=== PATIENT | male | born 1955 | race Caucasian/White ===

== ENCOUNTER 2017-10-02 09:00 | Outpatient (RCR) | payer OTHER, SELFPAY ==
[2017-04-22 08:26] VITALS: BMI 35.9
== END 2017-10-14 23:59 ==
LOC: NS 09:00
PROVIDERS: Family Provider Family Medicine; PCP Family Medicine; Visit Provider Internal Medicine Cardiovascular Disease
DX: E11.9 Type 2 diabetes mellitus without complications (principal); I25.10 Atherosclerotic heart disease of native coronary artery without angina pectoris; E66.9 Obesity, unspecified; Z95.5 Presence of coronary angioplasty implant and graft; Z71.3 Dietary counseling and surveillance
CPT/HCPCS: 97803

== ENCOUNTER 2017-10-30 09:00 | Outpatient (RCR) | payer OTHER, SELFPAY ==
[2017-04-22 08:26] VITALS: BMI 35.9
[2017-10-07 11:56] VITALS: BP 120/74; BMI 33.8
== END 2017-11-11 23:59 ==
LOC: NS 09:00
PROVIDERS: Family Provider Family Medicine; PCP Family Medicine; Visit Provider Internal Medicine Cardiovascular Disease
DX: E11.9 Type 2 diabetes mellitus without complications (principal); I25.10 Atherosclerotic heart disease of native coronary artery without angina pectoris; Z95.5 Presence of coronary angioplasty implant and graft; E66.9 Obesity, unspecified; Z71.3 Dietary counseling and surveillance
CPT/HCPCS: 97803

== ENCOUNTER 2017-11-13 09:45 | Outpatient (RCR) | payer OTHER, SELFPAY ==
[2017-04-22 08:26] VITALS: BMI 35.9
== END 2017-11-13 09:46 ==
LOC: NS 09:45
PROVIDERS: Family Provider Family Medicine; PCP Family Medicine; Visit Provider Internal Medicine Cardiovascular Disease
DX: E11.9 Type 2 diabetes mellitus without complications (principal); I25.10 Atherosclerotic heart disease of native coronary artery without angina pectoris; E66.9 Obesity, unspecified; Z71.3 Dietary counseling and surveillance
CPT/HCPCS: 97803

== ENCOUNTER → 2018-03-25 12:32 | Outpatient (CLI) | payer OTHER, SELFPAY ==
[2017-04-22 08:26] VITALS: BMI 35.9
--- NOTE | 2018-03-25 12:41 | RAD_ITS ---
STUDY: X-RAY CHEST REASON FOR EXAM: Male, 62 years old. Worsening chest pain TECHNIQUE: PA and lateral views of the chest. COMPARISON: 04/10/2017 FINDINGS: The lungs are clear and expanded. There is no demonstrated pleural abnormality. Normal size heart. Normal mediastinum and jade. Normal visualized pulmonary arteries. Normal visualized aortic arch and descending thoracic aorta. Normal visualized thoracic spine. Normal visualized ribs, clavicles, and shoulders. There is no demonstrated abnormality of the visualized soft tissue structures of the upper abdomen. RAD/Chest PA and Lateral IMPRESSION: Normal x-ray examination of the chest. Electronically Signed: Isaiah Nam MD at 8:54 EDT , Service support ,
[2018-03-25 13:27] LABS: Absolute Neutrophil Count 4.1 X10^3/uL (2.0-7.7); Basophil# 0.02 X10^3/uL; Basophil% 0.3 % (0-1); Eosinophil# 0.09 X10^3/uL; Eosinophils% 1.3 % (0-5); Hematocrit 41.6 % (40-54); Hemoglobin 14.4 g/dl (13.0-16.5); Lymphocyte % 29.9 % (19-41); Mean Corp Hgb Conc 34.6 g/gl (32-36); Mean Corpuscular Hgb 32.3 pg (27.0-32.0); Mean Corpuscular Volume 93.3 fL (80-94); Mean Platelet Vol. 9.9 fl (6.2-12.0); Monocyte# 0.45 X10^3/uL; Monocyte% 6.7 % (0-10); Neutrophil # 4.11 X10^3/uL (2.7-7.7); Neutrophil % 61.7 % (47-70); Platelet Count 248 K/mm3 (150-450); RBC Distribution Width CV 12.7 % (11.6-14.6); RBC Distribution Width SD 42.5 fl (35.1-43.9); Red Blood Count 4.46 M/mm3 (4.6-6.2); White Blood Count 6.7 K/mm3 (4.4-11.0)
[2018-03-25 13:28] LABS: POSITIVE COUNT NO; POSITIVE DIFFERENTIAL NO; POSITIVE MORPHOLOGY NO
[2018-03-25 13:34] LABS: International Normalized Ratio 1.1; Partial Thromboplast Time 28.9 Seconds (24.1-36.2); Prothrombin Time (Protime)PT. 13.9 SECONDS (11.7-14.9)
[2018-03-25 13:46] LABS: Anion Gap 4 (5-15); BUN 12 mg/dL (7-18); BUN/Creat Ratio 12.7 RATIO (10-20); Chloride 107 mmol/L (98-107); Creatinine, Serum 0.94 mg/dL (0.70-1.30); EST Glomerular Filtration Rate 86 mL/min (>60); Est Glom Filt Rate - Afr Amer 105 mL/min (>60); Glucose 102 mg/dL (74-106); Sodium Level 144 mmol/L (136-145)
== END ==
PROVIDERS: Family Provider Family Medicine; PCP Family Medicine; Visit Provider Internal Medicine Cardiovascular Disease
DX: I20.9 Angina pectoris, unspecified (principal)
CPT/HCPCS: 36415; 71046; 80048; 85025; 85610; 85730

== ENCOUNTER 2018-04-07 07:30 | Day surgery (SDC) | payer OTHER, SELFPAY ==
[2017-04-22 08:26] VITALS: BMI 35.9
[2018-04-06 12:06] VITALS: BMI 34.4
--- NOTE | 2018-04-07 18:07 | CL.D_ITS ---
Patient Name: Carina GALAVIZ Study Date: 04/07/2018 Performing: Adrian Solis MD Ht: 69 inches 175 cm : 1955 Wt: 234 lbs 106 kg Age: 62 Gender: male BSA: 2.2 PROCEDURE(S) PERFORMED IK77-TVW/COR/LV CLINICAL PROFILE AND INDICATIONS Indications: Worsening Angina Heart Failure: None Stress/Imaging Stress/Image Study Performed: No Angina Classification Anginal Classification w/in 2 Weeks: CCS III CAD Presentations: Other: Chest Discomfort c/w Accelerating Angina Pectoris CONCLUSIONS Elevated Left Ventricular End Diastolic Pressure Normal LV size, wall motion,and systolic function LVEF: by LV gram 60 % Elem Multivessel CAD (RCA: previously placed mid and distal stents patent with minimal luminal irre gularities) RECOMMENDATIONS Risk factor modification Medical therapy DESCRIPTION OF PROCEDURE The patient arrived to the procedure lab. The risks and benefits of the procedure as well as a full d escription of our services here and current unavailability of surgical backup were fully explained to the patient and/or their significant other prior to the catheterization. The Timeout was completed, verifying the correct patient and procedure. The patient's procedural site was prepped and draped in the usual fashion. Local anesthetic was given subcutaneously to right groin region with Lidocaine 2%. Using a modified Seldinger technique, arterial access was obtained via the right femoral artery, a 4 Fr sheath was inserted Left Coronary Artery selective angiography was performed in multiple views us ing a 4 Fr. JL5 catheter. Right Coronary Artery selective angiography was then performed in multiple views using a 4 Fr. 3DRC catheter. Left Ventriculography was performed in EMERY projection using a 4 Fr . Pigtail catheter. LV to AO pullback pressures were then recorded.The arterial sheath was pulled and manual compression applied until hemostasis is achieved. CORONARY ANGIOGRAPHY DOMINANCE: Right Dominant LEFT HEART ASSESSMENT Left Ventricular Ejection Fraction: by LV Gram 60 % Normal LV wall motion Elevated Left Ventricular End Diastolic Pressure LVEDP: 15 mmHg LEFT MAIN: Mild luminal irregularities LEFT ANTERIOR DECENDING ARTERY: PROX LAD: Eccentric: 10-25 % Stenosis MID LAD: Eccentric: 10-25 % Stenosis CIRCUMFLEX ARTERY: Mild luminal irregularities RIGHT CORONARY ARTERY: MID RCA: Previously placed stent is patent with minimal luminal irregularities DISTAL RCA: Previously placed stent is patent with minimal luminal irregularities VALVE FINDINGS: Normal Aortic Valve function Normal Mitral Valve function AORTIC ROOT: Angiographically normal COMPLICATIONS No Complications PROCEDURE MEDICATIONS Versed 1 mg IV Versed 1 mg IV Baby Aspirin (81mg) 1 Tabs PO @ 04/07/2018 08:03:21 SUMMARY OF HEMODYNAMIC DATA Time AIR REST ECG 07:54:25 AO 108/81 (95) SA 09:43:20 LV 131/-5, 25 09:49:25 LV 128/-6, 15 09:49:32 LV 127/-2, 20 09:50:23 LVp 127/-2, 19 09:50:28 AOp 121/69 (92) 09:50:33 AO 130/72 (97) 09:50:48 Signed By Adrian Solis MD On 04/07/2018 18:06:36 Adrian Solis MD
== END 2018-04-07 14:40 ==
LOC: CLSP 07:31
PROVIDERS: Family Provider Family Medicine; PCP Family Medicine; Visit Provider Internal Medicine Cardiovascular Disease
DX: I25.119 Atherosclerotic heart disease of native coronary artery with unspecified angina pectoris (principal); I10 Essential (primary) hypertension; E78.5 Hyperlipidemia, unspecified; E11.9 Type 2 diabetes mellitus without complications; Z95.5 Presence of coronary angioplasty implant and graft; Z79.82 Long term (current) use of aspirin; Z79.01 Long term (current) use of anticoagulants; Z79.899 Other long term (current) drug therapy; Z87.891 Personal history of nicotine dependence
CPT/HCPCS: 93458; 99152; 99153; J7040; C1769; C1894; Q9967

== ENCOUNTER → 2018-04-20 06:33 | Outpatient (CLI) | payer OTHER, SELFPAY ==
[2017-04-22 08:26] VITALS: BMI 35.9
--- NOTE | 2018-04-20 13:52 | STRESSREP ---
Stress Test Report Date: 04/20/2018 Procedure: Exercise tolerance test/imaging study Indications: Chest pain; CAD; status post PCI Consent: Per the patient Procedure: The patient exercised on a Juancarlos protocol for 9 minutes completing Stage III achieving a peak heart rate of 139 bpm (86 % predicted maximal heart rate) with a peak blood pressure 182/78 mmHg and a peak MET capacity of 10 METs. The baseline ECG demonstrated normal sinus rhythm. The peak exercise ECG demonstrated no obvious ECG changes. It was an isolated PVC during exercise. The functional capacity was considered good. There was localized right-sided chest discomfort pretest, during exercise, and recovery. The examination was discontinued secondary to dyspnea. Impression: 1. Technically adequate (percent predicted maximal heart rate greater than 85%) exercise tolerance test 2. Peak exercise ECG with no obvious ECG changes 3. There was an isolated PVC during exercise. 4. Nuclear images pending Myocardial perfusion imaging study: Technique: The patient was injected with 11 mCi of technetium 99m Cardiolite and subsequently rest SPECT Cardiolite nuclear imaging was obtained in the horizontal long, vertical long, and short axis views. The patient exercised on a Juancarlos protocol for 9 minutes completing Stage III achieving a peak heart rate of 139 bpm (86 % predicted maximal heart rate) with a peak blood pressure 182/78 mmHg and a peak MET capacity of 10 METs. The patient was injected with 32.9 mCi of technetium 99m Cardiolite and subsequently stress SPECT Cardiolite nuclear imaging was obtained in the horizontal long, vertical long, and short axis views. A gated Cardiolite study at peak stress was obtained. Interpretation: Rest and stress SPECT Cardiolite nuclear imaging status post realignment, normalization, and attenuation correction, demonstrates the appearance of relative uniform tracer uptake and myocardial perfusion appearing within normal limits. There were no obvious myocardial perfusion changes noted on the resting or stress polar map images. There is end systolic thickening and brightening. The gated Cardiolite study demonstrates myocardial thickening and inward wall motion. The reported LVEF is 65 %. Impression: 1. Rest and stress SPECT Cardiolite nuclear imaging demonstrate relative uniform tracer uptake and myocardial perfusion appearing within normal limits. 2. The gated Cardiolite study reports an LVEF of 65 %. This note was generated with [email or web address] software. It may contain incorrect words, spelling, and punctuation that were not noted in checking the note before signing.
--- NOTE | 2018-04-20 13:56 | STRESSREP_ITS ---
Stress Test Report Date: 04/20/2018 Procedure: Exercise tolerance test/imaging study Indications: Chest pain; CAD; status post PCI Consent: Per the patient Procedure: The patient exercised on a Juancarlos protocol for 9 minutes completing Stage III achieving a peak heart rate of 139 bpm (86 % predicted maximal heart rate) with a peak blood pressure 182/78 mmHg and a peak MET capacity of 10 METs. The baseline ECG demonstrated normal sinus rhythm. The peak exercise ECG demonstrated no obvious ECG changes. It was an isolated PVC during exercise. The functional capacity was considered good. There was localized right-sided chest discomfort pretest, during exercise, and recovery. The examination was discontinued secondary to dyspnea. Impression: 1. Technically adequate (percent predicted maximal heart rate greater than 85% ) exercise tolerance test 2. Peak exercise ECG with no obvious ECG changes 3. There was an isolated PVC during exercise. 4. Nuclear images pending Myocardial perfusion imaging study: Technique: The patient was injected with 11 mCi of technetium 99m Cardiolite and subsequently rest SPECT Cardiolite nuclear imaging was obtained in the horizontal long, vertical long, and short axis views. The patient exercised on a Juancarlos protocol for 9 minutes completing Stage III achieving a peak heart rate of 139 bpm (86 % predicted maximal heart rate) with a peak blood pressure 182/ 78 mmHg and a peak MET capacity of 10 METs. The patient was injected with 32.9 mCi of technetium 99m Cardiolite and subsequently stress SPECT Cardiolite nuclear imaging was obtained in the horizontal long, vertical long, and short axis views. A gated Cardiolite study at peak stress was obtained. Interpretation: Rest and stress SPECT Cardiolite nuclear imaging status post realignment, normalization, and attenuation correction, demonstrates the appearance of relative uniform tracer uptake and myocardial perfusion appearing within normal limits. There were no obvious myocardial perfusion changes noted on the resting or stress polar map images. There is end systolic thickening and brightening. The gated Cardiolite study demonstrates myocardial thickening and inward wall motion. The reported LVEF is 65 %. Impression: 1. Rest and stress SPECT Cardiolite nuclear imaging demonstrate relative uniform tracer uptake and myocardial perfusion appearing within normal limits. 2. The gated Cardiolite study reports an LVEF of 65 %. This note was generated with [email or web address] software. It may contain incorrect words, spelling, and punctuation that were not noted in checking the note before signing.
--- NOTE | 2018-04-20 15:31 | PFTCOMP ---
COMPLETE PULMONARY FUNCTION TEST INTERPRETATION Brief HPI: Patient is a 62 year old male, currently under the care of Dr. Solis, who presents to [facility] for complete pulmonary function tests secondary to diagnosis of chest pain. Respiratory therapist reports good effort and reproducible results. Interpretation: Forced expiration spirometry shows no large airways obstructive ventilatory defect with an FEV1 of 87% predicted. There is no significant bronchodilator response by ATS criteria. Spirograms are of good quality and plateau normally. The respiratory flow volume loop shows a normal pattern. Lung volumes by body plethysmography show a normal total lung capacity at 7.05 L, 110% predicted. All other lung volumes are within normal limits. Diffusion capacity by carbon monoxide is normal at 89% predicted. The airway resistance is normal. No previous pulmonary function tests were available for review. Impression: These pulmonary function tests are within normal limits
== END ==
PROVIDERS: Family Provider Family Medicine; PCP Family Medicine; Visit Provider Internal Medicine Cardiovascular Disease
DX: I25.119 Atherosclerotic heart disease of native coronary artery with unspecified angina pectoris (principal); I10 Essential (primary) hypertension; R06.09 Other forms of dyspnea; R07.9 Chest pain, unspecified; Z95.5 Presence of coronary angioplasty implant and graft
CPT/HCPCS: 78452; 93017; 94060; 94726; 94729; A9500; A4216

== ENCOUNTER 2018-06-21 06:58 | Day surgery (SDC) | payer OTHER, SELFPAY ==
[2017-04-22 08:26] VITALS: BMI 35.9
[2018-06-21 07:25] VITALS: BP 136/80; PULSE 74; RESP 16; TEMP 36.5; O2SAT 100; BMI 35.9
[2018-06-21 08:00] LABS: Bedside Glucose 110 mg/dL (70-110)
--- NOTE | 2018-06-21 08:00 | EGD_PTH ---
PATIENT: REMEDIOS GALAVIZ LOC: EN U#:[id number] AGE/SX: 62/M ROOM: RE06/21/[address]: Dr. Colni Benavidez MD : 1955 BED: DIS: 06/21/2018 SPEC #: [id number] RECD: 06/21/18 10:26 STATUS: MOHINI NITIN #: [id number] BRENDON: 06/21/18 08:[address]: Colin Benavidez DEPT: SURGICAL PATHOLOGY RECD BY: Loida Sanchez ENTERED: 06/21/18 12:11 SP TYPE: EGD BIOPSY OT DR: Dr. Mendoza Gonzales, DO Tissues: A - Duodenum, NOS B - Gastric mucous membrane C - POLYP Procedures: Surgery Specimen Level IV HEADER OPERATION: E[place] ([facility] [place] PRE-OP DIAGNOSIS: Dysphagia, gastroesophageal reflux TISSUE SUBMITTED: A - Duodenal biopsy, B - Antrum biopsy for H. pylori and path, C - Gastric polyp biopsy MICROSCOPIC DIAGNOSIS A. Duodenum, biopsy: Consistent with mild Loretta's gland hyperplasia. B. Gastric antrum, biopsy: Mild chronic gastritis. C. Gastric polyp, biopsy: Fundic gland polyp. AM:maria eugenia 06/22/18 COMMENT B. The results of immunohistochemistry for Helicobacter pylori will be reported separately ([id number]). MICROSCOPIC DESCRIPTION Slides are reviewed. GROSS DESCRIPTION A - Received in fixative is one container labeled with the patient's name and designated duodenal biopsy. The specimen consists of multiple irregular fragments of light zhang soft tissue that in aggregate measure 0.5 x 0.2 x 0.1 cm. The specimen is totally submitted in one cassette. B - Received in fixative is one container labeled with the patient's name and designated antrum biopsy. The specimen consists of one irregular fragment of light zhang soft tissue that measures 0.3 x 0.2 x 0.1 cm. The specimen is totally submitted in one cassette. C - Received in fixative is one container labeled with the patient's name and designated gastric polyp biopsy. The specimen consists of one irregular fragment of light zhang soft tissue that measures 0.4 x 0.3 x 0.1 cm. The specimen is totally submitted in one cassette. / HASEEB:maira eugenia 06/21/18 TC:3 CPT: 54644 x3
--- NOTE | 2018-06-21 08:00 | IMM_PTH ---
PATIENT: REMEDIOS GALAVIZ LOC: EN U#:[id number] AGE/SX: 62/M ROOM: RE06/21/[address]: Dr. Colin Benavidez MD : 1955 BED: DIS: 06/21/2018 SPEC #: [id number] RECD: 06/21/18 15:26 STATUS: MOHINI REMitchell #: [id number] BRENDON: 06/21/18 08:[address]: Colin Benavidez DEPT: IMMUNOHISTOCHEMISTRY RECD BY: Kaela Mojica ENTERED: 06/21/18 15:27 SP TYPE: IMMUNO OTHR DR: Dr. Mendoza Gonzales DO Tissues: B - Stomach, NOS Procedures: H Pylori (initial) PHYSICIAN & INSTITUTION [place] [address] SPECIMEN INFORMATION: Tissue Source: B - Antrum biopsy Clinical Info: Dysphagia, GERD Specimen Number: [id number] CPT code: 69683 METHODOLOGY: Deparaffinized sections of prefer/formalin-fixed tissue or PAP/DQ stained slides are incubated with monoclonal/polyclonal antibodies/oligonucleotide probes. Localization is made via biotin free immunoperoxidase method. Appropriate controls are performed and reacted as expected. Results on target cell population are indicated in the following table: RESULTS: ANTIBODY / CLONE RESULT Block B H Pylori (polyclonal) negative These tests were developed and their performance characteristics determined by [facility]. They may not have been cleared or approved by the U.S. Food and Drug Administration. The FDA has determined that such clearance or approval is not necessary. INTERPRETATION: B. Antrum, biopsy: Negative for Helicobacter pylori organisms. AM:maria eugenia 06/22/18
[2018-06-21 08:18] VITALS: BP 114/65; BP 136/80; PULSE 67; RESP 14; TEMP 36.6; O2SAT 95
--- NOTE | 2018-06-21 08:21 | OP.ENDO_ITS ---
Patient Name: Carina Cervantes Procedure Date: 06/21/2018 7:59 AM Date of : 1955 Age: 62 Procedure: Upper GI endoscopy Indications: Dysphagia, Gastro-esophageal reflux disease Providers: Colin Benavidez MD Referring MD: Mendoza Gonzales DO; Adrian Solis MD Medicines: See the Anesthesia note for documentation of the administered medications Complications: No immediate complications. Procedure: Pre-Anesthesia Assessment: - Prior to the procedure, a History and Physical was performed, and patient medications and allergies were reviewed. The patient's tolerance of previous anesthesia was also reviewed. The risks and benefits of the procedure and the sedation options and risks were discussed with the patient. All questions were answered, and informed consent was obtained. Prior Anticoagulants: The patient has taken Plavix (clopidogrel), last dose was 7 days prior to procedure. ASA Grade Assessment: III - A patient with severe systemic disease. After reviewing the risks and benefits, the patient was deemed in satisfactory condition to undergo the procedure. After obtaining informed consent, the endoscope was passed under direct vision. Throughout the procedure, the patient's blood pressure, pulse, and oxygen saturations were monitored continuously. The gastroscope was introduced through the mouth, and advanced to the second part of duodenum. The upper GI endoscopy was accomplished without difficulty. The patient tolerated the procedure well. Moderate Sedation: Moderate (conscious) sedation was personally administered by an anesthesia professional. The following parameters were monitored: oxygen saturation, heart rate, blood pressure, and response to care. Scope In: 8:08:29 AM Scope Out: 8:13:10 AM Total Procedure Duration Time 0 hours 4 minutes 41 seconds Findings: The nasopharynx was normal. No biopsies or other specimens were collected for this exam. The Z-line was regular and was found 40 cm from the incisors. No biopsies or other specimens were collected for this exam. A few less than 5 mm sessile polyps with no bleeding and no stigmata of recent bleeding were found on the greater curvature of the stomach. The polyp was removed with a jumbo cold forceps. Resection and retrieval were complete. Biopsies were taken with a cold forceps for histology. Localized minimal inflammation characterized by erythema was found in the prepyloric region of the stomach. Biopsies were taken with a cold forceps for Helicobacter pylori testing. The examined duodenum was normal. Biopsies for histology were taken with a cold forceps for evaluation of celiac disease. Impression: - Normal nasopharynx. - Z-line regular, 40 cm from the incisors. No specimens collected. - A few gastric polyps. Resected and retrieved. Biopsied. - Gastritis. Biopsied. - Normal examined duodenum. Biopsied. Recommendation: - Await pathology results. - Repeat upper endoscopy in 3 years for surveillance. - Return to my office in 1 week. - Resume Plavix (clopidogrel) at prior dose tomorrow. Procedure Code(s): --- Professional --- 00012, Esophagogastroduodenoscopy, flexible, transoral; with biopsy, single or multiple Diagnosis Code(s): --- Professional --- K31.7, Polyp of stomach and duodenum K29.70, Gastritis, unspecified, without bleeding R13.10, Dysphagia, unspecified K21.9, Gastro-esophageal reflux disease without esophagitis CPT copyright 2017 [employer]. All rights reserved. The codes documented in this report are preliminary and upon silk soaker review may be revised to meet current compliance requirements. MD Colin Steve MD 06/21/2018 8:20:44 AM This report has been signed electronically. Number of Addenda: 0 Note Initiated On: 06/21/2018 7:59 AM
[2018-06-21 08:30] VITALS: BP 136/80; BP 95/51; PULSE 66; RESP 14; O2SAT 94
[2018-06-21 08:35] VITALS: BP 106/67; BP 136/80; PULSE 73; RESP 14; O2SAT 95
[2018-06-21 08:40] VITALS: BP 115/69; BP 136/80; PULSE 71; RESP 14; TEMP 37.1; O2SAT 95
[2018-06-21 09:00] VITALS: BP 136/80
== END 2018-06-21 09:30 | disposition home or self-care (01) ==
LOC: EN 06:59 → AC 07:01
PROVIDERS: Family Provider Family Medicine; PCP Family Medicine; Referring Provider Surgery; Visit Provider Surgery
PROC: 0DJ08ZZ Inspection of Upper Intestinal Tract, Via Natural or Artificial Opening Endoscopic (ICD-10-PCS; CPT 43235; principal; 2018-06-21 07:55)
DX: K31.7 Polyp of stomach and duodenum (principal); K29.50 Unspecified chronic gastritis without bleeding; K21.9 Gastro-esophageal reflux disease without esophagitis; R13.10 Dysphagia, unspecified; I25.10 Atherosclerotic heart disease of native coronary artery without angina pectoris; I10 Essential (primary) hypertension; E78.00 Pure hypercholesterolemia, unspecified; E11.9 Type 2 diabetes mellitus without complications; G43.909 Migraine, unspecified, not intractable, without status migrainosus; Z95.5 Presence of coronary angioplasty implant and graft; Z79.01 Long term (current) use of anticoagulants; Z79.82 Long term (current) use of aspirin; Z79.899 Other long term (current) drug therapy; Z87.891 Personal history of nicotine dependence
CPT/HCPCS: 43239; 82962; 88305; 88342; J7120

== ENCOUNTER → 2018-09-28 12:18 | Outpatient (CLI) | payer OTHER, SELFPAY ==
[2017-04-22 08:26] VITALS: BMI 35.9
--- NOTE | 2018-09-28 12:24 | MRI_ITS ---
STUDY: MRI RIGHT REARFOOT WITHOUT CONTRAST REASON FOR EXAM: Heel pain radiating to paul. TECHNIQUE: Standardized fat and water weighted pulse sequences were obtained in all 3 orthogonal planes. COMPARISON: None. FINDINGS: Normal subcutis adipose space. Normal posterior tibialis tendon. Normal flexor digitorum longus tendon. There is a small volume of fluid in the flexor hallucis longus tendon sheath distal to the sustentaculum yuan, likely from communication with the tibiotalar articulation. Normal peroneus longus and brevis tendons. Normal tibialis anterior tendon. Normal extensor hallucis longus tendon. Normal extensor digitorum longus tendons. Normal Achilles tendon and teno-osseous insertion. There is interstitial edema in the central cord of the plantar fascia at the calcaneal origin (inversion recovery sagittal images 9-11) consistent with plantar fasciitis. There is a plantar calcaneal enthesophyte (T1 sagittal images 11-13) and mild reactive bone edema in the posterior tuberosity of the calcaneus at the origin the plantar fascia (inversion recovery sagittal images 10-12). There is mild atrophy with mild partial fat replacement of the abductor digiti minimi muscle (T1 sagittal image 18). Normal distal tibiofibular syndesmotic ligamentous complex. Normal lateral ligamentous complex. Normal subtalar ligaments and sinus tarsi. Normal deltoid ligamentous complexes. Normal plantar calcaneonavicular (spring) ligament. Normal tibiotalar articulation. Normal talar dome. Normal subtalar articulations. Normal talonavicular articulation. Normal calcaneocuboid articulation. Normal navicular-cuneiform articulations. MRI/Lower Ext/No Jt/w/o IMPRESSION: Plantar fasciitis with mild reactive bone edema in the posterior tuberosity of the calcaneus and a plantar calcaneal enthesophyte. Mild atrophy of the abductor digiti minimi muscle. Electronically Signed: John Alejandre MD at 15:28 EST Tel , Service support ,
== END ==
PROVIDERS: Family Provider Family Medicine; PCP Family Medicine; Referring Provider Podiatrist; Visit Provider Podiatrist
DX: M72.2 Plantar fascial fibromatosis (principal); M77.31 Calcaneal spur, right foot
CPT/HCPCS: 73718

== ENCOUNTER → 2018-11-18 09:21 | Outpatient (CLI) | payer OTHER, SELFPAY ==
[2017-04-22 08:26] VITALS: BMI 35.9
[2018-07-09 10:36] VITALS: BMI 37.4
[2018-11-18 09:23] LABS: Bacteria 0 SEEN /hpf (None Seen); Squamous Epithelial Cells - UA 0 SEEN /hpf (0-5); White Blood Cells 0 SEEN /hpf (0-5)
[2018-11-18 12:24] LABS: Absolute Neutrophil Count 3.2 X10^3/uL (2.0-7.7); Basophil# 0.03 X10^3/uL; Basophil% 0.6 % (0-1); Eosinophil# 0.12 X10^3/uL; Eosinophils% 2.2 % (0-5); Hematocrit 40.9 % (40-54); Hemoglobin 13.6 g/dl (13.0-16.5); Lymphocyte % 31.4 % (19-41); Mean Corp Hgb Conc 33.3 g/gl (32-36); Mean Corpuscular Hgb 32.1 pg (27.0-32.0); Mean Corpuscular Volume 96.5 fL (80-94); Mean Platelet Vol. 10.3 fl (6.2-12.0); Monocyte# 0.33 X10^3/uL; Monocyte% 6.1 % (0-10); Neutrophil # 3.23 X10^3/uL (2.7-7.7); Neutrophil % 59.5 % (47-70); Platelet Count 246 K/mm3 (150-450); RBC Distribution Width CV 12.5 % (11.6-14.6); RBC Distribution Width SD 42.4 fl (35.1-43.9); Red Blood Count 4.24 M/mm3 (4.6-6.2); White Blood Count 5.4 K/mm3 (4.4-11.0)
[2018-11-18 12:32] LABS: POSITIVE COUNT NO; POSITIVE DIFFERENTIAL NO; POSITIVE MORPHOLOGY NO
[2018-11-18 12:42] LABS: ALB/GLOB Ratio 1.4 RATIO (0.9-2.4); AST(SGOT) 22 U/L (15-37); Alanine Aminotransfer ALT/SGPT 36 U/L (16-61); Albumin, Serum 3.8 g/dL (3.2-5.0); Alkaline Phosphatase 105 U/L (45-117); Anion Gap 9 (5-15); BUN 13 mg/dL (7-18); BUN/Creat Ratio 15.3 RATIO (10-20); Calcium,Total 8.4 mg/dL (8.5-10.1); Chloride 110 mmol/L (98-107); Creatinine, Serum 0.85 mg/dL (0.70-1.30); EST Glomerular Filtration Rate 98 mL/min (>60); Est Glom Filt Rate - Afr Amer 118 mL/min (>60); Globulin 2.7 g/dL (2.2-4.2); Glucose 100 mg/dL (74-106); Potassium 4.2 mmol/L (3.5-5.1); Protein, Total 6.5 g/dL (6.4-8.2); Sodium Level 142 mmol/L (136-145); Thyroid Stim Hormone (TSH) 1.25 uIU/mL (0.358-3.74)
[2018-11-18 14:21] LABS: Color, Urine Yellow (Yellow); Glucose, Dipstick Normal (Normal); Ketone-Dipstick Negative (Negative); Leukocyte Esterase-Dipstick Negative /ul (Negative); Nitrite-Dipstick Negative (Negative); Occult Blood-Urine Negative /ul (Negative); Protein-Dipstick Negative (Negative); Urine Bilirubin Dipstick Negative (Negative); Urine Clarity Clear (Clear); Urine Urobilinogen Normal (Normal)
[2018-11-18 14:44] LABS: Mucous, Urine RARE /hpf (<or=2+); Red Blood Cells-Urine 0-5 SEEN /hpf (0-5)
== END ==
PROVIDERS: Family Provider Family Medicine; PCP Family Medicine; Referring Provider Family Medicine; Visit Provider Family Medicine
DX: I10 Essential (primary) hypertension (principal)
CPT/HCPCS: 36415; 80053; 81001; 84443; 85025

== ENCOUNTER 2018-11-26 09:46 | Day surgery (SDC) | payer OTHER, SELFPAY ==
[2017-04-22 08:26] VITALS: BMI 35.9
[2018-07-09 10:36] VITALS: BMI 37.4
[2018-11-26] VITALS (8 sets, daily range): BP systolic 120–142; BP diastolic 80–94; PULSE 58–71; RESP 16–18; TEMP 36.3–36.9; O2SAT 94–97; BMI 37.8
[2018-11-26 10:36] LABS: Bedside Glucose 114 mg/dL (70-110)
[2018-11-26] MEDS: Cefazolin 2 GM in 0.9% Normal Saline 100 ML IV (10:53)
[2018-11-26] MEDS: Bupivacaine Mpf 0.5% 30 ML VIAL (10:59)
--- NOTE | 2018-11-26 11:30 | RAD_ITS ---
STUDY: X-RAY - RIGHT FOOT CLINICAL: Male, 62 years old. Heel pain TECHNIQUE: 2 intraoperative view(s) of the foot. COMPARISON: Previous MRI FINDINGS: Limited lateral intraoperative views were performed as the patient has undergone fasciotomy of the plantar calcaneal spur. No complications noted. RAD/Foot 2 Views IMPRESSION: Calcaneal spurs Electronically Signed: Isaiah Nam MD at 12:39 EDT , Service support ,
--- NOTE | 2018-11-26 11:37 | RAD_ITS ---
STUDY: X-RAY - RIGHT CALCANEUS REASON FOR EXAM: Male, 62 years old. Postop from fasciotomy TECHNIQUE: 2 view(s) of the calcaneus were obtained. COMPARISON: None. FINDINGS: No demonstrated calcaneal fracture. There is a spur at the insertion of Achilles tendon. There has been previous reduction in the size of a spur at the insertion of the plantar aponeurosis. There is postoperative soft tissue swelling and subcutaneous emphysema. RAD/Calcaneus min 2 Views IMPRESSION: Postoperative changes, no acute findings Electronically Signed: Isaiah Nam MD at 13:03 EDT , Service support ,
--- NOTE | 2018-11-26 11:42 | DCINST_ITS ---
Discharge Diet: Light diet - advance as tolerated Discharge Activity: May Not Drive, Use Walker Weight Bearing Status: No weight bearing - No weightbearing right foot Keep extremity elevated above heart level: Right Leg - Keep foot elevated using pillows for at least 50 minutes of every hour Call your doctor if your incision/area has: Continuous Slow Oozing, Foul Smelling Discharge Call your doctor if you observe: Fever of 101 or Higher, Shortness of breath, Chest pain, Calf discomfort, Uncontrolled pain Cleanse incision/area with: Do not get Incision Wet, Keep Dressing Clean & Dry Allergies/Adverse Reactions: Allergies aspirin Adverse Reaction (Verified 11/19/18 11:29) Nausea/Vom/Diarrhea fluoxetine Adverse Reaction (Verified 11/19/18 11:29) Unknown rofecoxib [From Vioxx] Adverse Reaction (Verified 11/19/18 11:29) Nausea Medications to take at Discharge Carvedilol [Coreg] 25 mg PO BID 04/20/17 Lisinopril [Zestril] 20 mg PO DAILY 04/20/17 Rizatriptan Benzoate [Maxalt] 10 mg PO .X1 PRN 04/20/17 Torsemide [Demadex] 10 mg PO DAILY 04/20/17 Valacyclovir HCl [Valtrex] 1,000 mg PO BID PRN 04/20/17 Atorvastatin Calcium [Lipitor] 80 mg PO QHS #30 tab 04/22/17 Nitroglycerin [Nitrostat] 0.4 mg SUBLINGUAL Q5M PRN #1 bottle 04/22/17 tramadol 50 mg tablet 50 mg PO Q6H PRN 03/25/18 clopidogrel 75 mg tablet 75 mg PO DAILY #90 tab 05/20/18 Cefadroxil [Duricef] 500 mg PO Q12H #10 cap 11/26/18 Hydrocodone/Acetaminophen [Vicodin 5-300 mg Tablet] 1 - 2 tab PO Q6H PRN PRN 4 Days #30 tab 11/26/18 The following prescriptions were given: Hydrocodone/Acetaminophen [Vicodin 5-300 mg Tablet] 1 - 2 tab PO Q6H PRN PRN 4 Days #30 tab PRN Reason: Pain Cefadroxil [Duricef] 500 mg PO Q12H #10 cap Primary Care Physician: Jeff Wills MD [Primary Care Provider] - Test Results: Test results from this visit will be discussed in further detail at your follow- up appointment, if applicable. Please Follow Up With: Chad Nash DPM When: within 1 week, sooner if needed
--- NOTE | 2018-11-26 11:45 | OP.PCM_ITS ---
Report of Operation Date of Procedure: 11/26/18 Pre-Operative Diagnosis: Plantar fasciitis with infracalcaneal right spur Post-Operative Diagnosis: Same Surgery/Procedure Performed:: Plantar Fasciotomy with resection of infracalcaneal spur, right morning caregiver: yes - Dr. 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 He has elected to undergo surgical intervention - plantar fasciotomy with resection of infracalcaneal heel spur. This was discussed with him in detail, reviewed the possible benefits vs risks, goals, expectations, alternative options, and typica l healing/post op recovery. The consent forms were reviewed with him, and he freely signed them. All of his questions were answered. No guarantees were given nor implied. Operative Procedure: The patient was brought back into the operating room and was placed on the operating room table in the supine position. Patient was carefully secured to the operating room table with a safety belt around the waist. A time out was performed and the patient was properly identified and the surgical plan was confirmed. The patient received 2g of IV Cefazolin for antibiotic prophylaxis. A well padded pneumatic tourniquet was applied around the patient's right ankle. The patient received anesthesia per the anesthesiologist, and a total of 10mL of 0.5% Bupivacaine plain was given as a regional nerve block around the heel surgical site. The right foot was scrubbed, prepped, draped in the usual aseptic fashion. The right foot was elevated for 3 minutes and the right ankle pneumatic tourniquet was inflated to 250mmHg. An additional 6mL of 0.5% Bupivacaine plain was given as a regional nerve block around the heel surgical site. The infracalcaneal spur was visualized on intra operative fluoroscopy, image was saved. A skin incision was made to the medial hindfoot at the level of the plantar fascia and infracalcaneal spur, careful dissection was completed down through the subcutaneous tissue layer. A plane was created superiorly and inferiorly around the plantar fascia and the medial 50% of the plantar fascia was released via a plantar fasciotomy. It was noted there was significant thickening of the plantar fascia with fibrosis at this level consistent with chronic plantar fasciitis. The infracalcaneal spur was felt, and was carefully resected using a powered rasp. Resection of the infracalcaneal spur was confirmed using intraoperative fluoroscopy. Images pre and post infracalcaneal spur resection were saved. The site was flushed out with copious amounts of normal saline solution. The skin was reapproximated using 3-0 Nylon. The pneumatic tourniquet was deflated (total tourniquet time was 21 minutes), and there was immediate return of warmth and perfusion to the foot and to all toes o n the foot with normal temperature gradient and CFT < 2 seconds to all toes. Hemostasis was achieved. A dressing was applied which consisted of Betadine soaked adaptic, 4x4 gauze, Kerlix and hari bandage, being sure to apply it not to tight. The patient tolerated the above operative procedure well at the anesthesia well with no complication. The patient was transported to the recovery room with vital signs stable and in good condition. Post operative orders were placed. Post operative instructions were reviewed and dispensed verbal and written. No weightbearing right foot, keep right foot elevated for at least 50 minutes of every hour, keep dressing clean, dry and intact. Prescription for Vicodin 1-2 tabs PO q 6 hours prn pain was prescribed, also Cefadroxil 500mg PO q 12 hours for 5 days to help prevent infection as patient is diabetic. He is to follow up with me within 1 week or sooner if needed. Also post op calcaneus xrays (right) were obtained and reviewed in the PACU, 2 views. Findings show resection of infracalcaneal spur, otherwise no other acute findings and no complications seen. Grafts/Implants Used: None - Complications None
[2018-11-26] MEDS: HYDROcodone Bitartrate/Apap 5/325 Tablet PO (12:47)
== END 2018-11-26 13:50 | disposition home or self-care (01) ==
LOC: SDC 09:50 → AC 09:51
PROVIDERS: Family Provider Family Medicine; PCP Family Medicine; Referring Provider Podiatrist; Visit Provider Podiatrist
PROC: (CPT 28119; principal; 2018-11-26 11:15)
DX: M72.2 Plantar fascial fibromatosis (principal); M77.31 Calcaneal spur, right foot; I25.10 Atherosclerotic heart disease of native coronary artery without angina pectoris; I10 Essential (primary) hypertension; E78.5 Hyperlipidemia, unspecified; G43.909 Migraine, unspecified, not intractable, without status migrainosus; R73.02 Impaired glucose tolerance (oral); Z95.5 Presence of coronary angioplasty implant and graft; Z79.01 Long term (current) use of anticoagulants; Z79.899 Other long term (current) drug therapy
CPT/HCPCS: 01480; 28119; 73620; 73650; 76000; 82962; J7120

== ENCOUNTER 2019-02-04 08:30 | Outpatient (RCR) | payer OTHER, SELFPAY ==
[2017-04-22 08:26] VITALS: BMI 35.9
[2018-11-26 10:20] VITALS: BMI 37.8
--- NOTE | 2019-01-04 13:54 | HP.PTEVAL ---
Patient's Visit Information REMEDIOS GALAVIZ is a 63 year old M referred to Physical Therapy by Chad Nash DPM with a diagnosis of Plantarfasciotomy and Spur Resection. Date of Evaluation: 01/04/19 Physical Therapist: Cheryl Acosta DPT - Visit Plan Frequency: 2x /Week Duration: 4 Weeks Plan: Goals: wean from crutches. Transition to shoe 01/14/19. LE ROM, strength, proprioception - Subjective Findings: 11/26/18 Plantar Fasciotomy and resection of calcaneal spur- by Dr. Nash. Jumped off a tailgate a year ago- had cortisone prior to surgery. Patient reports the bottom of the foot and around the heel are burning. Today is the first time he has had surgical site pain due to walking. Worst: 5/10 Agg: being up on it, standing on it. Eases: getting off of it. Best: 0/10 does have mild radiating to the knee 3/10 in that area. Does have discomfort when he gets up in the AM- sits on the edge of the bed and stretching it- takes the boot off at night. In the boot anytime he is up and moving. Sleep: not disturbed. Pain that he was having before is gone. Fully I prior to injury. Work: [employer]- up/down a lot during the day. 60% in the office and 40% in the community. Is not driving currently. Usually wears tactile boots. Is not currently doing exercises at this time. No N/T in the LE. PMHx: HTN, borderline Type 2, 2 heart Stents Apr 21, 2017 Dr. Solis. - Objective Posture: FH, RS, can correct but does not maintain. Gait: antalgic- CAM walker on the right LE- crutch on the right side- decreased stance on the right LE. SLS: WS but unable to SLS with the boot and reports discomfort in the ball of the heel. Seated HR/TR: able. ROM: DF: 5 degrees, PF: 60 degrees, Ever: 10 degrees Inv: 50 degrees. Strength: 4+/5 throughout ankle. Girth: Figure 4: 57 cm. Palpation: not tender to touch - Goals Goal 1:: Patient will be I with HEP and progression Goal Time Frame: 4-6 Weeks Goal 2:: Patient will SLS for 30 sec without LOB Goal Time Frame: 4-6 Weeks Goal 3:: Patient will ambulate >300 feet with a normalized gait pattern with no AD or boot as per MD recommendation Goal Time Frame: 4-6 Weeks - Rehabilitation Potential Physical Therapy Diagnosis: Patient presents with hypomobility- he has decreased ROM, strength and muscular endurnance leading to poor balance and abnormal gait pattern with decreased ability to perform ADL's. Rehabilitation Potential: Good - Anticipated Interventions Patient/Client Instruction: Educate patient on: Benefits of Fitness Program Therapeutic Exercise to Include: Strength training, Endurance training, Balance training, Agility training, Body mechanics, Postural training, Flexibilty training, Gait and locomotor training, Passive ROM, Active ROM, Dynamic Lumbar Stabilization For the Purpose of:: To improve muscle performance and motor function TENS: Yes Cryotherapy (ice pack, ice massage): Yes Thermo therapy (hot pack): Yes Ultrasound (thermal/non thermal): Yes Thank you for the opportunity to evaluate your patient. For Medicare and Medicare HMO plans, please review the plan of care and approve it. It will need to be FAXED BACK to us at [phone] for Medicare purposes. For Medicare only, by signing this I certify the plan of care. Please let me know if there are questions or concerns regarding this plan of care. Physician Signature: Date:
--- NOTE | 2019-02-04 09:01 | HP.PTDCSUM ---
HP - PT D/C Summary It has been my pleasure to treat REMEDIOS GALAVIZ under orders from Chad Nash DPM, for the diagnosis of Plantarfasciotomy and Spur Resection for a total of 9 visit(s). Discharge Date: Please see the following information for a summary of their discharge status. - Subjective Subjective: Patient reports that the pain is located along the lateral aspect of the ankle- comes and goes- has not worn the boot in about 3 days. - Overall Improvement % Improvement: 80 - Objective Objective/Function: Posture: FH, RS, can correct but does not maintain. Gait: slightly antalgic- no boot or AD- decreased stance on the right LE. SLS: 30 seconds without LOB Standing HR/TR: able. ROM: DF: 10 degrees, PF: 60 degrees, Ever: 10 degrees Inv: 50 degrees. Strength: 5/5 throughout ankle. Palpation: not tender to touch - Goals Goal 1:: Patient will be I with HEP and progression Goal Progress: Goal Met Goal 2:: Patient will SLS for 30 sec without LOB Goal Progress: Goal Met Goal 3:: Patient will ambulate >300 feet with a normalized gait pattern with no AD or boot as per MD recommendation Goal Progress: Progressing - Plan Plan: Discharge to I HEP - D/C Information If there are questions or concerns regarding this patient's physical therapy, please feel free to call me at [phone]. Thank you for the referral of this patient. Sincerely, MONAE LawsonT
== END 2019-02-04 19:00 | disposition home or self-care (01) ==
LOC: PT 08:30
PROVIDERS: Family Provider Family Medicine; PCP Family Medicine; Referring Provider Podiatrist; Visit Provider Podiatrist
DX: Z98.890 Other specified postprocedural states (principal)
CPT/HCPCS: 97035; 97110; 97161; 97164

== ENCOUNTER 2019-06-27 08:26 | Day surgery (SDC) | payer OTHER, SELFPAY ==
[2017-04-22 08:26] VITALS: BMI 35.9
--- NOTE | 2019-06-13 01:38 | HP_ITS ---
Intake Vital Signs 06/13/19 Body Mass Index (BMI) 38.0 06/13/19 Height 5 ft 8 in 06/13/19 Weight: 242 lb 6 oz 06/13/19 Body Mass Index (BMI) 36.8 06/13/19 Blood Pressure 138/88 H 06/13/19 Blood Pressure Location Rt brachial 06/13/19 Blood Pressure Position Sitting 06/13/19 Respiratory Rate 20 H 06/13/19 Pulse Rate 73 06/13/19 Pulse Ox 97 Intake Visit Reasons: C-Scope Consultation Chief Complaint: history of colon polyps Systems Manager Required: No Is patient in pain?: No Allergies aspirin Adverse Reaction (Verified 06/13/19 13:30) Nausea/Vom/Diarrhea fluoxetine Adverse Reaction (Verified 06/13/19 13:30) Unknown rofecoxib [From Vioxx] Adverse Reaction (Verified 06/13/19 13:30) Nausea Medications Carvedilol [Coreg] 25 mg PO BID 04/20/17 [History Confirmed 06/13/19] Lisinopril [Zestril] 20 mg PO DAILY 04/20/17 [History Confirmed 06/13/19] Rizatriptan Benzoate [Maxalt] 10 mg PO .X1 PRN 04/20/17 [History Confirmed 06/13/19] Torsemide [Demadex] 10 mg PO DAILY 04/20/17 [History Confirmed 06/13/19] Valacyclovir HCl [Valtrex] 1,000 mg PO BID PRN 04/20/17 [History Confirmed 06/13/19] Atorvastatin Calcium [Lipitor] 80 mg PO QHS #30 tab 04/22/17 [Rx Confirmed 06/13/19] Nitroglycerin (INPATIENT USE) [Nitrostat] 0.4 mg SUBLINGUAL Q5M PRN #1 bottle 04/22/17 [Rx Confirmed 06/13/19] tramadol 50 mg tablet 50 mg PO Q6H PRN 03/25/18 [History Confirmed 06/13/19] clopidogrel 75 mg tablet 75 mg PO DAILY #90 tab 05/20/18 [Rx Confirmed 06/13/19] PFSH Medical History Essential hypertension (Chronic) Atherosclerotic heart disease of [place] coronary artery without angina pectoris (Chronic) Chest pain (Acute) Dyspnea on exertion (Acute) Abnormal nuclear stress test (Acute) Angina pectoris (Acute) HLD (hyperlipidemia) (Chronic) GERD (gastroesophageal reflux disease) (Acute) Type 2 diabetes mellitus (Acute) CAD (coronary artery disease) (Inactive) HTN (hypertension) (Inactive) Surgical History Presence of stent in coronary artery (Chronic ~04/21/17) History of colonoscopy (Acute ~2017) History of esophagogastroduodenoscopy (EGD) (Acute ~2018) History of cholecystectomy (Resolved) History of elbow surgery (Resolved) History of hernia repair (Resolved) History of hydrocelectomy (Resolved) History of rotator cuff surgery (Resolved) History of vasectomy (Resolved) Family History Father CAD (coronary artery disease) Hypertension Sister CAD (coronary artery disease) Hypertension Brother CAD (coronary artery disease) Hypertension Social History (Updated 06/13/19 @ 13:42 by Colin Benavidez MD) Smoking Status: Never smoker alcohol intake: current details: occasional substance use type: does not use HPI HPI HPI: REMEDIOS GALAVIZ, is a 63 M who presents to the office today for HPI HPI Surgical H&P: Yes HPI: REMEDIOS GALAVIZ, is a 63 M who presents to the office today for Evaluation for colonoscopy. Patient had his colonoscopy done in 2016 he was noted to have a tubular adenoma removed from his sigmoid colon as well as a hyperplastic polyp. He has been moving his bowels normally there have been no problems with abdominal pain. I also discussed the fact that we did an upper endoscopy on him back in June 2018 and the biopsies showed some minimal chronic gastritisAnd was H. pylori negative. He states that his dysphasia-like symptoms are easily controlled with Pepcid AC. Exam Const General: no acute distress, well developed, well hydrated Orientation: oriented to person, oriented to place, oriented to time [facility] Head: normocephalic, atraumatic Ears: external ears normal Mouth: moist mucous membranes Eyes Sclera: sclerae normal Pupils: normal by confrontation Neck Neck: no lymphadenopathy noted Neck mass: No Thyroid: thyroid normal, symmetrical Chest Chest palpation & inspection: normal inspection of the chest Resp Effort & Inspection: normal respiratory effort Auscultation: clear to auscultation bilaterally Percussion: percussion normal Cardio Rate: regular rate Rhythm: regular rhythm GI Palpation: soft, no hepatosplenomegaly, no masses, nontender Rectal Exam: other Other: Rectal exam deferred. Extrem General: normal to inspection, no clubbing, cyanosis or edema Assessment & Plan Problems 1. Personal history of colonic polyps Z86.010 Plan I have discussed the above with the patient. I have offered the patient colonoscopy for evaluation. I have explained the risks/benefits of the procedure and described the procedure. I have discussed the risks with the patient, including but not limited to: infection, bleeding, perforation of the GI tract requiring emergency surgery, inability to complete the procedure, injury to any internal organs, complications of anesthesia, etc. - the patient understands and agrees to proceed. I have answered all the patient's questions to the patient's satisfaction and the patient has no further questions. The patient has been given instructions for the colon cleansing preparation. He will be off his Plavix between 5 and 7 days prior to the procedure. Coding Level of Care Code Off vis,est,level 3 Diagnoses Personal history of colonic polyps Z86.010 06/13/19 1342 <Electronically signed by Colin priest MD> Date _ Colin Benavidez MD I have re-examined the patient. There are no clinical changes since date of exam.
[2019-06-13 13:32] VITALS: BMI 38.0
[2019-06-27] VITALS (8 sets, daily range): BP systolic 88–124; BP diastolic 67–81; PULSE 62–77; RESP 16; TEMP 36.3–37.1; O2SAT 92–97; BMI 36.1
[2019-06-27] MEDS: Lactated Ringers 1,000 ML 100 ML IV (09:16)
--- NOTE | 2019-06-27 10:02 | OP.ENDO_ITS ---
06/27/2019 Jeff Wills [address] [place] [address] Re : Colonoscopy procedure for Sarwat Cervantes Dear Dr. Wills This procedure was performed on Thursday, June 27, 2019. My impressions and recommendations are as follows: Impressions : - The entire examined colon is normal on direct and retroflexion views. - No specimens collected. Recommendations : - Discharge patient to home. - Resume previous diet. - Continue present medications. - Repeat colonoscopy in 10 years for screening purposes. - Return to primary care physician (date not yet determined). My findings are described in the full procedure note, which is enclosed. If I can be of further assistance, please feel free to contact me at Doctor phone number(s): , Fax: [phone], Work: . Sincerely, MD Colin Steve MD 06/27/2019 10:01:46 AM This report has been signed electronically.
== END 2019-06-27 10:52 | disposition home or self-care (01) ==
LOC: EN 08:27 → AC 08:29
PROVIDERS: Family Provider Family Medicine; PCP Family Medicine; Referring Provider Family Medicine; Visit Provider Surgery
PROC: 0DJD8ZZ Inspection of Lower Intestinal Tract, Via Natural or Artificial Opening Endoscopic (ICD-10-PCS; CPT 45378; principal; 2019-06-27 09:25)
DX: Z86.010 Personal history of colon polyps (principal); K64.8 Other hemorrhoids; I25.119 Atherosclerotic heart disease of native coronary artery with unspecified angina pectoris; I10 Essential (primary) hypertension; E78.5 Hyperlipidemia, unspecified; K21.9 Gastro-esophageal reflux disease without esophagitis; E11.9 Type 2 diabetes mellitus without complications; Z79.02 Long term (current) use of antithrombotics/antiplatelets; Z79.899 Other long term (current) drug therapy; Z95.5 Presence of coronary angioplasty implant and graft; G43.909 Migraine, unspecified, not intractable, without status migrainosus
CPT/HCPCS: 45378; J7120

== ENCOUNTER → 2019-09-20 10:07 | Outpatient (CLI) | payer OTHER, SELFPAY ==
[2017-04-22 08:26] VITALS: BMI 35.9
[2019-07-18 14:30] VITALS: BMI 36.5
[2019-09-20 12:26] LABS: Absolute Lymphocyte Count 1.53 X10^3/uL (0.83-4.51); Basophil# 0.04 X10^3/uL; Basophil% 0.8 % (0-1); Eosinophil# 0.17 X10^3/uL; Eosinophils% 3.4 % (0-5); Hematocrit 41.8 % (40-54); Hemoglobin 13.9 g/dL (13.0-16.5); Lymphocyte # 1.53 X10^3/ul (4.0); Lymphocyte % 30.2 % (19-41); Mean Corp Hgb Conc 33.3 g/dL (32-36); Mean Corpuscular Hgb 31.4 pg (27.0-32.0); Mean Corpuscular Volume 94.6 fL (80-94); Mean Platelet Vol. 10.1 fl (6.2-12.0); Monocyte# 0.36 X10^3/uL; Monocyte% 7.1 % (0-10); NRBC Flagged by Analyzer 0 % (0-5); Neutrophil # 2.96 X10^3/uL (2.7-7.7); Neutrophil % 58.3 % (47-70); Platelet Count 233 K/mm3 (150-450); RBC Distribution Width SD 41.8 fl (35.1-43.9); Red Blood Count 4.42 M/mm3 (4.6-6.2); White Blood Count 5.1 K/mm3 (4.4-11.0)
[2019-09-20 12:51] LABS: Hemoglobin A1c 5.7 % (4.2-6.3)
[2019-09-20 13:04] LABS: ALB/GLOB Ratio 1.3 RATIO (0.9-2.4); AST(SGOT) 18 U/L (15-37); Alanine Aminotransfer ALT/SGPT 31 U/L (16-61); Albumin, Serum 3.8 g/dL (3.2-5.0); Alkaline Phosphatase 93 U/L (45-117); Anion Gap 4 (5-15); BUN 11 mg/dL (7-18); BUN/Creat Ratio 10.8 RATIO (10-20); Calcium,Total 8.8 mg/dL (8.5-10.1); Chloride 111 mmol/L (98-107); Cholesterol 248 mg/dL (200); Creatinine, Serum 1.02 mg/dL (0.70-1.30); EST Glomerular Filtration Rate 79 mL/min (>60); Est Glom Filt Rate - Afr Amer 95 mL/min (>60); Glucose 113 mg/dL (74-106); High Density Lipoprotein 49 mg/dL; Magnesium 2.3 mg/dL (1.6-2.6); Potassium 3.9 mmol/L (3.5-5.1); Protein, Total 6.8 g/dL (6.4-8.2); Sodium Level 141 mmol/L (136-145); Triglycerides 128 mg/dL; Very Low Density Lipoprotein 26 mg/dL (5-40)
== END ==
PROVIDERS: Family Provider Family Medicine; PCP Family Medicine; Referring Provider Family Medicine; Visit Provider Family Medicine
DX: I10 Essential (primary) hypertension (principal); E78.5 Hyperlipidemia, unspecified; R73.02 Impaired glucose tolerance (oral)
CPT/HCPCS: 36415; 80053; 80061; 83036; 83735; 85025

== ENCOUNTER → 2019-12-20 09:14 | Outpatient (CLI) | payer OTHER, SELFPAY ==
[2017-04-22 08:26] VITALS: BMI 35.9
[2019-07-18 14:30] VITALS: BMI 36.5
[2019-12-20 09:57] LABS: Absolute Lymphocyte Count 1.53 X10^3/uL (0.83-4.51); Absolute Neutrophil Count 2.6 X10^3/uL (2.0-7.7); Basophil# 0.03 X10^3/uL; Basophil% 0.6 % (0-1); Eosinophil# 0.14 X10^3/uL; Hematocrit 37.2 % (40-54); Hemoglobin 12.5 g/dL (13.0-16.5); Lymphocyte # 1.53 X10^3/ul (4.0); Mean Corp Hgb Conc 33.6 g/dL (32-36); Mean Corpuscular Hgb 31.6 pg (27.0-32.0); Mean Corpuscular Volume 93.9 fL (80-94); Mean Platelet Vol. 10.4 fl (6.2-12.0); Monocyte# 0.31 X10^3/uL; Monocyte% 6.7 % (0-10); NRBC Flagged by Analyzer 0 % (0-5); Neutrophil # 2.62 X10^3/uL (2.7-7.7); Neutrophil % 56.5 % (47-70); Platelet Count 234 K/mm3 (150-450); RBC Distribution Width CV 12.3 % (11.6-14.6); RBC Distribution Width SD 42.6 fl (35.1-43.9); Red Blood Count 3.96 M/mm3 (4.6-6.2); White Blood Count 4.6 K/mm3 (4.4-11.0)
[2019-12-20 10:22] LABS: ALB/GLOB Ratio 1.2 RATIO (0.9-2.4); AST(SGOT) 16 U/L (15-37); Alanine Aminotransfer ALT/SGPT 23 U/L (16-61); Albumin, Serum 3.6 g/dL (3.2-5.0); Alkaline Phosphatase 93 U/L (45-117); Anion Gap 1 (5-15); BUN 10 mg/dL (7-18); BUN/Creat Ratio 10.8 RATIO (10-20); Calcium,Total 8.8 mg/dL (8.5-10.1); Chloride 116 mmol/L (98-107); Cholesterol 116 mg/dL (200); Creatinine, Serum 0.93 mg/dL (0.70-1.30); EST Glomerular Filtration Rate 88 mL/min (>60); Est Glom Filt Rate - Afr Amer 106 mL/min (>60); Glucose 110 mg/dL (74-106); Hemoglobin A1c 5.9 % (4.2-6.3); High Density Lipoprotein 40 mg/dL; Potassium 4.2 mmol/L (3.5-5.1); Protein, Total 6.6 g/dL (6.4-8.2); Sodium Level 142 mmol/L (136-145); Triglycerides 118 mg/dL; Very Low Density Lipoprotein 24 mg/dL (5-40)
[2019-12-21 08:56] LABS: Ferritin 416 ng/mL (26-388); Iron 92 ug/dL (65-175); Iron Binding Capacity,Total 292 ug/dL (250-450); PERCENT IRON SATURATION 31.5 % (15.0-55.0)
== END ==
PROVIDERS: PCP Family Medicine; Referring Provider Family Medicine; Visit Provider Family Medicine
DX: I10 Essential (primary) hypertension (principal); E78.5 Hyperlipidemia, unspecified; R73.02 Impaired glucose tolerance (oral); D64.9 Anemia, unspecified
CPT/HCPCS: 36415; 80053; 80061; 82728; 83036; 83540; 83550; 85025

== ENCOUNTER → 2019-12-22 09:05 | Outpatient (CLI) | payer OTHER, SELFPAY ==
[2017-04-22 08:26] VITALS: BMI 35.9
[2019-07-18 14:30] VITALS: BMI 36.5
[2019-12-22 10:06] LABS: Vitamin B12 493 pg/mL (211-911)
== END ==
PROVIDERS: PCP Family Medicine; Referring Provider Family Medicine; Visit Provider Family Medicine
DX: D64.9 Anemia, unspecified (principal)
CPT/HCPCS: 36415; 82607; 82746

== ENCOUNTER → 2020-07-17 09:37 | Outpatient (CLI) | payer OTHER, SELFPAY ==
[2017-04-22 08:26] VITALS: BMI 35.9
[2020-01-02 09:47] VITALS: BMI 36.5
[2020-07-17 12:06] LABS: Absolute Lymphocyte Count 1.26 X10^3/uL (0.83-4.51); Absolute Neutrophil Count 2.3 X10^3/uL (2.0-7.7); Basophil# 0.01 X10^3/uL; Basophil% 0.3 % (0-1); Eosinophil# 0.01 X10^3/uL; Eosinophils% 0.3 % (0-5); Hematocrit 42.1 % (40-54); Hemoglobin 13.6 g/dL (13.0-16.5); Lymphocyte # 1.26 X10^3/ul (4.0); Lymphocyte % 32.4 % (19-41); Mean Corp Hgb Conc 32.3 g/dL (32-36); Mean Corpuscular Volume 95.9 fL (80-94); Mean Platelet Vol. 10.1 fl (6.2-12.0); Monocyte# 0.27 X10^3/uL; Monocyte% 6.9 % (0-10); NRBC Flagged by Analyzer 0 % (0-5); Neutrophil # 2.34 X10^3/uL (2.7-7.7); Neutrophil % 60.1 % (47-70); POSITIVE MORPHOLOGY YES; Platelet Count 177 K/mm3 (150-450); RBC Distribution Width CV 12.2 % (11.6-14.6); RBC Distribution Width SD 43.7 fl (35.1-43.9); Red Blood Count 4.39 M/mm3 (4.6-6.2); White Blood Count 3.9 K/mm3 (4.4-11.0)
[2020-07-17 12:10] LABS: Differential Indicated SCAN CRITERIA MET
[2020-07-17 12:23] LABS: ALB/GLOB Ratio 1.2 RATIO (0.9-2.4); AST(SGOT) 28 U/L (15-37); Alanine Aminotransfer ALT/SGPT 36 U/L (16-61); Albumin, Serum 3.8 g/dL (3.2-5.0); Alkaline Phosphatase 102 U/L (45-117); Anion Gap 7 (5-15); BUN 11 mg/dL (7-18); BUN/Creat Ratio 11.2 RATIO (10-20); Calcium,Total 8.4 mg/dL (8.5-10.1); Chloride 111 mmol/L (98-107); Cholesterol 114 mg/dL (200); Creatinine, Serum 0.98 mg/dL (0.70-1.30); EST Glomerular Filtration Rate 82 mL/min (>60); Est Glom Filt Rate - Afr Amer 99 mL/min (>60); Globulin 3.3 g/dL (2.2-4.2); Glucose 94 mg/dL (74-106); High Density Lipoprotein 44 mg/dL; Potassium 3.5 mmol/L (3.5-5.1); Protein, Total 7.1 g/dL (6.4-8.2); Sodium Level 142 mmol/L (136-145); Triglycerides 100 mg/dL; Very Low Density Lipoprotein 20 mg/dL (5-40)
[2020-07-17 13:03] LABS: Hemoglobin A1c 5.5 % (3.8-5.6)
== END ==
PROVIDERS: PCP Family Medicine; Referring Provider Family Medicine; Visit Provider Family Medicine
DX: E78.5 Hyperlipidemia, unspecified (principal); I10 Essential (primary) hypertension; R73.02 Impaired glucose tolerance (oral); Z12.5 Encounter for screening for malignant neoplasm of prostate
CPT/HCPCS: 36415; 80053; 80061; 83036; 84153; 85025; G0103

== ENCOUNTER → 2020-07-24 09:21 | Outpatient (CLI) | payer OTHER, SELFPAY ==
[2017-04-22 08:26] VITALS: BMI 35.9
[2020-01-02 09:47] VITALS: BMI 36.5
--- NOTE | 2020-07-24 09:23 | RAD_ITS ---
STUDY: X-RAY CHEST REASON FOR EXAM: Male, 64 years old. Acute bronchitis TECHNIQUE: PA and lateral views of the chest. COMPARISON: Comparison is made with prior study dated 03/25/2018. FINDINGS: The lungs are clear and expanded. There is no demonstrated pleural abnormality. Normal size heart. Normal mediastinum and jade. Normal visualized pulmonary arteries. There is atherosclerotic calcification of the aortic arch with tortuosity. There are diffuse degenerative changes of the visualized thoracic spine. Normal visualized ribs, clavicles, and shoulders. There is no demonstrated abnormality of the visualized soft tissue structures of the upper abdomen. RAD/Chest PA and Lateral IMPRESSION: Stable examination. No acute abnormality is seen. Electronically Signed: Trey Ramos, at 12:54 EST , Service support ,
== END ==
PROVIDERS: PCP Family Medicine; Referring Provider Family Medicine; Visit Provider Family Medicine
DX: J20.9 Acute bronchitis, unspecified (principal)
CPT/HCPCS: 71046

== ENCOUNTER → 2020-07-30 11:54 | Outpatient (CLI) | payer OTHER, SELFPAY ==
[2017-04-22 08:26] VITALS: BMI 35.9
[2020-01-02 09:47] VITALS: BMI 36.5
== END ==
PROVIDERS: PCP Family Medicine; Visit Provider Family Medicine
DX: Z20.828 Contact with and (suspected) exposure to other viral communicable diseases (principal)
CPT/HCPCS: 87635; U0003

== ENCOUNTER → 2020-11-08 07:03 | Outpatient (CLI) | payer OTHER, SELFPAY ==
[2017-04-22 08:26] VITALS: BMI 35.9
[2020-10-05 11:15] VITALS: BMI 30.6
--- NOTE | 2020-11-08 07:18 | MRI_ITS ---
STUDY: MRI LEFT SHOULDER REASON FOR EXAM: Left shoulder pain and limited range of motion for one year, increased after a fall 10/16/2020. TECHNIQUE: Standardized fat and water weighted pulse sequences were obtained in all 3 orthogonal planes. COMPARISON: None. FINDINGS: There is mild supraspinatus and infraspinatus tendinosis (T2 coronal images 7-12) without discrete tendon tear. There is mild subscapularis tendinosis (T2 axial image 13) without discrete tendon tear. Normal teres minor tendon. Normal supraspinatus muscle. Normal infraspinatus muscle. Normal subscapularis muscle. Normal teres minor muscle. There is a small glenohumeral joint effusion with fluid extending into the bicipital tendon sheath. There is mild cystic change of the posterior aspect of the greater tuberosity. There is a suspected SLAP lesion (T2 coronal images 11-13). There is mild tendinosis of the intracapsular long biceps tendon (T2 sagittal images 9-11). Normal capsulo- ligamentous complex. There is acromioclavicular arthrosis with hypertrophic changes effacing the subacromial fat (T2 sagittal images 8, 9). There is a Type I morphology (flat undersurface), with an anterior downsloping orientation. There is a small volume of subacromial-subdeltoid bursal fluid (T2 coronal images 13-16). Normal visualized coracohumeral and coracoacromial ligaments. Normal deltoid muscle. Normal trapezius muscle. MRI/Upper Ext Joint Only(Routine) IMPRESSION: Mild supraspinatus, infraspinatus and subscapularis tendinosis without demonstrated rotator cuff tear. Suspected SLAP lesion. Mild tendinosis of the long biceps tendon. Acromioclavicular arthrosis. Mild subacromial-subdeltoid bursitis. Small glenohumeral joint effusion. Electronically Signed: John Alejandre MD at 10:23 EST Tel , Service support ,
== END ==
PROVIDERS: PCP Family Medicine; Referring Provider Family Medicine; Visit Provider Family Medicine
DX: M75.102 Unspecified rotator cuff tear or rupture of left shoulder, not specified as traumatic (principal)
CPT/HCPCS: 73221

== ENCOUNTER → 2021-01-23 09:52 | Outpatient (CLI) | payer OTHER, SELFPAY ==
[2017-04-22 08:26] VITALS: BMI 35.9
[2020-10-05 11:15] VITALS: BMI 30.6
[2021-01-23 12:21] LABS: Absolute Lymphocyte Count 1.57 X10^3/uL (0.83-4.51); Absolute Neutrophil Count 4.2 X10^3/uL (2.0-7.7); Basophil# 0.04 X10^3/uL; Basophil% 0.6 % (0-1); Eosinophil# 0.04 X10^3/uL; Eosinophils% 0.6 % (0-5); Hematocrit 39.8 % (40-54); Lymphocyte # 1.57 X10^3/ul (0.83-4.51); Mean Corp Hgb Conc 32.7 g/dL (32-36); Mean Platelet Vol. 10.3 fl (6.2-12.0); Monocyte# 0.47 X10^3/uL; Monocyte% 7.5 % (0-10); NRBC Flagged by Analyzer 0 % (0-5); Neutrophil # 4.16 X10^3/uL (2.7-7.7); Neutrophil % 66.1 % (47-70); Platelet Count 209 K/mm3 (150-450); RBC Distribution Width CV 12.8 % (11.6-14.6); RBC Distribution Width SD 46.5 fl (35.1-43.9); Red Blood Count 4.06 M/mm3 (4.6-6.2); White Blood Count 6.3 K/mm3 (4.4-11.0)
[2021-01-23 12:37] LABS: ALB/GLOB Ratio 1.2 RATIO (0.9-2.4); AST(SGOT) 16 U/L (15-37); Alanine Aminotransfer ALT/SGPT 38 U/L (16-61); Albumin, Serum 3.7 g/dL (3.2-5.0); Alkaline Phosphatase 82 U/L (45-117); Anion Gap 5 (5-15); BUN 13 mg/dL (7-18); BUN/Creat Ratio 14.5 RATIO (10-20); Calcium,Total 8.7 mg/dL (8.5-10.1); Chloride 112 mmol/L (98-107); Cholesterol 140 mg/dL (200); EST Glomerular Filtration Rate 91 mL/min (>60); Est Glom Filt Rate - Afr Amer 110 mL/min (>60); Glucose 101 mg/dL (74-106); High Density Lipoprotein 75 mg/dL; Protein, Total 6.7 g/dL (6.4-8.2); Sodium Level 143 mmol/L (136-145); Triglycerides 49 mg/dL; Very Low Density Lipoprotein 10 mg/dL (5-40)
[2021-01-23 12:38] LABS: Hemoglobin A1c 5.5 % (3.8-5.6)
== END ==
PROVIDERS: PCP Family Medicine; Referring Provider Family Medicine; Visit Provider Family Medicine
DX: R73.02 Impaired glucose tolerance (oral) (principal); E78.5 Hyperlipidemia, unspecified; I10 Essential (primary) hypertension
CPT/HCPCS: 36415; 80053; 80061; 83036; 85025

== ENCOUNTER → 2021-09-10 10:05 | Outpatient (CLI) | payer OTHER, SELFPAY ==
[2017-04-22 08:26] VITALS: BMI 35.9
[2021-09-10 12:24] LABS: Absolute Lymphocyte Count 1.61 X10^3/uL (0.83-4.51); Absolute Neutrophil Count 2.8 X10^3/uL (2.0-7.7); Basophil# 0.03 X10^3/uL; Basophil% 0.6 % (0-1); Eosinophil# 0.07 X10^3/uL; Eosinophils% 1.4 % (0-5); Hematocrit 40.6 % (40-54); Hemoglobin 13.7 g/dL (13.0-16.5); Lymphocyte # 1.61 X10^3/ul (0.83-4.51); Lymphocyte % 32.8 % (19-41); Mean Corp Hgb Conc 33.7 g/dL (32-36); Mean Corpuscular Hgb 32.2 pg (27.0-32.0); Mean Corpuscular Volume 95.3 fL (80-94); Mean Platelet Vol. 10.5 fl (6.2-12.0); Monocyte# 0.36 X10^3/uL; Monocyte% 7.3 % (0-10); NRBC Flagged by Analyzer 0 % (0-5); Neutrophil # 2.84 X10^3/uL (2.7-7.7); Neutrophil % 57.9 % (47-70); Platelet Count 222 K/mm3 (150-450); RBC Distribution Width CV 12.5 % (11.6-14.6); RBC Distribution Width SD 43.3 fl (35.1-43.9); Red Blood Count 4.26 M/mm3 (4.6-6.2); White Blood Count 4.9 K/mm3 (4.4-11.0)
[2021-09-10 12:48] LABS: Hemoglobin A1c 5.3 % (3.8-5.6)
[2021-09-10 12:59] LABS: ALB/GLOB Ratio 1.3 RATIO (0.9-2.4); AST(SGOT) 16 U/L (15-37); Alanine Aminotransfer ALT/SGPT 25 U/L (16-61); Albumin, Serum 3.7 g/dL (3.2-5.0); Alkaline Phosphatase 78 U/L (45-117); Anion Gap 7 (5-15); BUN 13 mg/dL (7-18); BUN/Creat Ratio 14.8 RATIO (10-20); Calcium,Total 8.6 mg/dL (8.5-10.1); Chloride 111 mmol/L (98-107); Cholesterol 154 mg/dL (200); Creatinine, Serum 0.88 mg/dL (0.70-1.30); EST Glomerular Filtration Rate 93 mL/min (>60); Est Glom Filt Rate - Afr Amer 112 mL/min (>60); Globulin 2.9 g/dL (2.2-4.2); Glucose 108 mg/dL (74-106); High Density Lipoprotein 52 mg/dL; PSA,Total - Annual Screen 0.71 ng/mL (0.00-4.00); Potassium 3.5 mmol/L (3.5-5.1); Protein, Total 6.6 g/dL (6.4-8.2); Sodium Level 143 mmol/L (136-145); Triglycerides 130 mg/dL; Very Low Density Lipoprotein 26 mg/dL (5-40)
== END ==
PROVIDERS: PCP Family Medicine; Visit Provider Family Medicine
DX: I10 Essential (primary) hypertension (principal); R73.02 Impaired glucose tolerance (oral); E78.5 Hyperlipidemia, unspecified; Z12.5 Encounter for screening for malignant neoplasm of prostate
CPT/HCPCS: 36415; 80053; 80061; 83036; 84153; 85025; G0103

== ENCOUNTER → 2022-01-10 | Outpatient (CLI) | payer OTHER, SELFPAY ==
[2017-04-22 08:26] VITALS: BMI 35.9
[2022-01-10 15:02] LABS: Absolute Lymphocyte Count 1.89 X10^3/uL (0.83-4.51); Absolute Neutrophil Count 3.1 X10^3/uL (2.0-7.7); Basophil# 0.04 X10^3/uL; Basophil% 0.7 % (0-1); Eosinophil# 0.08 X10^3/uL; Eosinophils% 1.5 % (0-5); Hematocrit 40.7 % (40-54); Hemoglobin 13.8 g/dL (13.0-16.5); Lymphocyte # 1.89 X10^3/ul (0.83-4.51); Lymphocyte % 34.3 % (19-41); Mean Corp Hgb Conc 33.9 g/dL (32-36); Mean Corpuscular Hgb 32.2 pg (27.0-32.0); Mean Corpuscular Volume 95.1 fL (80-94); Mean Platelet Vol. 10.6 fl (6.2-12.0); Monocyte# 0.41 X10^3/uL; Monocyte% 7.4 % (0-10); NRBC Flagged by Analyzer 0 % (0-5); Neutrophil # 3.08 X10^3/uL (2.7-7.7); Neutrophil % 55.9 % (47-70); Platelet Count 227 K/mm3 (150-450); RBC Distribution Width CV 12.2 % (11.6-14.6); RBC Distribution Width SD 42.5 fl (35.1-43.9); Red Blood Count 4.28 M/mm3 (4.6-6.2); White Blood Count 5.5 K/mm3 (4.4-11.0)
[2022-01-10 15:19] LABS: Hemoglobin A1c 5.3 % (3.8-5.6)
[2022-01-10 15:24] LABS: ALB/GLOB Ratio 1.5 RATIO (0.9-2.4); AST(SGOT) 18 U/L (15-37); Alanine Aminotransfer ALT/SGPT 32 U/L (16-61); Albumin, Serum 4.1 g/dL (3.2-5.0); Alkaline Phosphatase 86 U/L (45-117); Anion Gap 4 (5-15); BUN 14 mg/dL (7-18); BUN/Creat Ratio 12.5 RATIO (10-20); Chloride 112 mmol/L (98-107); Cholesterol 140 mg/dL (200); Creatinine, Serum 1.12 mg/dL (0.70-1.30); EST Glomerular Filtration Rate 70 mL/min (>60); Est Glom Filt Rate - Afr Amer 85 mL/min (>60); Globulin 2.8 g/dL (2.2-4.2); Glucose 111 mg/dL (74-106); High Density Lipoprotein 57 mg/dL; Protein, Total 6.9 g/dL (6.4-8.2); Sodium Level 142 mmol/L (136-145); Triglycerides 128 mg/dL; Very Low Density Lipoprotein 26 mg/dL (5-40)
== END | disposition home or self-care (01) ==
LOC: MFPLAB 12:22
PROVIDERS: PCP Family Medicine; Referring Provider Family Medicine; Visit Provider Family Medicine
DX: E78.5 Hyperlipidemia, unspecified (principal); R73.02 Impaired glucose tolerance (oral)
CPT/HCPCS: 36415; 80053; 80061; 83036; 85025

== ENCOUNTER → 2022-04-08 | Outpatient (CLI) | payer OTHER, SELFPAY ==
[2017-04-22 08:26] VITALS: BMI 35.9
--- NOTE | 2022-04-08 12:30 | STRESSREP_ITS ---
Stress Test Report Date: 04-08-2022 Procedure: Exercise tolerance test Indications: Chest pain; CAD; PCI; HLD; HTN Consent: Per the patient Procedure: The patient exercised on a Juancarlos protocol for 6 minutes and 45 seconds minutes completing Stage II and 45 seconds of Stage III achieving a peak heart rate of 139 bpm (89% predicted maximal heart rate) with a peak blood pressure 188/80 mmHg and a peak MET capacity of approximately 9 MET's. The baseline ECG demonstrated sinus rhythm. The peak exercise ECG demonstrated somatic/motion artifact with no obvious ECG changes. There was a rare PVC/ventricular couplet during exercise and a rare PVC during recovery. The functional capacity was considered good. The patient had no complaint of chest discomfort during exercise or recovery. The examination was discontinued secondary to dyspnea and leg discomfort. Impression: 1. Technically adequate (percent predicted maximal heart rate greater than 85%) exercise tolerance test 2. Peak exercise ECG with somatic/motion artifact with no obvious ECG changes 3. There was a rare PVCs/ventricular couplet during exercise and a rare PVC during recovery 4. Nuclear images pending Myocardial perfusion imaging study: Technique: The patient was injected with 11.9 mCi of technetium 99m Cardiolite and subsequently rest SPECT Cardiolite nuclear imaging was obtained in the horizontal long, vertical long, and short axis views. The patient exercised on a Juancarlos protocol for 6 minutes and 45 seconds minutes completing Stage II and 45 seconds of Stage III achieving a peak heart rate of 139 bpm (89% predicted maximal heart rate) with a peak blood pressure 188/80 mmHg and a peak MET capacity of approximately 9 MET's. The patient was injected with 34.5 mCi of technetium 99m Cardiolite and subsequently stress SPECT Cardiolite nuclear imaging was obtained in the horizontal long, vertical long, and short axis views. A gated Cardiolite study at peak stress was obtained. Interpretation: Rest and stress SPECT Cardiolite nuclear imaging status post realignment, normalization, and attenuation correction, demonstrates the appearance of body motion during image acquisition and of an area of diminished myocardial perfusion/tracer uptake in portions of the mid inferior segments at rest which appears to improve and/or normalize following stress. There is end systolic thickening and brightening. The gated Cardiolite study demonstrates myocardial thickening and inward wall motion. The reported LVEF is 66%. Impression: 1. Rest and stress SPECT Cardiolite nuclear imaging demonstrate the appearance of body motion during image acquisition and of an area of diminished myocardial perfusion/tracer uptake in portions of the mid inferior segments at rest which appears to improve/normalize following stress appearing compatible with shifting soft tissue attenuation/artifact with no myocardial perfusion changes considered diagnostic for associated stress-induced myocardial ischemia. 2. The gated Cardiolite study reports an LVEF of 66%. This note was generated with [employer] software. It may contain incorrect words, spelling, and punctuation that were not noted in checking the note before signing. This note was generated with [employer] software. It may contain incorrect words, spelling, and punctuation that were not noted in checking the note before signing.
== END | disposition home or self-care (01) ==
LOC: CVS 06:09
PROVIDERS: PCP Family Medicine; Referring Provider Physician Assistant Medical; Visit Provider Physician Assistant Medical
DX: I25.10 Atherosclerotic heart disease of native coronary artery without angina pectoris (principal); I10 Essential (primary) hypertension
CPT/HCPCS: 78452; 93017; A9500; A4216

== ENCOUNTER → 2022-05-13 | Outpatient (CLI) | payer OTHER, SELFPAY ==
[2017-04-22 08:26] VITALS: BMI 35.9
[2022-05-13 13:39] LABS: Mucous, Urine 0 SEEN /hpf (<or=2+); Red Blood Cells-Urine 0 SEEN /hpf (0-5); Squamous Epithelial Cells - UA 0 SEEN /hpf (0-5); White Blood Cells 0 SEEN /hpf (0-5)
[2022-05-13 15:29] LABS: Color, Urine Straw (Yellow); Glucose, Dipstick Normal (Normal); Ketone-Dipstick Negative (Negative); Leukocyte Esterase-Dipstick Negative /ul (Negative); Nitrite-Dipstick Negative (Negative); Occult Blood-Urine Negative /ul (Negative); Protein-Dipstick Negative (Negative); Urine Bilirubin Dipstick Negative (Negative); Urine Clarity Clear (Clear); Urine Urobilinogen Normal (Normal)
[2022-05-13 15:32] LABS: Absolute Lymphocyte Count 1.82 X10^3/uL (0.83-4.51); Absolute Neutrophil Count 3.2 X10^3/uL (2.0-7.7); Basophil# 0.02 X10^3/uL; Basophil% 0.4 % (0-1); Eosinophil# 0.07 X10^3/uL; Eosinophils% 1.3 % (0-5); Hematocrit 40.7 % (40-54); Hemoglobin 14.2 g/dL (13.0-16.5); Lymphocyte # 1.82 X10^3/ul (0.83-4.51); Mean Corp Hgb Conc 34.9 g/dL (32-36); Mean Corpuscular Hgb 33.4 pg (27.0-32.0); Mean Corpuscular Volume 95.8 fL (80-94); Mean Platelet Vol. 10.5 fl (6.2-12.0); Monocyte# 0.43 X10^3/uL; Monocyte% 7.8 % (0-10); NRBC Flagged by Analyzer 0 % (0-5); Neutrophil # 3.16 X10^3/uL (2.7-7.7); Neutrophil % 57.3 % (47-70); Platelet Count 208 K/mm3 (150-450); RBC Distribution Width CV 12.5 % (11.6-14.6); RBC Distribution Width SD 43.8 fl (35.1-43.9); Red Blood Count 4.25 M/mm3 (4.6-6.2); White Blood Count 5.5 K/mm3 (4.4-11.0)
[2022-05-13 16:06] LABS: Hemoglobin A1c 5.4 % (3.8-5.6)
[2022-05-13 16:19] LABS: ALB/GLOB Ratio 1.3 RATIO (0.9-2.4); AST(SGOT) 18 U/L (15-37); Alanine Aminotransfer ALT/SGPT 29 U/L (16-61); Alkaline Phosphatase 83 U/L (45-117); Anion Gap 8 (5-15); BUN 17 mg/dL (7-18); BUN/Creat Ratio 16.2 RATIO (10-20); Calcium,Total 8.4 mg/dL (8.5-10.1); Chloride 110 mmol/L (98-107); Cholesterol 141 mg/dL (200); Creatinine, Serum 1.05 mg/dL (0.70-1.30); EST Glomerular Filtration Rate 76 mL/min (>60); Est Glom Filt Rate - Afr Amer 91 mL/min (>60); Glucose 97 mg/dL (74-106); High Density Lipoprotein 55 mg/dL; Potassium 3.7 mmol/L (3.5-5.1); Sodium Level 143 mmol/L (136-145); Thyroid Stim Hormone (TSH) 1.95 uIU/mL (0.358-3.74); Triglycerides 95 mg/dL; Very Low Density Lipoprotein 19 mg/dL (5-40)
[2022-05-13 16:29] LABS: Bacteria RARE /hpf (None Seen)
== END | disposition home or self-care (01) ==
LOC: MFPLAB 12:27
PROVIDERS: PCP Family Medicine; Visit Provider Family Medicine
DX: I10 Essential (primary) hypertension (principal); R73.02 Impaired glucose tolerance (oral)
CPT/HCPCS: 36415; 80053; 80061; 81001; 83036; 84443; 85025

== ENCOUNTER → 2022-10-09 | Outpatient (CLI) | payer OTHER, SELFPAY ==
[2017-04-22 08:26] VITALS: BMI 35.9
[2022-10-09 12:15] LABS: Absolute Lymphocyte Count 1.72 X10^3/uL (0.83-4.51); Absolute Neutrophil Count 3.6 X10^3/uL (2.0-7.7); Basophil# 0.03 X10^3/uL; Basophil% 0.5 % (0-1); Eosinophil# 0.08 X10^3/uL; Eosinophils% 1.4 % (0-5); Hematocrit 39.7 % (40-54); Hemoglobin 13.1 g/dL (13.0-16.5); Lymphocyte # 1.72 X10^3/ul (0.83-4.51); Lymphocyte % 29.1 % (19-41); Mean Corpuscular Volume 97.1 fL (80-94); Mean Platelet Vol. 10.5 fl (6.2-12.0); Monocyte# 0.43 X10^3/uL; Monocyte% 7.3 % (0-10); NRBC Flagged by Analyzer 0.5 % (0-5); Neutrophil # 3.64 X10^3/uL (2.7-7.7); Neutrophil % 61.5 % (47-70); Platelet Count 235 K/mm3 (150-450); RBC Distribution Width SD 43.1 fl (35.1-43.9); Red Blood Count 4.09 M/mm3 (4.6-6.2); White Blood Count 5.9 K/mm3 (4.4-11.0)
[2022-10-09 12:58] LABS: ALB/GLOB Ratio 1.2 RATIO (0.9-2.4); AST(SGOT) 18 U/L (15-37); Alanine Aminotransfer ALT/SGPT 28 U/L (16-61); Albumin, Serum 3.5 g/dL (3.2-5.0); Alkaline Phosphatase 79 U/L (45-117); Anion Gap 6 (5-15); BUN 9 mg/dL (7-18); Calcium,Total 8.4 mg/dL (8.5-10.1); Chloride 114 mmol/L (98-107); Cholesterol 122 mg/dL (200); EST Glomerular Filtration Rate 80 mL/min (>60); Est Glom Filt Rate - Afr Amer 97 mL/min (>60); Globulin 2.8 g/dL (2.2-4.2); Glucose 109 mg/dL (74-106); High Density Lipoprotein 46 mg/dL; Potassium 3.8 mmol/L (3.5-5.1); Protein, Total 6.3 g/dL (6.4-8.2); Sodium Level 144 mmol/L (136-145); Triglycerides 145 mg/dL; Very Low Density Lipoprotein 29 mg/dL (5-40)
[2022-10-09 14:04] LABS: Hemoglobin A1c 5.6 % (3.8-5.6)
== END | disposition home or self-care (01) ==
LOC: MFPLAB 11:05
PROVIDERS: PCP Family Medicine; Referring Provider Family Medicine; Visit Provider Family Medicine
DX: I10 Essential (primary) hypertension (principal); R73.02 Impaired glucose tolerance (oral)
CPT/HCPCS: 36415; 80053; 80061; 83036; 85025

== ENCOUNTER → 2023-02-06 | Outpatient (CLI) | payer OTHER, SELFPAY ==
[2017-04-22 08:26] VITALS: BMI 35.9
[2023-02-06 17:32] LABS: Absolute Lymphocyte Count 2.05 X10^3/uL (0.83-4.51); Absolute Neutrophil Count 2.6 X10^3/uL (2.0-7.7); Basophil# 0.03 X10^3/uL; Basophil% 0.6 % (0-1); Hematocrit 40.6 % (40-54); Hemoglobin 13.2 g/dL (13.0-16.5); Lymphocyte # 2.05 X10^3/ul (0.83-4.51); Mean Corp Hgb Conc 32.5 g/dL (32-36); Mean Corpuscular Hgb 31.4 pg (27.0-32.0); Mean Corpuscular Volume 96.4 fL (80-94); Mean Platelet Vol. 10.6 fl (6.2-12.0); Monocyte# 0.35 X10^3/uL; Monocyte% 6.8 % (0-10); NRBC Flagged by Analyzer 0 % (0-5); Neutrophil # 2.58 X10^3/uL (2.7-7.7); Neutrophil % 50.4 % (47-70); Platelet Count 208 K/mm3 (150-450); RBC Distribution Width CV 12.5 % (11.6-14.6); RBC Distribution Width SD 44.3 fl (35.1-43.9); Red Blood Count 4.21 M/mm3 (4.6-6.2); White Blood Count 5.1 K/mm3 (4.4-11.0)
[2023-02-06 18:02] LABS: Hemoglobin A1c 5.5 % (3.8-5.6)
[2023-02-06 18:06] LABS: ALB/GLOB Ratio 1.2 RATIO (0.9-2.4); AST(SGOT) 25 U/L (15-37); Alanine Aminotransfer ALT/SGPT 34 U/L (16-61); Albumin, Serum 3.7 g/dL (3.2-5.0); Alkaline Phosphatase 78 U/L (45-117); Anion Gap 8 (5-15); BUN 10 mg/dL (7-18); BUN/Creat Ratio 10.5 RATIO (10-20); Calcium,Total 8.7 mg/dL (8.5-10.1); Chloride 114 mmol/L (98-107); Cholesterol 138 mg/dL (200); Creatinine, Serum 0.95 mg/dL (0.70-1.30); EST Glomerular Filtration Rate 85 mL/min (>60); Est Glom Filt Rate - Afr Amer 102 mL/min (>60); Glucose 101 mg/dL (74-106); High Density Lipoprotein 54 mg/dL; Lipase 27 U/L (13-75); Magnesium 2.3 mg/dL (1.6-2.6); Potassium 4.4 mmol/L (3.5-5.1); Protein, Total 6.7 g/dL (6.4-8.2); Sodium Level 144 mmol/L (136-145); Thyroid Stim Hormone (TSH) 2.22 uIU/mL (0.358-3.74); Triglycerides 93 mg/dL; Very Low Density Lipoprotein 19 mg/dL (5-40)
== END | disposition home or self-care (01) ==
LOC: MFPLAB 12:28
PROVIDERS: PCP Family Medicine; Visit Provider Family Medicine
DX: I10 Essential (primary) hypertension (principal); R73.02 Impaired glucose tolerance (oral); R10.9 Unspecified abdominal pain; R19.7 Diarrhea, unspecified
CPT/HCPCS: 36415; 80053; 80061; 83036; 83690; 83735; 84443; 85025

== ENCOUNTER → 2023-02-12 | Outpatient (CLI) | payer OTHER, SELFPAY ==
[2017-04-22 08:26] VITALS: BMI 35.9
[2023-02-16 20:07] LABS: Pancreatic Elastase, Fecal 139 (>200)
== END | disposition home or self-care (01) ==
LOC: LABSPEC 14:18
PROVIDERS: PCP Family Medicine; Visit Provider Family Medicine
DX: R19.7 Diarrhea, unspecified (principal)
CPT/HCPCS: 82653; 87506

== ENCOUNTER → 2023-02-24 | Outpatient (CLI) | payer OTHER, SELFPAY ==
[2017-04-22 08:26] VITALS: BMI 35.9
--- NOTE | 2023-02-24 08:19 | US_ITS ---
EXAM: US ABDOMEN COMPLETE CLINICAL INDICATION: ABD PAIN TECHNIQUE: Real-time ultrasound of the abdomen with image documentation. COMPARISON: No relevant prior studies available. FINDINGS: LIVER: Fatty liver which is normal in size. No focal hepatic masses. No intrahepatic biliary ductal dilation. GALLBLADDER: Gallbladder is surgically absent. No gallbladder wall thickening is demonstrated. No pericholecystic fluid. Negative sonographic Cunningham''s sign. COMMON BILE DUCT: Common bile duct is normal. The proximal common bile duct is within normal limits for the patient''s age. PANCREAS: Pancreas is unremarkable as imaged. No pancreatic ductal dilatation. KIDNEYS: Right and the left kidneys are normal in appearance. There is no hydronephrosis. No shadowing calculus. No focal lesion or perinephric collection is demonstrated. SPLEEN: Spleen is unremarkable. AORTA: Aorta and IVC are unremarkable. INFERIOR VENA CAVA: See above. OTHER VASCULATURE: Main portal vein is patent with normal direction of blood flow. FREE FLUID: No ascites. OTHER FINDINGS: No other masses. US/Abdomen Complete IMPRESSION: 1. Surgically absent gallbladder. 2. Hepatic steatosis. 3. No other significant abnormalities. Electronically Signed: Addy Han MD at 4:55 EDT ,
== END | disposition home or self-care (01) ==
PROVIDERS: PCP Family Medicine; Referring Provider Family Medicine; Visit Provider Family Medicine
DX: R10.9 Unspecified abdominal pain (principal)
CPT/HCPCS: 76700

== ENCOUNTER → 2023-06-10 | Outpatient (CLI) | payer OTHER, SELFPAY ==
[2017-04-22 08:26] VITALS: BMI 35.9
[2023-06-10 12:18] LABS: Absolute Lymphocyte Count 1.61 X10^3/uL (0.83-4.51); Absolute Neutrophil Count 2.4 X10^3/uL (2.0-7.7); Basophil# 0.02 X10^3/uL; Basophil% 0.4 % (0-1); Eosinophil# 0.13 X10^3/uL; Eosinophils% 2.9 % (0-5); Hematocrit 41.1 % (40-54); Hemoglobin 13.8 g/dL (13.0-16.5); Lymphocyte # 1.61 X10^3/ul (0.83-4.51); Lymphocyte % 35.6 % (19-41); Mean Corp Hgb Conc 33.6 g/dL (32-36); Mean Corpuscular Hgb 33.3 pg (27.0-32.0); Mean Corpuscular Volume 99.3 fL (80-94); Mean Platelet Vol. 10.1 fl (6.2-12.0); Monocyte# 0.33 X10^3/uL; Monocyte% 7.3 % (0-10); NRBC Flagged by Analyzer 0 % (0-5); Neutrophil # 2.42 X10^3/uL (2.7-7.7); Neutrophil % 53.6 % (47-70); Platelet Count 204 K/mm3 (150-450); RBC Distribution Width CV 12.7 % (11.6-14.6); RBC Distribution Width SD 46.7 fl (35.1-43.9); Red Blood Count 4.14 M/mm3 (4.6-6.2); White Blood Count 4.5 K/mm3 (4.4-11.0)
[2023-06-10 13:03] LABS: Hemoglobin A1c 5.5 % (3.8-5.6)
[2023-06-10 13:07] LABS: ALB/GLOB Ratio 1.3 RATIO (0.9-2.4); AST(SGOT) 11 U/L (15-37); Alanine Aminotransfer ALT/SGPT 25 U/L (16-61); Albumin, Serum 3.7 g/dL (3.2-5.0); Alkaline Phosphatase 86 U/L (45-117); Anion Gap 3 (5-15); BUN 15 mg/dL (7-18); BUN/Creat Ratio 17.2 RATIO (10-20); Calcium,Total 8.6 mg/dL (8.5-10.1); Chloride 114 mmol/L (98-107); Cholesterol 224 mg/dL (200); Creatinine, Serum 0.87 mg/dL (0.70-1.30); EST Glomerular Filtration Rate 94 mL/min (>60); Est Glom Filt Rate - Afr Amer 113 mL/min (>60); Globulin 2.8 g/dL (2.2-4.2); Glucose 112 mg/dL (74-106); High Density Lipoprotein 50 mg/dL; Potassium 4.4 mmol/L (3.5-5.1); Protein, Total 6.5 g/dL (6.4-8.2); Sodium Level 142 mmol/L (136-145); Triglycerides 115 mg/dL; Very Low Density Lipoprotein 23 mg/dL (5-40)
== END | disposition home or self-care (01) ==
LOC: MFPLAB 10:30
PROVIDERS: PCP Family Medicine; Visit Provider Family Medicine
DX: E78.5 Hyperlipidemia, unspecified (principal); R73.02 Impaired glucose tolerance (oral); I25.10 Atherosclerotic heart disease of native coronary artery without angina pectoris
CPT/HCPCS: 36415; 80053; 80061; 83036; 85025

== ENCOUNTER → 2023-08-18 | Outpatient (CLI) | payer OTHER, SELFPAY ==
[2017-04-22 08:26] VITALS: BMI 35.9
[2023-08-18 15:26] LABS: Bacteria 0 SEEN /hpf (None Seen); Mucous, Urine 0 SEEN /hpf (<or=2+); Red Blood Cells-Urine 0 SEEN /hpf (0-5); Squamous Epithelial Cells - UA 0 SEEN /hpf (0-5); White Blood Cells 0 SEEN /hpf (0-5)
[2023-08-18 17:32] LABS: Absolute Lymphocyte Count 2.18 X10^3/uL (0.83-4.51); Absolute Neutrophil Count 3.6 X10^3/uL (2.0-7.7); Basophil# 0.05 X10^3/uL; Basophil% 0.8 % (0-1); Eosinophil# 0.06 X10^3/uL; Eosinophils% 0.9 % (0-5); Hematocrit 42.7 % (40-54); Hemoglobin 14.1 g/dL (13.0-16.5); Lymphocyte # 2.18 X10^3/ul (0.83-4.51); Lymphocyte % 34.5 % (19-41); Mean Corpuscular Hgb 31.7 pg (27.0-32.0); Mean Platelet Vol. 10.3 fl (6.2-12.0); Monocyte# 0.42 X10^3/uL; Monocyte% 6.6 % (0-10); NRBC Flagged by Analyzer 0 % (0-5); Platelet Count 235 K/mm3 (150-450); RBC Distribution Width CV 12.4 % (11.6-14.6); RBC Distribution Width SD 43.9 fl (35.1-43.9); Red Blood Count 4.45 M/mm3 (4.6-6.2); White Blood Count 6.3 K/mm3 (4.4-11.0)
[2023-08-18 17:38] LABS: Color, Urine Yellow (Yellow); Glucose, Dipstick Normal (Normal); Ketone-Dipstick 5 mg/dl (Negative); Leukocyte Esterase-Dipstick Negative /ul (Negative); Nitrite-Dipstick Negative (Negative); Occult Blood-Urine Negative /ul (Negative); Protein-Dipstick 15 mg/dl (Negative); Specific Gravity, Urine 1.025 (1.002-1.030); Urine Bilirubin Dipstick 1 mg/dL (Negative); Urine Clarity Clear (Clear); Urine Urobilinogen 1 mg/dl (Normal)
[2023-08-18 18:03] LABS: Hemoglobin A1c 5.5 % (3.8-5.6)
[2023-08-18 18:21] LABS: ALB/GLOB Ratio 1.4 RATIO (0.9-2.4); AST(SGOT) 27 U/L (15-37); Alanine Aminotransfer ALT/SGPT 29 U/L (16-61); Albumin, Serum 4.1 g/dL (3.2-5.0); Alkaline Phosphatase 81 U/L (45-117); Anion Gap 6 (5-15); BUN 13 mg/dL (7-18); BUN/Creat Ratio 12.6 RATIO (10-20); Calcium,Total 8.5 mg/dL (8.5-10.1); Chloride 111 mmol/L (98-107); Cholesterol 134 mg/dL (200); Creatinine, Serum 1.03 mg/dL (0.70-1.30); EST Glomerular Filtration Rate 77 mL/min (>60); Est Glom Filt Rate - Afr Amer 93 mL/min (>60); Glucose 95 mg/dL (74-106); High Density Lipoprotein 53 mg/dL; Potassium 3.7 mmol/L (3.5-5.1); Protein, Total 7.1 g/dL (6.4-8.2); Sodium Level 141 mmol/L (136-145); Triglycerides 95 mg/dL; Very Low Density Lipoprotein 19 mg/dL (5-40)
== END | disposition home or self-care (01) ==
PROVIDERS: PCP Family Medicine; Visit Provider Family Medicine
DX: R73.02 Impaired glucose tolerance (oral) (principal); I10 Essential (primary) hypertension
CPT/HCPCS: 36415; 80053; 80061; 81001; 83036; 85025

== ENCOUNTER → 2023-12-16 | Outpatient (CLI) | payer OTHER, SELFPAY ==
[2017-04-22 08:26] VITALS: BMI 35.9
[2023-12-16 13:51] LABS: Bacteria 0 SEEN /hpf (None Seen); Mucous, Urine 0 SEEN /hpf (<or=2+); Red Blood Cells-Urine 0 SEEN /hpf (0-5); Squamous Epithelial Cells - UA 0 SEEN /hpf (0-5); White Blood Cells 0 SEEN /hpf (0-5)
[2023-12-16 15:39] LABS: Absolute Lymphocyte Count 1.93 X10^3/uL (0.83-4.51); Absolute Neutrophil Count 2.5 X10^3/uL (2.0-7.7); Basophil# 0.04 X10^3/uL; Basophil% 0.8 % (0-1); Eosinophil# 0.22 X10^3/uL; Eosinophils% 4.3 % (0-5); Hemoglobin 12.7 g/dL (13.0-16.5); Lymphocyte # 1.93 X10^3/ul (0.83-4.51); Lymphocyte % 37.6 % (19-41); Mean Corp Hgb Conc 33.4 g/dL (32-36); Mean Corpuscular Hgb 31.8 pg (27.0-32.0); Mean Platelet Vol. 10.4 fl (6.2-12.0); Monocyte# 0.39 X10^3/uL; Monocyte% 7.6 % (0-10); NRBC Flagged by Analyzer 0 % (0-5); Neutrophil # 2.54 X10^3/uL (2.7-7.7); Neutrophil % 49.5 % (47-70); Platelet Count 201 K/mm3 (150-450); RBC Distribution Width CV 12.9 % (11.6-14.6); RBC Distribution Width SD 44.5 fl (35.1-43.9); White Blood Count 5.1 K/mm3 (4.4-11.0)
[2023-12-16 15:44] LABS: Color, Urine Yellow (Yellow); Glucose, Dipstick Normal (Normal); Ketone-Dipstick Negative (Negative); Leukocyte Esterase-Dipstick Negative /ul (Negative); Nitrite-Dipstick Negative (Negative); Occult Blood-Urine Negative /ul (Negative); Protein-Dipstick Negative (Negative); Urine Bilirubin Dipstick Negative (Negative); Urine Clarity Clear (Clear); Urine Urobilinogen Normal (Normal)
[2023-12-16 16:06] LABS: ALB/GLOB Ratio 1.3 RATIO (0.9-2.4); AST(SGOT) 22 U/L (15-37); Alanine Aminotransfer ALT/SGPT 31 U/L (16-61); Albumin, Serum 3.6 g/dL (3.2-5.0); Alkaline Phosphatase 73 U/L (45-117); Anion Gap 4 (5-15); BUN 12 mg/dL (7-18); BUN/Creat Ratio 13.4 RATIO (10-20); Calcium,Total 8.5 mg/dL (8.5-10.1); Chloride 114 mmol/L (98-107); Cholesterol 124 mg/dL (200); Creatinine, Serum 0.89 mg/dL (0.70-1.30); EST Glomerular Filtration Rate 91 mL/min (>60); Est Glom Filt Rate - Afr Amer 110 mL/min (>60); Globulin 2.7 g/dL (2.2-4.2); Glucose 97 mg/dL (74-106); High Density Lipoprotein 49 mg/dL; Lipase 29 U/L (13-75); Potassium 3.7 mmol/L (3.5-5.1); Protein, Total 6.3 g/dL (6.4-8.2); Sodium Level 143 mmol/L (136-145); Triglycerides 96 mg/dL; Very Low Density Lipoprotein 19 mg/dL (5-40)
[2023-12-21 17:21] LABS: Hemoglobin A1c 5.4 % (3.8-5.6)
[2023-12-21 19:29] LABS: Ferritin 224 ng/mL (26-388); Iron 92 ug/dL (65-175); Iron Binding Capacity,Total 257 ug/dL (250-450); PERCENT IRON SATURATION 35.8 % (15.0-55.0)
== END | disposition home or self-care (01) ==
LOC: MFPLAB 13:48
PROVIDERS: PCP Family Medicine; Visit Provider Family Medicine
DX: D64.9 Anemia, unspecified (principal); R73.02 Impaired glucose tolerance (oral); E78.5 Hyperlipidemia, unspecified
CPT/HCPCS: 36415; 80053; 80061; 81001; 82728; 83036; 83540; 83550; 83690; 85025

== ENCOUNTER → 2023-12-24 | Outpatient (CLI) | payer OTHER, SELFPAY ==
[2017-04-22 08:26] VITALS: BMI 35.9
[2023-12-24 10:56] LABS: Vitamin B12 342 pg/mL (211-911)
== END | disposition home or self-care (01) ==
LOC: MFPLAB 08:05
PROVIDERS: PCP Family Medicine; Visit Provider Family Medicine
DX: D64.9 Anemia, unspecified (principal)
CPT/HCPCS: 36415; 82607

== ENCOUNTER → 2024-01-06 | Outpatient (CLI) | payer OTHER, SELFPAY ==
[2017-04-22 08:26] VITALS: BMI 35.9
--- NOTE | 2024-01-06 15:43 | CT_ITS ---
STUDY: CT ABDOMEN AND PELVIS WITH CONTRAST REASON FOR EXAM: Male, 68 years old. Abdominal pain, history of EPI (symptoms) not relieved with Creon. Right lower quadrant pain. RADIATION DOSAGE (If Supplied By Facility): CTDIvol = ( 15.8 ) mGy, DLP = ( 1202.08 ) mGycm TECHNIQUE: Transaxial images were obtained from the dome of the diaphragm to the symphysis pubis without oral contrast. IV 100mL Isovue-300 was administered. Sagittal and coronal images were reconstructed. Individualized dose optimization techniques were used for this CT. COMPARISON: None. FINDINGS: The visualized lung bases are unremarkable. Coronary artery calcification. Normal liver. The patient is status post cholecystectomy. Normal spleen. Normal pancreas. Normal bilateral adrenal glands. There is evidence of a cortical scar along the inferior aspect of the right kidney. There is evidence of a 2.5 cm x 1.9 cm septated cyst in the right kidney. Normal left kidney. The stomach is distended due to residual food particles. Normal small intestine. There are scattered colonic diverticula consistent with diverticulosis. The appendix is visualized and appears normal. There is scattered atherosclerotic calcification of the abdominal aorta, without a demonstrated aneurysm. Normal inferior vena cava. Normal retroperitoneum. Mild degree of bladder wall thickening although the bladder is not completely distended. There is prominence of the right seminal vesicle. There is a small umbilical hernia containing fat. There are degenerative changes of the visualized lumbar spine. CT/Abdomen/Pelvis W IV Cont ONLY IMPRESSION: Status post cholecystectomy. Focal scarring along the inferior aspect of the right kidney with a septated cyst. Scattered sigmoid diverticula. Electronically Signed: Trey Ramos MD at 13:42 EDT ,
== END | disposition home or self-care (01) ==
LOC: CT 15:38
PROVIDERS: PCP Family Medicine; Referring Provider Family Medicine; Visit Provider Family Medicine
DX: R10.9 Unspecified abdominal pain (principal)
CPT/HCPCS: 74177; Q9967

== ENCOUNTER → 2024-01-15 | Outpatient (CLI) | payer OTHER, SELFPAY ==
[2017-04-22 08:26] VITALS: BMI 35.9
--- NOTE | 2024-01-15 15:46 | US_ITS ---
HISTORY: kidney cyst on CT. TECHNIQUE: Raya scale and color doppler images were obtained of the kidneys. 78 images. COMPARISON: CT 01/06/2024. FINDINGS: RIGHT KIDNEY: 10.4 cm in length with a cortical thickness of 1.2 cm. Echogenicity unremarkable. No hydronephrosis. 8 x 9 x 11 mm simple cyst. 1.7 x 1.9 x 2.1 cm cyst with very thin septation. LEFT KIDNEY: 10.8 cm in length with a cortical thickness of 1.5 cm. Echogenicity unremarkable. No hydronephrosis. No gross renal mass demonstrated. URINARY BLADDER: Unremarkable at 299 cc with a wall thickness of 2 mm. Bilateral ureteral jets visualized. US/Kidney and Bladder IMPRESSION: Small Bosniak I and II right renal cysts which require no follow-up. Electronically Signed: Estefany Wilkerson MD at 15:15 EDT ,
== END | disposition home or self-care (01) ==
LOC: US 15:39
PROVIDERS: PCP Family Medicine; Referring Provider Family Medicine; Visit Provider Family Medicine
DX: N28.89 Other specified disorders of kidney and ureter (principal)
CPT/HCPCS: 76770

== ENCOUNTER → 2024-05-13 | Outpatient (CLI) | payer OTHER, SELFPAY ==
[2017-04-22 08:26] VITALS: BMI 35.9
[2024-05-13 08:49] LABS: Bacteria 0 SEEN /hpf (None Seen); Mucous, Urine 0 SEEN /hpf (<or=2+); Red Blood Cells-Urine 0 SEEN /hpf (0-5); Squamous Epithelial Cells - UA 0 SEEN /hpf (0-5); White Blood Cells 0 SEEN /hpf (0-5)
[2024-05-13 10:23] LABS: Absolute Lymphocyte Count 1.51 X10^3/uL (0.83-4.51); Absolute Neutrophil Count 2.7 X10^3/uL (2.0-7.7); Basophil# 0.03 X10^3/uL; Basophil% 0.6 % (0-1); Eosinophil# 0.21 X10^3/uL; Eosinophils% 4.4 % (0-5); Hematocrit 39.5 % (40-54); Hemoglobin 13.2 g/dL (13.0-16.5); Lymphocyte # 1.51 X10^3/ul (0.83-4.51); Lymphocyte % 31.8 % (19-41); Mean Corp Hgb Conc 33.4 g/dL (32-36); Mean Corpuscular Volume 95.9 fL (80-94); Mean Platelet Vol. 10.3 fl (6.2-12.0); Monocyte# 0.29 X10^3/uL; Monocyte% 6.1 % (0-10); NRBC Flagged by Analyzer 0 % (0-5); Neutrophil % 56.9 % (47-70); Platelet Count 202 K/mm3 (150-450); RBC Distribution Width CV 12.6 % (11.6-14.6); RBC Distribution Width SD 44.3 fl (35.1-43.9); Red Blood Count 4.12 M/mm3 (4.6-6.2); White Blood Count 4.8 K/mm3 (4.4-11.0)
[2024-05-13 10:40] LABS: Color, Urine Yellow (Yellow); Glucose, Dipstick Normal (Normal); Ketone-Dipstick Negative (Negative); Leukocyte Esterase-Dipstick Negative /ul (Negative); Nitrite-Dipstick Negative (Negative); Occult Blood-Urine Negative /ul (Negative); Protein-Dipstick Negative (Negative); Urine Bilirubin Dipstick Negative (Negative); Urine Clarity Clear (Clear); Urine Urobilinogen Normal (Normal); Urine pH 6.5 (5.0 - 8.0)
[2024-05-13 10:59] LABS: ALB/GLOB Ratio 1.2 RATIO (0.9-2.4); AST(SGOT) 20 U/L (15-37); Alanine Aminotransfer ALT/SGPT 26 U/L (16-61); Albumin, Serum 3.6 g/dL (3.2-5.0); Alkaline Phosphatase 83 U/L (45-117); Anion Gap 6 (5-15); BUN 11 mg/dL (7-18); BUN/Creat Ratio 10.9 RATIO (10-20); Calcium,Total 8.6 mg/dL (8.5-10.1); Chloride 114 mmol/L (98-107); Cholesterol 132 mg/dL (200); Creatinine, Serum 1.01 mg/dL (0.70-1.30); EST Glomerular Filtration Rate 78 mL/min (>60); Est Glom Filt Rate - Afr Amer 95 mL/min (>60); Glucose 114 mg/dL (74-106); High Density Lipoprotein 46 mg/dL; Magnesium 2.8 mg/dL (1.6-2.6); Potassium 3.9 mmol/L (3.5-5.1); Protein, Total 6.6 g/dL (6.4-8.2); Sodium Level 143 mmol/L (136-145); Triglycerides 106 mg/dL; Very Low Density Lipoprotein 21 mg/dL (5-40)
[2024-05-13 11:35] LABS: Hemoglobin A1c 5.6 % (3.8-5.6)
== END | disposition home or self-care (01) ==
LOC: MFPLAB 08:48
PROVIDERS: PCP Family Medicine; Visit Provider Family Medicine
DX: I10 Essential (primary) hypertension (principal); R73.02 Impaired glucose tolerance (oral); Z12.5 Encounter for screening for malignant neoplasm of prostate
CPT/HCPCS: 36415; 80053; 80061; 81001; 83036; 83735; 84153; 84443; 85025; G0103

== ENCOUNTER → 2024-09-21 | Outpatient (CLI) | payer OTHER, SELFPAY ==
[2017-04-22 08:26] VITALS: BMI 35.9
[2024-09-21 12:50] LABS: ALB/GLOB Ratio 1.4 RATIO (0.9-2.4); AST(SGOT) 15 U/L (15-37); Alanine Aminotransfer ALT/SGPT 22 U/L (16-61); Albumin, Serum 3.7 g/dL (3.2-5.0); Alkaline Phosphatase 96 U/L (45-117); Anion Gap 4 (5-15); BUN 13 mg/dL (7-18); BUN/Creat Ratio 13.1 RATIO (10-20); Calcium,Total 8.4 mg/dL (8.5-10.1); Chloride 114 mmol/L (98-107); Cholesterol 156 mg/dL (200); EST Glomerular Filtration Rate 80 mL/min (>60); Est Glom Filt Rate - Afr Amer 97 mL/min (>60); Globulin 2.7 g/dL (2.2-4.2); Glucose 110 mg/dL (74-106); High Density Lipoprotein 56 mg/dL; Protein, Total 6.4 g/dL (6.4-8.2); Sodium Level 140 mmol/L (136-145); Triglycerides 106 mg/dL; Very Low Density Lipoprotein 21 mg/dL (5-40)
[2024-09-21 12:56] LABS: Absolute Neutrophil Count 3.1 X10^3/uL (2.0-7.7); Basophil# 0.04 X10^3/uL; Basophil% 0.7 % (0-1); Eosinophil# 0.11 X10^3/uL; Hemoglobin 13.2 g/dL (13.0-16.5); Lymphocyte % 33.4 % (19-41); Mean Corpuscular Hgb 31.5 pg (27.0-32.0); Mean Corpuscular Volume 95.5 fL (80-94); Mean Platelet Vol. 10.1 fl (6.2-12.0); Monocyte# 0.32 X10^3/uL; Monocyte% 5.9 % (0-10); NRBC Flagged by Analyzer 0 % (0-5); Neutrophil % 57.6 % (47-70); Platelet Count 228 K/mm3 (150-450); RBC Distribution Width CV 12.4 % (11.6-14.6); RBC Distribution Width SD 43.3 fl (35.1-43.9); Red Blood Count 4.19 M/mm3 (4.6-6.2); White Blood Count 5.4 K/mm3 (4.4-11.0)
[2024-09-21 13:46] LABS: Microalbumin,Random Urine 9.8 mg/L (NO RANGE EST.)
[2024-09-21 13:54] LABS: Hemoglobin A1c 5.6 % (3.8-5.6)
== END | disposition home or self-care (01) ==
LOC: MFPLAB 10:32
PROVIDERS: PCP Family Medicine; Referring Provider Family Medicine; Visit Provider Family Medicine
DX: I10 Essential (primary) hypertension (principal); R73.02 Impaired glucose tolerance (oral)
CPT/HCPCS: 36415; 80053; 80061; 82043; 83036; 85025

== ENCOUNTER → 2024-09-26 | Outpatient (CLI) | payer OTHER, SELFPAY ==
[2017-04-22 08:26] VITALS: BMI 35.9
--- NOTE | 2024-09-26 13:44 | US_ITS ---
STUDY: RENAL ULTRASOUND - COMPLETE REASON FOR EXAM: Male, 68 years old. Cyst right kidney TECHNIQUE: Ultrasound evaluation of the kidneys was performed with real-time and static andrews-scale imaging. COMPARISON: Comparison is made with prior study of January 15, 2024. FINDINGS: RIGHT KIDNEY: Normal location of the right kidney, which is normal in size. The right kidney measures 11 cm x 5.2 cm x 5.5 cm. There is a normal cortex of the right kidney. The renal cortex measures 1.3 cm. 3 cysts are seen in the right ovary. The largest is in the lateral inferior pole and measures 3.3 cm x 3.2 cm x 2 cm. There are no right renal calculi. There is no right hydronephrosis. DISTAL RIGHT URETER: There is non-visualization of the distal right ureter. There is no demonstrated right ureterovesical junction calculus. There is a visualized right ureteral jet. LEFT KIDNEY: Normal location of the left kidney, which is normal in size. The left kidney measures 11.4 cm x 5.6 cm x 5.8 cm. There is a normal cortex of the left kidney. The renal cortex measures 1.2 cm. There is no left renal mass or cyst. There are no left renal calculi. There is no left hydronephrosis. DISTAL LEFT URETER: There is non-visualization of the distal left ureter. There is no demonstrated left ureterovesical junction calculus. There is a visualized left ureteral jet. BLADDER: The distended urinary bladder has a volume of 145 ml. There is a normal wall thickness of the distended urinary bladder. There is no demonstrated mass within the urinary bladder. There are no demonstrated bladder calculi. US/Kidney and Bladder IMPRESSION: Right renal cysts. Largest cyst is in the lower lateral aspect of the right kidney measuring 3.3 cm x 3.2 cm x 2 cm. Electronically Signed: Trey Ramos MD at 13:13 EST ,
== END | disposition home or self-care (01) ==
LOC: US 13:41
PROVIDERS: PCP Family Medicine; Referring Provider Family Medicine; Visit Provider Family Medicine
DX: N28.1 Cyst of kidney, acquired (principal)
CPT/HCPCS: 76770

== ENCOUNTER → 2025-01-17 | Outpatient (CLI) | payer MEDICARE, SELFPAY ==
[2017-04-22 08:26] VITALS: BMI 35.9
[2025-01-17 12:50] LABS: Absolute Lymphocyte Count 1.76 X10^3/uL (0.83-4.51); Absolute Neutrophil Count 2.9 X10^3/uL (2.0-7.7); Basophil# 0.05 X10^3/uL; Eosinophil# 0.08 X10^3/uL; Eosinophils% 1.6 % (0-5); Hematocrit 40.2 % (40-54); Hemoglobin 13.7 g/dL (13.0-16.5); Lymphocyte # 1.76 X10^3/ul (0.83-4.51); Lymphocyte % 34.2 % (19-41); Mean Corp Hgb Conc 34.1 g/dL (32-36); Mean Corpuscular Hgb 32.4 pg (27.0-32.0); Monocyte# 0.34 X10^3/uL; Monocyte% 6.6 % (0-10); NRBC Flagged by Analyzer 0 % (0-5); Neutrophil # 2.89 X10^3/uL (2.7-7.7); Neutrophil % 56.2 % (47-70); Platelet Count 218 K/mm3 (150-450); RBC Distribution Width CV 12.7 % (11.6-14.6); RBC Distribution Width SD 43.9 fl (35.1-43.9); Red Blood Count 4.23 M/mm3 (4.6-6.2); White Blood Count 5.1 K/mm3 (4.4-11.0)
[2025-01-17 13:09] LABS: Hemoglobin A1c 5.6 % (<=5.6)
[2025-01-17 15:55] LABS: ALB/GLOB Ratio 2.1 RATIO (0.9-2.4); AST(SGOT) 21 U/L (<=37); Alanine Aminotransfer ALT/SGPT 16 U/L (<=46); Albumin, Serum 4.4 g/dL (3.4-4.8); Alkaline Phosphatase 75 U/L (40-129); Anion Gap 8 (5-15); BUN 12 mg/dL (4-19); BUN/Creat Ratio 12.8 RATIO (10-20); Calcium,Total 9.1 mg/dL (7.6-11.0); Carbon Dioxide 22.7 mmol/L (21.0-32.0); Chloride 109 mmol/L (98-108); Cholesterol 149 mg/dL (<=200); Creatinine, Serum 0.93 mg/dL (0.70-1.20); EST Glomerular Filtration Rate 90 (>60); Globulin 2.1 g/dL (2.2-4.2); Glucose 104 mg/dL (70-99); High Density Lipoprotein 48 mg/dL; Low Density Lipoprotein Calc. 81 mg/dL; Protein, Total 6.5 g/dL (5.9-8.4); Sodium Level 140 mmol/L (133-145); Total Bilirubin 0.42 mg/dL (0.00-1.30); Triglycerides 99 mg/dL; Very Low Density Lipoprotein 20 mg/dL (5-40); cholesterol:hdl ratio screen 3.08
== END | disposition home or self-care (01) ==
LOC: MFPLAB 11:25
PROVIDERS: PCP Family Medicine; Referring Provider Family Medicine; Visit Provider Family Medicine
DX: I25.10 Atherosclerotic heart disease of native coronary artery without angina pectoris (principal); R73.02 Impaired glucose tolerance (oral)
CPT/HCPCS: 36415; 80053; 80061; 83036; 85025

== ENCOUNTER 2025-03-07 11:00 | Outpatient (RCR) | payer MEDICARE, SELFPAY ==
[2017-04-22 08:26] VITALS: BMI 35.9
--- NOTE | 2025-02-16 09:14 | HP.PTEVAL ---
Patient's Visit Information Visit Information Visit Information: REMEDIOS GALAVIZ is a 69 year old M referred to Physical Therapy by Dr. Chad Nash DPM with a diagnosis of R plantar fasciitis. Date of Evaluation: 02/15/25 Physical Therapist: Artem Beaulieu DPT Visit Plan Frequency: 2x /Week Duration: 6 Weeks Plan: 1) IASTIM/DN to post tib, longitudinal arch and plantar fascia 2) G/S stretch both manually and self 3) foot instrinsic strengthening, post tib strengthening HEP at IE: towel calf stretch in AM prior to getting out of bed, standing gastroc stretch throughout the day. Subjective Subjective: Pt. is here today for his initial evaluation with diagnosis of L plantar fasciitis. Pt. reports morning are very painful. Pt. reports haivng something similar in his other foot in ' ultimately having surgery. Mornings are much worse, loosens up, but by the end of the day he is having increased pain as well. Walking is painful always, sitting not much pain. No N/T noted. Pt. has not tried exercises yet. Pt. repots being hesitant to try anything due to fear of making it worse. Pt. is hopeful to reduce symptoms in order to get back to walking and household work without limitations. Pain R plantar fascia: Pain Intensity (Out of 10): 5 Pain Intensity Range: 3 and 8 Objective Objective: POSTURE: Pt. has fairly normal posture in stance. Pt. has slight increase in pes planus during SLS on R side. PALPATION: Pt. has marked tenderness along longitudinal arch and worst at medial plantar fascia origin. NEURO: normal throughout. ROM: R ankle: DF 6deg, PF 32deg, EVR 16deg, INV 12deg. Normal knee ROM noted. Tightness in G/S complex. MMT: ankle: DF 5-/5, PF 5/5. INV 5-/5, EVR 5-/5. GAIT: Pt. has slight toeing out on the R side, decreased forefoot rocker moments as well. Increase in symptoms with gait. STAIRS: no issues with ascending, early heel off with descending. + windlass test Balance/Special Test Scores Lower Extremity Functional Score: 40 Goals Goal 1:: LTG: pt. to be I with HEP. Goal Time Frame: 4-6 Weeks Goal 2:: STG: Pt. to have increased R ankle DF to 15deg. Goal Time Frame: 2-4 Weeks Goal 3:: LTG: pt. to have symmetrical strength between B feet and ankles. Goal Time Frame: 4-6 Weeks Goal 4:: LTG: pt. to ambulate without increase in R foot pain. Goal Time Frame: 4-6 Weeks Rehabilitation Potential Physical Therapy Diagnosis: Pt. has signs and symptoms consistent with R plantar fasciitis. Pt. marked pain at plantar fascia, tight G/S complex. He would benefit from PT to address the above limitations progressing back to all activities without issues. Rehabilitation Potential: Excellent Anticipated Interventions Patient/Client Instruction: Educate patient on: Condition, Plan of Care, Risk Factors and Benefits of Fitness Program For the Purpose of:: To foster healthy habits, To improve decision making, To facilitate caregiver knowledge, To improve self management, To prevent re-injury and To improve ability to perform tasks related to life management Therapeutic Exercise to Include: Strength training, Power training, Body mechanics, Postural training, Flexibilty training, Passive ROM and Active ROM For the Purpose of:: To decrease swelling/inflammation, To increase ROM, To improve nutrient delivery to tissue, To increase oxygenation perfusion, To improve muscle performance and motor function, To improve ability of physical actions for home/community/work/leisure, To improve gait and locomotor functions, To improve health of tissue and To decrease soft tissue restriction Manual Therapy Techniques to Include: Mobilization, Functional dry needling and Soft tissue mobilization Comment: IASTIM For the Purpose of:: To decrease pain, To increase ROM, To improve nutrient delivery to tissue, To increase oxygenation perfusion and To improve muscle performance and motor function Text: Thank you for the opportunity to evaluate your patient. For Medicare and Medicare HMO plans, please review the plan of care and approve it. It will need to be FAXED BACK to us at [phone] for Medicare purposes. For Medicare only, by signing this I certify the plan of care. Please let me know if there are questions or concerns regarding this plan of care. Physician Signature: Date:
--- NOTE | 2025-03-07 11:22 | HP.PTREVAL ---
Re-Evaluation Intro: Dr. Chad Nash, DPM, It has been my pleasure to treat REMEDIOS GALAVIZ over the last 7 visits for LEFT plantar fasciitis. Please see the progress note below for an update on the physical therapy plan of care! Subjective Subjective: Pt. reports feeling like his injection is wearing off. Pt. reports increased aching. Pt. reports being 30% better overall. He reports having some relief initially, but PT seems to be less effective more recently. Objective Objective/Function: MMT: L ankle: PF 40.5#, DF 36.2#, INV 17.5#, EVR 31.9# R ankle: PF 60.3#, DF 60.8#, INV 28.2#, EVR 37.7# ROM: R ankle DF 16deg L ankle 11deg GAIT: Slight antalgic pattern. No AD PT. is going back to physician to have another injection in a few weeks. He is overall doing well I did add post tib and foot intrinsic strengthening to his HEP. He is to continue iwth calf stretching as well. He is still having some pain and maybe an injection might get him through that. Plan Plan Plan: I will keep his case open, but on hold until following up with physician. If he wants him to come back we can schedule more. If he wants him to continue with his HEP I will DC case at that time. Balance/Gait/Functional tests Balance/Special Test Scores Lower Extremity Functional Score: 48 Goals Goals Goal 1:: LTG: pt. to be I with HEP. Goal Time Frame: 4-6 Weeks Goal Progress: Goal Met Goal 2:: STG: Pt. to have increased R ankle DF to 15deg. Goal Time Frame: 2-4 Weeks Goal Progress: Progressing Goal 3:: LTG: pt. to have symmetrical strength between B feet and ankles. Goal Time Frame: 4-6 Weeks Goal Progress: Progressing Goal 4:: LTG: pt. to ambulate without increase in R foot pain. Goal Time Frame: 4-6 Weeks Goal Progress: Progressing Anticipated Interventions Anticipated Interventions Patient/Client Instruction: Educate patient on: Condition, Plan of Care, Risk Factors and Benefits of Fitness Program For the Purpose of:: To foster healthy habits, To improve decision making, To facilitate caregiver knowledge, To improve self management, To prevent re-injury and To improve ability to perform tasks related to life management Therapeutic Exercise to Include: Strength training, Power training, Body mechanics, Postural training, Flexibilty training, Passive ROM and Active ROM For the Purpose of:: To decrease swelling/inflammation, To increase ROM, To improve nutrient delivery to tissue, To increase oxygenation perfusion, To improve muscle performance and motor function, To improve ability of physical actions for home/community/work/leisure, To improve gait and locomotor functions, To improve health of tissue and To decrease soft tissue restriction Manual Therapy Techniques to Include: Mobilization, Functional dry needling and Soft tissue mobilization Comment: IASTIM For the Purpose of:: To decrease pain, To increase ROM, To improve nutrient delivery to tissue, To increase oxygenation perfusion and To improve muscle performance and motor function Re-Evaluation Ending Re-evaluation ending: Please do not hesitate to contact me at [phone] by phone or if you have questions or concerns regarding this new plan of care! Sincerely, Artem Beaulieu DPT
== END 2025-03-07 19:00 | disposition home or self-care (01) ==
LOC: PT 11:00
PROVIDERS: PCP Family Medicine; Referring Provider Podiatrist; Visit Provider Podiatrist
DX: M72.2 Plantar fascial fibromatosis (principal)
CPT/HCPCS: 97110; 97140; 97161; 97530

== ENCOUNTER → 2025-05-18 | Outpatient (CLI) | payer MEDICARE, SELFPAY ==
[2017-04-22 08:26] VITALS: BMI 35.9
[2025-05-18 12:35] LABS: Hematocrit 36.7 % (40-54); Hemoglobin 13.0 g/dL (13.0-16.5); Immature Granulocytes Count 0.000 X10^3/uL (0.0-0.0); Mean Corp Hgb Conc 35.4 g/dL (32-36); Mean Corpuscular Volume 94.1 fL (80-94); Mean Platelet Vol. 10.1 fl (6.2-12.0); NRBC Flagged by Analyzer 0 % (0-5); Platelet Count 190 K/mm3 (150-450); RBC Distribution Width CV 12.7 % (11.6-14.6); RBC Distribution Width SD 44.0 fl (35.1-43.9); Red Blood Count 3.90 M/mm3 (4.6-6.2); White Blood Count 4.5 K/mm3 (4.4-11.0)
[2025-05-18 13:15] LABS: AST(SGOT) 22 U/L (<=37); Alanine Aminotransfer ALT/SGPT 18 U/L (<=46); Albumin, Serum 4.2 g/dL (3.4-4.8); Alkaline Phosphatase 74 U/L (40-129); Anion Gap 11 (5-15); BUN 15 mg/dL (4-19); BUN/Creat Ratio 16.1 RATIO (10-20); Calcium,Total 8.9 mg/dL (7.6-11.0); Carbon Dioxide 18.4 mmol/L (21.0-32.0); Chloride 113 mmol/L (98-108); Cholesterol 143 mg/dL (<=200); Globulin 2.0 g/dL (2.2-4.2); Glucose 113 mg/dL (70-99); Low Density Lipoprotein Calc. 68 mg/dL; Potassium 3.8 mmol/L (3.3-5.1); Triglycerides 99 mg/dL; Very Low Density Lipoprotein 20 mg/dL (5-40); cholesterol:hdl ratio screen 2.59
== END | disposition home or self-care (01) ==
LOC: MFPLAB 10:24
PROVIDERS: PCP Family Medicine; Visit Provider Family Medicine
DX: E78.5 Hyperlipidemia, unspecified (principal); R73.02 Impaired glucose tolerance (oral)
CPT/HCPCS: 36415; 80053; 80061; 83036; 85025

== ENCOUNTER → 2025-08-17 | Outpatient (CLI) | payer MEDICARE, SELFPAY ==
[2017-04-22 08:26] VITALS: BMI 35.9
[2025-08-17 17:38] LABS: Hematocrit 38.8 % (40-54); Hemoglobin 13.1 g/dL (13.0-16.5); Immature Granulocytes Count 0.010 X10^3/uL (0.0-0.0); Mean Corp Hgb Conc 33.8 g/dL (32-36); Mean Corpuscular Volume 96.8 fL (80-94); Mean Platelet Vol. 10.3 fl (6.2-12.0); NRBC Flagged by Analyzer 0 % (0-5); Platelet Count 225 K/mm3 (150-450); RBC Distribution Width CV 12.4 % (11.6-14.6); RBC Distribution Width SD 43.9 fl (35.1-43.9); Red Blood Count 4.01 M/mm3 (4.6-6.2); White Blood Count 6.2 K/mm3 (4.4-11.0)
[2025-08-17 17:56] LABS: AST(SGOT) 23 U/L (<=37); Alanine Aminotransfer ALT/SGPT 21 U/L (<=46); Albumin, Serum 4.3 g/dL (3.4-4.8); Alkaline Phosphatase 90 U/L (40-129); Anion Gap 12 (5-15); BUN 8 mg/dL (4-19); BUN/Creat Ratio 9.0 RATIO (10-20); Calcium,Total 9.3 mg/dL (7.6-11.0); Carbon Dioxide 20.9 mmol/L (21.0-32.0); Chloride 109 mmol/L (98-108); Globulin 2.0 g/dL (2.2-4.2); Glucose 94 mg/dL (70-99); Lipase 23 U/L (13-75); Potassium 3.9 mmol/L (3.3-5.1)
--- OUTSIDE RECORDS SUMMARY | 2025-08-17 18:31 | XMS RPT_ITS | CCD ---
Author Organization [facility] Care Team Providers Care Shirt Maker Name Role Phone Saman RN, Elma Marie Unavailable [phone] [facility] Nurse Unavailable Unavailable Shashank, RN, Tianna Yun Unavailable Unavailcharlene Encarnacion, RN, Tianna uYn Unavailable Unavailcharlene Hernandez RN, Tanya A Unavailable Unavailable Saman RN, Elma Marie Unavailable [phone] Mary RN, Tanya Kumar Unavailable Unavailable Mary RN, Tanya A Unavailable Unavailable DeFinis, Harumi Y Unavailable Unavailable Mary RN, Tanya A Unavailable Unavailable Mary RN, Tanya A Unavailable Unavailable Sumeet Samayoa Unavailable Unavailable Mary RN, Tanya A Unavailable Unavailable Saman RN, Elma Marie Unavailable [phone] Saman RN, Elma Marie Unavailable [phone] Saman HERNÁNDEZ, Elma Marie Unavailable [phone] Dr. Maribel Reynoso Primary Care Provider Dr. Maribel Reynoso Referring Provider LUIS ALBERTO Shah Attending Provider LUIS ALBERTO Shah Referring Provider LUIS ALBERTO Shah Other Provider [phone] Dr. Adrian Robles Attending Provider LUIS ALBERTO Garrido Attending Provider Dr. Maribel Reynoso Primary Care Provider Elma Davison Attending Provider Unavailable Dr. Maribel Reynoso Referring Provider Dr. Adrian Robles Attending Provider [phone] Maribel Reynoso Primary Care Provider [phone] Dr. Maribel Reynoso Referring Provider Kuldeep RIG SITE ENGINEER, RIG SITE ENGINEER-C Rosina Attending Provider Dr. Maribel Reynoso Primary Care Provider [phone] Dr. Maribel Reynoso Referring Provider Kuldeep RIG SITE ENGINEER, RIG SITE ENGINEER-C Rosina Attending Provider Elma MOLINA, Maribel Primary Care Provider Dr. Maribel Reynoso MD Primary Care Provider [phone] Dr. Maribel Reynoso MD Attending Provider [phone] Dr. Maribel Reynoso MD Referring Provider [phone] Elma MOLINA, Maribel Primary Care Provider ADRIAN ROBLES Attending Unavailable MARIBEL REYNOSO Referring Unavailable MARIBEL REYNOSO Primary Care Unavailable MARIBEL REYNOSO Referring Unavailable MARIBEL REYNOSO Primary Care Unavailable ADRIAN ROBLES Attending Unavailable Dr. Maribel Reynoso MD Primary Care Physician Dr. Chad Nash DPM Attending Physician [phone] Dr. Chad Nash DPM Referring Provider [phone] Dr. Maribel Reynoso MD Attending Physician [phone] Maribel Reynoso Primary Care Unavailable Maribel Reynoso Attending Unavailable Maribel Reynoso Referring Unavailable Maribel Reynoso Primary Care Unavailable Maribel Kearns NP Attending Unavailable Maribel Reynoso Referring Unavailable Maribel Reynoso Primary Care Unavailable Chad Nash Attending Unavailable Chad Nash Referring Unavailable Maribel Reynoso Referring Unavailable Maribel Reynoso Primary Care Unavailable Maribel Reynoso Attending Unavailable Maribel Reynoso Primary Care Unavailable Maribel Reynoso Attending Unavailable Maribel Reynoso Referring Unavailable Maribel Reynoso Primary Care Unavailable Maribel Reynoso Attending Unavailable Allergies Allergy Classification Reported Allergen(s) Allergy Type Date of Onset Reaction(s) Facility (20 sources) aspirin; Translations: [aspirin] drug allergy 7 GI upset/stomach burning, Nausea/Vom/Diar kyler/Upste stomach [facility] Work Phone: (20 sources) FLUoxetine; Translations: [fluoxetine] drug allergy 7 unknown [facility] Work Phone: (16 sources) rofecoxib drug allergy 7 unknown [facility] Work Phone: (14 sources) rofecoxib Drug Allergy 2 Nausea [facility] (1 source) rofecoxib Drug Allergy 5 [facility] Repository Medications Current Medications Medication Drug Class(es) Dates Sig (Normalized) Sig (Original) sugar-free cholestyramine resin 4000 mg powder for oral suspension (20 sources) Bile Acid Sequestrant Start: 08-15-2024 take 1 dose by mouth once daily Cholestyramine light 4 g Pack packet Take 1 packet by mouth daily. 08/15/2024 Active Start: 04-20-2017 End: 04-22-2017 take 4 g by mouth once daily as needed Cholestyramine-Aspartame (Cholestyramine Light Packet) 4 GM Powd.Pack Discontinued 4 g PO DAILY NEEDED as needed for Gi Cramping April 20, 2017 12:00am April 22, 2017 9:27am Start: 04-08-2017 End: 05-07-2017 PREVALITE 4 GM PACK 4 grams mixed and taken orally twice daily CHOLESTYRAMINE LIGHT [id number] Tanya Hernandez RN Start: 04-08-2017 End: 05-07-2017 PREVALITE 4 GM PACK 4 grams mixed and taken orally twice daily (post cholecystectomy for diarrhea) CHOLESTYRAMINE LIGHT [id number] Adrian Robles MD Start: 04-08-2017 PREVALITE 4 GM PACK 4 grams mixed and taken orally twice daily (post cholecystectomy for diarrhea) CHOLESTYRAMINE LIGHT [id number] Adrian Robles MD Start: 04-08-2017 PREVALITE 4 GM PACK 4 grams mixed and taken orally twice daily CHOLESTYRAMINE LIGHT [id number] Tanya Hernandez RN nitroglycerin 0.4 mg sublingual tablet (20 sources) Nitrate Vasodilator Start: 04-22-2017 End: 09-29-2024 pantoprazole 40 mg delayed release oral tablet (1 source) Proton Pump Inhibitor take 1 tablet by mouth once daily Pantoprazole [address] tablet DR Take 1 tablet by mouth daily. Active rizatriptan 10 mg oral tablet (20 sources) Serotonin-1b and Serotonin-1d Receptor Agonist Start: 04-08-2017 rosuvastatin calcium 40 mg oral tablet (17 sources) HMG-CoA Reductase Inhibitor Start: 07-18-2019 take 1 tablet by mouth once daily take 1 tablet by mouth once luther y Rosuvastatin 20 MG tablet Take 1 tablet by mouth daily. Active take 0.5 tablet by mouth once da isabel Rosuvastatin 20 MG tablet Take 0.5 tablets by mouth daily. Active take 2 tablets by mouth once jazmine ly Rosuvastatin 20 MG tablet Take 2 tablets by mouth daily. Active topiramate 50 mg oral tablet (17 sources) Start: 07-18-2019 take 1 tablet by mouth twice d aily take 2 tablets by mouth twice da isabel Topiramate 25 MG tablet Take 2 tablets by mouth 2 times daily. Active torsemide 10 mg oral tablet (20 sources) Loop Diuretic Start: 04-08-2017 take 1 tablet by mouth once daily valACYclovir 1000 mg oral tablet (20 sources) Herpesvirus Nucleoside Analog DNA Polymerase Inhibitor, Herpes Simplex Virus Nucleoside Analog DNA Polymerase Inhibitor, Herpes Zoster Virus Nucleoside Analog DNA Polymerase Inhibitor Start: 04-20-2017 take 1 tablet by mouth twice daily as needed Start: 04-08-2017 take 1 tablet by drea th twice daily as needed VALTREX 1 GM TABS One tablet by mouth twice daily as needed VALACYCLOVIR HCL [id number] Tanya Hernandez RN Start: 04-08-2017 take 1 tablet by drea th twice daily as needed VALTREX 1 GM TABS One tablet by mouth twice daily as needed VALACYCLOVIR HCL [id number] Tanya Hernandez RN valACYclovir 500 MG tablet Take 2 tablets by mouth as needed for Other (cold sores). Active valsartan 80 mg oral tablet (20 sources) Angiotensin 2 Receptor Varun Start: 01-02-2020 End: 09-29-2024 take 1 tablet by mouth once daily Valsartan 80 MG tablet Indications: Coronary artery disease involving absentee-shawnee coronary 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 , Hx of percutaneous transluminal coronary angioplasty , Hyperlipidemia, unspecified hyperlipidemia type , Essential hypertension Take 1 tablet by mouth daily. 04/04/2025 Active Completed/Discontinued Medications Medication Drug Class(es) Dates Sig (Normalized) Sig (Original) acetaminophen 300 mg / HYDROcodone bitartrate 5 mg oral tablet (20 sources) Opioid Agonist Start: 11-26-2018 End: 11-30-2018 Hydrocodone-Acetami nophen 1 EACH tablet Discontinued 1 - 2 {tbl} PO EVERY 6 HOURS NEEDED as needed for Pain 11 01November 26, 2018 12:00am November 29, 2018 12:00am November 30, 2018 12:08am Plantar fascial fibromatosis Start: 11-26-2018 End: 11-30-2018 take 1 tablet by mouth every six hours as needed Hydrocodone-Acetaminophen Discontinued 1 - 2 TABLET PO EVERY 6 HOURS NEEDED 30 November 26, 2018 12:00am November 30, 2018 12:08am Start: 04-22-2017 End: 10-01-2017 Hydrocodone-Acetaminophen 1 EACH tablet Discontinued 1 NMA PO April 22, 2017 12:00am October 01, 2017 9:14am Start: 04-22-2017 End: 10-01-2017 Hydrocodone-Acetaminophen Di scontinued 1 EACH PO April 22, 2017 12:00am October 01, 2017 9:14am aspirin 81 mg delayed release oral tablet (20 sources) Platelet Aggregation Inhibitor, Nonsteroidal Anti-inflammatory Drug Start: 07-18-2019 End: 10-05-2020 take 1 tablet by mouth once daily Aspirin 81 mg tablet,delayed release (DR/EC) Discontinued 81 mg PO DAILY 09 14July 18, 2019 1:00am October 05, 2020 12:16pm Start: 04-09-2017 End: 10-01-2017 take 1 tablet by mouth at bedtime Aspirin 81 MG tablet Discontinued 81 mg PO AT BEDTIME April 20, 2017 12:00am October 01, 2017 9:13am Start: 04-09-2017 take 1 tablet by drea th once daily ASPIR-LOW 81 MG TBEC One tablet by mouth daily ASPIRIN [id number] Adrian Robles MD atorvastatin 80 mg oral tablet (19 sources) HMG-CoA Reductase Inhibitor Start: 04-22-2017 End: 07-18-2019 take 1 tablet by mouth at bedtime Atorvastatin 80 MG tablet Discontinued 80 mg PO AT BEDTIME 30 April 22, 2017 12:00am July 18, 2019 3:33pm calcium carbonate 800 mg / famotidine 10 mg / magnesium hydroxide 165 mg chewable tablet (14 sources) Histamine-2 Receptor Antagonist Start: 06-23-2019 End: 07-18-2019 Famotidine-Ca Carb-Mag Hydrox 1 EACH tablet,chewable Discontinued 1 NMA PO NEEDED as needed for GERD June 23, 2019 12:00am July 18, 2019 3:33pm Start: 06-23-2019 End: 07-18-2019 Famotidine-Ca Carb-Mag [place] x Discontinued 1 EACH PO NEEDED June 23, 2019 12:00am July 18, 2019 3:33pm carvedilol 25 mg oral tablet (20 sources) alpha-Adrenergic Varun, beta-Adrenergic Varun Start: 04-08-2017 End: 10-01-2017 take 1 tablet by mouth twice daily Carvedilol 25 MG tablet Discontinued 25 mg PO TWICE A DAY April 22, 2017 12:00am October 01, 2017 9:13am cefadroxil 500 mg oral capsule (14 sources) Cephalosporin Antibacterial Start: 11-26-2018 End: 01-07-2019 take 1 capsule by mouth every twelve hours Cefadroxil 500 MG capsule Discontinued 500 mg PO Q12H 10 November 26, 2018 12:00am January 07, 2019 8:56am help prevent infection clopidogrel 75 mg oral tablet (20 sources) P2Y12 Platelet Inhibitor Start: 04-09-2017 End: 05-20-2018 take 1 tablet by mouth once daily Clopidogrel 75 MG tablet Discontinued 75 mg PO DAILY 12 09April 22, 2017 12:00am October 01, 2017 9:13am cyclobenzaprine hydrochloride 5 mg oral tablet (20 sources) Muscle Relaxant Start: 04-08-2017 End: 04-09-2017 take 1 tablet by mouth at bedtime as needed for muscle spasms CYCLOBENZAPRINE HCL 5 MG TABS One tablet by mouth at bedtime prn muscle spasm: do not take with Ultram CYCLOBENZAPRINE HCL [id number] Tanya Hernandez RN esomeprazole 20 mg delayed release oral capsule (11 sources) Proton Pump Inhibitor Start: 11-17-2022 End: 05-21-2023 take 1 capsule by mouth once daily Esomeprazole Magnesium (Nexium) 20 mg capsule,delayed release(DR/EC) Discontinued 20 mg PO DAILY November 17, 2022 1:00am May 21, 2023 11:01am gabapentin 300 mg oral capsule (20 sources) Anti-epileptic Agent Start: 04-08-2017 End: 03-25-2018 take 1 capsule by mouth three times daily at mealtime Gabapentin 300 MG capsule Discontinued 300 mg PO 3 TIMES DAILY WITH MEALS 0 April 22, 2017 12:00am October 01, 2017 9:14am Start: 04-08-2017 End: 04-09-2017 take 1 tablet by mouth once daily GRALISE 300 MG TABS (Extended release form of Gabapentin for bedtime)One tablet by mouth daily GABAPENTIN (ONCE-DAILY) [id number] Adrian Robles MD Start: 04-08-2017 End: 04-09-2017 take 1 tablet by mouth once daily GRALISE 300 MG TABS (Extended release form of Gabapentin for bedtime)One tablet by mouth daily GABAPENTIN (ONCE-DAILY) [id number] Adrian Robles MD lisinopril 20 mg oral tablet (20 sources) Angiotensin Converting Enzyme Inhibitor Start: 04-08-2017 End: 07-18-2019 take 1 tablet by mouth once daily Lisinopril 20 MG tablet Discontinued 20 mg PO DAILY 0 April 22, 2017 12:00am October 01, 2017 9:14am methylPREDNISolone 4 mg oral tablet (14 sources) Corticosteroid Start: 04-22-2017 End: 10-01-2017 Methylprednisolone 4 MG tablet Discontinued April 22, 2017 12:00am October 01, 2017 9:14am Start: 04-22-2017 End: 10-01-2017 Methylprednisolone Discontin ued April 22, 2017 12:00am October 01, 2017 9:14am Problems Active Problems Problem Classification Problem Date Documented Da te Episodic/Chronic Coronary atherosclerosis and other heart disease (20 sources) Angina pectoris; Translations: [Coronary arteriosclerosis] Onset: 04-09-2017 04-09-2017 Chronic Comment on above: PTCA/RYLIE to RCA 04/30 Diabetes mellitus without complication (16 sources) Type 2 diabetes mellitus without complications; Translations: [Type 2 diabetes mellitus without complications] 04-08-2017 Chronic Disorders of lipid metabolism (20 sources) Hyperlipidemia; Translations: [Hyperlipidemia, unspecified] Onset: 01-05-2024 04-08-2017 Chronic Essential hypertension (20 sources) Hypertensive disorder; Translations: [Essential hypertension] Onset: 01-05-2024 04-08-2017 Chronic Nonspecific chest pain (20 sources) Chest pain; Translations: [Chest pain, unspecified] Onset: 04-08-2017 04-08-2017 Episodic Other lower respiratory disease (20 sources) Dyspnea on exertion; Translations: [Other forms of dyspnea] Onset: 04-08-2017 04-08-2017 Episodic Other nutritional; endocrine; and metabolic disorders (4 sources) Obese class I; Translations: [Obesity, unspecified] Onset: 01-05-2024 01-05-2024 Chronic Other screening for suspected conditions (not mental disorders or infectious disease) (14 sources) Thallium stress test abnormal; Translations: [Abnormal result of other cardiovascular function study] 03-26-2022 Episodic Unclassified (2 sources) Percutaneous transluminal coronary angioplasty ; Translations: [Presence of coronary angioplasty implant and graft] Onset: 04-27-2017 04-27-2017 Past or Other Problems Problem Classification Problem Date Documented Da te Episodic/Chronic Coronary atherosclerosis and other heart disease (19 sources) Stented coronary artery; Translations: [Presence of coronary angioplasty implant and graft] Onset: 04-14-2017 11-26-2018 Episodic Comment on above: PTCA/RYLIE to RCA 04/30 Other diseases of kidney and ureters (1 source) Cyst of kidney, acquired; Translations: [Cyst of kidney, acquired] Onset: 10-18-2024 Episodic Other screening for suspected conditions (not mental disorders or infectious disease) (16 sources) Cardiovascular stress test abnormal; Translations: [Abnormal result of other cardiovascular function study] Onset: 04-08-2017 04-08-2017 Episodic Results Test Name Value Interpretation Reference Range Facility Urgent Care Visit Reporton 1 Urgent Care Visit Report [facility] [address], [address] [place] [address] OFFICE VISIT Date of Service: 07/09/25 MR#: [id number] Acct: [id number] Name: REMEDIOS GALAVIZ Rep #: [id number] : 1955 Provider: KARLA welch Age/Sex: 69/M Location: [facility] [place] [facility] Status: Signed Intake Vital Signs 05/21/23 10:58 07/09/25 13:22 Height 5 ft 8 in 5 ft 9 in Weight: 236 lb BMI 34.8 BP 158/92 H Blood Pressure Location Lt brachial Position Sitting Pulse 76 Pulse Source Monitor Temp 97.7 F L Temp Source Oral Pulse Oximetry (%) 98 Oxygen Delivery Method room air Intake Visit Reasons: TICK BITE Chief Complaint: tick Bite Accompanied by: Self Allergies aspirin Adverse Reaction (Verified 07/09/25 13:14) Nausea/Vom/Diarrhea/Upste stomach fluoxetine Adverse Reaction (Verified 07/09/25 13:14) Unknown rofecoxib (From Vioxx) Adverse Reaction (Verified 07/09/25 13:14) Nausea Medications ???Medication ???Instructions ???Recorded ???Confirmed ???Type carvedilol 25 mg tablet 25 mg PO BID 04/20/17 07/09/25 His tory rizatriptan 10 mg tablet 10 mg PO .X1 PRN MIGRAINES 7 07/09/25 History torsemide 10 mg tablet 10 mg PO DAILY 04/20/17 07/09/25 H istory valacyclovir 1 gram tablet 1,000 mg PO BID PRN cold sores 03/3007/09/25 History nitroglycerin 0.4 mg sublingual 0.4 mg sublingual Q5M PRN 04/22/17 07/09/25 Rx tablet Cardiac/Chest Pain #1 BOTTLE clopidogrel 75 mg tablet 75 mg PO DAILY #90 tabs 05/20/18 1 Rx rosuvastatin 40 mg tablet 40 mg PO DAILY 07/18/19 07/09/25 H istory topiramate 50 mg tablet 50 mg PO BID 07/18/19 07/09/25 His tory valsartan 80 mg tablet 80 mg PO DAILY 11/17/22 07/09/25 H istory doxycycline hyclate 100 mg capsule 200 mg (2 x 100 mg) PO ONCE #2 c aps 07/09/25 07/09/25 Rx Have you fallen in the past year?: No Nurse's Note: Tick bite on right side of neck. 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 CAD (coronary artery disease) Chest pain Dyspnea on exertion Essential hypertension GERD (gastroesophageal reflux disease) HLD (hyperlipidemia) HTN (hypertension) Type 2 diabetes mellitus Surgical History History of cholecystectomy History of colonoscopy ( 2017) History of elbow surgery History of esophagogastroduodenoscopy (EGD) ( 2018) History of foot surgery History of hernia repair History of hydrocelectomy History of rotator cuff surgery History of vasectomy Presence of stent in coronary artery ( 04/21/17) Family History Father CAD (coronary artery disease) Hypertension Sister CAD (coronary artery disease) Hypertension Brother CAD (coronary artery disease) Hypertension Social History Smoking Status: Never smoker alcohol intake: current details: occasional substance use type: does not use HPI HPI Chief Complaint: tick Bite Details: REMEDIOS GALAVIZ, is a 69 M who presents to the office today for concerns regarding a tick bite. He states on his left neck he noted a tick. He does not feel that he remove the complete tick. He denies systemic symptoms. He denies any erythema migrans type rash. ROS Const Constitutional: No body ache, chills, fatigue, fever(s), headache(s), snoring, weakness or sleep problems Eyes Eyes: No blurry vision, change in vision, double vision, irritation, discharge, vision loss, dry eyes, bulging eyes, floaters, visual disturbances, eye pain, Light sensitivity, spots in vision or tunnel vision ENT ENT: No abnormal hearing, ear or mastoid pain, ear discharge, ear pressure, hearing loss, tinnitus, dizziness/vertigo, balance problems, nosebleed/epistaxis, nasal congestion, nasal obstruction, nose pain, sinus pressure, sinus pain, nasal discharge, post nasal drip, headache(s), facial pain, dental pain, dry mouth, difficulty swallowing, bad breath, hoarseness, lip swelling, mouth lesions, mouth pain, neck pain, sore throat, tongue swelling or throat swelling Resp Respiratory: No cough, change in phlegm color, chest congestion, excessive phlegm production, hemoptysis, shortness of breath, snoring, stridor or wheezing Cardio Cardiology: No chest pain at rest, chest pain with exertion, shortness of breath, dyspnea on exertion, generalized swelling, irregular heart rhythm, lightheadedness, orthopnea, radiating jaw, neck or arm pain, fast heart rate, slow heart rate, palpitations or difficulty breathing Gastro GI: No abdominal pain, diarrhea, difficulty swallowing, nausea/dyspepsia or vomiting Musc Musculosk (more content not included)... Normal [facility] Absolute lymphocyte countOrd ered By: Maribel Reynoso on 05-18-2025 Lymphocytes Auto (Unsp spec) [#/Vol] 1.52 10*3/uL 0.83-4.51 [facility] Absolute neutrophil countOrd ered By: Maribel Reynoso on 05-18-2025 Neutrophils (Bld) [#/Vol] 2.5 10*3/uL 2.0-7.7 [facility] Anion gap in Serum or Plasma Ordered By: Maribel Reynoso on 05-18-2025 Anion gap [Moles/Vol] 11 mmol/L 5-15 [facility] Automated lymphocyte count a s percentage of total leukocytesOrdered By: Maribel Reynoso on 05-18-2025 Lymphocytes/100 WBC Auto (Unsp spec) 34.2 % 19-41 [facility] BUN/creatinine ratioOrdered By: Maribel Reynoso on 05-18-2025 Urea nitrogen/Creatinine [Mass ratio] 16.1 mg/mg 10-20 [facility] Basophil percentageOrdered B y: Maribel Reynoso on 05-18-2025 Basophils/100 WBC (Bld) 1.1 % High 0-1 [facility] Bilirubin, totalOrdered By: Maribel Reynoso on 05-18-2025 Bilirubin [Mass/Vol] 0.50 mg/dL 0.00-1.30 [facility] CBC W/Diff, Automatedon 5 Absolute Lymph 1.52 X10 3/uL Normal 0.83-4.51 [facility] Comment on above: Order Comment: Order Date: 05/18/25 Order Info: 0184-1 - CBCD Performed By: #### L 500.4100, L500.4050, L100.0100, L501.9985 #### [facility] [address] [place], [address] Absolute Neut 2.5 X10 3/uL Normal 2.0-7.7 [facility] Comment on above: Order Comment: Order Date: 05/18/25 Order Info: 0184-1 - CBCD Performed By: #### L 500.4100, L500.4050, L100.0100, L501.9985 #### [facility] [address] [place], [address] Basophils/100 WBC (Bld) 1.1 % High 0-1 [facility] Comment on above: Order Comment: Order Date: 05/18/25 Order Info: 0184-1 - CBCD Performed By: #### L 500.4100, L500.4050, L100.0100, L501.9985 #### [facility] [address] [place], [address] Eosinophils/100 WBC (Bld) 1.6 % Normal 0-5 [facility] Comment on above: Order Comment: Order Date: 05/18/25 Order Info: 0184-1 - CBCD Performed By: #### L 500.4100, L500.4050, L100.0100, [id number] #### [facility] [address] [place], [address] Erythrocyte distribution width (RBC) [Ratio] 12.7 % Normal 11.6-14.6 [facility] Comment on above: Order Comment: Order Date: 05/18/25 Order Info: 0184-1 - CBCD Performed By: #### L 500.4100, L500.4050, L100.0100, [id number] #### [facility] [address] [place], [address] Hematocrit (Bld) [Volume fraction] 36.7 % Low 40-54 [facility] Comment on above: Order Comment: Order Date: 05/18/25 Order Info: 0184-1 - CBCD Performed By: #### L 500.4100, L500.4050, L100.0100, [id number] #### [facility] [address] [place], [address] Hemoglobin (Bld) [Mass/Vol] 13.0 g/dL Normal 13.0-16.5 [facility] Comment on above: Order Comment: Order Date: 05/18/25 Order Info: 0184-1 - CBCD Performed By: #### L 500.4100, L500.4050, L100.0100, L501.9985 #### [facility] [address] [place], [address] IG% 0.000 Normal 0.0-0.9 [facility] Comment on above: Order Comment: Order Date: 05/18/25 Order Info: 0184-1 - CBCD Result Comment: IG% - Immature Granulocytes (promyelocytes, myelocytes and metamyelocytes) > 1% indicates that a LEFT SHIFT is Present. Performed By: #### L 500.4100, L500.4050, L100.0100, L501.9985 #### [facility] [address] [place], [address] Lymphocytes/100 WBC (Bld) 34.2 % Normal 19-41 [facility] Comment on above: Order Comment: Order Date: 05/18/25 Order Info: 0184-1 - CBCD Performed By: #### L 500.4100, L500.4050, L100.0100, [id number] #### [facility] [address] [place], [address] MCH (RBC) [Entitic mass] 33.3 pg High 27.0-32.0 [facility] Comment on above: Order Comment: Order Date: 05/18/25 Order Info: 0184-1 - CBCD Performed By: #### L 500.4100, L500.4050, L100.0100, [id number] #### [facility] [address] [place], [address] MCHC (RBC) [Mass/Vol] 35.4 g/dL Normal 32-36 [facility] Comment on above: Order Comment: Order Date: 05/18/25 Order Info: 0184-1 - CBCD Performed By: #### L 500.4100, L500.4050, L100.0100, [id number] #### [facility] [address] [place], [address] MCV (RBC) [Entitic vol] 94.1 fL High 80-94 [facility] Comment on above: Order Comment: Order Date: 05/18/25 Order Info: 0184-1 - CBCD Performed By: #### L 500.4100, L500.4050, L100.0100, L501.9985 #### [facility] [address] [place], [address] Monocytes/100 WBC (Bld) 7.2 % Normal 0-10 [facility] Comment on above: Order Comment: Order Date: 05/18/25 Order Info: 0184-1 - CBCD Performed By: #### L 500.4100, L500.4050, L100.0100, L501.9985 #### [facility] [address] [place], [address] Neutrophils/100 WBC (Bld) 55.9 % Normal 47-70 [facility] Comment on above: Order Comment: Order Date: 05/18/25 Order Info: [id number] - CBCD Performed By: #### L 500.4100, L500.4050, L100.0100, L501.9985 #### [facility] [address] [place], [address] Nucleated RBC (Bld) [#/Vol] 0 10*3/uL Normal 0-5 [facility] Comment on above: Order Comment: Order Date: 05/18/25 Order Info: [id number] - CBCD Performed By: #### L 500.4100, L500.4050, L100.0100, L501.9985 #### [facility] [address] [place], [address] Platelet mean volume (Bld) [Entitic vol] 10.1 fL Normal 6.2-12.0 [facility] Comment on above: Order Comment: Order Date: 05/18/25 Order Info: [id number]- - CBCD Performed By: #### L 500.4100, L500.4050, L100.0100, L501.9985 #### [facility] [address] [place], [address] Platelets (Bld) [#/Vol] 190 10*3/uL Normal 150-450 [facility] Comment on above: Order Comment: Order Date: 05/18/25 Order Info: [id number]- - CBCD Performed By: #### L 500.4100, L500.4050, L100.0100, L501.9985 #### [facility] [address] [place], [address] RBC (Bld) [#/Vol] 3.90 10*6/uL Low 4.6-6.2 [facility] Comment on above: Order Comment: Order Date: 05/18/25 Order Info: [id number] - CBCD Performed By: #### L 500.4100, L500.4050, L100.0100, L501.9985 #### [facility] [address] [place], [address] RDW SD 44.0 fl High 35.1-43.9 [facility] Comment on above: Order Comment: Order Date: 05/18/25 Order Info: [id number] - CBCD Performed By: #### L 500.4100, L500.4050, L100.0100, L501.9985 #### [facility] [address] [place], [address] WBC (Bld) [#/Vol] 4.5 10*3/uL Normal 4.4-11.0 [facility] Comment on above: Order Comment: Order Date: 05/18/25 Order Info: [id number] - CBCD Performed By: #### L 500.4100, L500.4050, L100.0100, L501.9985 #### [facility] [address] [place], [place], [id number] Calculated very low density lipoprotein (VLDL) cholesterol measurementOrdered By: Maribel Reynoso on 05-18-2025 Calculated very low density lipoprotein (VLDL) cholesterol measurement 20 mg/dL 5-40 [facility] Carbon dioxide, total [Moles /volume] in Central venous bloodOrdered By: Maribel Reynoso on 05-18-2025 CO2 [Moles/Vol] 18.4 mmol/L Low 21.0-32.0 [facility] Chloride assayOrdered By: Lana Reynoso on 05-18-2025 Chloride [Moles/Vol] 113 mmol/L High 98-108 [facility] Comprehensive Metabolic Prof ilon 05-18-2025 Albumin [Mass/Vol] 4.2 g/dL Normal 3.4-4.8 [facility] Comment on above: Order Comment: Order Date: 05/18/25Order Info: [id number] - CMPOrder Info: [id number] - LIPID Performed By: #### L 500.4100, L500.4050, L100.0100, L501.9985 ####[facility] [address] [place], [place], [id number] Albumin/Globulin [Mass ratio] 2.1 {ratio} Normal 0.9-2.4 [facility] Comment on above: Order Comment: Order Date: 05/18/25Order Info: [id number] - CMPOrder Info: [id number] - LIPID Performed By: #### L 500.4100, L500.4050, L100.0100, L501.9985 ####[facility] [address] [place], [address] ALK PHOS 74 U/L Normal 40-129 [facility] Comment on above: Order Comment: Order Date: 05/18/25Order Info: [id number] - CMPOrder Info: [id number] - LIPID Performed By: #### L 500.4100, L500.4050, L100.0100, L501.9985 ####[facility] [address] [place], [address] ALT [Catalytic activity/Vol] 18 U/L Normal <=46 [facility] Comment on above: Order Comment: Order Date: 05/18/25Order Info: [id number] - CMPOrder Info: [id number] - LIPID Performed By: #### L 500.4100, L500.4050, L100.0100, L501.9985 ####[facility] [address] [place], [address] AST [Catalytic activity/Vol] 22 U/L Normal <=37 [facility] Comment on above: Order Comment: Order Date: 05/18/25Order Info: [id number] - CMPOrder Info: [id number] - LIPID Performed By: #### L 500.4100, L500.4050, L100.0100, L501.9985 ####[facility] [address] [place], [address] Bilirubin [Mass/Vol] 0.50 mg/dL Normal 0.00-1.30 [facility] Comment on above: Order Comment: Order Date: 05/18/25Order Info: [id number] - CMPOrder Info: [id number] - LIPID Performed By: #### L 500.4100, L500.4050, L100.0100, L501.9985 ####[facility] [address] [place], [address] BUN/CRE 16.1 RATIO Normal 10-20 [facility] Comment on above: Order Comment: Order Date: 05/18/25Order Info: [id number] - CMPOrder Info: [id number] - LIPID Performed By: #### L 500.4100, L500.4050, L100.0100, L501.9985 ####[facility] [address] [place], [address] Calcium [Mass/Vol] 8.9 mg/dL Normal 7.6-11.0 [facility] Comment on above: Order Comment: Order Date: 05/18/25Order Info: [id number] - CMPOrder Info: [id number] - LIPID Performed By: #### L 500.4100, L500.4050, L100.0100, L501.9985 ####[facility] [address] [place], [address] Chloride [Moles/Vol] 113 mmol/L High 98-108 [facility] Comment on above: Order Comment: Order Date: 05/18/25Order Info: [id number] - CMPOrder Info: [id number] - LIPID Performed By: #### L 500.4100, L500.4050, L100.0100, L501.9985 ####[facility] [address] [place], [address] CO2 [Moles/Vol] 18.4 mmol/L Low 21.0-32.0 [facility] Comment on above: Order Comment: Order Date: 05/18/25Order Info: [id number] - CMPOrder Info: [id number] - LIPID Performed By: #### L 500.4100, L500.4050, L100.0100, L501.9985 ####[facility] [address] [place], [address] Creatinine [Mass/Vol] 0.91 mg/dL Normal 0.70-1.20 [facility] Comment on above: Order Comment: Order Date: 05/18/25Order Info: [id number] - CMPOrder Info: [id number] - LIPID Performed By: #### L 500.4100, L500.4050, L100.0100, L501.9985 ####[facility] [address] [place], [address] GAP 11 Normal 5-15 [facility] Comment on above: Order Comment: Order Date: 05/18/25Order Info: [id number]- - CMPOrder Info: [id number] - LIPID Performed By: #### L 500.4100, L500.4050, L100.0100, L501.9985 ####[facility] [address] [place], [address] GFR/1.73 sq M.predicted among non-blacks MDRD (S/P/Bld) [Vol rate/Area] 93 mL/min/{1.73_m2} Normal >60 [facility] Comment on above: Order Comment: Order Date: 05/18/25Order Info: [id number] - CMPOrder Info: [id number] - LIPID Result Comment: mL/m in/1.73m2 CKD-EPI Creatinine Equation (2020) Performed By: #### L 500.4100, L500.4050, L100.0100, L501.9985 ####[facility] [address] [place], [address] Globulin (S) [Mass/Vol] 2.0 g/dL Low 2.2-4.2 [facility] Comment on above: Order Comment: Order Date: 05/18/25Order Info: [id number] - CMPOrder Info: [id number] - LIPID Performed By: #### L 500.4100, L500.4050, L100.0100, L501.9985 ####[facility] [address] [place], [address] Glucose [Mass/Vol] 113 mg/dL High 70-99 [facility] Comment on above: Order Comment: Order Date: 05/18/25Order Info: [id number] - CMPOrder Info: [id number] - LIPID Performed By: #### L 500.4100, L500.4050, L100.0100, L501.9985 ####[facility] [address] [place], [address] Potassium [Moles/Vol] 3.8 mmol/L Normal 3.3-5.1 [facility] Comment on above: Order Comment: Order Date: 05/18/25Order Info: [id number]- - CMPOrder Info: [id number] - LIPID Performed By: #### L 500.4100, L500.4050, L100.0100, L501.9985 ####[facility] [address] [place], [address] Sodium [Moles/Vol] 142 mmol/L Normal 133-145 [facility] Comment on above: Order Comment: Order Date: 05/18/25Order Info: [id number]- - CMPOrder Info: [id number] - LIPID Performed By: #### L 500.4100, L500.4050, L100.0100, L501.9985 ####[facility] [address] [place], [address] T PROT 6.2 g/dL Normal 5.9-8.4 [facility] Comment on above: Order Comment: Order Date: 05/18/25Order Info: [id number] - CMPOrder Info: [id number] - LIPID Performed By: #### L 500.4100, L500.4050, L100.0100, L501.9985 ####[facility] [address] [place], [address] Urea nitrogen [Mass/Vol] 15 mg/dL Normal 4-19 [facility] Comment on above: Order Comment: Order Date: 05/18/25Order Info: [id number] - CMPOrder Info: [id number] - LIPID Performed By: #### L 500.4100, L500.4050, L100.0100, L501.9985 ####[facility] [address] [place], [address] Eosinophil percentageOrdered By: Maribel Reynoso on 05-18-2025 Eosinophils/100 WBC (Bld) 1.6 % 0-5 [facility] Erythrocyte distribution wid th ratioOrdered By: Maribel Reynoso on 05-18-2025 Erythrocyte distribution width (RBC) [Ratio] 12.7 % 11.6-14.6 [facility] Erythrocyte distribution wid th standard deviationOrdered By: Maribel Reynoso on 05-18-2025 Erythrocyte distribution width (RBC) [Ratio] 44.0 fl High 35.1-43.9 [facility] Glomerular filtration rate ( GFR) estimation/1.73 sq m using serum, plasma, or whole bOrdered By: Maribel Reynoso on 05-18-2025 GFR/1.73 sq M.predicted among non-blacks MDRD (S/P/Bld) [Vol rate/Area] 93 mL/min/{1.73_m2} >60 [facility] Comment on above: mL/min/1.73m2 CKD-EP I Creatinine Equation (2020) Hematocrit Auto (Bld) [Volum e fraction]Ordered By: Maribel Reynoso on 05-18-2025 Hematocrit (Bld) [Volume fraction] 36.7 % Low 40-54 [facility] Hemoglobin A1con 05-18-2025 HbA1c (Bld) [Mass fraction] 5.6 % Normal <=5.6 [facility] Comment on above: Order Comment: Order Date: 05/18/25Order Info: [id number] - A1C Result Comment: Norm al < 5.7 % Prediabetic 5.7 - 6.4 % Diabetic >or= 6.5 % Please note range changes. Performed By: #### L 500.4100, L500.4050, L100.0100, L501.9985 ####[facility] [address] [place], [address] Hemoglobin A1c percentageOrd ered By: Maribel Reynoso on 05-18-2025 HbA1c (Bld) [Mass fraction] 5.6 % <5.7 [facility] Comment on above: Normal < 5.7 % Predi abetic 5.7 - 6.4 % Diabetic >or= 6.5 % Please note range changes. Hemoglobin measurementOrdere d By: Maribel Reynoso on 05-18-2025 Hemoglobin (Bld) [Mass/Vol] 13.0 g/dL 13.0-16.5 [facility] Immature granulocytes/100 WB C Auto (Bld)Ordered By: Maribel Reynoso on 05-18-2025 Immature granulocytes/100 WBC (Bld) 0.000 % 0.0-0.9 [facility] Comment on above: IG% - Immature Granu locytes (promyelocytes, myelocytes and metamyelocytes) > 1% indicates that a LEFT SHIFT is Present. LDL calc ser/plasOrdered By: Maribel Reynoso on 05-18-2025 Cholesterol in LDL [Mass/Vol] 68 mg/dL [facility] Comment on above: Gvlvpbojws=968-711 m g/dL & Higher Cncl=120 mg/dL or greaterFriedwald Equation for LDL-C Laboratory - Chemistry and C hemistry - challengeOrdered By: Maribel Reynoso on 05-18-2025 AST [Catalytic activity/Vol] 22 U/L <38 [facility] Lipid Profileon 05-18-2025 CHOL:HDL 2.59 Normal [facility] Comment on above: Order Comment: Order Date: 05/18/25Order Info: [id number] - CMPOrder Info: [id number] - LIPID Performed By: #### L 500.4100, L500.4050, L100.0100, L501.9985 ####[facility] [address] [place], [place], [address] Cholesterol [Mass/Vol] 143 mg/dL Normal <=200 [facility] Comment on above: Order Comment: Order Date: 05/18/25Order Info: [id number] - CMPOrder Info: [id number] - LIPID Result Comment: Chol esterol level, Desirable <200 mg/dL Borderline high cholesterol 200-239 mg/dL High cholesterol >=240 mg/dL Recommendations of the NCEP Adult Treatment Panel for the following risk-cutoff thresholds for the [place] population. Performed By: #### L 500.4100, L500.4050, L100.0100, L501.9985 ####[facility] [address] [place], [address] Cholesterol in HDL [Mass/Vol] 55 mg/dL Normal [facility] Comment on above: Order Comment: Order Date: 05/18/25Order Info: [id number] - CMPOrder Info: [id number] - LIPID Result Comment: [place] onal Cholesterol Education Program (NCEP) guidelines: <40 mg/dL: Low HDL-cholesterol (major risk factor for CHD) >= 60 mg/dL: High HDL-cholesterol (negative risk factor for CHD) HDL-cholesterol is affected by a number of factors, e.g. smoking, exercise, hormones, sex and age. Performed By: #### L 500.4100, L500.4050, L100.0100, L501.9985 ####[facility] [address] [place], [address] Cholesterol in LDL [Mass/Vol] 68 mg/dL Normal [facility] Comment on above: Order Comment: Order Date: 05/18/25Order Info: [id number] - CMPOrder Info: [id number] - LIPID Result Comment: Bord kgnzuo=205-067 mg/dL Higher Noik=029 mg/dL or greater Friedwald Equation for LDL-C Performed By: #### L 500.4100, L500.4050, L100.0100, L501.9985 ####[facility] [address] [place], [address] Cholesterol in VLDL [Mass/Vol] 20 mg/dL Normal 5-40 [facility] Comment on above: Order Comment: Order Date: 05/18/25Order Info: [id number] - CMPOrder Info: [id number] - LIPID Performed By: #### L 500.4100, L500.4050, L100.0100, L501.9985 ####[facility] [address] [place], [address] Triglyceride [Mass/Vol] 99 mg/dL Normal [facility] Comment on above: Order Comment: Order Date: 05/18/25Order Info: [id number] - CMPOrder Info: [id number] - LIPID Result Comment: The drugs N-Acetylcysteine and Metamizole may falsely depress this assay. Normal range: <150 mg/dL Borderline High: 150-199 mg/dL High: 200-499 mg/dL Very High: >500 mg/dL Performed By: #### L 500.4100, L500.4050, L100.0100, L501.9985 ####[facility] [address] [place], [place], [address] MCV (mean corpuscular volume ) determinationOrdered By: Maribel Reynoso on 05-18-2025 MCV (RBC) [Entitic vol] 94.1 fL High 80-94 [facility] Mean corpuscular hemoglobin (MCH) determinationOrdered By: Maribel Reynoso on 05-18-2025 MCH (RBC) [Entitic mass] 33.3 pg High 27.0-32.0 [facility] Mean corpuscular hemoglobin concentration (MCHC) determinationOrdered By: Maribel Reynoso on 05-18-2025 MCHC (RBC) [Mass/Vol] 35.4 g/dL 32-36 [facility] Mean platelet volume determi nationOrdered By: Maribel Reynoso on 05-18-2025 Platelet mean volume (Bld) [Entitic vol] 10.1 fL 6.2-12.0 [facility] Monocyte percentageOrdered B y: Maribel Reynoso on 05-18-2025 Monocytes/100 WBC (Bld) 7.2 % 0-10 [facility] Neutrophil percentageOrdered By: Marible Reynoso on 05-18-2025 Neutrophils/100 WBC (Bld) 55.9 % 47-70 [facility] Nucleated red blood cell per centageOrdered By: Maribel Reynoso on 05-18-2025 Nucleated RBC/100 WBC (Bld) [Ratio] 0 % 0-5 [facility] Platelet countOrdered By: Lana Reynoso on 05-18-2025 Platelets (Bld) [#/Vol] 190 10*3/uL 150-450 [facility] Potassium measurement (mass/ volume)Ordered By: Maribel Reynoso on 05-18-2025 Potassium (Unsp spec) [Mass/Vol] 3.8 mmol/L 3.3-5.1 [facility] RBC Auto (Bld) [#/Vol]Ordere d By: Maribel Reynoso on 05-18-2025 RBC (Bld) [#/Vol] 3.90 10*6/uL Low 4.6-6.2 [facility] Screening total cholesterol/ high density lipoprotein (HDL) cholesterol ratioOrdered By: Maribel Reynoso on 05-18-2025 Cholesterol.total/Chol esterol in HDL [Mass ratio] 2.59 {ratio} [facility] Serum creatinine measurement (mass/volume)Ordered By: Maribel Reynoso on 05-18-2025 Creatinine [Mass/Vol] 0.91 mg/dL 0.70-1.20 [facility] Serum globulin measurementOr dered By: Maribel Reynoso on 05-18-2025 Globulin (S) [Mass/Vol] 2.0 g/dL Low 2.2-4.2 [facility] Serum glucose measurement (m ass/volume)Ordered By: Maribel Reynoso on 05-18-2025 Glucose [Mass/Vol] 113 mg/dL High 70-99 [facility] Serum or plasma alanine veras otransferase (ALT) measurementOrdered By: Maribel Reynoso on 05-18-2025 ALT [Catalytic activity/Vol] 18 U/L <47 [facility] Serum or plasma albumin brock urement (mass/volume)Ordered By: Maribel Reynoso on 05-18-2025 Albumin [Mass/Vol] 4.2 g/dL 3.4-4.8 [facility] Serum or plasma albumin/glob ulin mass ratioOrdered By: Maribel Reynoso on 05-18-2025 Albumin/Globulin [Mass ratio] 2.1 {ratio} 0.9-2.4 [facility] Serum or plasma alkaline allen sphatase measurementOrdered By: Maribel Reynoso on 05-18-2025 ALP [Catalytic activity/Vol] 74 U/L 40-129 [facility] Serum or plasma calcium brock urement (mass/volume)Ordered By: Maribel Reynoso on 05-18-2025 Calcium [Mass/Vol] 8.9 mg/dL 7.6-11.0 [facility] Serum or plasma cholesterol in HDL measurement (mass/volume)Ordered By: Maribel Reynoso on 05-18-2025 Cholesterol in HDL [Mass/Vol] 55 mg/dL >40 [facility] Comment on above: National Cholesterol Education Program (NCEP) guidelines:<40 mg/dL: Low HDL-cholesterol (major risk factor for CHD)>= 60 mg/dL: High HDL-cholesterol (negative risk factor for CHD)HDL-cholesterol is affected by a number of factors, e.g. smoking, exercise, hormones, sex and age. Serum or plasma cholesterol measurement (mass/volume)Ordered By: Maribel Reynoso on 05-18-2025 Cholesterol [Mass/Vol] 143 mg/dL <201 [facility] Comment on above: Cholesterol level, D esirable <200 mg/dLBorderline high cholesterol 200-239 mg/dLHigh cholesterol >=240 mg/dLRecommendations of the NCEP Adult Treatment Panel for the following risk-cutoff thresholds for the [place] population. Serum or plasma urea nitroge n measurement (mass/volume)Ordered By: Maribel Reynoso on 05-18-2025 Urea nitrogen [Mass/Vol] 15 mg/dL 4-19 [facility] Sodium levelOrdered By: Maribel Reynoso on 05-18-2025 Sodium [Moles/Vol] 142 mmol/L 133-145 [facility] Total proteinOrdered By: Selwyn Reynoso on 05-18-2025 Protein [Mass/Vol] 6.2 g/dL 5.9-8.4 [facility] Triglycerides measurementOrd ered By: Maribel Reynoso on 05-18-2025 Triglyceride [Mass/Vol] 99 mg/dL <199 [facility] Comment on above: The drugs N-Acetylcy steine and Metamizole may falsely depress this assay. Normal range: <150 mg/dLBorderline High: 150-199 mg/dLHigh: 200-499 mg/dLVery High: >500 mg/dL White blood cell (WBC) count Ordered By: Maribel Reynoso on 05-18-2025 WBC (Bld) [#/Vol] 4.5 10*3/uL 4.4-11.0 [facility] Re-Evaluation - PT (1)on Re-Evaluation - PT (1) [facility] [address] [place] [address] / REEVALUATION / MEDICARE RECERTIFICATION PHYSICAL THERAPY MR#: [id number] Acct: [id number] Name: REMEDIOS GALAVIZ Rep #: [id number] : 1955 69 From: Artem LICONAT Referring Dr.: KONSTANTIN Nash Status:REG RC R Insurance: [facility] SELF PAY INSURANCE Re-Evaluation Intro: Dr. Chad Nash, DPM, It has been my pleasure to treat REMEDIOS GALAVIZ over the last 7 visits for LEFT plantar fasciitis. Please see the progress note below for an update on the physical therapy plan of care! Subjective Subjective: Pt. reports feeling like his injection is wearing off. Pt. reports increased aching. Pt. reports being 30% better overall. He reports having some relief initially, but PT seems to be less effective more recently. Objective Objective/Function: MMT: L ankle: PF 40.5#, DF 36.2#, INV 17.5#, EVR 31.9# R ankle: PF 60.3#, DF 60.8#, INV 28.2#, EVR 37.7# ROM: R ankle DF 16deg L ankle 11deg GAIT: Slight antalgic pattern. No AD PT. is going back to physician to have another injection in a few weeks. He is overall doing well I did add post tib and foot intrinsic strengthening to his HEP. He is to continue [facility] calf stretching as well. He is still having some pain and maybe an injection might get him through that. Plan Plan Plan: I will keep his case open, but on hold until following up with physician. If he wants him to come back we can schedule more. If he wants him to continue with his HEP I will DC case at that time. Balance/Gait/Functional tests Balance/Special Test Scores Lower Extremity Functional Score: 48 Goals Goals Goal 1:: LTG: pt. to be I with HEP. Goal Time Frame: 4-6 Weeks Goal Progress: Goal Met Goal 2:: STG: Pt. to have increased R ankle DF to 15deg. Goal Time Frame: 2-4 Weeks Goal Progress: Progressing Goal 3:: LTG: pt. to have symmetrical strength between B feet and ankles. Goal Time Frame: 4-6 Weeks Goal Progress: Progressing Goal 4:: LTG: pt. to ambulate without increase in R foot pain. Goal Time Frame: 4-6 Weeks Goal Progress: Progressing Anticipated Interventions Anticipated Interventions Patient/Client Instruction: Educate patient on: Condition, Plan of Care, Risk Factors and Benefits of Fitness Program For the Purpose of:: To foster healthy habits, To improve decision making, To facilitate caregiver knowledge, To improve self management, To prevent re-injury and To improve ability to perform tasks related to life management Therapeutic Exercise to Include: Strength training, Power training, Body mechanics, Postural training, Flexibilty training, Passive ROM and Active ROM For the Purpose of:: To decrease swelling/inflammation, To increase ROM, To improve nutrient delivery to tissue, To increase oxygenation perfusion, To improve muscle performance and motor func tion, To improve ability of physical actions for home/community/work/leisure, To improve gait and locomotor functions, To improve health of tissue and To decrease soft tissue restriction Manual Therapy Techniques to Include: Mobilization, Functional dry needling and Soft tissue mobilization Comment: IASTIM For the Purpose of:: To decrease pain, To increase ROM, To improve nutrient delivery to tissue, To increase oxygenation perfusion and To improve muscle performance and motor function Re-Evaluation Ending Re-evaluation ending: Please do not hesitate to contact me at [phone] by phone or if you have questions or concerns regarding this new plan of care! Sincerely, Artem Beaulieu DPT 03/07/25 1122 CC: KONSTANTIN Nash; Dr. Maribel Reynoso MD CLS Signed For Medicare only, by signing this I certify the plan of care. Physicians Signature Date Normal [facility] Inital Evaluation (1) - PTon 02-16-2025 Inital Evaluation (1) - PT [facility] [address] [place] [address] / REHABILITATION SERVICES INITIAL EVALUATION MR#: [id number] Acct: [id number] Name: REMEDIOS GALAVIZ Rep #: [id number] : 1955 69 From: Artem Beaulieu DPT Referring Dr.: Dr. Chad Nash DPM Status: REG RCR Insurance: [facility] SELF PAY INSURANCE Patient's Visit Information Visit Information Visit Information: REMEDIOS GALAVIZ is a 69 year old M referred to Physical Therapy by Dr. Chad Nash DPM with a diagnosis of R plantar fasciitis. Date of Evaluation: 02/15/25 Physical Therapist: Artem Beaulieu DPT Visit Plan Frequency: 2x /Week Duration: 6 Weeks Plan: 1) IASTIM/DN to post tib, longitudinal arch and plantar fascia 2) G/S stretch both manually and self 3) foot instrinsic strengthening, post tib strengthening HEP at IE: towel calf stretch in AM prior to getting out of bed, standing gastroc stretch throughout the day. Subjective Subjective: Pt. is here today for his initial evaluation with diagnosis of L plantar fasciitis. Pt. reports morning are very painful. Pt. reports haivng something similar in his other foot in 19' ultimately having surgery. Mornings are much worse, loosens up, but by the end of the day he is having increased pain as well. Walking is painful always, sitting not much pain. No N/T noted. Pt. has not tried exercises yet. Pt. repots being hesitant to try anything due to fear of making it worse. Pt. is hopeful to reduce symptoms in order to get back to walking and household work without limitations. Pain R plantar fascia: Pain Intensity (Out of 10): 5 Pain Intensity Range: 3 and 8 Objective Objective: POSTURE: Pt. has fairly normal posture in stance. Pt. has slight increase in pes planus during SLS on R side. PALPATION: Pt. has marked tenderness along longitudinal arch and worst at medial plantar fascia origin. NEURO: normal throughout. ROM: R ankle: DF 6deg, PF 32deg, EVR 16deg, INV 12deg. Normal knee ROM noted. Tightness in G/S complex. MMT: ankle: DF 5-/5, PF 5/5. INV 5-/5, EVR 5-/5. GAIT: Pt. has slight toeing out on the R side, decreased forefoot rocker moments as well. Increase in symptoms with gait. STAIRS: no issues with ascending, early heel off with descending. + windlass test Balance/Special Test Scores Lower Extremity Functional Score: 40 Goals Goal 1:: LTG: pt. to be I with HEP. Goal Time Frame: 4-6 Weeks Goal 2:: STG: Pt. to have increased R ankle DF to 15deg. Goal Time Frame: 2-4 Weeks Goal 3:: LTG: pt. to have symmetrical strength between B feet and ankles. Goal Time Frame: 4-6 Weeks Goal 4:: LTG: pt. to ambulate without increase in R foot pain. Goal Time Frame: 4-6 Weeks Rehabilitation Potential Physical Therapy Diagnosis: Pt. has signs and symptoms consistent with R plantar fasciitis. Pt. marked pain at plantar fascia, tight G/S complex. He would benefit from PT to address the above limitations progressing back to all activities without issues. Rehabilitation Potential: Excellent Anticipated Interventions Patient/Client Instruction: Educate patient on: Condition, Plan of Care, Risk Factors and Benefits of Fitness Program For the Purpose of:: To foster healthy habits, To improve decision making, To facilitate caregiver knowledge, To improve self management, To prevent re-injury and To improve ability to perform tasks related to life management Therapeutic Exercise to Include: Strength training, Power training, Body mechanics, Postural training, Flexibilty training, Passive ROM and Active ROM For the Purpose of:: To decrease swelling/inflammation, To increase ROM, To improve nutrient delivery to tissue, To increase oxygenation perfusion, To improve muscle performance and motor function, To improve ability of physical actions for home/community/work/leisure, To improve gait and locomotor functions, To improve health of tissue and To decrease soft tissue restriction Manual Therapy Techniques to Include: Mobilization, Functional dry needling and Soft tissue mobilization Comment: IASTIM For the Purpose of:: To decrease pain, To increase ROM, To improve nutrient delivery to tissue, To increase oxygenation perfusion and To improve muscle performance and motor function Text: Thank you for the opportunity to evaluate your patient. For Medicare and Medicare HMO plans, please review the plan of care and approve it. It will need to be FAXED BACK to us at [phone] for Medicare purposes. For Medicare only, by signing this I certify the plan of care. Please let me know if there are questions or concerns regarding this plan of care. Physician Signature: ___Date: 02/16/25913 CC: KONSTANTIN Nash; Jama Tanner (more content not included)... Normal [facility] Absolute lymphocyte countOrd ered By: Maribel Reynoso on 01-17-2025 Lymphocytes Auto (Unsp spec) [#/Vol] 1.76 10*3/uL 0.83-4.51 [facility] Absolute neutrophil countOrd ered By: Maribel Reynoso on 01-17-2025 Neutrophils (Bld) [#/Vol] 2.9 10*3/uL 2.0-7.7 [facility] Anion gap in Serum or Plasma Ordered By: Maribel Reynoso on 01-17-2025 Anion gap [Moles/Vol] 8 mmol/L 5-15 [facility] Automated lymphocyte count a s percentage of total leukocytesOrdered By: Maribel Reynoso on 01-17-2025 Lymphocytes/100 WBC Auto (Unsp spec) 34.2 % 19-41 [facility] BUN/creatinine ratioOrdered By: Maribel Reynoso on 01-17-2025 Urea nitrogen/Creatinine [Mass ratio] 12.8 mg/mg 10-20 [facility] Basophil percentageOrdered B y: Maribel Reynoso on 01-17-2025 Basophils/100 WBC (Bld) 1.0 % 0-1 [facility] Bilirubin, totalOrdered By: Maribel Elma on 01-17-2025 Bilirubin [Mass/Vol] 0.42 mg/dL 0.00-1.30 [facility] CBC W/Diff, Automatedon 05 Absolute Lymph 1.76 X10 3/uL Normal 0.83-4.51 [facility] Comment on above: Order Comment: Order Date: 01/17/25 Order Info: 0184-1 - CBCD Performed By: #### L 100.0100, L500.4050, L501.9985, L500.4100 #### [facility] [address] [place], [address] Absolute Neut 2.9 X10 3/uL Normal 2.0-7.7 [facility] Comment on above: Order Comment: Order Date: 01/17/25 Order Info: 0184-1 - CBCD Performed By: #### L 100.0100, L500.4050, L501.9985, L500.4100 #### [facility] [address] [place], [address] Basophils/100 WBC (Bld) 1.0 % Normal 0-1 [facility] Comment on above: Order Comment: Order Date: 01/17/25 Order Info: 0184-1 - CBCD Performed By: #### L 100.0100, L500.4050, L501.9985, L500.4100 #### [facility] [address] [place], [address] Eosinophils/100 WBC (Bld) 1.6 % Normal 0-5 [facility] Comment on above: Order Comment: Order Date: 01/17/25 Order Info: 0184-1 - CBCD Performed By: #### L 100.0100, L500.4050, L501.9985, L500.4100 #### [facility] [address] [place], [address] Erythrocyte distribution width (RBC) [Ratio] 12.7 % Normal 11.6-14.6 [facility] Comment on above: Order Comment: Order Date: 01/17/25 Order Info: 0184-1 - CBCD Performed By: #### L 100.0100, L500.4050, L501.9985, L500.4100 #### [facility] [address] [place], [address] Hematocrit (Bld) [Volume fraction] 40.2 % Normal 40-54 [facility] Comment on above: Order Comment: Order Date: 01/17/25 Order Info: 0184-1 - CBCD Performed By: #### L 100.0100, L500.4050, L501.9985, L500.4100 #### [facility] [address] [place], [address] Hemoglobin (Bld) [Mass/Vol] 13.7 g/dL Normal 13.0-16.5 [facility] Comment on above: Order Comment: Order Date: 01/17/25 Order Info: 0184-1 - CBCD Performed By: #### L 100.0100, L500.4050, L501.9985, L500.4100 #### [facility] [address] [place], [address] IG% 0.400 Normal 0.0-0.9 [facility] Comment on above: Order Comment: Order Date: 01/17/25 Order Info: 0184-1 - CBCD Result Comment: IG% - Immature Granulocytes (promyelocytes, myelocytes and metamyelocytes) > 1% indicates that a LEFT SHIFT is Present. Performed By: #### L 100.0100, L500.4050, L501.9985, L500.4100 #### [facility] [address] [place], [address] Lymphocytes/100 WBC (Bld) 34.2 % Normal 19-41 [facility] Comment on above: Order Comment: Order Date: 01/17/25 Order Info: 0184-1 - CBCD Performed By: #### L 100.0100, L500.4050, L501.9985, L500.4100 #### [facility] [address] [place], [address] MCH (RBC) [Entitic mass] 32.4 pg High 27.0-32.0 [facility] Comment on above: Order Comment: Order Date: 01/17/25 Order Info: 0184-1 - CBCD Performed By: #### L 100.0100, L500.4050, L501.9985, L500.4100 #### [facility] [address] [place], [address] MCHC (RBC) [Mass/Vol] 34.1 g/dL Normal 32-36 [facility] Comment on above: Order Comment: Order Date: 01/17/25 Order Info: 0184-1 - CBCD Performed By: #### L 100.0100, L500.4050, L501.9985, L500.4100 #### [facility] [address] [place], [address] MCV (RBC) [Entitic vol] 95.0 fL High 80-94 [facility] Comment on above: Order Comment: Order Date: 01/17/25 Order Info: 0184-1 - CBCD Performed By: #### L 100.0100, L500.4050, L501.9985, L500.4100 #### [facility] [address] [place], [address] Monocytes/100 WBC (Bld) 6.6 % Normal 0-10 [facility] Comment on above: Order Comment: Order Date: 01/17/25 Order Info: 0184-1 - CBCD Performed By: #### L 100.0100, L500.4050, L501.9985, L500.4100 #### [facility] [address] [place], [address] Neutrophils/100 WBC (Bld) 56.2 % Normal 47-70 [facility] Comment on above: Order Comment: Order Date: 01/17/25 Order Info: 0184-1 - CBCD Performed By: #### L 100.0100, L500.4050, L501.9985, L500.4100 #### [facility] [address] [place], [address] Nucleated RBC (Bld) [#/Vol] 0 10*3/uL Normal 0-5 [facility] Comment on above: Order Comment: Order Date: 01/17/25 Order Info: 0184-1 - CBCD Performed By: #### L 100.0100, L500.4050, L501.9985, L500.4100 #### [facility] [address] [place], [address] Platelet mean volume (Bld) [Entitic vol] 10.0 fL Normal 6.2-12.0 [facility] Comment on above: Order Comment: Order Date: 01/17/25 Order Info: 0184-1 - CBCD Performed By: #### L 100.0100, L500.4050, L501.9985, L500.4100 #### [facility] [address] [place], [address] Platelets (Bld) [#/Vol] 218 10*3/uL Normal 150-450 [facility] Comment on above: Order Comment: Order Date: 01/17/25 Order Info: 0184-1 - CBCD Performed By: #### L 100.0100, L500.4050, L501.9985, L500.4100 #### [facility] [address] [place], [address] RBC (Bld) [#/Vol] 4.23 10*6/uL Low 4.6-6.2 [facility] Comment on above: Order Comment: Order Date: 01/17/25 Order Info: 0184-1 - CBCD Performed By: #### L 100.0100, L500.4050, L501.9985, L500.4100 #### [facility] [address] [place], [address] RDW SD 43.9 fl Normal 35.1-43.9 [facility] Comment on above: Order Comment: Order Date: 01/17/25 Order Info: 0184-1 - CBCD Performed By: #### L 100.0100, L500.4050, L501.9985, L500.4100 #### [facility] [address] [place], [address] WBC (Bld) [#/Vol] 5.1 10*3/uL Normal 4.4-11.0 [facility] Comment on above: Order Comment: Order Date: 01/17/25 Order Info: 0184-1 - CBCD Performed By: #### L 100.0100, L500.4050, L501.9985, L500.4100 #### [facility] [address] [place], [address] Calculated very low density lipoprotein (VLDL) cholesterol measurementOrdered By: Maribel Reynoso on 01-17-2025 Calculated very low density lipoprotein (VLDL) cholesterol measurement 20 mg/dL 5-40 [facility] Carbon dioxide, total [Moles /volume] in Central venous bloodOrdered By: Maribel Reynoso on 01-17-2025 CO2 [Moles/Vol] 22.7 mmol/L 21.0-32.0 [facility] Chloride assayOrdered By: Lana Reynoso on 01-17-2025 Chloride [Moles/Vol] 109 mmol/L High 98-108 [facility] Comprehensive Metabolic Prof ilon 01-17-2025 Albumin [Mass/Vol] 4.4 g/dL Normal 3.4-4.8 [facility] Comment on above: Order Comment: Order Date: 01/17/25 Order Info: [id number] - CMP Order Info: [id number] - LIPID Performed By: #### L 100.0100, L500.4050, L501.9985, L500.4100 #### [facility] [address] [place], [address] Albumin/Globulin [Mass ratio] 2.1 {ratio} Normal 0.9-2.4 [facility] Comment on above: Order Comment: Order Date: 01/17/25 Order Info: 0786-1 - CMP Order Info: [id number] - LIPID Performed By: #### L 100.0100, L500.4050, L501.9985, L500.4100 #### [facility] [address] [place], [address] ALK PHOS 75 U/L Normal 40-129 [facility] Comment on above: Order Comment: Order Date: 01/17/25 Order Info: 0786-1 - CMP Order Info: [id number] - LIPID Performed By: #### L 100.0100, L500.4050, L501.9985, L500.4100 #### [facility] [address] [place], [address] ALT [Catalytic activity/Vol] 16 U/L Normal <=46 [facility] Comment on above: Order Comment: Order Date: 01/17/25 Order Info: 0786-1 - CMP Order Info: [id number] - LIPID Performed By: #### L 100.0100, L500.4050, L501.9985, L500.4100 #### [facility] [address] [place], [address] AST [Catalytic activity/Vol] 21 U/L Normal <=37 [facility] Comment on above: Order Comment: Order Date: 01/17/25 Order Info: [id number] - CMP Order Info: [id number] - LIPID Performed By: #### L 100.0100, L500.4050, L501.9985, L500.4100 #### [facility] [address] [place], [address] Bilirubin [Mass/Vol] 0.42 mg/dL Normal 0.00-1.30 [facility] Comment on above: Order Comment: Order Date: 01/17/25 Order Info: 0786-1 - CMP Order Info: [id number] - LIPID Performed By: #### L 100.0100, L500.4050, L501.9985, L500.4100 #### [facility] [address] [place], [address] BUN/CRE 12.8 RATIO Normal 10-20 [facility] Comment on above: Order Comment: Order Date: 01/17/25 Order Info: [id number]- - CMP Order Info: [id number] - LIPID Performed By: #### L 100.0100, L500.4050, L501.9985, L500.4100 #### [facility] [address] [place], [address] Calcium [Mass/Vol] 9.1 mg/dL Normal 7.6-11.0 [facility] Comment on above: Order Comment: Order Date: 01/17/25 Order Info: 0786- - CMP Order Info: [id number] - LIPID Performed By: #### L 100.0100, L500.4050, L501.9985, L500.4100 #### [facility] [address] [place], [address] Chloride [Moles/Vol] 109 mmol/L High 98-108 [facility] Comment on above: Order Comment: Order Date: 01/17/25 Order Info: [id number] - CMP Order Info: [id number] - LIPID Performed By: #### L 100.0100, L500.4050, L501.9985, L500.4100 #### [facility] [address] [place], [address] CO2 [Moles/Vol] 22.7 mmol/L Normal 21.0-32.0 [facility] Comment on above: Order Comment: Order Date: 01/17/25 Order Info: [id number] - CMP Order Info: [id number] - LIPID Performed By: #### L 100.0100, L500.4050, L501.9985, L500.4100 #### [facility] [address] [place], [address] Creatinine [Mass/Vol] 0.93 mg/dL Normal 0.70-1.20 [facility] Comment on above: Order Comment: Order Date: 01/17/25 Order Info: [id number] - CMP Order Info: [id number] - LIPID Performed By: #### L 100.0100, L500.4050, L501.9985, L500.4100 #### [facility] [address] [place], [address] GAP 8 Normal 5-15 [facility] Comment on above: Order Comment: Order Date: 01/17/25 Order Info: 0786-1 - CMP Order Info: [id number] - LIPID Performed By: #### L 100.0100, L500.4050, L501.9985, L500.4100 #### [facility] [address] [place], [address] GFR/1.73 sq M.predicted among non-blacks MDRD (S/P/Bld) [Vol rate/Area] 90 mL/min/{1.73_m2} Normal >60 [facility] Comment on above: Order Comment: Order Date: 01/17/25 Order Info: 0786-1 - CMP Order Info: [id number] - LIPID Result Comment: mL/m in/1.73m2 CKD-EPI Creatinine Equation (2020) Performed By: #### L 100.0100, L500.4050, L501.9985, L500.4100 #### [facility] [address] [place], [address] Globulin (S) [Mass/Vol] 2.1 g/dL Low 2.2-4.2 [facility] Comment on above: Order Comment: Order Date: 01/17/25 Order Info: [id number] - CMP Order Info: [id number] - LIPID Performed By: #### L 100.0100, L500.4050, L501.9985, L500.4100 #### [facility] [address] [place], [address] Glucose [Mass/Vol] 104 mg/dL High 70-99 [facility] Comment on above: Order Comment: Order Date: 01/17/25 Order Info: 0786- - CMP Order Info: [id number] - LIPID Performed By: #### L 100.0100, L500.4050, L501.9985, L500.4100 #### [facility] [address] [place], [address] Potassium [Moles/Vol] 4.0 mmol/L Normal 3.3-5.1 [facility] Comment on above: Order Comment: Order Date: 01/17/25 Order Info: [id number] - CMP Order Info: [id number] - LIPID Performed By: #### L 100.0100, L500.4050, L501.9985, L500.4100 #### [facility] [address] [place], [address] Sodium [Moles/Vol] 140 mmol/L Normal 133-145 [facility] Comment on above: Order Comment: Order Date: 01/17/25 Order Info: [id number] - CMP Order Info: [id number] - LIPID Performed By: #### L 100.0100, L500.4050, L501.9985, L500.4100 #### [facility] [address] [place], [address] T PROT 6.5 g/dL Normal 5.9-8.4 [facility] Comment on above: Order Comment: Order Date: 01/17/25 Order Info: [id number] - CMP Order Info: [id number] - LIPID Performed By: #### L 100.0100, L500.4050, L501.9985, L500.4100 #### [facility] [address] [place], [place], [id number] Urea nitrogen [Mass/Vol] 12 mg/dL Normal 4-19 [facility] Comment on above: Order Comment: Order Date: 01/17/25 Order Info: [id number] - CMP Order Info: [id number] - LIPID Performed By: #### L 100.0100, L500.4050, L501.9985, L500.4100 #### [facility] [address] [place], [place], [address] Eosinophil percentageOrdered By: Maribel Reynoso on 01-17-2025 Eosinophils/100 WBC (Bld) 1.6 % 0-5 [facility] Erythrocyte distribution wid th ratioOrdered By: Maribel Reynoso on 01-17-2025 Erythrocyte distribution width (RBC) [Ratio] 12.7 % 11.6-14.6 [facility] Erythrocyte distribution wid th standard deviationOrdered By: Maribel Reynoso on 01-17-2025 Erythrocyte distribution width (RBC) [Ratio] 43.9 fl 35.1-43.9 [facility] Glomerular filtration rate ( GFR) estimation/1.73 sq m using serum, plasma, or whole bOrdered By: Maribel Reynoso on 01-17-2025 GFR/1.73 sq M.predicted among non-blacks MDRD (S/P/Bld) [Vol rate/Area] 90 mL/min/{1.73_m2} >60 [facility] Comment on above: mL/min/1.73m2 CKD-EP I Creatinine Equation (2020) Hematocrit Auto (Bld) [Volum e fraction]Ordered By: Maribel Reynoso on 01-17-2025 Hematocrit (Bld) [Volume fraction] 40.2 % 40-54 [facility] Hemoglobin A1con 01-17-2025 HbA1c (Bld) [Mass fraction] 5.6 % Normal <=5.6 [facility] Comment on above: Order Comment: Order Date: 01/17/25 Order Info: [id number] - A1C Result Comment: Norm al < 5.7 % Prediabetic 5.7 - 6.4 % Diabetic >or= 6.5 % Please note range changes. Performed By: #### L 100.0100, L500.4050, L501.9985, L500.4100 #### [facility] [address] [place], [place], [id number] Hemoglobin A1c percentageOrd ered By: Maribel Reynoso on 01-17-2025 HbA1c (Bld) [Mass fraction] 5.6 % <5.7 [facility] Comment on above: Normal < 5.7 % Predi abetic 5.7 - 6.4 % Diabetic >or= 6.5 % Please note range changes. Hemoglobin measurementOrdere d By: Maribel Reynoso on 01-17-2025 Hemoglobin (Bld) [Mass/Vol] 13.7 g/dL 13.0-16.5 [facility] Immature granulocytes/100 WB C Auto (Bld)Ordered By: Maribel Reynoso on 01-17-2025 Immature granulocytes/100 WBC (Bld) 0.400 % 0.0-0.9 [facility] Comment on above: IG% - Immature Granu locytes (promyelocytes, myelocytes and metamyelocytes) > 1% indicates that a LEFT SHIFT is Present. LDL calc ser/plasOrdered By: Maribel Reynoso on 01-17-2025 Cholesterol in LDL [Mass/Vol] 81 mg/dL [facility] Comment on above: Fhtytqtjos=085-192 m g/dL & Higher Glea=771 mg/dL or greater Laboratory - Chemistry and C hemistry - challengeOrdered By: Maribel Reynoso on 01-17-2025 AST [Catalytic activity/Vol] 21 U/L <38 [facility] Lipid Profileon 01-17-2025 CHOL:HDL 3.08 Normal [facility] Comment on above: Order Comment: Order Date: 01/17/25 Order Info: [id number] - CMP Order Info: [id number] - LIPID Performed By: #### L 100.0100, L500.4050, L501.9985, L500.4100 #### [facility] [address] [place], [address] Cholesterol [Mass/Vol] 149 mg/dL Normal <=200 [facility] Comment on above: Order Comment: Order Date: 01/17/25 Order Info: [id number] - CMP Order Info: [id number] - LIPID Result Comment: Chol esterol level, Desirable <200 mg/dL Borderline high cholesterol 200-239 mg/dL High cholesterol >=240 mg/dL Recommendations of the NCEP Adult Treatment Panel for the following risk-cutoff thresholds for the [place] population. Performed By: #### L 100.0100, L500.4050, L501.9985, L500.4100 #### [facility] [address] [place], [address] Cholesterol in HDL [Mass/Vol] 48 mg/dL Normal [facility] Comment on above: Order Comment: Order Date: 01/17/25 Order Info: [id number] - CMP Order Info: [id number] - LIPID Result Comment: [place] onal Cholesterol Education Program (NCEP) guidelines: <40 mg/dL: Low HDL-cholesterol (major risk factor for CHD) >= 60 mg/dL: High HDL-cholesterol (negative risk factor for CHD) HDL-cholesterol is affected by a number of factors, e.g. smoking, exercise, hormones, sex and age. Performed By: #### L 100.0100, L500.4050, L501.9985, L500.4100 #### [facility] [address] [place], [address] Cholesterol in LDL [Mass/Vol] 81 mg/dL Normal [facility] Comment on above: Order Comment: Order Date: 01/17/25 Order Info: [id number] - CMP Order Info: [id number] - LIPID Result Comment: Bord rrjoxp=557-280 mg/dL Higher Szlc=641 mg/dL or greater Performed By: #### L 100.0100, L500.4050, L501.9985, L500.4100 #### [facility] [address] [place], [address] Cholesterol in VLDL [Mass/Vol] 20 mg/dL Normal 5-40 [facility] Comment on above: Order Comment: Order Date: 01/17/25 Order Info: [id number] - CMP Order Info: [id number] - LIPID Performed By: #### L 100.0100, L500.4050, L501.9985, L500.4100 #### [facility] [address] [place], [address] Triglyceride [Mass/Vol] 99 mg/dL Normal [facility] Comment on above: Order Comment: Order Date: 01/17/25 Order Info: [id number] - CMP Order Info: [id number] - LIPID Result Comment: The drugs N-Acetylcysteine and Metamizole may falsely depress this assay. Normal range: <150 mg/dL Borderline High: 150-199 mg/dL High: 200-499 mg/dL Very High: >500 mg/dL Performed By: #### L 100.0100, L500.4050, L501.9985, L500.4100 #### [facility] [address] [place], [address] MCV (mean corpuscular volume ) determinationOrdered By: Maribel Reynoso on 01-17-2025 MCV (RBC) [Entitic vol] 95.0 fL High 80-94 [facility] Mean corpuscular hemoglobin (MCH) determinationOrdered By: Maribel Reynoso on 01-17-2025 MCH (RBC) [Entitic mass] 32.4 pg High 27.0-32.0 [facility] Mean corpuscular hemoglobin concentration (MCHC) determinationOrdered By: Maribel Reynoso on 01-17-2025 MCHC (RBC) [Mass/Vol] 34.1 g/dL 32-36 [facility] Mean platelet volume determi nationOrdered By: Maribel Reynoso on 01-17-2025 Platelet mean volume (Bld) [Entitic vol] 10.0 fL 6.2-12.0 [facility] Monocyte percentageOrdered B y: Maribel Reynoso on 01-17-2025 Monocytes/100 WBC (Bld) 6.6 % 0-10 [facility] Neutrophil percentageOrdered By: Maribel Reynoso on 01-17-2025 Neutrophils/100 WBC (Bld) 56.2 % 47-70 [facility] Nucleated red blood cell per centageOrdered By: Maribel Reynoso on 01-17-2025 Nucleated RBC/100 WBC (Bld) [Ratio] 0 % 0-5 [facility] Platelet countOrdered By: Lana Reynoso on 01-17-2025 Platelets (Bld) [#/Vol] 218 10*3/uL 150-450 [facility] Potassium measurement (mass/ volume)Ordered By: Maribel Reynoso on 01-17-2025 Potassium (Unsp spec) [Mass/Vol] 4.0 mmol/L 3.3-5.1 [facility] RBC Auto (Bld) [#/Vol]Ordere d By: Maribel Reynoso on 01-17-2025 RBC (Bld) [#/Vol] 4.23 10*6/uL Low 4.6-6.2 [facility] Screening total cholesterol/ high density lipoprotein (HDL) cholesterol ratioOrdered By: Maribel Reynoso on 01-17-2025 Cholesterol.total/Chol esterol in HDL [Mass ratio] 3.08 {ratio} [facility] Serum creatinine measurement (mass/volume)Ordered By: Maribel Reynoso on 01-17-2025 Creatinine [Mass/Vol] 0.93 mg/dL 0.70-1.20 [facility] Serum globulin measurementOr dered By: Maribel Reynoso on 01-17-2025 Globulin (S) [Mass/Vol] 2.1 g/dL Low 2.2-4.2 [facility] Serum glucose measurement (m ass/volume)Ordered By: Maribel Reynoso on 01-17-2025 Glucose [Mass/Vol] 104 mg/dL High 70-99 [facility] Serum or plasma alanine veras otransferase (ALT) measurementOrdered By: Maribel Reynoso on 01-17-2025 ALT [Catalytic activity/Vol] 16 U/L <47 [facility] Serum or plasma albumin brock urement (mass/volume)Ordered By: Maribel Reynoso on 01-17-2025 Albumin [Mass/Vol] 4.4 g/dL 3.4-4.8 [facility] Serum or plasma albumin/glob ulin mass ratioOrdered By: Maribel Reynoso on 01-17-2025 Albumin/Globulin [Mass ratio] 2.1 {ratio} 0.9-2.4 [facility] Serum or plasma alkaline allen sphatase measurementOrdered By: Maribel Reynoso on 01-17-2025 ALP [Catalytic activity/Vol] 75 U/L 40-129 [facility] Serum or plasma calcium brock urement (mass/volume)Ordered By: Maribel Reynoso on 01-17-2025 Calcium [Mass/Vol] 9.1 mg/dL 7.6-11.0 [facility] Serum or plasma cholesterol in HDL measurement (mass/volume)Ordered By: Maribel Reynoso on 01-17-2025 Cholesterol in HDL [Mass/Vol] 48 mg/dL >40 [facility] Comment on above: National Cholesterol Education Program (NCEP) guidelines:<40 mg/dL: Low HDL-cholesterol (major risk factor for CHD)>= 60 mg/dL: High HDL-cholesterol (negative risk factor for CHD)HDL-cholesterol is affected by a number of factors, e.g. smoking, exercise, hormones, sex and age. Serum or plasma cholesterol measurement (mass/volume)Ordered By: Maribel Reynoso on 01-17-2025 Cholesterol [Mass/Vol] 149 mg/dL <201 [facility] Comment on above: Cholesterol level, D esirable <200 mg/dLBorderline high cholesterol 200-239 mg/dLHigh cholesterol >=240 mg/dLRecommendations of the NCEP Adult Treatment Panel for the following risk-cutoff thresholds for the [place] population. Serum or plasma urea nitroge n measurement (mass/volume)Ordered By: Maribel Reynoso on 01-17-2025 Urea nitrogen [Mass/Vol] 12 mg/dL 4-19 [facility] Sodium levelOrdered By: Maribel Reynoso on 01-17-2025 Sodium [Moles/Vol] 140 mmol/L 133-145 [facility] Total proteinOrdered By: Selwyn Reynoso on 01-17-2025 Protein [Mass/Vol] 6.5 g/dL 5.9-8.4 [facility] Triglycerides measurementOrd ered By: Maribel Reynoso on 01-17-2025 Triglyceride [Mass/Vol] 99 mg/dL <199 [facility] Comment on above: The drugs N-Acetylcy steine and Metamizole may falsely depress this assay. Normal range: <150 mg/dLBorderline High: 150-199 mg/dLHigh: 200-499 mg/dLVery High: >500 mg/dL White blood cell (WBC) count Ordered By: Maribel Reynoso on 01-17-2025 WBC (Bld) [#/Vol] 5.1 10*3/uL 4.4-11.0 [facility] Kidney [facility] Bladderon 025 Kidney and Bladder [facility] [address] [place], [place] [address] Kidney and Bladder MR#: [id number] Acct: [id number] Name: REMEDIOS GALAVIZ Rep #: [id number] : 1955 68 From: Trey yarbrough MD PCP: Dr. Maribel Reynoso MD Status: [facility] Study: Kidney and Bladder Date of Exam: 09/26/24 Exam# [id number] Ordering Dr: Maribel Reynoso MD :[id number] STUDY: RENAL ULTRASOUND - COMPLETE REASON FOR EXAM: Male, 68 years old. Cyst right kidney TECHNIQUE: Ultrasound evaluation of the kidneys was performed with real-time and static andrews-scale imaging. COMPARISON: Comparison is made with prior study of January 15, 2024. FINDINGS: RIGHT KIDNEY: Normal location of the right kidney, which is normal in size. The right kidney measures 11 cm x 5.2 cm x 5.5 cm. There is a normal cortex of the right kidney. The renal cortex measures 1.3 cm. 3 cysts are seen in the right ovary. The largest is in the lateral inferior pole and measures 3.3 cm x 3.2 cm x 2 cm. There are no right renal calculi. There is no right hydronephrosis. DISTAL RIGHT URETER: There is non-visualization of the distal right ureter. There is no demonstrated right ureterovesical junction calculus. There is a visualized right ureteral jet. LEFT KIDNEY: Normal location of the left kidney, which is normal in size. The left kidney measures 11.4 cm x 5.6 cm x 5.8 cm. There is a normal cortex of the left kidney. The renal cortex measures 1.2 cm. There is no left renal mass or cyst. There are no left renal calculi. There is no left hydronephrosis. DISTAL LEFT URETER: There is non-visualization of the distal left ureter. There is no demonstrated left ureterovesical junction calculus. There is a visualized left ureteral jet. BLADDER: The distended urinary bladder has a volume of 145 ml. There is a normal wall thickness of the distended urinary bladder. There is no demonstrated mass within the urinary bladder. There are no demonstrated bladder calculi. US/Kidney and Bladder IMPRESSION: Right renal cysts. Largest cyst is in the lower lateral aspect of the right kidney measuring 3.3 cm x 3.2 cm x 2 cm. Electronically Signed: Trey Ramos MD at 13:13 EST Reading Location ID and State: [address] [place] [address] , Service support , CC: Dr. Maribel Reynoso MD Compounding Pharmacy Technician: Signed Normal [facility] CBC W/Diff, Automatedon Absolute Lymph 1.80 X10 3/uL Normal 0.83-4.51 [facility] Comment on above: Order Comment: Order Date: 09/21/24Order Info: [id number] - CBCD Performed By: #### L 100.0100, L501.9903, L500.4100, L500.4050 ####[facility] [address] [place], [place], [address] Absolute Neut 3.1 X10 3/uL Normal 2.0-7.7 [facility] Comment on above: Order Comment: Order Date: 09/21/24Order Info: [id number] - CBCD Performed By: #### L 100.0100, L501.9985, L500.4100, L500.4050 ####[facility] [address] [place], [address] Basophils/100 WBC (Bld) 0.7 % Normal 0-1 [facility] Comment on above: Order Comment: Order Date: 09/21/24Order Info: [id number] - CBCD Performed By: #### L 100.0100, L501.9985, L500.4100, L500.4050 ####[facility] [address] [place], [address] Eosinophils/100 WBC (Bld) 2.0 % Normal 0-5 [facility] Comment on above: Order Comment: Order Date: 09/21/24Order Info: [id number] - CBCD Performed By: #### L 100.0100, L501.9985, L500.4100, L500.4050 ####[facility] [address] [place], [address] Erythrocyte distribution width (RBC) [Ratio] 12.4 % Normal 11.6-14.6 [facility] Comment on above: Order Comment: Order Date: 09/21/24Order Info: [id number] - CBCD Performed By: #### L 100.0100, L501.9985, L500.4100, L500.4050 ####[facility] [address] [place], [address] Hematocrit (Bld) [Volume fraction] 40.0 % Normal 40-54 [facility] Comment on above: Order Comment: Order Date: 09/21/24Order Info: [id number] - CBCD Performed By: #### L 100.0100, L501.9985, L500.4100, L500.4050 ####[facility] [address] [place], [address] Hemoglobin (Bld) [Mass/Vol] 13.2 g/dL Normal 13.0-16.5 [facility] Comment on above: Order Comment: Order Date: 09/21/24Order Info: [id number] - CBCD Performed By: #### L 100.0100, L501.9985, L500.4100, L500.4050 ####[facility] [address] [place], [address] IG% 0.400 Normal 0.0-0.9 [facility] Comment on above: Order Comment: Order Date: 09/21/24Order Info: [id number] - CBCD Result Comment: IG% - Immature Granulocytes (promyelocytes, myelocytes and metamyelocytes) > 1% indicates that a LEFT SHIFT is Present. Performed By: #### L 100.0100, L501.9985, L500.4100, L500.4050 ####[facility] [address] [place], [address] Lymphocytes/100 WBC (Bld) 33.4 % Normal 19-41 [facility] Comment on above: Order Comment: Order Date: 09/21/24Order Info: [id number] - CBCD Performed By: #### L 100.0100, L501.9985, L500.4100, L500.4050 ####[facility] [address] [place], [address] MCH (RBC) [Entitic mass] 31.5 pg Normal 27.0-32.0 [facility] Comment on above: Order Comment: Order Date: 09/21/24Order Info: [id number] - CBCD Performed By: #### L 100.0100, L501.9985, L500.4100, L500.4050 ####[facility] [address] [place], [address] MCHC (RBC) [Mass/Vol] 33.0 g/dL Normal 32-36 [facility] Comment on above: Order Comment: Order Date: 09/21/24Order Info: [id number] - CBCD Performed By: #### L 100.0100, L501.9985, L500.4100, L500.4050 ####[facility] [address] [place], [address] MCV (RBC) [Entitic vol] 95.5 fL High 80-94 [facility] Comment on above: Order Comment: Order Date: 09/21/24Order Info: [id number] - CBCD Performed By: #### L 100.0100, L501.9985, L500.4100, L500.4050 ####[facility] [address] [place], [address] Monocytes/100 WBC (Bld) 5.9 % Normal 0-10 [facility] Comment on above: Order Comment: Order Date: 09/21/24Order Info: [id number] - CBCD Performed By: #### L 100.0100, L501.9985, L500.4100, L500.4050 ####[facility] [address] [place], [address] Neutrophils/100 WBC (Bld) 57.6 % Normal 47-70 [facility] Comment on above: Order Comment: Order Date: 09/21/24Order Info: [id number] - CBCD Performed By: #### L 100.0100, L501.9985, L500.4100, L500.4050 ####[facility] [address] [place], [address] Nucleated RBC (Bld) [#/Vol] 0 10*3/uL Normal 0-5 [facility] Comment on above: Order Comment: Order Date: 09/21/24Order Info: [id number] - CBCD Performed By: #### L 100.0100, L501.9985, L500.4100, L500.4050 ####[facility] [address] [place], [address] Platelet mean volume (Bld) [Entitic vol] 10.1 fL Normal 6.2-12.0 [facility] Comment on above: Order Comment: Order Date: 09/21/24Order Info: [id number] - CBCD Performed By: #### L 100.0100, L501.9985, L500.4100, L500.4050 ####[facility] [address] [place], [address] Platelets (Bld) [#/Vol] 228 10*3/uL Normal 150-450 [facility] Comment on above: Order Comment: Order Date: 09/21/24Order Info: [id number] - CBCD Performed By: #### L 100.0100, L501.9985, L500.4100, L500.4050 ####[facility] [address] [place], [address] RBC (Bld) [#/Vol] 4.19 10*6/uL Low 4.6-6.2 [facility] Comment on above: Order Comment: Order Date: 09/21/24Order Info: [id number] - CBCD Performed By: #### L 100.0100, L501.9985, L500.4100, L500.4050 ####[facility] [address] [place], [address] RDW SD 43.3 fl Normal 35.1-43.9 [facility] Comment on above: Order Comment: Order Date: 09/21/24Order Info: [id number] - CBCD Performed By: #### L 100.0100, L501.9985, L500.4100, L500.4050 ####[facility] [address] [place], [address] WBC (Bld) [#/Vol] 5.4 10*3/uL Normal 4.4-11.0 [facility] Comment on above: Order Comment: Order Date: 09/21/24Order Info: [id number] - CBCD Performed By: #### L 100.0100, L501.9985, L500.4100, L500.4050 ####[facility] [address] [place], [address] Comprehensive Metabolic Prof ilon 09-21-2024 Albumin [Mass/Vol] 3.7 g/dL Normal 3.2-5.0 [facility] Comment on above: Order Comment: Order Date: 09/21/24Order Info: [id number] - CMPOrder Info: [id number] - LIPID Performed By: #### L 100.0100, L501.9985, L500.4100, L500.4050 ####[facility] [address] [place], [address] Albumin/Globulin [Mass ratio] 1.4 {ratio} Normal 0.9-2.4 [facility] Comment on above: Order Comment: Order Date: 09/21/24Order Info: [id number] - CMPOrder Info: [id number] - LIPID Performed By: #### L 100.0100, L501.9985, L500.4100, L500.4050 ####[facility] [address] [place], [address] ALK P 96 U/L Normal 45-117 [facility] Comment on above: Order Comment: Order Date: 09/21/24Order Info: [id number] - CMPOrder Info: [id number] - LIPID Performed By: #### L 100.0100, L501.9985, L500.4100, L500.4050 ####[facility] [address] [place], [address] ALT [Catalytic activity/Vol] 22 U/L Normal 16-61 [facility] Comment on above: Order Comment: Order Date: 09/21/24Order Info: [id number] - CMPOrder Info: [id number] - LIPID Performed By: #### L 100.0100, L501.9985, L500.4100, L500.4050 ####[facility] [address] [place], [address] AST [Catalytic activity/Vol] 15 U/L Normal 15-37 [facility] Comment on above: Order Comment: Order Date: 09/21/24Order Info: [id number] - CMPOrder Info: [id number] - LIPID Performed By: #### L 100.0100, L501.9985, L500.4100, L500.4050 ####[facility] [address] [place], [address] Bilirubin [Mass/Vol] 0.50 mg/dL Normal 0.20-1.00 [facility] Comment on above: Order Comment: Order Date: 09/21/24Order Info: [id number] - CMPOrder Info: [id number] - LIPID Result Comment: For patients on eltrombopag therapy, use of [facility] TBIL is not recommended. Performed By: #### L 100.0100, L501.9985, L500.4100, L500.4050 ####[facility] [address] [place], [address] BUN/CRE 13.1 RATIO Normal 10-20 [facility] Comment on above: Order Comment: Order Date: 09/21/24Order Info: [id number] - CMPOrder Info: [id number] - LIPID Performed By: #### L 100.0100, L501.9985, L500.4100, L500.4050 ####[facility] [address] [place], [address] CA,Total 8.4 mg/dL Low 8.5-10.1 [facility] Comment on above: Order Comment: Order Date: 09/21/24Order Info: [id number] - CMPOrder Info: [id number] - LIPID Performed By: #### L 100.0100, L501.9985, L500.4100, L500.4050 ####[facility] [address] [place], [address] Chloride [Moles/Vol] 114 mmol/L High 98-107 [facility] Comment on above: Order Comment: Order Date: 09/21/24Order Info: [id number] - CMPOrder Info: [id number] - LIPID Performed By: #### L 100.0100, L501.9985, L500.4100, L500.4050 ####[facility] [address] [place], [address] CO2 [Moles/Vol] 22.0 mmol/L Normal 21.0-32.0 [facility] Comment on above: Order Comment: Order Date: 09/21/24Order Info: [id number] - CMPOrder Info: [id number] - LIPID Performed By: #### L 100.0100, L501.9985, L500.4100, L500.4050 ####[facility] [address] [place], [address] Creatinine [Mass/Vol] 1.00 mg/dL Normal 0.70-1.30 [facility] Comment on above: Order Comment: Order Date: 09/21/24Order Info: [id number] - CMPOrder Info: [id number] - LIPID Result Comment: The validity of the calculated GFR GFRAA in patients over 70 years has not been determined. Clinical correlation is essential. Performed By: #### L 100.0100, L501.9985, L500.4100, L500.4050 ####[facility] [address] [place], [address] EST GFR - AA 97 mL/min Normal >60 [facility] Comment on above: Order Comment: Order Date: 09/21/24Order Info: [id number] - CMPOrder Info: [id number] - LIPID Result Comment: Afri can Israeli GFR Calc Performed By: #### L 100.0100, L501.9985, L500.4100, L500.4050 ####[facility] [address] [place], [address] GAP 4 Low 5-15 [facility] Comment on above: Order Comment: Order Date: 09/21/24Order Info: [id number] - CMPOrder Info: [id number] - LIPID Performed By: #### L 100.0100, L501.9985, L500.4100, L500.4050 ####[facility] [address] [place], [address] GFR/1.73 sq M.predicted among non-blacks MDRD (S/P/Bld) [Vol rate/Area] 80 mL/min/{1.73_m2} Normal >60 [facility] Comment on above: Order Comment: Order Date: 09/21/24Order Info: [id number] - CMPOrder Info: [id number] - LIPID Result Comment: Non- GFR Calc Performed By: #### L 100.0100, L501.9985, L500.4100, L500.4050 ####[facility] [address] [place], [address] Globulin (S) [Mass/Vol] 2.7 g/dL Normal 2.2-4.2 [facility] Comment on above: Order Comment: Order Date: 09/21/24Order Info: [id number] - CMPOrder Info: [id number] - LIPID Performed By: #### L 100.0100, L501.9985, L500.4100, L500.4050 ####[facility] [address] [place], [address] Glucose [Mass/Vol] 110 mg/dL High 74-106 [facility] Comment on above: Order Comment: Order Date: 09/21/24Order Info: [id number] - CMPOrder Info: [id number] - LIPID Result Comment: Fast ing Glucose result from 100 to 125 mg/dL suggests IMPAIRED HOMEOSTASIS per A.D.A. criteria. Performed By: #### L 100.0100, L501.9985, L500.4100, L500.4050 ####[facility] [address] [place], [address] Potassium [Moles/Vol] 4.0 mmol/L Normal 3.5-5.1 [facility] Comment on above: Order Comment: Order Date: 09/21/24Order Info: [id number] - CMPOrder Info: [id number] - LIPID Performed By: #### L 100.0100, L501.9985, L500.4100, L500.4050 ####[facility] [address] [place], [address] Sodium [Moles/Vol] 140 mmol/L Normal 136-145 [facility] Comment on above: Order Comment: Order Date: 09/21/24Order Info: [id number]- - CMPOrder Info: [id number] - LIPID Performed By: #### L 100.0100, L501.9985, L500.4100, L500.4050 ####[facility] [address] [place], [address] T PROT 6.4 g/dL Normal 6.4-8.2 [facility] Comment on above: Order Comment: Order Date: 09/21/24Order Info: [id number]- - CMPOrder Info: [id number] - LIPID Performed By: #### L 100.0100, L501.9985, L500.4100, L500.4050 ####[facility] [address] [place], [address] Urea nitrogen [Mass/Vol] 13 mg/dL Normal 7-18 [facility] Comment on above: Order Comment: Order Date: 09/21/24Order Info: [id number] - CMPOrder Info: [id number] - LIPID Performed By: #### L 100.0100, L501.9985, L500.4100, L500.4050 ####[facility] [address] [place], [address] Hemoglobin A1con 09-21-2024 HbA1c (Bld) [Mass fraction] 5.6 % Normal 3.8-5.6 [facility] Comment on above: Order Comment: Order Date: 09/21/24Order Info: [id number] - A1C Result Comment: Norm al < 5.7 % Prediabetic 5.7 - 6.4 % Diabetic >or= 6.5 % Please note range changes. Performed By: #### L 100.0100, L501.9985, L500.4100, L500.4050 ####[facility] [address] [place], [address] Lipid Profileon 09-21-2024 Cholesterol [Mass/Vol] 156 mg/dL Normal 200 [facility] Comment on above: Order Comment: Order Date: 09/21/24Order Info: [id number] - CMPOrder Info: [id number] - LIPID Result Comment: <200 mg/dL Desirable 200-240 mg/dL Borderline >240 mg/dL High Risk Performed By: #### L 100.0100, L501.9985, L500.4100, L500.4050 ####[facility] [address] [place], [address] Cholesterol in HDL [Mass/Vol] 56 mg/dL Normal [facility] Comment on above: Order Comment: Order Date: 09/21/24Order Info: [id number] - CMPOrder Info: [id number] - LIPID Result Comment: The drugs N-Acetylcysteine and Metamizole may falsely depress this assay. Reference Range HDL <40 mg/dL Low HDL Cholesterol HDL >or= 60 mg/dL High HDL Cholesterol Performed By: #### L 100.0100, L501.9985, L500.4100, L500.4050 ####[facility] [address] [place], [address] Cholesterol in LDL [Mass/Vol] 79 mg/dL Normal 0-130 [facility] Comment on above: Order Comment: Order Date: 09/21/24Order Info: [id number] - CMPOrder Info: [id number] - LIPID Performed By: #### L 100.0100, L501.9985, L500.4100, L500.4050 ####[facility] [address] [place], [address] Cholesterol in VLDL [Mass/Vol] 21 mg/dL Normal 5-40 [facility] Comment on above: Order Comment: Order Date: 09/21/24Order Info: [id number] - CMPOrder Info: [id number] - LIPID Performed By: #### L 100.0100, L501.9985, L500.4100, L500.4050 ####[facility] [address] [place], [address] Triglyceride [Mass/Vol] 106 mg/dL Normal [facility] Comment on above: Order Comment: Order Date: 09/21/24Order Info: [id number] - CMPOrder Info: [id number] - LIPID Result Comment: The drugs N-Acetylcysteine and Metamizole may falsely depress this assay. Serum Triglycerides Reference Interval Normal <150 mg/dL Borderline high 150 - 199 mg/dL High 200 - 499 mg/dL Very High > or = 500 mg/dL Performed By: #### L 100.0100, L501.9985, L500.4100, L500.4050 ####[facility] [address] [place], [address] Microalbumin,Random Urineon 09-21-2024 MICROALBUMIN,UR 9.8 mg/L Normal NO RANGE EST. [facility] Comment on above: Performed By: #### L 502.0500 #### [facility] [address] [place], [address] Laboratory - Chemistry and C hemistry - challengeOrdered By: Maribel Reynoso on 12-24-2023 Cobalamin (Vitamin B12) [Mass/Vol] 342 pg/mL 211-911 [facility] Iron measurement (mass/mass) Ordered By: Maribel Reynoso on 12-21-2023 Iron (Unsp spec) [Mass/Mass] 92 ug/dL 65-175 [facility] Laboratory - Chemistry and C hemistry - challengeOrdered By: Maribel Reynoso on 12-21-2023 Ferritin [Mass/Vol] 224 ng/mL 26-388 [facility] No Panel InformationOrdered By: Maribel Reynoso on 12-21-2023 Total Iron Binding Capacity 257 ug/dL 250-450 [facility] Serum or plasma iron saturat ion measurement (mass fraction)Ordered By: Maribel Reynoso on 12-21-2023 Iron saturation [Mass fraction] 35.8 % 15.0-55.0 [facility] Whole blood hemoglobin A1c/t otal hemoglobin ratio (mass fraction)Ordered By: Maribel Reynoso on 12-21-2023 HbA1c (Bld) [Mass fraction] 5.4 % 3.8-5.6 [facility] Comment on above: Normal < 5.7 % Predi abetic 5.7 - 6.4 % Diabetic >or= 6.5 % Please note range changes. Absolute lymphocyte countOrd ered By: Maribel Reynoso on 12-16-2023 Lymphocytes Auto (Unsp spec) [#/Vol] 1.93 10*3/uL 0.83-4.51 [facility] Automated lymphocyte count a s percentage of total leukocytesOrdered By: Maribel Reynoso on 12-16-2023 Lymphocytes/100 WBC Auto (Unsp spec) 37.6 % 19-41 [facility] Basophil percentageOrdered B y: Maribel Reynoso on 12-16-2023 Basophil percentage 0 SEEN /hpf 0-5 [facility] Basophils/100 WBC (Bld) 0.8 % 0-1 [facility] Bilirubin [Mass/Vol] 0.50 mg/dL 0.20-1.00 [facility] Comment on above: For patients on eltr ombopag therapy, use of [facility] [place] [facility] TBIL is not recommended. Chloride [Moles/Vol] 114 mmol/L 98-107 [facility] Cholesterol [Mass/Vol] 124 mg/dL <200 [facility] Comment on above: <200 mg/dL Desirable 200-240 mg/dL Borderline >240 mg/dL High Risk Eosinophils/100 WBC (Bld) 4.3 % 0-5 [facility] Glucose [Mass/Vol] 97 mg/dL 74-106 [facility] Hemoglobin (Bld) [Mass/Vol] 12.7 g/dL 13.0-16.5 [facility] Monocytes/100 WBC (Bld) 7.6 % 0-10 [facility] Neutrophils (Bld) [#/Vol] 2.5 10*3/uL 2.0-7.7 [facility] Neutrophils/100 WBC (Bld) 49.5 % 47-70 [facility] Potassium [Moles/Vol] 3.7 mmol/L 3.5-5.1 [facility] Protein [Mass/Vol] 6.3 g/dL 6.4-8.2 [facility] Sodium [Moles/Vol] 143 mmol/L 136-145 [facility] Triglyceride [Mass/Vol] 96 mg/dL <199 [facility] Comment on above: The drugs N-Acetylcy steine and Metamizole may falsely depress this assay.Serum Triglycerides Reference Interval Normal <150 mg/dL Borderline high 150 - 199 mg/dL High 200 - 499 mg/dL Very High > or = 500 mg/dL WBC (Bld) [#/Vol] 5.1 10*3/uL 4.4-11.0 [facility] Bilirubin Test strip Ql (U)O rdered By: Maribel Reynoso on 12-16-2023 Bilirubin Ql (U) Negative Negative [facility] Determination of erythrocyte mean corpuscular volume (MCV)Ordered By: Maribel Reynoso on 12-16-2023 MCV (RBC) [Entitic vol] 95.0 fL 80-94 [facility] Erythrocyte distribution wid th ratioOrdered By: Maribel Reynoso on 12-16-2023 Erythrocyte distribution width (RBC) [Ratio] 12.9 % 11.6-14.6 [facility] Erythrocyte distribution wid th standard deviationOrdered By: Maribel Reynoso on 12-16-2023 Erythrocyte distribution width (RBC) [Entitic vol] 44.5 fL 35.1-43.9 [facility] Hematocrit Auto (Bld) [Volum e fraction]Ordered By: Maribel Reynoso on 12-16-2023 Hematocrit (Bld) [Volume fraction] 38.0 % 40-54 [facility] Immature granulocytes/100 WB C Auto (Bld)Ordered By: Maribel Reynoso on 12-16-2023 Immature granulocytes/100 WBC (Bld) 0.200 % 0.0-0.9 [facility] Comment on above: IG% - Immature Granu locytes (promyelocytes, myelocytes and metamyelocytes) > 1% indicates that a LEFT SHIFT is Present. Ketones Test strip Ql (U)Ord ered By: Maribel Reynoso on 12-16-2023 Ketones Ql (U) Negative Negative [facility] Laboratory - Chemistry and C hemistry - challengeOrdered By: Maribel Reynoso on 12-16-2023 Albumin/Globulin [Mass ratio] 1.3 {ratio} 0.9-2.4 [facility] ALP [Catalytic activity/Vol] 73 U/L 45-117 [facility] ALT [Catalytic activity/Vol] 31 U/L 16-61 [facility] Cholesterol in HDL [Mass/Vol] 49 mg/dL >40 [facility] Comment on above: The drugs N-Acetylcy steine and Metamizole may falsely depress this assay. Reference Range HDL <40 mg/dL Low HDL Cholesterol HDL >or= 60 mg/dL High HDL Cholesterol Cholesterol in LDL [Mass/Vol] 56 mg/dL 0-130 [facility] CO2 [Moles/Vol] 25.0 mmol/L 21.0-32.0 [facility] Globulin (S) [Mass/Vol] 2.7 g/dL 2.2-4.2 [facility] Lipase [Catalytic activity/Vol] 29 U/L 13-75 [facility] Comment on above: Please note:LIPASE r evised reference range effective 22. New Lipase methodology. Expected to produce lower values than the previous assay method. NEW Reference Range: 13 - 75 U/L Urea nitrogen/Creatinine [Mass ratio] 13.4 mg/mg 10-20 [facility] Laboratory - Hematology and Cell countsOrdered By: Maribel Reynoso on 12-16-2023 MCH (RBC) [Entitic mass] 31.8 pg 27.0-32.0 [facility] MCHC (RBC) [Mass/Vol] 33.4 g/dL 32-36 [facility] Nucleated RBC/100 WBC (Bld) [Ratio] 0 % 0-5 [facility] Platelet mean volume (Bld) [Entitic vol] 10.4 fL 6.2-12.0 [facility] Platelets (Bld) [#/Vol] 201 10*3/uL 150-450 [facility] Mucus LM Ql (Urine sed)Order ed By: Maribel Reynoso on 12-16-2023 Mucus Ql (Urine sed) 0 SEEN /hpf [facility] Nitrite Test strip Ql (U)Ord ered By: Maribel Reynoso on 12-16-2023 Nitrite Ql (U) Negative Negative [facility] No Panel InformationOrdered By: Maribel Reynoso on 12-16-2023 Urine RBC 0 SEEN /hpf 0-5 [facility] Estimated GFR (MDRD) Amer 110 mL/min >60 [facility] Comment on above: GFR Calc Estimated GFR (MDRD) Non-Af Amer 91 mL/min >60 [facility] Comment on above: Non- GFR Calc VLDL Cholesterol 19 mg/dL 5-40 [facility] Protein Test strip Ql (U)Ord ered By: Maribel Reynoso on 12-16-2023 Protein Ql (U) Negative Negative [facility] RBC Auto (Bld) [#/Vol]Ordere d By: Maribel Reynoso on 12-16-2023 RBC (Bld) [#/Vol] 4.00 10*6/uL 4.6-6.2 [facility] Serum or plasma calcium brock urement (mass/volume)Ordered By: Maribel Reynoso on 12-16-2023 Calcium [Mass/Vol] 8.5 mg/dL 8.5-10.1 [facility] Serum or plasma creatinine m easurement (mass/volume)Ordered By: Maribel Reynoso on 12-16-2023 Creatinine [Mass/Vol] 0.89 mg/dL 0.70-1.30 [facility] Comment on above: The validity of the calculated GFR & GFRAA in patients over 70 years has not been determined. Clinical correlation is essential. Serum or plasma urea nitroge n measurement (mass/volume)Ordered By: Maribel Reynoso on 12-16-2023 Urea nitrogen [Mass/Vol] 12 mg/dL 7-18 [facility] Squamous epithelial cells de tection in urine sediment by light microscopyOrdered By: Maribel Reynoso on 12-16-2023 Epithelial cells.squamous LM Ql (Urine sed) 0 SEEN /hpf 0-5 [facility] Thin prep Papanicolaou smear with manual screeningOrdered By: Maribel Reynoso on 12-16-2023 Thin prep Papanicolaou smear with manual screening 3.6 g/dL 3.2-5.0 [facility] Thin prep Papanicolaou smear with manual screening 22 U/L 15-37 [facility] Thin prep Papanicolaou smear with manual screening 4 5-15 [facility] Urine blood detectionOrdered By: Maribel Reynoso on 12-16-2023 RBC Ql (U) Negative Negative [facility] Urine clarityOrdered By: Selwyn Reynoso on 12-16-2023 Clarity (U) Clear Clear [facility] Urine color determinationOrd ered By: Maribel Reynoso on 12-16-2023 Color (U) Yellow Yellow [facility] Urine glucose detectionOrder ed By: Maribel Reynoso on 12-16-2023 Glucose Ql (U) Normal mg/dl Normal [facility] Urine leukocyte esterase det ection by dipstickOrdered By: Maribel Reynoso on 12-16-2023 Leukocyte esterase Test strip Ql (U) Negative Negative [facility] Urine pHOrdered By: Maribel chavez on 12-16-2023 pH (U) 6.0 [pH] 5.0 - 8.0 [facility] Urine sediment bacteria coun t by microscopy (number/high power field)Ordered By: Maribel Reynoso on 12-16-2023 Bacteria LM.HPF (Urine sed) [#/Area] 0 /[HPF] None Seen [facility] Urine specific gravity measu rementOrdered By: Maribel Reynoso on 12-16-2023 Specific gravity (U) [Rel density] 1.020 1.002-1.03 0 [facility] Urine urobilinogen measureme ntOrdered By: Maribel Reynoso on 12-16-2023 Urobilinogen Ql (U) Normal mg/dl Normal [facility] Absolute lymphocyte countOrd ered By: Maribel Reynoso on 08-18-2023 Lymphocytes Auto (Unsp spec) [#/Vol] 2.18 10*3/uL 0.83-4.51 [facility] Basophil percentageOrdered B y: Maribel Reynoso on 08-18-2023 Basophil percentage 0 SEEN /hpf 0-5 [facility] Basophils/100 WBC (Bld) 0.8 % 0-1 [facility] Bilirubin [Mass/Vol] 0.90 mg/dL 0.20-1.00 [facility] Comment on above: For patients on eltr ombopag therapy, use of [facility] [place] TBIL is not recommended. Chloride [Moles/Vol] 111 mmol/L 98-107 [facility] Cholesterol [Mass/Vol] 134 mg/dL <200 [facility] Comment on above: <200 mg/dL Desirable 200-240 mg/dL Borderline >240 mg/dL High Risk Eosinophils/100 WBC (Bld) 0.9 % 0-5 [facility] Glucose [Mass/Vol] 95 mg/dL 74-106 [facility] Neutrophils (Bld) [#/Vol] 3.6 10*3/uL 2.0-7.7 [facility] Neutrophils/100 WBC (Bld) 57.0 % 47-70 [facility] Potassium [Moles/Vol] 3.7 mmol/L 3.5-5.1 [facility] Protein [Mass/Vol] 7.1 g/dL 6.4-8.2 [facility] Sodium [Moles/Vol] 141 mmol/L 136-145 [facility] Triglyceride [Mass/Vol] 95 mg/dL <199 [facility] Comment on above: The drugs N-Acetylcy steine and Metamizole may falsely depress this assay.Serum Triglycerides Reference Interval Normal <150 mg/dL Borderline high 150 - 199 mg/dL High 200 - 499 mg/dL Very High > or = 500 mg/dL WBC (Bld) [#/Vol] 6.3 10*3/uL 4.4-11.0 [facility] Bilirubin Test strip Ql (U)O rdered By: Maribel Reynoso on 08-18-2023 Bilirubin Ql (U) 1 mg/dL Negative [facility] Comment on above: COLOR OF URINE MAY A FFECT DIPSTICK RESULTS. Blood erythrocytes count (nu mber/volume)Ordered By: Maribel Reynoso on 08-18-2023 RBC (Bld) [#/Vol] 4.45 10*6/uL 4.6-6.2 [facility] Blood hemoglobin measurement (mass/volume)Ordered By: Maribel Reynoso on 08-18-2023 Hemoglobin (Bld) [Mass/Vol] 14.1 g/dL 13.0-16.5 [facility] Blood lymphocytes/100 leukoc ytesOrdered By: Maribel Reynoso on 08-18-2023 Lymphocytes/100 WBC (Bld) 34.5 % 19-41 [facility] Blood monocytes/100 leukocyt esOrdered By: Maribel Reynoso on 08-18-2023 Monocytes/100 WBC (Bld) 6.6 % 0-10 [facility] Blood platelet mean volumeOr dered By: Maribel Reynoso on 08-18-2023 Platelet mean volume (Bld) [Entitic vol] 10.3 fL 6.2-12.0 [facility] Determination of erythrocyte mean corpuscular volume (MCV)Ordered By: Maribel Reynoso on 08-18-2023 MCV (RBC) [Entitic vol] 96.0 fL 80-94 [facility] Hematocrit Auto (Bld) [Volum e fraction]Ordered By: Maribel Reynoso on 08-18-2023 Hematocrit (Bld) [Volume fraction] 42.7 % 40-54 [facility] Ketones Test strip Ql (U)Ord ered By: Maribel Reynoso on 08-18-2023 Ketones Ql (U) 5 mg/dl Negative [facility] Laboratory - Chemistry and C hemistry - challengeOrdered By: Maribel Reynoso on 08-18-2023 ALP [Catalytic activity/Vol] 81 U/L 45-117 [facility] ALT [Catalytic activity/Vol] 29 U/L 16-61 [facility] CO2 [Moles/Vol] 24.0 mmol/L 21.0-32.0 [facility] Globulin (S) [Mass/Vol] 3.0 g/dL 2.2-4.2 [facility] Urea nitrogen/Creatinine [Mass ratio] 12.6 mg/mg 10-20 [facility] Laboratory - Hematology and Cell countsOrdered By: Maribel Reynoso on 08-18-2023 Erythrocyte distribution width (RBC) [Entitic vol] 43.9 fL 35.1-43.9 [facility] Erythrocyte distribution width (RBC) [Ratio] 12.4 % 11.6-14.6 [facility] Immature granulocytes/100 WBC (Bld) 0.200 % 0.0-0.9 [facility] Comment on above: IG% - Immature Granu locytes (promyelocytes, myelocytes and metamyelocytes) > 1% indicates that a LEFT SHIFT is Present. MCH (RBC) [Entitic mass] 31.7 pg 27.0-32.0 [facility] Nucleated RBC/100 WBC (Bld) [Ratio] 0 % 0-5 [facility] MCHC Auto (RBC) [Mass/Vol]Or dered By: Maribel Reynoso on 08-18-2023 MCHC (RBC) [Mass/Vol] 33.0 g/dL 32-36 [facility] Mucus LM Ql (Urine sed)Order ed By: Maribel Reynoso on 08-18-2023 Mucus Ql (Urine sed) 0 SEEN /hpf [facility] Nitrite Test strip Ql (U)Ord ered By: Maribel Reynoso on 08-18-2023 Nitrite Ql (U) Negative Negative [facility] No Panel InformationOrdered By: Maribel Reynoso on 08-18-2023 Estimated GFR (MDRD) Amer 93 mL/min >60 [facility] Comment on above: GFR Calc Estimated GFR (MDRD) Non-Af Amer 77 mL/min >60 [facility] Comment on above: Non- GFR Calc Platelets bldOrdered By: Selwyn Reynoso on 08-18-2023 Platelets (Bld) [#/Vol] 235 10*3/uL 150-450 [facility] Protein Test strip Ql (U)Ord ered By: Maribel Reynoso on 08-18-2023 Protein Ql (U) 15 mg/dl Negative [facility] Serum or plasma albumin brock urement (mass/volume)Ordered By: Maribel Reynoso on 08-18-2023 Albumin [Mass/Vol] 4.1 g/dL 3.2-5.0 [facility] Serum or plasma albumin/glob ulin mass ratioOrdered By: Maribel Reynoso on 08-18-2023 Albumin/Globulin [Mass ratio] 1.4 {ratio} 0.9-2.4 [facility] Serum or plasma calcium brock urement (mass/volume)Ordered By: Maribel Reynoso on 08-18-2023 Calcium [Mass/Vol] 8.5 mg/dL 8.5-10.1 [facility] Serum or plasma cholesterol in HDL measurement (mass/volume)Ordered By: Maribel Reynoso on 08-18-2023 Cholesterol in HDL [Mass/Vol] 53 mg/dL >40 [facility] Comment on above: The drugs N-Acetylcy steine and Metamizole may falsely depress this assay. Reference Range HDL <40 mg/dL Low HDL Cholesterol HDL >or= 60 mg/dL High HDL Cholesterol Serum or plasma cholesterol in VLDL measurement (mass/volume)Ordered By: Maribel Reynoso on 08-18-2023 Cholesterol in VLDL [Mass/Vol] 19 mg/dL 5-40 [facility] Serum or plasma creatinine m easurement (mass/volume)Ordered By: Maribel Reynoso on 08-18-2023 Creatinine [Mass/Vol] 1.03 mg/dL 0.70-1.30 [facility] Comment on above: The validity of the calculated GFR & GFRAA in patients over 70 years has not been determined. Clinical correlation is essential. Serum or plasma low density lipoprotein (LDL) cholesterol measurement (mass/volume)Ordered By: Maribel Reynoso on 08-18-2023 Cholesterol in LDL [Mass/Vol] 62 mg/dL 0-130 [facility] Serum or plasma urea nitroge n measurement (mass/volume)Ordered By: Maribel Reynoso on 08-18-2023 Urea nitrogen [Mass/Vol] 13 mg/dL 7-18 [facility] Squamous epithelial cells de tection in urine sediment by light microscopyOrdered By: Maribel Reynoso on 08-18-2023 Epithelial cells.squamous LM Ql (Urine sed) 0 SEEN /hpf 0-5 [facility] Thin prep Papanicolaou smear with manual screeningOrdered By: Maribel Reynoso on 08-18-2023 Thin prep Papanicolaou smear with manual screening 27 U/L 15-37 [facility] Thin prep Papanicolaou smear with manual screening 6 5-15 [facility] Urine blood detectionOrdered By: Maribel Reynoso on 08-18-2023 RBC Ql (U) Negative Negative [facility] RBC Ql (U) 0 SEEN /hpf 0-5 [facility] Urine clarityOrdered By: Selwyn Reynoso on 08-18-2023 Clarity (U) Clear Clear [facility] Urine color determinationOrd ered By: Maribel Reynoso on 08-18-2023 Color (U) Yellow Yellow [facility] Urine glucose detectionOrder ed By: Maribel Reynoso on 08-18-2023 Glucose Ql (U) Normal mg/dl Normal [facility] Urine leukocyte esterase det ection by dipstickOrdered By: Maribel Reynoso on 08-18-2023 Leukocyte esterase Test strip Ql (U) Negative Negative [facility] Urine pHOrdered By: Maribel chavez on 08-18-2023 pH (U) 6.0 [pH] 5.0 - 8.0 [facility] Urine sediment bacteria coun t by microscopy (number/high power field)Ordered By: Maribel Reynoso on 08-18-2023 Bacteria LM.HPF (Urine sed) [#/Area] 0 /[HPF] None Seen [facility] Urine specific gravity measu rementOrdered By: Maribel Reynoso on 08-18-2023 Specific gravity (U) [Rel density] 1.025 1.002-1.03 0 [facility] Urobilinogen Auto test strip Ql (U)Ordered By: Maribel Reynoso on 08-18-2023 Urobilinogen Ql (U) 1 mg/dl Normal [facility] Whole blood hemoglobin A1c/t otal hemoglobin ratio (mass fraction)Ordered By: Maribel Reynoso on 08-18-2023 HbA1c (Bld) [Mass fraction] 5.5 % 3.8-5.6 [facility] Comment on above: Normal < 5.7 % Predi abetic 5.7 - 6.4 % Diabetic >or= 6.5 % Please note range changes. Absolute lymphocyte countOrd ered By: Maribel Reynoso on 06-10-2023 Lymphocytes Auto (Unsp spec) [#/Vol] 1.61 10*3/uL 0.83-4.51 [facility] Basophil percentageOrdered B y: Maribel Reynoso on 06-10-2023 Basophils/100 WBC (Bld) 0.4 % 0-1 [facility] Bilirubin [Mass/Vol] 0.40 mg/dL 0.20-1.00 [facility] Comment on above: For patients on eltr ombopag therapy, use of [facility] [place] TBIL is not recommended. Chloride [Moles/Vol] 114 mmol/L 98-107 [facility] Cholesterol [Mass/Vol] 224 mg/dL <200 [facility] Comment on above: <200 mg/dL Desirable 200-240 mg/dL Borderline >240 mg/dL High Risk Eosinophils/100 WBC (Bld) 2.9 % 0-5 [facility] Glucose [Mass/Vol] 112 mg/dL 74-106 [facility] Comment on above: Fasting Glucose resu lt from 100 to 125 mg/dL suggests IMPAIRED HOMEOSTASIS per A.D.A. criteria. Neutrophils (Bld) [#/Vol] 2.4 10*3/uL 2.0-7.7 [facility] Neutrophils/100 WBC (Bld) 53.6 % 47-70 [facility] Potassium [Moles/Vol] 4.4 mmol/L 3.5-5.1 [facility] Protein [Mass/Vol] 6.5 g/dL 6.4-8.2 [facility] Sodium [Moles/Vol] 142 mmol/L 136-145 [facility] Triglyceride [Mass/Vol] 115 mg/dL <199 [facility] Comment on above: The drugs N-Acetylcy steine and Metamizole may falsely depress this assay.Serum Triglycerides Reference Interval Normal <150 mg/dL Borderline high 150 - 199 mg/dL High 200 - 499 mg/dL Very High > or = 500 mg/dL WBC (Bld) [#/Vol] 4.5 10*3/uL 4.4-11.0 [facility] Blood erythrocytes count (nu mber/volume)Ordered By: Maribel Reynoso on 06-10-2023 RBC (Bld) [#/Vol] 4.14 10*6/uL 4.6-6.2 [facility] Blood hemoglobin measurement (mass/volume)Ordered By: Maribel Reynoso on 06-10-2023 Hemoglobin (Bld) [Mass/Vol] 13.8 g/dL 13.0-16.5 [facility] Blood lymphocytes/100 leukoc ytesOrdered By: Maribel Reynoso on 06-10-2023 Lymphocytes/100 WBC (Bld) 35.6 % 19-41 [facility] Blood monocytes/100 leukocyt esOrdered By: Maribel Reynoso on 06-10-2023 Monocytes/100 WBC (Bld) 7.3 % 0-10 [facility] Blood platelet mean volumeOr dered By: Maribel Reynoso on 06-10-2023 Platelet mean volume (Bld) [Entitic vol] 10.1 fL 6.2-12.0 [facility] Determination of erythrocyte mean corpuscular volume (MCV)Ordered By: Maribel Reynoso on 06-10-2023 MCV (RBC) [Entitic vol] 99.3 fL 80-94 [facility] Hematocrit Auto (Bld) [Volum e fraction]Ordered By: Maribel Reynoso on 06-10-2023 Hematocrit (Bld) [Volume fraction] 41.1 % 40-54 [facility] Laboratory - Chemistry and C hemistry - challengeOrdered By: Maribel Reynoso on 06-10-2023 ALP [Catalytic activity/Vol] 86 U/L 45-117 [facility] ALT [Catalytic activity/Vol] 25 U/L 16-61 [facility] CO2 [Moles/Vol] 25.0 mmol/L 21.0-32.0 [facility] Globulin (S) [Mass/Vol] 2.8 g/dL 2.2-4.2 [facility] Urea nitrogen/Creatinine [Mass ratio] 17.2 mg/mg 10-20 [facility] Laboratory - Hematology and Cell countsOrdered By: Maribel Reynoso on 06-10-2023 Erythrocyte distribution width (RBC) [Entitic vol] 46.7 fL 35.1-43.9 [facility] Erythrocyte distribution width (RBC) [Ratio] 12.7 % 11.6-14.6 [facility] Immature granulocytes/100 WBC (Bld) 0.200 % 0.0-0.9 [facility] Comment on above: IG% - Immature Granu locytes (promyelocytes, myelocytes and metamyelocytes) > 1% indicates that a LEFT SHIFT is Present. MCH (RBC) [Entitic mass] 33.3 pg 27.0-32.0 [facility] Nucleated RBC/100 WBC (Bld) [Ratio] 0 % 0-5 [facility] MCHC Auto (RBC) [Mass/Vol]Or dered By: Maribel Reynoso on 06-10-2023 MCHC (RBC) [Mass/Vol] 33.6 g/dL 32-36 [facility] No Panel InformationOrdered By: Maribel Reynoso on 06-10-2023 Estimated GFR (MDRD) Amer 113 mL/min >60 [facility] Comment on above: GFR Calc Estimated GFR (MDRD) Non-Af Amer 94 mL/min >60 [facility] Comment on above: Non- GFR Calc Platelets bldOrdered By: Selwyn Reynoso on 06-10-2023 Platelets (Bld) [#/Vol] 204 10*3/uL 150-450 [facility] Serum or plasma albumin brock urement (mass/volume)Ordered By: Maribel Reynoso on 06-10-2023 Albumin [Mass/Vol] 3.7 g/dL 3.2-5.0 [facility] Serum or plasma albumin/glob ulin mass ratioOrdered By: Maribel Reynoso on 06-10-2023 Albumin/Globulin [Mass ratio] 1.3 {ratio} 0.9-2.4 [facility] Serum or plasma calcium brock urement (mass/volume)Ordered By: Maribel Reynoso on 06-10-2023 Calcium [Mass/Vol] 8.6 mg/dL 8.5-10.1 [facility] Serum or plasma cholesterol in HDL measurement (mass/volume)Ordered By: Maribel Reynoso on 06-10-2023 Cholesterol in HDL [Mass/Vol] 50 mg/dL >40 [facility] Comment on above: The drugs N-Acetylcy steine and Metamizole may falsely depress this assay. Reference Range HDL <40 mg/dL Low HDL Cholesterol HDL >or= 60 mg/dL High HDL Cholesterol Serum or plasma cholesterol in VLDL measurement (mass/volume)Ordered By: Maribel Reynoso on 06-10-2023 Cholesterol in VLDL [Mass/Vol] 23 mg/dL 5-40 [facility] Serum or plasma creatinine m easurement (mass/volume)Ordered By: Maribel Reynoso on 06-10-2023 Creatinine [Mass/Vol] 0.87 mg/dL 0.70-1.30 [facility] Comment on above: The validity of the calculated GFR & GFRAA in patients over 70 years has not been determined. Clinical correlation is essential. Serum or plasma low density lipoprotein (LDL) cholesterol measurement (mass/volume)Ordered By: Maribel Reynoso on 06-10-2023 Cholesterol in LDL [Mass/Vol] 151 mg/dL 0-130 [facility] Serum or plasma urea nitroge n measurement (mass/volume)Ordered By: Maribel Reynoso on 06-10-2023 Urea nitrogen [Mass/Vol] 15 mg/dL 7-18 [facility] Thin prep Papanicolaou smear with manual screeningOrdered By: Maribel Reynoso on 06-10-2023 Thin prep Papanicolaou smear with manual screening 11 U/L 15-37 [facility] Thin prep Papanicolaou smear with manual screening 3 5-15 [facility] Whole blood hemoglobin A1c/t otal hemoglobin ratio (mass fraction)Ordered By: Maribel Reynoso on 06-10-2023 HbA1c (Bld) [Mass fraction] 5.5 % 3.8-5.6 [facility] Comment on above: Normal < 5.7 % Predi abetic 5.7 - 6.4 % Diabetic >or= 6.5 % Please note range changes. Stool enteric pathogen panel by probe and target amplification methodOrdered By: Dr. Reynoso on 02-13-2023 Gastrointestinal pathogens panel MANDY+probe (Stl) [facility] No Panel InformationOrdered By: Dr. Reynoso on 02-12-2023 Stool Pancreatic Elastase 139 >200 [facility] Comment on above: Result Units: ug Maura st./g Severe Pancreatic Insufficiency: <100 Moderate Pancreatic Insufficiency: 100 - 200 Normal: >200Performed at: - [facility] [address] [id number] Director: Kristie Youssef MD, Phone: [phone] Absolute lymphocyte countOrd ered By: Dr. Reynoso on 02-06-2023 Lymphocytes Auto (Unsp spec) [#/Vol] 2.05 10*3/uL 0.83-4.51 [facility] Basophil percentageOrdered B y: Dr. Reynoso on 02-06-2023 Basophils/100 WBC (Bld) 0.6 % 0-1 [facility] Bilirubin [Mass/Vol] 0.50 mg/dL 0.20-1.00 [facility] Comment on above: For patients on eltr ombopag therapy, use of [facility] [place] TBIL is not recommended. Chloride [Moles/Vol] 114 mmol/L 98-107 [facility] Cholesterol [Mass/Vol] 138 mg/dL <200 [facility] Comment on above: <200 mg/dL Desirable 200-240 mg/dL Borderline >240 mg/dL High Risk Eosinophils/100 WBC (Bld) 2.0 % 0-5 [facility] Glucose [Mass/Vol] 101 mg/dL 74-106 [facility] Comment on above: Fasting Glucose resu lt from 100 to 125 mg/dL suggests IMPAIRED HOMEOSTASIS per A.D.A. criteria. Neutrophils (Bld) [#/Vol] 2.6 10*3/uL 2.0-7.7 [facility] Neutrophils/100 WBC (Bld) 50.4 % 47-70 [facility] Potassium [Moles/Vol] 4.4 mmol/L 3.5-5.1 [facility] Protein [Mass/Vol] 6.7 g/dL 6.4-8.2 [facility] Sodium [Moles/Vol] 144 mmol/L 136-145 [facility] Triglyceride [Mass/Vol] 93 mg/dL <199 [facility] Comment on above: The drugs N-Acetylcy steine and Metamizole may falsely depress this assay.Serum Triglycerides Reference Interval Normal <150 mg/dL Borderline high 150 - 199 mg/dL High 200 - 499 mg/dL Very High > or = 500 mg/dL WBC (Bld) [#/Vol] 5.1 10*3/uL 4.4-11.0 [facility] Blood erythrocytes count (nu mber/volume)Ordered By: Dr. Reynoso on 02-06-2023 RBC (Bld) [#/Vol] 4.21 10*6/uL 4.6-6.2 [facility] Blood hemoglobin measurement (mass/volume)Ordered By: Dr. Reynoso on 02-06-2023 Hemoglobin (Bld) [Mass/Vol] 13.2 g/dL 13.0-16.5 [facility] Blood lymphocytes/100 leukoc ytesOrdered By: Dr. Reynoso on 02-06-2023 Lymphocytes/100 WBC (Bld) 40.0 % 19-41 [facility] Blood monocytes/100 leukocyt esOrdered By: Dr. Reynoso on 02-06-2023 Monocytes/100 WBC (Bld) 6.8 % 0-10 [facility] Blood platelet mean volumeOr dered By: Dr. Reynoso on 02-06-2023 Platelet mean volume (Bld) [Entitic vol] 10.6 fL 6.2-12.0 [facility] Determination of erythrocyte mean corpuscular volume (MCV)Ordered By: Dr. Reynoso on 02-06-2023 MCV (RBC) [Entitic vol] 96.4 fL 80-94 [facility] Hematocrit Auto (Bld) [Volum e fraction]Ordered By: Dr. Reynoso on 02-06-2023 Hematocrit (Bld) [Volume fraction] 40.6 % 40-54 [facility] Laboratory - Chemistry and C hemistry - challengeOrdered By: Dr. Reynoso on 02-06-2023 ALP [Catalytic activity/Vol] 78 U/L 45-117 [facility] ALT [Catalytic activity/Vol] 34 U/L 16-61 [facility] CO2 [Moles/Vol] 22.0 mmol/L 21.0-32.0 [facility] Globulin (S) [Mass/Vol] 3.0 g/dL 2.2-4.2 [facility] Lipase [Catalytic activity/Vol] 27 U/L 13-75 [facility] Comment on above: Please note:LIPASE r evised reference range effective 22. New Lipase methodology. Expected to produce lower values than the previous assay method. NEW Reference Range: 13 - 75 U/L Magnesium [Mass/Vol] 2.3 mg/dL 1.6-2.6 [facility] Urea nitrogen/Creatinine [Mass ratio] 10.5 mg/mg 10-20 [facility] Laboratory - Hematology and Cell countsOrdered By: Dr. Reynoso on 02-06-2023 Erythrocyte distribution width (RBC) [Entitic vol] 44.3 fL 35.1-43.9 [facility] Erythrocyte distribution width (RBC) [Ratio] 12.5 % 11.6-14.6 [facility] Immature granulocytes/100 WBC (Bld) 0.200 % 0.0-0.9 [facility] Comment on above: IG% - Immature Granu locytes (promyelocytes, myelocytes and metamyelocytes) > 1% indicates that a LEFT SHIFT is Present. MCH (RBC) [Entitic mass] 31.4 pg 27.0-32.0 [facility] Nucleated RBC/100 WBC (Bld) [Ratio] 0 % 0-5 [facility] MCHC Auto (RBC) [Mass/Vol]Or dered By: Dr. Reynoso on 02-06-2023 MCHC (RBC) [Mass/Vol] 32.5 g/dL 32-36 [facility] No Panel InformationOrdered By: Dr. Reynoso on 02-06-2023 Estimated GFR (MDRD) Amer 102 mL/min >60 [facility] Comment on above: GFR Calc Estimated GFR (MDRD) Non-Af Amer 85 mL/min >60 [facility] Comment on above: Non- GFR Calc Thyroid Stimulating Hormone (TSH) 2.22 uIU/mL 0.358-3.74 [facility] Platelets bldOrdered By: Dr. Reynoso on 02-06-2023 Platelets (Bld) [#/Vol] 208 10*3/uL 150-450 [facility] Serum or plasma albumin brock urement (mass/volume)Ordered By: Dr. Reynoso on 02-06-2023 Albumin [Mass/Vol] 3.7 g/dL 3.2-5.0 [facility] Serum or plasma albumin/glob ulin mass ratioOrdered By: Dr. Reynoso on 02-06-2023 Albumin/Globulin [Mass ratio] 1.2 {ratio} 0.9-2.4 [facility] Serum or plasma calcium brock urement (mass/volume)Ordered By: Dr. Reynoso on 02-06-2023 Calcium [Mass/Vol] 8.7 mg/dL 8.5-10.1 [facility] Serum or plasma cholesterol in HDL measurement (mass/volume)Ordered By: Dr. Reynoso on 02-06-2023 Cholesterol in HDL [Mass/Vol] 54 mg/dL >40 [facility] Comment on above: The drugs N-Acetylcy steine and Metamizole may falsely depress this assay. Reference Range HDL <40 mg/dL Low HDL Cholesterol HDL >or= 60 mg/dL High HDL Cholesterol Serum or plasma cholesterol in VLDL measurement (mass/volume)Ordered By: Dr. Reynoso on 02-06-2023 Cholesterol in VLDL [Mass/Vol] 19 mg/dL 5-40 [facility] Serum or plasma creatinine m easurement (mass/volume)Ordered By: Dr. Reynoso on 02-06-2023 Creatinine [Mass/Vol] 0.95 mg/dL 0.70-1.30 [facility] Comment on above: The validity of the calculated GFR & GFRAA in patients over 70 years has not been determined. Clinical correlation is essential. Serum or plasma low density lipoprotein (LDL) cholesterol measurement (mass/volume)Ordered By: Dr. Reynoso on 02-06-2023 Cholesterol in LDL [Mass/Vol] 65 mg/dL 0-130 [facility] Serum or plasma urea nitroge n measurement (mass/volume)Ordered By: Dr. Reynoso on 02-06-2023 Urea nitrogen [Mass/Vol] 10 mg/dL 7-18 [facility] Thin prep Papanicolaou smear with manual screeningOrdered By: Dr. Reynoso on 02-06-2023 Thin prep Papanicolaou smear with manual screening 25 U/L 15-37 [facility] Thin prep Papanicolaou smear with manual screening 8 5-15 [facility] Whole blood hemoglobin A1c/t otal hemoglobin ratio (mass fraction)Ordered By: Dr. Reynoso on 02-06-2023 HbA1c (Bld) [Mass fraction] 5.5 % 3.8-5.6 [facility] Comment on above: Normal < 5.7 % Predi abetic 5.7 - 6.4 % Diabetic >or= 6.5 % Please note range changes. Absolute lymphocyte countOrd ered By: Dr. Reynoso on 10-09-2022 Lymphocytes Auto (Unsp spec) [#/Vol] 1.72 10*3/uL 0.83-4.51 [facility] Basophil percentageOrdered B y: Dr. Reynoso on 10-09-2022 Basophils/100 WBC (Bld) 0.5 % 0-1 [facility] Bilirubin [Mass/Vol] 0.50 mg/dL 0.20-1.00 [facility] Comment on above: For patients on eltr ombopag therapy, use of [facility] [place] [facility] TBIL is not recommended. Chloride [Moles/Vol] 114 mmol/L 98-107 [facility] Cholesterol [Mass/Vol] 122 mg/dL <200 [facility] Comment on above: <200 mg/dL Desirable 200-240 mg/dL Borderline >240 mg/dL High Risk Eosinophils/100 WBC (Bld) 1.4 % 0-5 [facility] Glucose [Mass/Vol] 109 mg/dL 74-106 [facility] Comment on above: Fasting Glucose resu lt from 100 to 125 mg/dL suggests IMPAIRED HOMEOSTASIS per A.D.A. criteria. Neutrophils (Bld) [#/Vol] 3.6 10*3/uL 2.0-7.7 [facility] Neutrophils/100 WBC (Bld) 61.5 % 47-70 [facility] Potassium [Moles/Vol] 3.8 mmol/L 3.5-5.1 [facility] Protein [Mass/Vol] 6.3 g/dL 6.4-8.2 [facility] Sodium [Moles/Vol] 144 mmol/L 136-145 [facility] Triglyceride [Mass/Vol] 145 mg/dL <199 [facility] Comment on above: The drugs N-Acetylcy steine and Metamizole may falsely depress this assay.Serum Triglycerides Reference Interval Normal <150 mg/dL Borderline high 150 - 199 mg/dL High 200 - 499 mg/dL Very High > or = 500 mg/dL WBC (Bld) [#/Vol] 5.9 10*3/uL 4.4-11.0 [facility] Blood erythrocytes count (nu mber/volume)Ordered By: Dr. Reynoso on 10-09-2022 RBC (Bld) [#/Vol] 4.09 10*6/uL 4.6-6.2 [facility] Blood hemoglobin measurement (mass/volume)Ordered By: Dr. Reynoso on 10-09-2022 Hemoglobin (Bld) [Mass/Vol] 13.1 g/dL 13.0-16.5 [facility] Blood lymphocytes/100 leukoc ytesOrdered By: Dr. Reynoso on 10-09-2022 Lymphocytes/100 WBC (Bld) 29.1 % 19-41 [facility] Blood monocytes/100 leukocyt esOrdered By: Dr. Reynoso on 10-09-2022 Monocytes/100 WBC (Bld) 7.3 % 0-10 [facility] Blood platelet mean volumeOr dered By: Dr. Reynoso on 10-09-2022 Platelet mean volume (Bld) [Entitic vol] 10.5 fL 6.2-12.0 [facility] Determination of erythrocyte mean corpuscular volume (MCV)Ordered By: Dr. Reynoso on 10-09-2022 MCV (RBC) [Entitic vol] 97.1 fL 80-94 [facility] Hematocrit Auto (Bld) [Volum e fraction]Ordered By: Dr. Reynoso on 10-09-2022 Hematocrit (Bld) [Volume fraction] 39.7 % 40-54 [facility] Laboratory - Chemistry and C hemistry - challengeOrdered By: Dr. Reynoso on 10-09-2022 ALP [Catalytic activity/Vol] 79 U/L 45-117 [facility] ALT [Catalytic activity/Vol] 28 U/L 16-61 [facility] CO2 [Moles/Vol] 24.0 mmol/L 21.0-32.0 [facility] Globulin (S) [Mass/Vol] 2.8 g/dL 2.2-4.2 [facility] Urea nitrogen/Creatinine [Mass ratio] 9.0 mg/mg 10-20 [facility] Laboratory - Hematology and Cell countsOrdered By: Dr. Reynoso on 10-09-2022 Erythrocyte distribution width (RBC) [Entitic vol] 43.1 fL 35.1-43.9 [facility] Erythrocyte distribution width (RBC) [Ratio] 12.0 % 11.6-14.6 [facility] Immature granulocytes/100 WBC (Bld) 0.200 % 0.0-0.9 [facility] Comment on above: IG% - Immature Granu locytes (promyelocytes, myelocytes and metamyelocytes) > 1% indicates that a LEFT SHIFT is Present. MCH (RBC) [Entitic mass] 32.0 pg 27.0-32.0 [facility] Nucleated RBC/100 WBC (Bld) [Ratio] 0.5 % 0-5 [facility] MCHC Auto (RBC) [Mass/Vol]Or dered By: Dr. Reynoso on 10-09-2022 MCHC (RBC) [Mass/Vol] 33.0 g/dL 32-36 [facility] No Panel InformationOrdered By: Dr. Reynoso on 10-09-2022 Estimated GFR (MDRD) Amer 97 mL/min >60 [facility] Comment on above: GFR Calc Estimated GFR (MDRD) Non-Af Amer 80 mL/min >60 [facility] Comment on above: Non- GFR Calc Platelets bldOrdered By: Dr. Reynoso on 10-09-2022 Platelets (Bld) [#/Vol] 235 10*3/uL 150-450 [facility] Serum or plasma albumin brock urement (mass/volume)Ordered By: Dr. Reynoso on 10-09-2022 Albumin [Mass/Vol] 3.5 g/dL 3.2-5.0 [facility] Serum or plasma albumin/glob ulin mass ratioOrdered By: Dr. Reynoso on 10-09-2022 Albumin/Globulin [Mass ratio] 1.2 {ratio} 0.9-2.4 [facility] Serum or plasma calcium brock urement (mass/volume)Ordered By: Dr. Reynoso on 10-09-2022 Calcium [Mass/Vol] 8.4 mg/dL 8.5-10.1 [facility] Serum or plasma cholesterol in HDL measurement (mass/volume)Ordered By: Dr. Reynoso on 10-09-2022 Cholesterol in HDL [Mass/Vol] 46 mg/dL >40 [facility] Comment on above: The drugs N-Acetylcy steine and Metamizole may falsely depress this assay. Reference Range HDL <40 mg/dL Low HDL Cholesterol HDL >or= 60 mg/dL High HDL Cholesterol Serum or plasma cholesterol in VLDL measurement (mass/volume)Ordered By: Dr. Reynoso on 10-09-2022 Cholesterol in VLDL [Mass/Vol] 29 mg/dL 5-40 [facility] Serum or plasma creatinine m easurement (mass/volume)Ordered By: Dr. eRynoso on 10-09-2022 Creatinine [Mass/Vol] 1.00 mg/dL 0.70-1.30 [facility] Comment on above: The validity of the calculated GFR & GFRAA in patients over 70 years has not been determined. Clinical correlation is essential. Serum or plasma low density lipoprotein (LDL) cholesterol measurement (mass/volume)Ordered By: Dr. Reynoso on 10-09-2022 Cholesterol in LDL [Mass/Vol] 47 mg/dL 0-130 [facility] Serum or plasma urea nitroge n measurement (mass/volume)Ordered By: Dr. Reynoso on 10-09-2022 Urea nitrogen [Mass/Vol] 9 mg/dL 7-18 [facility] Thin prep Papanicolaou smear with manual screeningOrdered By: Dr. Reynoso on 10-09-2022 Thin prep Papanicolaou smear with manual screening 18 U/L 15-37 [facility] Thin prep Papanicolaou smear with manual screening 6 5-15 [facility] Whole blood hemoglobin A1c/t otal hemoglobin ratio (mass fraction)Ordered By: Dr. Reynoso on 10-09-2022 HbA1c (Bld) [Mass fraction] 5.6 % 3.8-5.6 [facility] Comment on above: Normal < 5.7 % Predi abetic 5.7 - 6.4 % Diabetic >or= 6.5 % Please note range changes. Absolute lymphocyte counton 05-13-2022 Lymphocytes Auto (Unsp spec) [#/Vol] 1.82 10*3/uL 0.83-4.51 [facility] Work Phone: Basophil percentageon 2021 Basophil percentage 0 SEEN /hpf 0-5 [facility] Work Phone: Basophils/100 WBC (Bld) 0.4 % 0-1 [facility] Work Phone: Bilirubin [Mass/Vol] 0.60 mg/dL 0.20-1.00 [facility] Work Phone: Comment on above: For patients on eltr ombopag therapy, use of [facility] [place] TBIL is not recommended. Chloride [Moles/Vol] 110 mmol/L 98-107 [facility] Work Phone: Cholesterol [Mass/Vol] 141 mg/dL <200 [facility] Work Phone: Comment on above: <200 mg/dL Desirable 200-240 mg/dL Borderline >240 mg/dL High Risk Eosinophils/100 WBC (Bld) 1.3 % 0-5 [facility] Work Phone: Glucose [Mass/Vol] 97 mg/dL 74-106 [facility] Work Phone: Neutrophils (Bld) [#/Vol] 3.2 10*3/uL 2.0-7.7 [facility] Work Phone: Neutrophils/100 WBC (Bld) 57.3 % 47-70 [facility] Work Phone: Potassium [Moles/Vol] 3.7 mmol/L 3.5-5.1 [facility] Work Phone: Protein [Mass/Vol] 7.0 g/dL 6.4-8.2 [facility] Work Phone: Sodium [Moles/Vol] 143 mmol/L 136-145 [facility] Work Phone: Triglyceride [Mass/Vol] 95 mg/dL <199 [facility] Work Phone: [phone] Comment on above: The drugs N-Acetylcy steine and Metamizole may falsely depress this assay.Serum Triglycerides Reference Interval Normal <150 mg/dL Borderline high 150 - 199 mg/dL High 200 - 499 mg/dL Very High > or = 500 mg/dL WBC (Bld) [#/Vol] 5.5 10*3/uL 4.4-11.0 [facility] Work Phone: [phone] Bilirubin Test strip Ql (U)o n 05-13-2022 Bilirubin Ql (U) Negative Negative [facility] Work Phone: [phone] Blood erythrocytes count (nu mber/volume)on 05-13-2022 RBC (Bld) [#/Vol] 4.25 10*6/uL 4.6-6.2 [facility] Work Phone: [phone] Blood hemoglobin measurement (mass/volume)on 05-13-2022 Hemoglobin (Bld) [Mass/Vol] 14.2 g/dL 13.0-16.5 [facility] Work Phone: Blood lymphocytes/100 leukoc yteson 05-13-2022 Lymphocytes/100 WBC (Bld) 33.0 % 19-41 [facility] Work Phone: Blood monocytes/100 leukocyt eson 05-13-2022 Monocytes/100 WBC (Bld) 7.8 % 0-10 [facility] Work Phone: Blood platelet mean volumeon 05-13-2022 Platelet mean volume (Bld) [Entitic vol] 10.5 fL 6.2-12.0 [facility] Work Phone: [phone] Determination of erythrocyte mean corpuscular volume (MCV)on 05-13-2022 MCV (RBC) [Entitic vol] 95.8 fL 80-94 [facility] Work Phone: Hematocrit Auto (Bld) [Volum e fraction]on 05-13-2022 Hematocrit (Bld) [Volume fraction] 40.7 % 40-54 [facility] Work Phone: [phone] Ketones Test strip Ql (U)on 05-13-2022 Ketones Ql (U) Negative Negative [facility] Work Phone: [phone] Laboratory - Chemistry and C hemistry - challengeon 05-13-2022 ALP [Catalytic activity/Vol] 83 U/L 45-117 [facility] Work Phone: ALT [Catalytic activity/Vol] 29 U/L 16-61 [facility] Work Phone: CO2 [Moles/Vol] 25.0 mmol/L 21.0-32.0 [facility] Work Phone: [phone] Globulin (S) [Mass/Vol] 3.0 g/dL 2.2-4.2 [facility] Work Phone: Urea nitrogen/Creatinine [Mass ratio] 16.2 mg/mg 10-20 [facility] Work Phone: [phone] Laboratory - Hematology and Cell countson 05-13-2022 Erythrocyte distribution width (RBC) [Entitic vol] 43.8 fL 35.1-43.9 [facility] Work Phone: [phone] Erythrocyte distribution width (RBC) [Ratio] 12.5 % 11.6-14.6 [facility] Work Phone: Immature granulocytes/100 WBC (Bld) 0.200 % 0.0-0.9 [facility] Work Phone: Comment on above: IG% - Immature Granu locytes (promyelocytes, myelocytes and metamyelocytes) > 1% indicates that a LEFT SHIFT is Present. MCH (RBC) [Entitic mass] 33.4 pg 27.0-32.0 [facility] Work Phone: Nucleated RBC/100 WBC (Bld) [Ratio] 0 % 0-5 [facility] Work Phone: MCHC Auto (RBC) [Mass/Vol]on 05-13-2022 MCHC (RBC) [Mass/Vol] 34.9 g/dL 32-36 [facility] Work Phone: [phone] Mucus LM Ql (Urine sed)on Mucus Ql (Urine sed) 0 SEEN /hpf [facility] Work Phone: Nitrite Test strip Ql (U)on 05-13-2022 Nitrite Ql (U) Negative Negative [facility] Work Phone: No Panel Informationon 05-13 Estimated GFR (MDRD) Amer 91 mL/min >60 [facility] Work Phone: Comment on above: GFR Calc Estimated GFR (MDRD) Non-Af Amer 76 mL/min >60 [facility] Work Phone: Comment on above: Non- GFR Calc Thyroid Stimulating Hormone (TSH) 1.95 uIU/mL 0.358-3.74 [facility] Work Phone: Platelets bldon 05-13-2022 Platelets (Bld) [#/Vol] 208 10*3/uL 150-450 [facility] Work Phone: Protein Test strip Ql (U)on 05-13-2022 Protein Ql (U) Negative Negative [facility] Work Phone: Serum or plasma albumin brock urement (mass/volume)on 05-13-2022 Albumin [Mass/Vol] 4.0 g/dL 3.2-5.0 [facility] Work Phone: Serum or plasma albumin/glob ulin mass ratioon 05-13-2022 Albumin/Globulin [Mass ratio] 1.3 {ratio} 0.9-2.4 [facility] Work Phone: Serum or plasma calcium brock urement (mass/volume)on 05-13-2022 Calcium [Mass/Vol] 8.4 mg/dL 8.5-10.1 [facility] Work Phone: Serum or plasma cholesterol in HDL measurement (mass/volume)on 05-13-2022 Cholesterol in HDL [Mass/Vol] 55 mg/dL >40 [facility] Work Phone: Comment on above: The drugs N-Acetylcy steine and Metamizole may falsely depress this assay. Reference Range HDL <40 mg/dL Low HDL Cholesterol HDL >or= 60 mg/dL High HDL Cholesterol Serum or plasma cholesterol in VLDL measurement (mass/volume)on 05-13-2022 Cholesterol in VLDL [Mass/Vol] 19 mg/dL 5-40 [facility] Work Phone: Serum or plasma creatinine m easurement (mass/volume)on 05-13-2022 Creatinine [Mass/Vol] 1.05 mg/dL 0.70-1.30 [facility] Work Phone: Comment on above: The validity of the calculated GFR & GFRAA in patients over 70 years has not been determined. Clinical correlation is essential. Serum or plasma low density lipoprotein (LDL) cholesterol measurement (mass/volume)on 05-13-2022 Cholesterol in LDL [Mass/Vol] 67 mg/dL 0-130 [facility] Work Phone: Serum or plasma urea nitroge n measurement (mass/volume)on 05-13-2022 Urea nitrogen [Mass/Vol] 17 mg/dL 7-18 [facility] Work Phone: Squamous epithelial cells de tection in urine sediment by light microscopyon 05-13-2022 Epithelial cells.squamous LM Ql (Urine sed) 0 SEEN /hpf 0-5 [facility] Work Phone: Thin prep Papanicolaou smear with manual screeningon 05-13-2022 Thin prep Papanicolaou smear with manual screening 18 U/L 15-37 [facility] Work Phone: Thin prep Papanicolaou smear with manual screening 8 5-15 [facility] Work Phone: Urine blood detectionon 04-16 RBC Ql (U) Negative Negative [facility] Work Phone: RBC Ql (U) 0 SEEN /hpf 0-5 [facility] Work Phone: Urine clarityon 05-13-2022 Clarity (U) Clear Clear [facility] Work Phone: Urine color determinationon 05-13-2022 Color (U) Straw Yellow [facility] Work Phone: Urine glucose detectionon Glucose Ql (U) Normal mg/dl Normal [facility] Work Phone: Urine leukocyte esterase det ection by dipstickon 05-13-2022 Leukocyte esterase Test strip Ql (U) Negative Negative [facility] Work Phone: Urine pHon 05-13-2022 pH (U) 5.0 [pH] 5.0 - 8.0 [facility] Work Phone: Urine sediment bacteria coun t by microscopy (number/high power field)on 05-13-2022 Bacteria LM.HPF (Urine sed) [#/Area] RARE /hpf None Seen [facility] Work Phone: Urine specific gravity measu rementon 05-13-2022 Specific gravity (U) [Rel density] 1.010 1.002-1.03 0 [facility] Work Phone: Urobilinogen Auto test strip Ql (U)on 05-13-2022 Urobilinogen Ql (U) Normal mg/dl Normal [facility] Work Phone: Whole blood hemoglobin A1c/t otal hemoglobin ratio (mass fraction)on 05-13-2022 HbA1c (Bld) [Mass fraction] 5.4 % 3.8-5.6 [facility] Work Phone: Comment on above: Normal < 5.7 % Predi abetic 5.7 - 6.4 % Diabetic >or= 6.5 % Please note range changes. Absolute lymphocyte counton 01-10-2022 Lymphocytes Auto (Unsp spec) [#/Vol] 1.89 10*3/uL 0.83-4.51 [facility] Work Phone: Basophil percentageon 2021 Basophils/100 WBC (Bld) 0.7 % 0-1 [facility] Work Phone: Bilirubin [Mass/Vol] 0.50 mg/dL 0.20-1.00 [facility] Work Phone: Comment on above: For patients on eltr ombopag therapy, use of [facility] [place] TBIL is not recommended. Chloride [Moles/Vol] 112 mmol/L 98-107 [facility] Work Phone: Cholesterol [Mass/Vol] 140 mg/dL <200 [facility] Work Phone: Comment on above: <200 mg/dL Desirable 200-240 mg/dL Borderline >240 mg/dL High Risk Eosinophils/100 WBC (Bld) 1.5 % 0-5 [facility] Work Phone: [phone] Glucose [Mass/Vol] 111 mg/dL 74-106 [facility] Work Phone: Comment on above: Fasting Glucose resu lt from 100 to 125 mg/dL suggests IMPAIRED HOMEOSTASIS per A.D.A. criteria. Neutrophils (Bld) [#/Vol] 3.1 10*3/uL 2.0-7.7 [facility] Work Phone: [phone] Neutrophils/100 WBC (Bld) 55.9 % 47-70 [facility] Work Phone: [phone] Potassium [Moles/Vol] 4.0 mmol/L 3.5-5.1 [facility] Work Phone: [phone] Protein [Mass/Vol] 6.9 g/dL 6.4-8.2 [facility] Work Phone: [phone] Sodium [Moles/Vol] 142 mmol/L 136-145 [facility] Work Phone: Triglyceride [Mass/Vol] 128 mg/dL <199 [facility] Work Phone: Comment on above: The drugs N-Acetylcy steine and Metamizole may falsely depress this assay.Serum Triglycerides Reference Interval Normal <150 mg/dL Borderline high 150 - 199 mg/dL High 200 - 499 mg/dL Very High > or = 500 mg/dL WBC (Bld) [#/Vol] 5.5 10*3/uL 4.4-11.0 [facility] Work Phone: Blood erythrocytes count (nu mber/volume)on 01-10-2022 RBC (Bld) [#/Vol] 4.28 10*6/uL 4.6-6.2 [facility] Work Phone: Blood hemoglobin measurement (mass/volume)on 01-10-2022 Hemoglobin (Bld) [Mass/Vol] 13.8 g/dL 13.0-16.5 [facility] Work Phone: Blood lymphocytes/100 leukoc yteson 01-10-2022 Lymphocytes/100 WBC (Bld) 34.3 % 19-41 [facility] Work Phone: Blood monocytes/100 leukocyt eson 01-10-2022 Monocytes/100 WBC (Bld) 7.4 % 0-10 [facility] Work Phone: Blood platelet mean volumeon 01-10-2022 Platelet mean volume (Bld) [Entitic vol] 10.6 fL 6.2-12.0 [facility] Work Phone: Determination of erythrocyte mean corpuscular volume (MCV)on 01-10-2022 MCV (RBC) [Entitic vol] 95.1 fL 80-94 [facility] Work Phone: Hematocrit Auto (Bld) [Volum e fraction]on 01-10-2022 Hematocrit (Bld) [Volume fraction] 40.7 % 40-54 [facility] Work Phone: [phone] Laboratory - Chemistry and C hemistry - challengeon 01-10-2022 ALP [Catalytic activity/Vol] 86 U/L 45-117 [facility] [facility] Work Phone: ALT [Catalytic activity/Vol] 32 U/L 16-61 [facility] Work Phone: CO2 [Moles/Vol] 26.0 mmol/L 21.0-32.0 [facility] Work Phone: [phone] Globulin (S) [Mass/Vol] 2.8 g/dL 2.2-4.2 [facility] Work Phone: Urea nitrogen/Creatinine [Mass ratio] 12.5 mg/mg 10-20 [facility] Work Phone: [phone] Laboratory - Hematology and Cell countson 01-10-2022 Erythrocyte distribution width (RBC) [Entitic vol] 42.5 fL 35.1-43.9 [facility] Work Phone: [phone] Erythrocyte distribution width (RBC) [Ratio] 12.2 % 11.6-14.6 [facility] Work Phone: Immature granulocytes/100 WBC (Bld) 0.200 % 0.0-0.9 [facility] Work Phone: Comment on above: IG% - Immature Granu locytes (promyelocytes, myelocytes and metamyelocytes) > 1% indicates that a LEFT SHIFT is Present. MCH (RBC) [Entitic mass] 32.2 pg 27.0-32.0 [facility] Work Phone: Nucleated RBC/100 WBC (Bld) [Ratio] 0 % 0-5 [facility] Work Phone: MCHC Auto (RBC) [Mass/Vol]on 01-10-2022 MCHC (RBC) [Mass/Vol] 33.9 g/dL 32-36 [facility] Work Phone: No Panel Informationon 01-10 Estimated GFR (MDRD) Amer 85 mL/min >60 [facility] Work Phone: Comment on above: GFR Calc Estimated GFR (MDRD) Non-Af Amer 70 mL/min >60 [facility] Work Phone: Comment on above: Non- GFR Calc Platelets bldon 01-10-2022 Platelets (Bld) [#/Vol] 227 10*3/uL 150-450 [facility] Work Phone: Serum or plasma albumin brock urement (mass/volume)on 01-10-2022 Albumin [Mass/Vol] 4.1 g/dL 3.2-5.0 [facility] Work Phone: Serum or plasma albumin/glob ulin mass ratioon 01-10-2022 Albumin/Globulin [Mass ratio] 1.5 {ratio} 0.9-2.4 [facility] Work Phone: Serum or plasma calcium brock urement (mass/volume)on 01-10-2022 Calcium [Mass/Vol] 9.0 mg/dL 8.5-10.1 [facility] Work Phone: Serum or plasma cholesterol in HDL measurement (mass/volume)on 01-10-2022 Cholesterol in HDL [Mass/Vol] 57 mg/dL >40 [facility] Work Phone: Comment on above: The drugs N-Acetylcy steine and Metamizole may falsely depress this assay. Reference Range HDL <40 mg/dL Low HDL Cholesterol HDL >or= 60 mg/dL High HDL Cholesterol Serum or plasma cholesterol in VLDL measurement (mass/volume)on 01-10-2022 Cholesterol in VLDL [Mass/Vol] 26 mg/dL 5-40 [facility] Work Phone: Serum or plasma creatinine m easurement (mass/volume)on 01-10-2022 Creatinine [Mass/Vol] 1.12 mg/dL 0.70-1.30 [facility] Work Phone: Comment on above: The validity of the calculated GFR & GFRAA in patients over 70 years has not been determined. Clinical correlation is essential. Serum or plasma low density lipoprotein (LDL) cholesterol measurement (mass/volume)on 01-10-2022 Cholesterol in LDL [Mass/Vol] 57 mg/dL 0-130 [facility] Work Phone: Serum or plasma urea nitroge n measurement (mass/volume)on 01-10-2022 Urea nitrogen [Mass/Vol] 14 mg/dL 7-18 [facility] Work Phone: Thin prep Papanicolaou smear with manual screeningon 01-10-2022 Thin prep Papanicolaou smear with manual screening 18 U/L 15-37 [facility] Work Phone: Thin prep Papanicolaou smear with manual screening 4 5-15 [facility] Work Phone: Whole blood hemoglobin A1c/t otal hemoglobin ratio (mass fraction)on 01-10-2022 HbA1c (Bld) [Mass fraction] 5.3 % 3.8-5.6 [facility] Work Phone: Comment on above: Normal < 5.7 % Predi abetic 5.7 - 6.4 % Diabetic >or= 6.5 % Please note range changes. CNOVon 01-09-2021 CNOV Office Visit (ORMDNA ) REMEDIOS GALAVIZ ([id number]) 1955 M Date Time Provider Department 01/09/21 2:20 PM MALATHI ROSADO During your visit today, we recorded the following information about you: Malathi Rosado DO 01/09/2021 2:46 PM Signed [facility] Office Visit Documentation Note Sports Medicine and Interventional Orthopaedics REASON FOR VISIT / CHIEF COMPLAINT Remedios Galaviz is here today at request of Dr. Zack Anderson specifically for consultation of my opinion in regards to the chief complaint listed below. Correspondence will be shared today via the [employer] electronic health record or through regular mail, where applicable. CHIEF COMPLAINT: Remedios Galaviz is a 65 year old male who presents today for a new evaluation of following complaint: Patient presents with: Left Shoulder - New, Pain HISTORY OF PRESENT ILLNESS (HPI) PAIN EVALUATION 01/09/2021 1408 Pain Level: 6 Pain Location: Shoulder-Left Description: Aching Duration Amount of Time: 2 Duration Units: Months Frequency: Intermittent Intervention: Medication Fell on ice and has pain ever since. MRI - tendinosis, SLAP tear and should joint effusion Brief overview: Left shoulder pain for 2 months. From a fall Location of pain: Back of the shoulder and front of the shoulder Does anything make it worse?: Yes, using it Does anything make it better?: No Any numbness or tingling? No Any popping, locking, or clicking? No PREVIOUS TREATMENTS: Ice: No Heat: No Brace: No NSAIDs: Yes, Tylenol Injections: Yes, steroid- 2 months ago- helped 4 hours Surgeries: No Physical Therapy: Yes REVIEW OF SYMPTOMS: Constitutional: Any recent fevers? No Gastrointestinal: Any abdominal discomfort? No Integumentary: Any recent skin changes or rashes? No Endocrine: Any diagnosis of diabetes? No Current Outpatient Medications on File Prior to Visit Medication Sig - valsartan (DIOVAN) 80 mg tablet Take 80 mg by mouth once daily. - rosuvastatin (CRESTOR) 40 mg tablet Take 40 mg by mouth once daily. - topiramate (TOPAMAX) 50 mg tablet Take 50 mg by mouth twice daily. - benzonatate (TESSALON PERLE) 100 mg capsule Take 2 capsules by mouth three times daily as needed. - albuterol HFA (PROAIR HFA) 90 mcg/actuation inhaler Inhale 2 Puffs as instructed every 4 hours as needed. - lisinopril (ZESTRIL, PRINIVIL) 20 mg tablet Take 20 mg by mouth once daily. - clopidogrel (PLAVIX) 75 mg tablet Take 75 mg by mouth once daily. - atorvastatin (LIPITOR) 80 mg tablet Take 80 mg by mouth once daily. - aspirin, enteric coated (ASPIRIN, ENTERIC COATED) 81 mg EC tablet Take 81 mg by mouth once daily. - traMADol (ULTRAM) 50 mg tablet Take 50 mg by mouth every 6 hours as needed. - gabapentin (NEURONTIN) 300 mg capsule Take 2 capsules by mouth three times daily. (Patient not taking: Reported on 11/22/2019) - gabapentin (GRALISE) 300 mg Tb24 Take 1 tablet by mouth once daily. (Patient not taking: Reported on 11/22/2019) - valACYclovir (VALTREX) 1 gram tab Take by mouth as needed. - losartan (COZAAR) 100 mg tablet Take 100 mg by mouth once daily. - CARVEDILOL 25 mg tablet Take 25 mg by mouth twice daily with meals. - rizatriptan (MAXALT) 10 mg ORAL tablet Take 1 tablet by mouth as needed. May repeat in 2 hours if needed - Cholestyramine-Aspartame (PREVALITE) 4 gram ORAL powder Take by mouth three times daily with meals. - DEMADEX 10 MG TAB Take one(1) tablet daily in the morning. No current facility-administered medications on file prior to visit. ALLERGIES Allergen Reactions - Aspirin GI Upset severe heartburn/acid reflux - Diop-2 Inhibitor GI Upset vioxx - caused GI bleed. PHYSICAL EXAMINATION Vitals: There were no vitals taken for this visit. Ortho Exam He does have limitation in motion - but he reports that this is imporving. He localizes pain anterior ,but deep. Direct palpation over the LHBT does not cause pain, but Obriens causes significant pain deep to the shoulder. IMAGING Final results and radiologist's interpretation, available in the [facility] health record. Images were reviewed in the office today. Interpretation of the performed imaging is SLAP tear and tendinosis ASSESSMENT / PLAN DIAGNOSIS: (S47.653G) Superior glenoid labrum lesion of left shoulder, initial encounter (primary encounter diagnosis) Today, in detail, through a thorough evaluation, we discussed possible etiologies of pain and our plans for further diagnostic and therapeutic interventions. We discussed strategies for decreasing pain and improving strength, stability and motion. Patient's questions were answered in detailed. Patient verbalizes understanding and agrees with the treatment plan as discussed. 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 No TTP of the LHBT today. We discuss continuation of PT with an (more content not included)... Normal [facility] CNTHERAPYon 01-03-2021 CNTHERAPY OT/PT/Speech Visit ( PTWS) REMEDIOS GALAVIZ ([id number]) 1955 M Date Time Provider Department 01/03/21 10:30 AM ARTEM BARRY PTWS Date Time Provider Department Center 01/03/2021 10:30 AM [id number], COREY PTWS Omi Amin Reason for Visit: PT Progress Note [3456] PT Discharge [752] Primary Visit Diagnosis:Adhesive capsulitis of left shoulder [M75.02] Other Visit Diagnosis:Biceps tendinitis of left upper extremity [M75.22] Allergies As of Date: 01/03/2021 Noted Allergy Reaction ASPIRIN 08/03/2002 8 - GI Upset Comments: severe heartburn/acid reflux DIOP-2 INHIBITOR 08/03/2002 8 - GI Upset Comments: vioxx - caused GI bleed. Date Reviewed: 12/04/2020 Reviewed by: Lexis Patton RN - Fully Assessed Prescriptions as of 11/25/2021 - valsartan (DIOVAN) 80 mg tablet Take 80 mg by mouth once daily. - rosuvastatin (CRESTOR) 40 mg tablet Take 40 mg by mouth once daily. - topiramate (TOPAMAX) 50 mg tablet Take 50 mg by mouth twice daily. - benzonatate (TESSALON PERLE) 100 mg capsule Take 2 capsules by mouth three times daily as needed. - albuterol HFA (PROAIR HFA) 90 mcg/actuation inhaler Inhale 2 Puffs as instructed every 4 hours as needed. - lisinopril (ZESTRIL, PRINIVIL) 20 mg tablet Take 20 mg by mouth once daily. - clopidogrel (PLAVIX) 75 mg tablet Take 75 mg by mouth once daily. - atorvastatin (LIPITOR) 80 mg tablet Take 80 mg by mouth once daily. - aspirin, enteric coated (ASPIRIN, ENTERIC COATED) 81 mg EC tablet Take 81 mg by mouth once daily. - traMADol (ULTRAM) 50 mg tablet Take 50 mg by mouth every 6 hours as needed. - gabapentin (NEURONTIN) 300 mg capsule Take 2 capsules by mouth three times daily. - gabapentin (GRALISE) 300 mg Tb24 Take 1 tablet by mouth once daily. - valACYclovir (VALTREX) 1 gram tab Take by mouth as needed. - losartan (COZAAR) 100 mg tablet Take 100 mg by mouth once daily. - CARVEDILOL 25 mg tablet Take 25 mg by mouth twice daily with meals. - rizatriptan (MAXALT) 10 mg ORAL tablet Take 1 tablet by mouth as needed. May repeat in 2 hours if needed - Cholestyramine-Aspartame (PREVALITE) 4 gram ORAL powder Take by mouth three times daily with meals. - DEMADEX 10 MG TAB Take one(1) tablet daily in the morning. Normal [facility] Renetta 01-02-2021 INGRIDN Telephone (TXCTMN) REMEDIOS GALAVIZ ([id number]) 1955 M Date Time Provider Department 01/02/21 ANTON DOBSON) TXCTMN During your visit today, we recorded the following information about you: Anton Dobson PA-C 01/02/2021 8:56 AM Signed Called patient to inform them that they are overdue for a colonoscopy based on [facility]. Spoke to patient he had colonoscopy in [address] Benavidez per patient. Anton Dobson PA-C Allergies As of Date: 01/02/2021 Noted Allergy Reaction ASPIRIN 08/03/2002 8 - GI Upset Comments: severe heartburn/acid reflux DIOP-2 INHIBITOR 08/03/2002 8 - GI Upset Comments: vioxx - caused GI bleed. Date Reviewed: 12/04/2020 Reviewed by: Lexis Patton RN - Fully Assessed Reason for Visit: recall colonoscopy [Other] Prescriptions as of 01/02/2021 Sig: VALSARTAN 80 MG TABLET Take 80 mg by mouth once luther* ROSUVASTATIN 40 MG TABLET Take 40 mg by mouth once luther* TOPIRAMATE 50 MG TABLET Take 50 mg by mouth twice jazmine* BENZONATATE 100 MG CAPSULE Take 2 capsules by mouth thre* ALBUTEROL SULFATE HFA 90 MCG/* Inhale 2 Puffs as instructed * LISINOPRIL 20 MG TABLET Take 20 mg by mouth once luther* CLOPIDOGREL 75 MG TABLET Take 75 mg by mouth once luther* ATORVASTATIN 80 MG TABLET Take 80 mg by mouth once luther* ASPIRIN 81 MG TABLET,DELAYED * Take 81 mg by mouth once luther* TRAMADOL 50 MG TABLET Take 50 mg by mouth every 6 h* GABAPENTIN 300 MG CAPSULE Take 2 capsules by mouth thre* Patient not taking: Reported on 11/22/2019 GABAPENTIN ER 300 MG TABLET,E* Take 1 tablet by mouth once d* Patient not taking: Reported on 11/22/2019 VALACYCLOVIR 1 GRAM TABLET Take by mouth as needed. LOSARTAN 100 MG TABLET Take 100 mg by mouth once jazmine* CARVEDILOL 25 MG TABLET Take 25 mg by mouth twice jazmine* * RIZATRIPTAN 10 MG TABLET Take 1 tablet by mouth as nee* * CHOLESTYRAMINE-ASPARTAME 4 GR* Take by mouth three times da* * DEMADEX 10 MG TABLET Take one(1) tablet daily in t* Problem List As Of Date 01/02/2021 Noted Resolved HYDROCELE NEC [N43.2] 08/03/2002 BENIGN HYP HRT DIS W/O HRT FAIL [I11.9] Carpal tunnel syndrome [G56.00] 11/25/2005 09/20/2015 ULNAR NERVE LESION [G56.20] 11/25/2005 09/20/2015 Other Affections of Shoulder Region, not Elsewh*08/27/2009 12/18/2009 Other affections of shoulder region, not elsewh*12/19/2009 09/20/2015 Chronic daily headache [R51.9] 05/21/2012 Chronic migraine [G43.709] 05/21/2012 Medication overuse headache [G44.40] 05/21/2012 Lateral epicondylitis of elbow [M77.10] 09/15/2013 09/20/2015 Medial epicondylitis [M77.00] 09/15/2013 01/16/2014 Medial epicondylitis of elbow [M77.00] 09/19/2013 09/20/2015 Stiffness in joint [M25.60] 01/31/2014 09/20/2015 Trigger thumb of right hand [M65.311] 09/20/2015 Right wrist tendonitis [M77.8] 09/20/2015 Numbness of right hand [R20.0] 09/20/2015 BMI 32.0-32.9,adult [Z68.32] 09/20/2015 Biceps tendinitis of left upper extremity [M75.*12/04/2020 Adhesive capsulitis of left shoulder [M75.02] 12/04/2020 Encounter Status:Closed by ANTON DOBSON PA-C on 01/02/21 [facility] CNTHERAPYon 12-31-2020 CNTHERAPY OT/PT/Speech Visit ( PTWS) GUILLAUMEREMEDIOS Grove ([id number]) 1955 M Date Time Provider Department 12/31/20 9:15 AM JENNA BANERJEE ([facility]) PTWS Date Time Provider Department Center 12/31/2020 9:15 AM [id number], NANCY ([facility]) [facility]WS [facility] Reason for Visit: Physical Therapy [503] Primary Visit Diagnosis:Adhesive capsulitis of left shoulder [M75.02] Other Visit Diagnosis:Biceps tendinitis of left upper extremity [M75.22] Allergies As of Date: 12/31/2020 Noted Allergy Reaction ASPIRIN 08/03/2002 8 - GI Upset Comments: severe heartburn/acid reflux DIOP-2 INHIBITOR 08/03/2002 8 - GI Upset Comments: vioxx - caused GI bleed. Date Reviewed: 12/04/2020 Reviewed by: Lexis Patton RN - Fully Assessed Prescriptions as of 12/31/2020 Sig: VALSARTAN 80 MG TABLET Take 80 mg by mouth once luther* ROSUVASTATIN 40 MG TABLET Take 40 mg by mouth once luther* TOPIRAMATE 50 MG TABLET Take 50 mg by mouth twice jazmine* BENZONATATE 100 MG CAPSULE Take 2 capsules by mouth thre* ALBUTEROL SULFATE HFA 90 MCG/* Inhale 2 Puffs as instructed * LISINOPRIL 20 MG TABLET Take 20 mg by mouth once luther* CLOPIDOGREL 75 MG TABLET Take 75 mg by mouth once luther* ATORVASTATIN 80 MG TABLET Take 80 mg by mouth once luther* ASPIRIN 81 MG TABLET,DELAYED * Take 81 mg by mouth once luther* TRAMADOL 50 MG TABLET Take 50 mg by mouth every 6 h* GABAPENTIN 300 MG CAPSULE Take 2 capsules by mouth thre* Patient not taking: Reported on 11/22/2019 GABAPENTIN ER 300 MG TABLET,E* Take 1 tablet by mouth once d* Patient not taking: Reported on 11/22/2019 VALACYCLOVIR 1 GRAM TABLET Take by mouth as needed. LOSARTAN 100 MG TABLET Take 100 mg by mouth once jazmine* CARVEDILOL 25 MG TABLET Take 25 mg by mouth twice jazmine* * RIZATRIPTAN 10 MG TABLET Take 1 tablet by mouth as nee* * CHOLESTYRAMINE-ASPARTAME 4 GR* Take by mouth three times da* * DEMADEX 10 MG TABLET Take one(1) tablet daily in t* Progress Notes: Artem Barry, PT 12/31/2020 4:45 PM Signed Episode Visit Count: 8 Therapist That Will Oversee The Plan Of Care: Artem Barry Start of Care Date: 12/06/20 Onset Date: 12/07/19 Plan of Care Certification Date: 12/06/20 Next Certification Due Date: 01/10/21 Patient Identified by Name and Date of : Yes REHABILITATION AND SPORTS THERAPY PHYSICAL THERAPY TREATMENT NOTE ASSESSMENT: Remedios Galaviz demonstrated difficulty with left bicep and forearm pain following biceps curls from last visit. Still with pain in left shoulder depending on movements.Slight reduction in shoulder pain at end of therapy today. The patient will continue to benefit from ongoing skilled physical therapy for progression of ROM and strength of left shoulder. PLAN FOR NEXT VISIT: Progress ROM and manual PRN. SUBJECTIVE: Patient Reason for Visit: Patient reports left biceps and forearm have been more sore after biceps curl last visit. He reports the shoulder is feeling about the same and is not taking Tylenol currently. Pain: Pain Pain Level: 5 Pain Location: Shoulder - Left (anterior shoulder) Description: Stabbing (stinging) Frequency: Continuous Post Treatment Pain Post Treatment Pain Level: 3 Post Treatment Pain Location: Shoulder - Left Post Treatment Pain Description: Burning OBJECTIVE MEASURES WITH LEVEL OF FUNCTION: UE AROM L Shoulder Flex: 151 Degrees L Shoulder ABduction: 134 Degrees TREATMENT: Therapeutic Exercise: 1: Seated shoulder laura AAROM flexion, abduction and IR 3x10 each 3: Reaching #1-5 3x30 seconds 4: Standing shoulder ER stretch against corner of wall (by turning body out) x10 reps x10 sec holds 5: Single arm row on machine 2 plates 2x10 reps 6: Standing 8# DB curls x20 reps Skilled Intervention: Patient was educated in proper exercise technique and purpose for exercises. Skilled judgment was provided in selection of appropriate interventions. Correct performance of therapeutic exercises was facilitated with verbal and visual cuing. Manual Therapy: 1: PROM shoulder flexion/ER/IR 2x10 reps holding 3 sec each 2: Posterior capsule stretch x30 seconds Skilled Intervention: Manual skills to improve joint mobility, ROM, and decrease pain. Utilized anatomy knowledge of the therapist, and assessment of patient's response to intervention. Billing: [facility]: Therapeutic Exercise ([id number]): 1:1 time: 31 minutes (2 units: 23-37 mins) Manual Therapy ([id number]): 1:1 time: 12 minutes (1 unit: 8-22 mins) Total time / Length of visit: 43 minutes Jenna Banerjee PT-José Barry PT Normal [facility] CNTHERAPYon 12-28-2020 CNTHERAPY OT/PT/Speech Visit ( PTWS) REMEDIOS GALAVIZ ([id number]) 1955 M Date Time Provider Department 12/28/20 2:15 PM ARTEM BARRY (PT) PTWS Date Time Provider Department Center 12/28/2020 2:15 PM [id number], COREY (PT)[facility]WS [facility] Reason for Visit: Physical Therapy [503] Primary Visit Diagnosis:Adhesive capsulitis of left shoulder [M75.02] Other Visit Diagnosis:Biceps tendinitis of left upper extremity [M75.22] Allergies As of Date: 12/28/2020 Noted Allergy Reaction ASPIRIN 08/03/2002 8 - GI Upset Comments: severe heartburn/acid reflux DIOP-2 INHIBITOR 08/03/2002 8 - GI Upset Comments: vioxx - caused GI bleed. Date Reviewed: 12/04/2020 Reviewed by: Lexis Patton RN - Fully Assessed Prescriptions as of 12/28/2020 Sig: VALSARTAN 80 MG TABLET Take 80 mg by mouth once luther* ROSUVASTATIN 40 MG TABLET Take 40 mg by mouth once luther* TOPIRAMATE 50 MG TABLET Take 50 mg by mouth twice jazmine* BENZONATATE 100 MG CAPSULE Take 2 capsules by mouth thre* ALBUTEROL SULFATE HFA 90 MCG/* Inhale 2 Puffs as instructed * LISINOPRIL 20 MG TABLET Take 20 mg by mouth once luther* CLOPIDOGREL 75 MG TABLET Take 75 mg by mouth once luther* ATORVASTATIN 80 MG TABLET Take 80 mg by mouth once luther* ASPIRIN 81 MG TABLET,DELAYED * Take 81 mg by mouth once luther* TRAMADOL 50 MG TABLET Take 50 mg by mouth every 6 h* GABAPENTIN 300 MG CAPSULE Take 2 capsules by mouth thre* Patient not taking: Reported on 11/22/2019 GABAPENTIN ER 300 MG TABLET,E* Take 1 tablet by mouth once d* Patient not taking: Reported on 11/22/2019 VALACYCLOVIR 1 GRAM TABLET Take by mouth as needed. LOSARTAN 100 MG TABLET Take 100 mg by mouth once jazmine* CARVEDILOL 25 MG TABLET Take 25 mg by mouth twice jazmine* * RIZATRIPTAN 10 MG TABLET Take 1 tablet by mouth as nee* * CHOLESTYRAMINE-ASPARTAME 4 GR* Take by mouth three times da* * DEMADEX 10 MG TABLET Take one(1) tablet daily in t* Progress Notes: Artem Barry, PT 12/28/2020 3:09 PM Signed Episode Visit Count: 7 Therapist That Will Oversee The Plan Of Care: Artem Barry Start of Care Date: 12/06/20 Onset Date: 12/07/19 Plan of Care Certification Date: 12/06/20 Next Certification Due Date: 01/10/21 Patient Identified by Name and Date of : Yes REHABILITATION AND SPORTS THERAPY PHYSICAL THERAPY TREATMENT NOTE ASSESSMENT: Remedios Galaviz demonstrated improvements in shoulder ROM. The patient will continue to benefit from ongoing skilled physical therapy for progression towards therapy goals. PLAN FOR NEXT VISIT: Progress ROM and manual PRN. SUBJECTIVE: Patient Reason for Visit: Pt states that he can reach further back on his back and that he is struggling with shoulder abduction. Pain: Pain Pain Level: 5 Pain Location: Shoulder - Left Post Treatment Pain Post Treatment Pain Level: 5 Post Treatment Pain Location: Shoulder - Left OBJECTIVE MEASURES WITH LEVEL OF FUNCTION: UE AROM L Shoulder Flex: 151 Degrees L Shoulder ABduction: 131 Degrees UE PROM L Shoulder ABduction: 160 Degrees (AAROM using pulleys) TREATMENT: Therapeutic Exercise: 1: Seated pulleys into abd x30 reps 2: Standing laura functional IR x20 reps 3: Reaching #1-5 2x10 reps holding end range x5 sec 4: Standing shoulder ER stretch against corner of wall (by turning body out) x10 reps x10 sec holds 5: Single arm row on machine 2 plates 2x10 reps 6: Standing 8# DB curls x40 reps Skilled Intervention: Patient was educated in proper exercise technique and purpose for exercises. Provided written instruction for home exercise program to facilitate proper performance and compliance. Correct performance of therapeutic exercises was facilitated with verbal and visual cuing. Manual Therapy: 1: PROM shoulder flexion/ER/IR x10 reps holding 3 sec each 2: Posterior capsule stretch x30 seconds Skilled Intervention: Manual skills to improve joint mobility, ROM, and decrease pain. Utilized anatomy knowledge of the therapist, and assessment of patient's response to intervention. Billing: [facility]: Therapeutic Exercise ([id number]): 1:1 time: 33 minutes (2 units: 23-37 mins) Manual Therapy ([id number]): 1:1 time: 9 minutes (1 unit: 8-22 mins) Total time / Length of visit: 42 minutes Artem Barry PT [facility] CNTHERAPYon 12-24-2020 CNTHERAPY OT/PT/Speech Visit ( PTWS) REMEDIOS GALAVIZ ([id number]) 1955 M Date Time Provider Department 12/24/20 8:30 AM JENNA BANERJEE ([facility]) PTWS Date Time Provider Department Center 12/24/2020 8:30 AM [id number], NANCY ([facility]) PTWS [facility] Reason for Visit: Physical Therapy [503] Primary Visit Diagnosis:Adhesive capsulitis of left shoulder [M75.02] Other Visit Diagnosis:Biceps tendinitis of left upper extremity [M75.22] Allergies As of Date: 12/24/2020 Noted Allergy Reaction ASPIRIN 08/03/2002 8 - GI Upset Comments: severe heartburn/acid reflux DIOP-2 INHIBITOR 08/03/2002 8 - GI Upset Comments: vioxx - caused GI bleed. Date Reviewed: 12/04/2020 Reviewed by: Lexis Patton RN - Fully Assessed Prescriptions as of 12/24/2020 Sig: VALSARTAN 80 MG TABLET Take 80 mg by mouth once luther* ROSUVASTATIN 40 MG TABLET Take 40 mg by mouth once luther* TOPIRAMATE 50 MG TABLET Take 50 mg by mouth twice jazmine* BENZONATATE 100 MG CAPSULE Take 2 capsules by mouth thre* ALBUTEROL SULFATE HFA 90 MCG/* Inhale 2 Puffs as instructed * LISINOPRIL 20 MG TABLET Take 20 mg by mouth once luther* CLOPIDOGREL 75 MG TABLET Take 75 mg by mouth once luther* ATORVASTATIN 80 MG TABLET Take 80 mg by mouth once luther* ASPIRIN 81 MG TABLET,DELAYED * Take 81 mg by mouth once luther* TRAMADOL 50 MG TABLET Take 50 mg by mouth every 6 h* GABAPENTIN 300 MG CAPSULE Take 2 capsules by mouth thre* Patient not taking: Reported on 11/22/2019 GABAPENTIN ER 300 MG TABLET,E* Take 1 tablet by mouth once d* Patient not taking: Reported on 11/22/2019 VALACYCLOVIR 1 GRAM TABLET Take by mouth as needed. LOSARTAN 100 MG TABLET Take 100 mg by mouth once jazmine* CARVEDILOL 25 MG TABLET Take 25 mg by mouth twice jazmine* * RIZATRIPTAN 10 MG TABLET Take 1 tablet by mouth as nee* * CHOLESTYRAMINE-ASPARTAME 4 GR* Take by mouth three times da* * DEMADEX 10 MG TABLET Take one(1) tablet daily in t* Progress Notes: Artem Barry, PT 12/24/2020 5:48 PM Signed Episode Visit Count: 6 Therapist That Will Oversee The Plan Of Care: Artem Barry Start of Care Date: 12/06/20 Onset Date: 12/07/19 Plan of Care Certification Date: 12/06/20 Next Certification Due Date: 01/10/21 Patient Identified by Name and Date of : Yes REHABILITATION AND SPORTS THERAPY PHYSICAL THERAPY TREATMENT NOTE ASSESSMENT: Remedios Galaviz demonstrated difficulty with increase pain at night when trying to sleep and pain currently left shoulder with intermittent tingling left upper arm and hand. Patient with no c/o increase pain during therapy. He had stinging type pain anterior shoulder at end of treatment. The patient will continue to benefit from ongoing skilled physical therapy for progression of supervised therapeutic exercises. PLAN FOR NEXT VISIT: Manual therapy at start of treatment and progress ROM and strength left shoulder SUBJECTIVE: Patient Reason for Visit: Patient reports he is able to reach better. He reports pain remains high and was hurting during the night. Pain: Pain Pain Level: 6 Pain Location: Shoulder - Left (stinging. Pain last night 8/10 really hurt) Description: Aching;Dull (also tingling left hand) Post Treatment Pain Post Treatment Pain Level: 6 Post Treatment Pain Location: Shoulder - Left (anterior) Post Treatment Pain Description: (stinging) Post Treatment Symptoms: shoulder pain the same and tingling in left palm gone and tingling left fingers persist OBJECTIVE MEASURES WITH LEVEL OF FUNCTION: UE AROM L Shoulder Flex: 150 Degrees L Shoulder ABduction: 129 Degrees TREATMENT: Therapeutic Exercise: 1: Supine cane flexion x10 reps holding 10 sec each 3: Reaching #1-5 2x30 seconds 4: Shoulder stabiliation cw and ccw 2# ball on wall circles 2x10 each direction. 5: UBE 6 min total (3 min forward then backward) (Resistance set at 0.6) 6: Left shoulder laura AAROM flexion and abduction 2x10 7: Left shoulder laura IR behind back 1x10 with 5 second hold Skilled Intervention: Patient was educated in proper exercise technique and purpose for exercises. Skilled judgment was provided in selection of appropriate interventions. Correct performance of therapeutic exercises was facilitated with verbal and visual cuing. Billing: [facility]: Therapeutic Exercise ([id number]): 1:1 time: 45 minutes (3 units: 38-52 mins) Total time / Length of visit: 45 minutes Jenna Banerjee, PT-José Barry PT [facility] CNTHERAPYon 12-19-2020 CNTHERAPY OT/PT/Speech Visit ( PTWS) REMEDIOS GALAVIZ ([id number]) 1955 M Date Time Provider Department 12/19/20 9:45 AM ARTEM BARRY (PT) PTWS Date Time Provider Department Center 12/19/2020 9:45 AM [id number], COREY (PT)[facility] Reason for Visit: Physical Therapy [503] Primary Visit Diagnosis:Adhesive capsulitis of left shoulder [M75.02] Other Visit Diagnosis:Biceps tendinitis of left upper extremity [M75.22] Allergies As of Date: 12/19/2020 Noted Allergy Reaction ASPIRIN 08/03/2002 8 - GI Upset Comments: severe heartburn/acid reflux DIOP-2 INHIBITOR 08/03/2002 8 - GI Upset Comments: vioxx - caused GI bleed. Date Reviewed: 12/04/2020 Reviewed by: Lexis Patton RN - Fully Assessed Prescriptions as of 12/19/2020 Sig: VALSARTAN 80 MG TABLET Take 80 mg by mouth once luther* ROSUVASTATIN 40 MG TABLET Take 40 mg by mouth once luther* TOPIRAMATE 50 MG TABLET Take 50 mg by mouth twice jazmine* BENZONATATE 100 MG CAPSULE Take 2 capsules by mouth thre* ALBUTEROL SULFATE HFA 90 MCG/* Inhale 2 Puffs as instructed * LISINOPRIL 20 MG TABLET Take 20 mg by mouth once luther* CLOPIDOGREL 75 MG TABLET Take 75 mg by mouth once luther* ATORVASTATIN 80 MG TABLET Take 80 mg by mouth once luther* ASPIRIN 81 MG TABLET,DELAYED * Take 81 mg by mouth once luther* TRAMADOL 50 MG TABLET Take 50 mg by mouth every 6 h* GABAPENTIN 300 MG CAPSULE Take 2 capsules by mouth thre* Patient not taking: Reported on 11/22/2019 GABAPENTIN ER 300 MG TABLET,E* Take 1 tablet by mouth once d* Patient not taking: Reported on 11/22/2019 VALACYCLOVIR 1 GRAM TABLET Take by mouth as needed. LOSARTAN 100 MG TABLET Take 100 mg by mouth once jazmine* CARVEDILOL 25 MG TABLET Take 25 mg by mouth twice jazmine* * RIZATRIPTAN 10 MG TABLET Take 1 tablet by mouth as nee* * CHOLESTYRAMINE-ASPARTAME 4 GR* Take by mouth three times da* * DEMADEX 10 MG TABLET Take one(1) tablet daily in t* Progress Notes: Artem Barry, PT 12/19/2020 10:30 AM Signed Episode Visit Count: 5 Therapist That Will Oversee The Plan Of Care: Artem Barry Start of Care Date: 12/06/20 Onset Date: 12/07/19 Plan of Care Certification Date: 12/06/20 Next Certification Due Date: 01/10/21 Patient Identified by Name and Date of : Yes REHABILITATION AND SPORTS THERAPY PHYSICAL THERAPY TREATMENT NOTE ASSESSMENT: Remedios Perfecto Galaviz demonstrated difficulty with limited L shoulder elevation due to stiffness and improvements in L shoulder elevation ROM by the end of the session. The patient will continue to benefit from ongoing skilled physical therapy for progression towards therapy goals. PLAN FOR NEXT VISIT: Progress L shoulder ROM. Manual at start of session may be more beneficia;. SUBJECTIVE: Patient Reason for Visit: Pt states that he is feeling better today with improved sleep quality last night. Cutting down on the number of exercises has helped his pain levels. Pain: Pain Pain Level: 5 Pain Location: Shoulder - Left Post Treatment Pain Post Treatment Pain Location: Shoulder - Left OBJECTIVE MEASURES WITH LEVEL OF FUNCTION: 120 deg AROM L shoulder elevation at beginning of the session 131 deg AROM L shoulder at the end of the session TREATMENT: Therapeutic Exercise: 1: Supine cane flexion x10 reps holding 10 sec each 2: Standing IR stretch using green strap 2x10 reps holding 5 sec each 3: Reaching #1-5 2x8 reps 4: Shoulder ER/IR iso into ball on wall x5 reps holding 5 sec each 5: UBE 6 min total (3 min forward then backward) (Resistance set at 0.6) Skilled Intervention: Patient was educated in proper exercise technique and purpose for exercises. Skilled judgment was provided in selection of appropriate interventions. Provided written instruction for home exercise program to facilitate proper performance and compliance. Correct performance of therapeutic exercises was facilitated with verbal cuing. Manual Therapy: 1: Manual stretching into elevation x30 seconds 2: AP mobilizations of the L GH joint grade 3 for mobility x20 3: Shoulder ER rotation stretch held at pt's tolerance 3x30 seconds Skilled Intervention: Manual skills to improve joint mobility, ROM, and decrease pain. Utilized anatomy knowledge of the therapist, and assessment of patient's response to intervention. Maria E: [facility]: Therapeutic Exercise ([id number]): 1:1 time: 35 minutes (2 units: 23-37 mins) Manual Therapy ([id number]): 1:1 time: 9 minutes (1 unit: 8-22 mins) Total time / Length of visit: 44 minutes Artem Barry PT [facility] CNTHERAPYon 12-17-2020 CNTHERAPY OT/PT/Speech Visit ( PTWS) REMEDIOS GALAVIZ ([id number]) 1955 M Date Time Provider Department 12/17/20 1:30 PM ARTEM BARRYPT) [facility] Date Time Provider Department Center 12/17/2020 1:30 PM [id number], COREY (PT)[facility] Reason for Visit: Physical Therapy [503] Primary Visit Diagnosis:Adhesive capsulitis of left shoulder [M75.02] Other Visit Diagnosis:Biceps tendinitis of left upper extremity [M75.22] Allergies As of Date: 12/17/2020 Noted Allergy Reaction ASPIRIN 08/03/2002 8 - GI Upset Comments: severe heartburn/acid reflux DIOP-2 INHIBITOR 08/03/2002 8 - GI Upset Comments: vioxx - caused GI bleed. Date Reviewed: 12/04/2020 Reviewed by: Lexis Patton RN - Fully Assessed Prescriptions as of 12/17/2020 Sig: VALSARTAN 80 MG TABLET Take 80 mg by mouth once luther* ROSUVASTATIN 40 MG TABLET Take 40 mg by mouth once luther* TOPIRAMATE 50 MG TABLET Take 50 mg by mouth twice jazmine* BENZONATATE 100 MG CAPSULE Take 2 capsules by mouth thre* ALBUTEROL SULFATE HFA 90 MCG/* Inhale 2 Puffs as instructed * LISINOPRIL 20 MG TABLET Take 20 mg by mouth once luther* CLOPIDOGREL 75 MG TABLET Take 75 mg by mouth once luther* ATORVASTATIN 80 MG TABLET Take 80 mg by mouth once luther* ASPIRIN 81 MG TABLET,DELAYED * Take 81 mg by mouth once luther* TRAMADOL 50 MG TABLET Take 50 mg by mouth every 6 h* GABAPENTIN 300 MG CAPSULE Take 2 capsules by mouth thre* Patient not taking: Reported on 11/22/2019 GABAPENTIN ER 300 MG TABLET,E* Take 1 tablet by mouth once d* Patient not taking: Reported on 11/22/2019 VALACYCLOVIR 1 GRAM TABLET Take by mouth as needed. LOSARTAN 100 MG TABLET Take 100 mg by mouth once jazmine* CARVEDILOL 25 MG TABLET Take 25 mg by mouth twice jazmine* * RIZATRIPTAN 10 MG TABLET Take 1 tablet by mouth as nee* * CHOLESTYRAMINE-ASPARTAME 4 GR* Take by mouth three times da* * DEMADEX 10 MG TABLET Take one(1) tablet daily in t* Progress Notes: Artem Barry, PT 12/17/2020 4:02 PM Signed Episode Visit Count: 4 Therapist That Will Oversee The Plan Of Care: Artem Barry Start of Care Date: 12/06/20 Onset Date: 12/07/19 Plan of Care Certification Date: 12/06/20 Next Certification Due Date: 04/29/21 Patient Identified by Name and Date of : Yes REHABILITATION AND SPORTS THERAPY PHYSICAL THERAPY TREATMENT NOTE ASSESSMENT: Remedios Galaviz demonstrated exquisite tenderness of the shoulder over the weekend. Pt's soreness may be due to towel IR stretch that started after the last therapy session. The patient will continue to benefit from ongoing skilled physical therapy for progression towards therapy goals. PLAN FOR NEXT VISIT: Continue to progress ROM. SUBJECTIVE: Patient Reason for Visit: Pt states that his shoulder has bothered him throughout the weekend. Pain: Pain Pain Level: 6 Pain Location: Shoulder - Left Description: Stabbing Post Treatment Pain Post Treatment Pain Location: Shoulder - Left OBJECTIVE MEASURES WITH LEVEL OF FUNCTION: UE PROM L Shoulder Flex: 155 Degrees TREATMENT: Therapeutic Exercise: 1: Left shoulder laura AAROM flexion 2x10 2: Standing shoulder ext x10 reps holding 5 ec ea 3: UBE x4 min 4: Supine ER using cane x15 reps holding 5 sec each 5: Supine cane OH raise 2# LLLD stretch 5x15 seconds Skilled Intervention: Patient was educated in proper exercise technique and purpose for exercises. Provided written instruction for home exercise program to facilitate proper performance and compliance. Correct performance of therapeutic exercises was facilitated with verbal and visual cuing. Manual Therapy: 1: Shoulder IR stretch x60 seconds 2: Shoulder elevation stretch x60 seconds 3: Shoulder ER x10 reps holding 3 sec each Skilled Intervention: Manual skills to improve joint mobility, ROM, and decrease pain. Utilized anatomy knowledge of the therapist, and assessment of patient's response to intervention. Billing: [facility]: Therapeutic Exercise ([id number]): 1:1 time: 33 minutes (2 units: 23-37 mins) Manual Therapy ([id number]): 1:1 time: 8 minutes (1 unit: 8-22 mins) Total time / Length of visit: 41 minutes Artem Barry PT [facility] CNTHERAPYon 12-13-2020 CNTHERAPY OT/PT/Speech Visit ( PTWS) GALAVIZ,BILL T ([id number]) 1955 M Date Time Provider Department 12/13/20 7:45 AM ARTEM BARRY (PT) PTWS Date Time Provider Department Center 12/13/2020 7:45 AM [id number], COREY (PT)[facility] Reason for Visit: Physical Therapy [503] Primary Visit Diagnosis:Adhesive capsulitis of left shoulder [M75.02] Other Visit Diagnosis:Biceps tendinitis of left upper extremity [M75.22] Allergies As of Date: 12/13/2020 Noted Allergy Reaction ASPIRIN 08/03/2002 8 - GI Upset Comments: severe heartburn/acid reflux DIOP-2 INHIBITOR 08/03/2002 8 - GI Upset Comments: vioxx - caused GI bleed. Date Reviewed: 12/04/2020 Reviewed by: Lexis Patton RN - Fully Assessed Prescriptions as of 12/13/2020 Sig: VALSARTAN 80 MG TABLET Take 80 mg by mouth once luther* ROSUVASTATIN 40 MG TABLET Take 40 mg by mouth once luther* TOPIRAMATE 50 MG TABLET Take 50 mg by mouth twice jazmine* BENZONATATE 100 MG CAPSULE Take 2 capsules by mouth thre* ALBUTEROL SULFATE HFA 90 MCG/* Inhale 2 Puffs as instructed * LISINOPRIL 20 MG TABLET Take 20 mg by mouth once luther* CLOPIDOGREL 75 MG TABLET Take 75 mg by mouth once luther* ATORVASTATIN 80 MG TABLET Take 80 mg by mouth once luther* ASPIRIN 81 MG TABLET,DELAYED * Take 81 mg by mouth once luther* TRAMADOL 50 MG TABLET Take 50 mg by mouth every 6 h* GABAPENTIN 300 MG CAPSULE Take 2 capsules by mouth thre* Patient not taking: Reported on 11/22/2019 GABAPENTIN ER 300 MG TABLET,E* Take 1 tablet by mouth once d* Patient not taking: Reported on 11/22/2019 VALACYCLOVIR 1 GRAM TABLET Take by mouth as needed. LOSARTAN 100 MG TABLET Take 100 mg by mouth once jazmine* CARVEDILOL 25 MG TABLET Take 25 mg by mouth twice jazmine* * RIZATRIPTAN 10 MG TABLET Take 1 tablet by mouth as nee* * CHOLESTYRAMINE-ASPARTAME 4 GR* Take by mouth three times da* * DEMADEX 10 MG TABLET Take one(1) tablet daily in t* Progress Notes: Artem Barry PT 12/13/2020 8:45 AM Signed Episode Visit Count: 3 Therapist That Will Oversee The Plan Of Care: Artem Barry Start of Care Date: 12/06/20 Onset Date: 12/07/19 Plan of Care Certification Date: 12/06/20 Next Certification Due Date: 01/10/21 Patient Identified by Name and Date of : Yes REHABILITATION AND SPORTS THERAPY PHYSICAL THERAPY TREATMENT NOTE ASSESSMENT: Remedios Galaviz demonstrated improvements in independents with the HEP. The patient will continue to benefit from ongoing skilled physical therapy for progression towards therapy goals. PLAN FOR NEXT VISIT: Continue with stretching and manual stretching being cautius of ER. SUBJECTIVE: Patient Reason for Visit: Pt is sore but better than yesterday Pain: Pain Pain Level: 6 Pain Location: Shoulder - Left Description: Stabbing Post Treatment Pain Post Treatment Pain Location: Shoulder - Left Post Treatment Pain Description: Sharp OBJECTIVE MEASURES WITH LEVEL OF FUNCTION: UE AROM L Shoulder Flex: 130 Degrees TREATMENT: Therapeutic Exercise: 1: Left shoulder laura AAROM flexion 2x10 2: pulleys IR standing 2x10 reps holding 10 sec each 3: Pulleys abd 2x10 reps holding 3 sec each 4: Corner pec stretch x5 reps holding 20 sec 5: Supine shoulder ER stretch 2x10 reps 6: Seated cross body stretch 3x30 seconds Skilled Intervention: Patient was educated in proper exercise technique and purpose for exercises. Correct performance of therapeutic exercises was facilitated with verbal and visual cuing. Billing: [facility]: Therapeutic Exercise ([id number]): 1:1 time: 40 minutes (3 units: 38-52 mins) Total time / Length of visit: 40 minutes Artem Barry PT [facility] CNTHERAPYon 12-10-2020 CNTHERAPY OT/PT/Speech Visit ( PTWS) REMEDIOS GALAVIZ ([id number]) 1955 M Date Time Provider Department 12/10/20 10:00 AM JENNA BANERJEE ([facility]) PTWS Date Time Provider Department Center 12/10/2020 10:00 AM [id number], NANCY ([facility]) [facility] Reason for Visit: Physical Therapy [503] Primary Visit Diagnosis:Adhesive capsulitis of left shoulder [M75.02] Other Visit Diagnosis:Biceps tendinitis of left upper extremity [M75.22] Allergies As of Date: 12/10/2020 Noted Allergy Reaction ASPIRIN 08/03/2002 8 - GI Upset Comments: severe heartburn/acid reflux DIOP-2 INHIBITOR 08/03/2002 8 - GI Upset Comments: vioxx - caused GI bleed. Date Reviewed: 12/04/2020 Reviewed by: Lexis Patton RN - Fully Assessed Prescriptions as of 12/10/2020 Sig: VALSARTAN 80 MG TABLET Take 80 mg by mouth once luther* ROSUVASTATIN 40 MG TABLET Take 40 mg by mouth once luther* TOPIRAMATE 50 MG TABLET Take 50 mg by mouth twice jazmine* BENZONATATE 100 MG CAPSULE Take 2 capsules by mouth thre* ALBUTEROL SULFATE HFA 90 MCG/* Inhale 2 Puffs as instructed * LISINOPRIL 20 MG TABLET Take 20 mg by mouth once luther* CLOPIDOGREL 75 MG TABLET Take 75 mg by mouth once luther* ATORVASTATIN 80 MG TABLET Take 80 mg by mouth once luther* ASPIRIN 81 MG TABLET,DELAYED * Take 81 mg by mouth once luther* TRAMADOL 50 MG TABLET Take 50 mg by mouth every 6 h* GABAPENTIN 300 MG CAPSULE Take 2 capsules by mouth thre* Patient not taking: Reported on 11/22/2019 GABAPENTIN ER 300 MG TABLET,E* Take 1 tablet by mouth once d* Patient not taking: Reported on 11/22/2019 VALACYCLOVIR 1 GRAM TABLET Take by mouth as needed. LOSARTAN 100 MG TABLET Take 100 mg by mouth once jazmine* CARVEDILOL 25 MG TABLET Take 25 mg by mouth twice jazmine* * RIZATRIPTAN 10 MG TABLET Take 1 tablet by mouth as nee* * CHOLESTYRAMINE-ASPARTAME 4 GR* Take by mouth three times da* * DEMADEX 10 MG TABLET Take one(1) tablet daily in t* Progress Notes: Artem Barry, PT 12/10/2020 12:37 PM Signed Episode Visit Count: 2 Therapist That Will Oversee The Plan Of Care: Artem Barry Start of Care Date: 12/06/20 Onset Date: 12/07/19 Plan of Care Certification Date: 12/06/20 Next Certification Due Date: 01/10/21 Patient Identified by Name and Date of : Yes REHABILITATION AND SPORTS THERAPY PHYSICAL THERAPY TREATMENT NOTE ASSESSMENT: Remedios Galaviz demonstrated difficulty with passive external rotation at 70 degrees abduction and improvements in AAROM exercises and AROM both flexion and abduction. The patient will continue to benefit from ongoing skilled physical therapy for progression of AAROM and passive stretching. PLAN FOR NEXT VISIT: Continue with AAROM wand and pulleys and passive stretching left shoulder keeping shoulder small amount of abduction with passive ER. SUBJECTIVE: Patient Reason for Visit: Patient reports the left shoulder feels like it is starting to loosen up Pain: Pain Pain Level: 7 Pain Location: Shoulder - Left Description: Stabbing;Other: See comment (stinging) Post Treatment Pain Post Treatment Pain Level: 10 Post Treatment Pain Location: Shoulder - Left Post Treatment Pain Description: Sharp Post Treatment Symptoms: Sharp pain following passive ER and no c/o pain with any other exercise in therapy today. OBJECTIVE MEASURES WITH LEVEL OF FUNCTION: UE AROM L Shoulder Flex: 120 Degrees L Shoulder ABduction: 95 Degrees TREATMENT: Therapeutic Exercise: 1: Left shoulder laura AAROM flexion 2x10 2: Left shoulder laura abduction AAROM 2x10 3: *Left wand assist flexion and abduction 2x10 4: *Left wand assist extension 2x10 5: Standing wand ER left 1x10 6: PRoM left shoulder flexion,abduction and ER 1x10 each (Increase pain with ER at 70 degrees abduction passively) Skilled Intervention: Patient was educated in proper exercise technique and purpose for exercises. Reviewed and educated patient on additions/changes for home exercise program and patient to add standing wand AAROM flexion, abduction and extension to HEP Skilled judgment was provided in selection of appropriate interventions. Correct performance of therapeutic exercises was facilitated with verbal and visual cuing. Billing: [facility]: Therapeutic Exercise ([id number]): 1:1 time: 45 minutes (3 units: 38-52 mins) Total time / Length of visit: 45 minutes SEBASTIAN Mullen PT [facility] CNTHERAPYon 12-06-2020 CNTHERAPY OT/PT/Speech Visit ( PTWS) REMEDIOS GALAVIZ ([id number]) 1955 M Date Time Provider Department 12/06/20 8:30 AM ARTEM BARRY (PT) PTWS Date Time Provider Department Center 12/06/2020 8:30 AM [id number], COREY (PT)[facility] Reason for Visit: PT Eval [747] Visit Diagnoses:Biceps tendinitis of left upper extremity [M75.22] Adhesive capsulitis of left shoulder [M75.02] Allergies As of Date: 12/06/2020 Noted Allergy Reaction ASPIRIN 08/03/2002 8 - GI Upset Comments: severe heartburn/acid reflux DIOP-2 INHIBITOR 08/03/2002 8 - GI Upset Comments: vioxx - caused GI bleed. Date Reviewed: 12/04/2020 Reviewed by: Lexis Patton RN - Fully Assessed Prescriptions as of 12/06/2020 Sig: VALSARTAN 80 MG TABLET Take 80 mg by mouth once luther* ROSUVASTATIN 40 MG TABLET Take 40 mg by mouth once luther* TOPIRAMATE 50 MG TABLET Take 50 mg by mouth twice jazmine* BENZONATATE 100 MG CAPSULE Take 2 capsules by mouth thre* ALBUTEROL SULFATE HFA 90 MCG/* Inhale 2 Puffs as instructed * LISINOPRIL 20 MG TABLET Take 20 mg by mouth once luther* CLOPIDOGREL 75 MG TABLET Take 75 mg by mouth once luther* ATORVASTATIN 80 MG TABLET Take 80 mg by mouth once luther* ASPIRIN 81 MG TABLET,DELAYED * Take 81 mg by mouth once luther* TRAMADOL 50 MG TABLET Take 50 mg by mouth every 6 h* GABAPENTIN 300 MG CAPSULE Take 2 capsules by mouth thre* Patient not taking: Reported on 11/22/2019 GABAPENTIN ER 300 MG TABLET,E* Take 1 tablet by mouth once d* Patient not taking: Reported on 11/22/2019 VALACYCLOVIR 1 GRAM TABLET Take by mouth as needed. LOSARTAN 100 MG TABLET Take 100 mg by mouth once jazmine* CARVEDILOL 25 MG TABLET Take 25 mg by mouth twice jazmine* * RIZATRIPTAN 10 MG TABLET Take 1 tablet by mouth as nee* * CHOLESTYRAMINE-ASPARTAME 4 GR* Take by mouth three times da* * DEMADEX 10 MG TABLET Take one(1) tablet daily in t* Progress Notes: Artem Barry PT 12/06/2020 11:00 AM Signed Episode Visit Count: 1 Therapist That Will Oversee The Plan Of Care: Artem Barry Start of Care Date: 12/06/20 Onset Date: 12/07/19 Plan of Care Certification Date: 12/06/20 Next Certification Due Date: 01/10/21 Patient Identified by Name and Date of : Yes REHABILITATION AND SPORTS THERAPY PHYSICAL THERAPY EVALUATION PLAN OF CARE: Assessment: Remedios Nathanson presents with the chief complaint of L shoulder pain. Pt demonstrates a capsular pattern of tightness similar to adhesive capsulitis and some discomfort with palpation to the L biceps long-head tendon. Pt has some tingling into the L hand with palpation to the wrist extensor muscle bellies. He presents with impairments of decreased L shoulder ROM, decreased L shoulder strength, pain with ADL's and difficulty completing work duties. He may benefit from skilled therapy services to improve the above mentioned impairments. Prognosis: Excellent Excellent due to: current objective clinical presentation;good overall health status;good support system/ coping skills Goals for Episode of Care: created on 12/06/20 through 01/31/21 Pt will demonstrate L shoulder ROM that is WNL for ease of work duties Pt will demonstrate 5/5 L shoulder strength in 6 weeks Pt will reports being able to complete all ADL's with 1/10 pain or less in 8 weeks [place] in home exercise program. Patient Goals: Pt wants to be able to reach his holster more easily Planned Interventions, Frequency, and Duration: Current Frequency: 2x/week Duration: 4 weeks Total Number of Visits Planned: 8 Planned Treatment Interventions: Therapeutic exercise ([id number]);Neuromuscular re-education (18159);Manual therapy (25606);Therapeutic activities (38614);Patient/Family/Careg iver Education PLAN FOR NEXT VISIT: Progress L shoulder ROM. Manually stretch into flex/abd/ER. Possibly warm up with pulleys. Patient demonstrates good understanding of plan of care and treatment. The above goals and plan of care were discussed and agreed upon by patient/family. SUBJECTIVE: Remedios Galaviz is a 65 year old male seen today for L arm and shoulder pain. 1 year ago pt was cutting down tree and it hurt shortly after. Pt didn't do much with it right away. Pain was getting worse so then he got a cortisone injection. Pt then fell on ice in september and landed on the shoulder and it really bothered him and his ROM is limited. Pt states that the pain will radiate into the top of the hand and he has had ulnar nerve surgery in the past and occasionally the 3-5th digit will go numb. 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 Normal [facility] CNOVon 12-04-2020 CNOV Office Visit (SPRTST ) REMEDIOS GALAVIZ ([id number]) 1955 M Date Time Provider Department 12/04/20 11:45 AM ZACK ANDERSON During your visit today, we recorded the following information about you: Zack Anderson MD 12/04/2020 12:15 PM Signed Zack Anderson M.D. animal biologist [facility] [address] [facility] [place] [address] INITIAL ENCOUNTER FOR A NEW SHOULDER PROBLEM Chief Complaint: Left shoulder pain HPI: Remedios Galaviz is seen at the request of Maribel Reynoso for consultation regarding the above problem. Findings and recommendations will be communicated back to the referring provider via availability in the shared electronic medical record. Remedios Galaviz is a 65 year old male who presents with the above complaint. Hand dominance: Right. 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 Has had about a year of left shoulder pain. Started cutting down a tree. Was sore and stiff after that. September 2020 he fell on the ice and landed on his left shoulder. Saw his primary care physician and received cortisone injection. About a month later he slipped while blowing snow and again injured the left shoulder. Again was treated with another cortisone injection. That one did not last very long. Has not had any physical therapy. There is daily pain and stiffness and limited function. He denies having any neck pain, radicular pain, numbness/tingling in the arm. Patient does not note any associated mechanical symptoms. History of prior injury or surgery opposite shoulder: No. Is this a [facility] injury? : No. All available outside records have been reviewed. REVIEW OF SYSTEMS: Constitutional: patient denies any recent fever or significant change in weight Cardiovascular: patient denies any chest pain at rest Respiratory: patient denies any shortness of breath or cough Gastrointestinal: patient denies any current abdominal discomfort Integumentary: patient denies any recent skin changes Musculoskeletal: as noted in the HPI Neurologic: as noted in the HPI Endocrine: patient denies a current diagnosis of diabetes Hematologic/Lymphatic: patient denies any easily bleeding, any recent infection and denies any recent observable lymph node enlargement Psychologic: negative for any recent depression or anxiety issues FAMILY HISTORY Problem Relation Age of Onset - Arthritis Mother - Arthritis Father - Arthritis Paternal Grandmother - Asthma Son - Asthma Grandchild - Diabetes Father - Diabetes Paternal Grandfather - Diabetes Sister - Diabetes Sister - Diabetes Brother - Heart Father - Heart Paternal Grandfather - Heart Sister - Heart Brother - Hypertension Paternal Grandfather - Hypertension Father - Hypertension Sister - Hypertension Sister - Hypertension Brother - Ischemic Heart Disease Paternal Uncle [place] - Lipids Mother - Lipids Father - Lipids Sister - Lipids Brother - Thyroid Mother - Thyroid Brother - Headache Brother - Headache Brother PAST MEDICAL HISTORY Diagnosis Date - Abdominal pain, right upper quadrant - Benign hypertensive heart disease without heart failure - BMI 35.0-35.9,adult - Chronic cholecystitis 02/20 - Degeneration of intervertebral disc, site unspecified - Diabetes mellitus without mention of complication - Hypertension - Migraine with aura - Other and unspecified hyperlipidemia - Other specified disorder of gallbladder SLUDGE - Snoring - Stented coronary artery 04/21/2017 - Umbilical hernia without mention of obstruction or gangrene 02/20 PAST SURGICAL HISTORY Procedure Laterality Date - LAPAROSCOPIC CHOLEYCYSTECTOMY 02/20/09 - PAST SURGICAL HISTORY OF bilat elbow- Ulnar nerve decompression - PAST SURGICAL HISTORY OF 1999, 2001 left testicle x3- Hydrocelectomy - REPAIR ROTATOR CUFF,ACUTE 08/2009 Rotator cuff repair/ spur removal - REPAIR UMBILICAL DAVID,5+Y/O,REDUC 02/20/09 ALLERGIES Allergen Reactions - Aspirin GI Upset severe heartburn/acid reflux - Diop-2 Inhibitor GI Upset vioxx - caused GI bleed. Problem List: reviewed and updated. Contributory Co-morbidities: Assessed as indicated; currently managed. Social History: Physical Activity/Sports/Exercise: recreational Social History Tobacco Use - Smoking status: Former Smoker - Smokeless tobacco: Never Used - Tobacco comment: quit 20 years ago 2 cigs x 2 yrs Substance Use Topics - Alcohol use: Yes Comment: rare - Drug use: No Current Outpatient Medications Medication Sig - valsartan (DIOVAN) 80 mg tablet Take 80 mg by mouth once daily. - rosuvastatin (CRESTOR) 40 mg tablet Take 40 mg by mouth once daily. - topiramate (TOPAMAX) 50 mg tablet Take 50 mg by mouth twice daily. - albuterol HFA (PROAIR HFA) 90 mcg/actuation inhaler Inhale 2 Puffs as instructed ever (more content not included)... Normal [facility] Office Visiton 05-07-2017 Dietary management education, guidance, and counseling (procedure) yes Invalid Interpretation Code [facility] Work Phone: [phone] Documentation of current medications (procedure) Done Invalid Interpretation Code [facility] Work Phone: [phone] Fall risk assessment No Invalid Interpretation Code [facility] Work Phone: [phone] Protein mass conc Done [facility] Phone: [phone] Tobacco smoking status NHIS Former smoker [facility] Work Phone: [phone] Tobacco use CPHS Former smoker Invalid Interpretation Code [facility] Phone: [phone] Lab Report: Basic Metabolic Profile (BMP)on 04-22-2017 Anion gap 6 mmol/L Invalid Interpretation Code 5-15 [facility] Work Phone: [phone] Anion gap molar conc 6 mmol/L 5-[address] [facility] Work Phone: [phone] BUN/Creatinine Ratio 13.5 RATIO Invalid Interpretation Code 10-20 [facility] Phone: [phone] Calcium 7.7 mg/dL Low 8.5-10.1 [facility] Work Phone: [phone] Chloride 111 mmol/L High 98-107 [facility] Work Phone: [phone] CO2 26.0 mmol/L Invalid Interpretation Code 21.0-32.0 [facility] Work Phone: [phone] CO2 ppres (BldV) 26.0 mmol/L 21.0-32.0 [facility] Phone: [phone] Creatinine 89.37 mL/min Invalid Interpretation Code [facility] Work Phone: [phone] Creatinine 0.89 mg/dL Invalid Interpretation Code 0.70-1.30 [facility] Phone: [phone] eGFR (non-black) 113 mL/min/{1.73_m2} Invalid Interpretation Code >60 [place] [facility] Work Phone: [phone] eGFR (non-black) 93 mL/min/{1.73_m2} Invalid Interpretation Code >60 [place] [facility] Work Phone: [phone] EST GFR - AA 113 mL/min >60 [facility] Work Phone: [phone] Glucose 120 mg/dL High 70-110 [facility] Work Phone: [phone] Glucose mass conc 120 mg/dL High 70-110 [facility] Work Phone: [phone] Potassium 4.0 mmol/L Invalid Interpretation Code 3.5-5.1 [facility] Work Phone: [phone] Sodium 143 mmol/L Invalid Interpretation Code 136-145 [facility] Work Phone: [phone] Urea nitrogen 12 mg/dL Invalid Interpretation Code 7-18 [facility] Work Phone: [phone] Lab Report: Bedside Glucoseo n 04-22-2017 Glucose 126 mg/dL High 70-110 [facility] Work Phone: [phone] Glucose mass conc 126 mg/dL High 70-110 [facility] Work Phone: [phone] Lab Report: CBC-Complete Blo od Cnt No Diffon 04-22-2017 Erythrocyte distribution width Ratio (RBC) 43.9 fL 35.1-43.9 [place] [facility] Work Phone: [phone] Erythrocyte distribution width Ratio (RBC) 13.0 % 11.6-14.6 [facility] Work [phone] Erythrocytes (RBC) 3.78 10*6/uL Low 4.6-6.[address] [facility] Work Phone: [phone] Hematocrit (HCT) 36.3 % Low 40-54 [facility] Work [phone] Hematocrit Volume Fraction (Bld) 36.3 % Low 40-54 [facility] Work [phone] Hemoglobin (HGB) 12.2 g/dL Low 13.0-16.5 [place] [facility] Work [phone] MCH 32.3 pg High 27.0-32.0 [facility] Work Phone: [phone] MCH Entitic mass (RBC) 32.3 pg High 27.0-32.0 [facility] Work Phone: [phone] MCHC 33.6 G/GL Invalid Interpretation Code 32-36 [facility] Work Phone: [phone] MCHC mass conc (RBC) 33.6 G/GL 32-[address] [facility] Work Phone: [phone] MCV 96.0 fL High 80-94 [place] [facility] Work Phone: [phone] MCV Entitic volume (RBC) 96.0 fL High 80-94 [facility] Work Phone: [phone] Platelet mean volume Entitic volume (Bld) 9.9 fL 6.2-12.0 [place] [facility] Work Phone: [phone] Platelets 191 10*3/mm3 Invalid Interpretation Code 150-450 [place] [facility] Work Phone: [phone] Platelets #/vol (Bld) 191 10*3/mm3 150-450 [facility] Work Phone: [phone] PMV by Shahbaz 9.9 fL Invalid Interpretation Code 6.2-12.0 [facility] Work Phone: [phone] RBC #/vol (Bld) 3.78 10*6/uL Low 4.6-6.2 [facility] Work Phone: [phone] RDW-CA 13.0 % Invalid Interpretation Code 11.6-14.6 [facility] Work Phone: [phone] red blood cell distribution width, size density 43.9 fL Invalid Interpretation Code 35.1-43.9 [facility] Work Phone: [phone] WBC #/vol (Bld) 7.3 10*3/uL 4.4-11.0 [facility] Work Phone: [phone] WBC (Leukocytes) 7.3 10*3/uL Invalid Interpretation Code 4.4-11.0 [facility] Work [phone] Lab Report: CPK Total, Creat ine Kinaseon 04-22-2017 Creatine kinase (CK) 71 U/L Invalid Interpretation Code 39-308 [facility] Work Phone: [phone] Lab Report: ACT Activated Cl otting Timeon 04-21-2017 ACTk CLOT TIME 164 sec High 74-137 [place] [facility] Work Phone: [phone] GE use only - for [employer] import when terms are not otherwise specified 164 sec High 74-137 [place] [facility] Work Phone: [phone] Clinical Lists Update: Prelo geoint analyst 04-14-2017 Left ventricular Ejection fraction 55 % Invalid Interpretation Code [facility] Work Phone: [phone] Clinical Lists Update: Prelo geoint analyst 04-10-2017 HbA1c 5.8 % Invalid Interpretation Code [facility] Work Phone: [phone] Lab Report: Bilirubin, Direc ton 04-10-2017 Bilirubin (direct) 0.09 mg/dL Invalid Interpretation Code 0.00-0.30 [facility] Work Phone: [phone] Lab Report: CBC-Complete Blo od Cnt No Diffon 04-10-2017 Erythrocyte distribution width Ratio (RBC) 12.7 % 11.6-14.6 [facility] Work Phone: [phone] Erythrocyte distribution width Ratio (RBC) 42.3 fL 35.1-43.9 [facility] Work Phone: [phone] Erythrocytes (RBC) 4.24 10*6/uL Low 4.6-6.[address] [facility] Work Phone: [phone] Hematocrit (HCT) 39.5 % Low 40-54 [facility] Work Phone: [phone] Hematocrit Volume Fraction (Bld) 39.5 % Low 40-54 [facility] Work Phone: [phone] Hemoglobin (HGB) 14.0 g/dL Invalid Interpretation Code 13.0-16.5 [facility] Work Phone: [phone] MCH 33.0 pg High 27.0-32.0 [place] [facility] Work Phone: [phone] MCH Entitic mass (RBC) 33.0 pg High 27.0-32.0 [facility] Work Phone: MCHC 35.4 G/GL Invalid Interpretation Code 32-36 [place] [facility] Work Phone: [phone] MCHC mass conc (RBC) 35.4 G/GL 32-[address] [facility] Work Phone: [phone] MCV 93.2 fL Invalid Interpretation Code 80-94 [facility] Work Phone: [phone] MCV Entitic volume (RBC) 93.2 fL 80-94 [place] [facility] Work Phone: [phone] Platelet mean volume Entitic volume (Bld) 10.1 fL 6.2-12.0 [facility] Work Phone: [phone] Platelets 229 10*3/mm3 Invalid Interpretation Code 150-450 [facility] Work Phone: [phone] Platelets #/vol (Bld) 229 10*3/mm3 150-450 [facility] Work Phone: [phone] PMV by Shahbaz 10.1 fL Invalid Interpretation Code 6.2-12.0 [facility] Work Phone: [phone] RBC #/vol (Bld) 4.24 10*6/uL Low 4.6-6.2 [place] [facility] Work Phone: [phone] RDW-CA 12.7 % Invalid Interpretation Code 11.6-14.6 [facility] Work Phone: [phone] red blood cell distribution width, size density 42.3 fL Invalid Interpretation Code 35.1-43.9 [facility] Work Phone: [phone] WBC #/vol (Bld) 6.2 10*3/uL 4.4-11.0 [facility] Work Phone: [phone] WBC (Leukocytes) 6.2 10*3/uL Invalid Interpretation Code 4.4-11.0 [facility] Work [phone] Lab Report: Terrance Ne jeremy Barger 04-10-2017 Alanine aminotransferase (ALT) 23 U/L Invalid Interpretation Code 12-78 [place] [facility] Work [phone] Albumin 3.9 g/dL Invalid Interpretation Code 3.4-5.0 [facility] Work Phone: [phone] Albumin/Globulin Ratio 1.3 {ratio} Invalid Interpretation Code 0.9-2.4 [facility] Work Phone: [phone] Alkaline phosphatase (ALP) 84 U/L Invalid Interpretation Code 45-117 [facility] Work Phone: [phone] ALP enzyme act/vol (Bld) 84 U/L 45-117 [facility] Work Phone: [phone] Anion gap 9 mmol/L Invalid Interpretation Code 5-15 [place] [facility] Work Phone: [phone] Anion gap molar conc 9 mmol/L 5-[address] [facility] Work Phone: [phone] Aspartate aminotransferase (AST) 18 U/L Invalid Interpretation Code 15-37 [place] [facility] Work Phone: [phone] Bilirubin (total) 0.50 mg/dL Invalid Interpretation Code 0.20-1.00 [facility] Work Phone: [phone] BUN/Creatinine Ratio 15.5 RATIO Invalid Interpretation Code 10-20 [facility] Work Phone: [phone] Calcium 8.4 mg/dL Low 8.5-10.1 [facility] Work Phone: [phone] Chloride 107 mmol/L Invalid Interpretation Code 98-107 [facility] Work Phone: [phone] CO2 29.0 mmol/L Invalid Interpretation Code 21.0-32.0 [facility] Work Phone: [phone] CO2 ppres (BldV) 29.0 mmol/L 21.0-32.0 [facility] Work Phone: [phone] Creatinine 1.03 mg/dL Invalid Interpretation Code 0.70-1.30 [facility] Work Phone: [phone] eGFR (non-black) 95 mL/min/{1.73_m2} Invalid Interpretation Code >60 [facility] Work Phone: [phone] eGFR (non-black) 79 mL/min/{1.73_m2} Invalid Interpretation Code >60 [facility] Work Phone: [phone] EST GFR - AA 95 mL/min >60 [facility] Work Phone: [phone] Globulin 2.9 g/dL Invalid Interpretation Code 2.3-3.5 [place] [facility] Work Phone: [phone] Globulin mass conc (S) 2.9 g/dL 2.3-3.5 [facility] Work Phone: [phone] Glucose 109 mg/dL Invalid Interpretation Code 70-110 [facility] Work Phone: [phone] Glucose mass conc 109 mg/dL 70-110 [facility] Work Phone: [phone] Potassium 3.7 mmol/L Invalid Interpretation Code 3.5-5.1 [facility] Work Phone: [phone] Protein 6.8 g/dL Invalid Interpretation Code 6.4-8.2 [facility] Work Phone: [phone] Sodium 145 mmol/L Invalid Interpretation Code 136-145 [facility] Work Phone: [phone] Urea nitrogen 16 mg/dL Invalid Interpretation Code 7-18 [facility] Work Phone: [phone] Lab Report: Lipid Profileon 04-10-2017 Cholesterol 250 mg/dL High 200 [facility] Work Phone: [phone] HDL Cholesterol 50 mg/dL Invalid Interpretation Code [facility] Work Phone: [phone] LDL Cholesterol 160 mg/dL High 0-130 [facility] Work Phone: [phone] Triglyceride 199 mg/dL Invalid Interpretation Code [facility] Work Phone: [phone] very low density lipoproteins 40 mg/dL Invalid Interpretation Code 5-40 [facility] Work Phone: [phone] Lab Report: Partial Thrombop last Timeon 04-10-2017 aPTT 29.5 s Invalid Interpretation Code 24.1-36.2 [facility] Work Phone: [phone] Lab Report: Prothrombin Time w/INRon 04-10-2017 Coagulation tissue factor induced in platelet poor plasma 13.4 s Invalid Interpretation Code 11.7-14.9 [facility] Work Phone: [phone] INR Coag RelTime (PPP) 1.1 {INR} [facility] Work Phone: [phone] INR in blood by coagulation 1.1 {INR} Invalid Interpretation Code [facility] Work Phone: [phone] Lab Report: Thyroid Stim Kelly hancock (TSH)on 04-10-2017 Thyroid stimulating hormone (TSH) 1.61 u[iU]/mL Invalid Interpretation Code 0.358-3.74 [facility] Work Phone: [phone] Office Visiton 04-09-2017 Documentation of current medications (procedure) Done Invalid Interpretation Code [facility] Work Phone: [phone] Fall risk assessment No [facility] Work Phone: [phone] Protein mass conc Done [facility] Work Phone: [phone] Replaced Document: Mikal Ochoa CG Observationson 04-09-2017 EKG QRS axis 5 deg [facility] Work Phone: [phone] electrocardiogram interpretation Sinus Rhythm -Poor R-wave progression -nonspecific -consider old anterior infarct. BORDERLINE Invalid Interpretation Code [facility] Work Phone: [phone] GE use only - for [employer] import when terms are not otherwise specified 395 ms Invalid Interpretation Code [facility] Work Phone: [phone] P Eleva 39 deg [facility] Work Phone: [phone] P wave axis, electrocardiogram 39 deg Invalid Interpretation Code [facility] Work Phone: [phone] GA Interval 180 ms [facility] Work Phone: [phone] GA interval, electrocardiogram 180 ms Invalid Interpretation Code [facility] Work Phone: [phone] Protein mass conc Sinus Rhythm -Poor R -wave progression -nonspecific -consider old anterior infarct. BORDERLINE [facility] Work Phone: [phone] Pulse (Heart Rate) 69 /min Invalid Interpretation Code [facility] Work Phone: QRS axis, electrocardiogram 5 deg Invalid Interpretation Code [facility] Work Phone: QRS Duration 98 ms [facility] Work Phone: QRS duration, electrocardiogram 98 ms Invalid Interpretation Code [facility] Work Phone: QT Interval new path ms [facility] Work Phone: QT interval, electrocardiogram new path ms Invalid Interpretation Code [facility] Work Phone: [phone] QTc [place] 395 ms [facility] Work Phone: [phone] T Eleva 19 deg [facility] Work Phone: [phone] T wave axis, electrocardiogram 19 deg Invalid Interpretation Code [facility] Work Phone: [phone] Vital Signs Date Time Vital Sign Value Performing Clinician Facility 04-04-2025 12:28-0400 Body height 175.3 cm Adrian Robles MD Work Phone: [facility] 04-04-2025 12:28-0400 Body mass index (BMI) [Ratio] 34.39 kg/m2 Adrian Robles MD Work Phone: [facility] 04-04-2025 12:28-0400 Body weight 105.64 kg Adrian Robles MD Work Phone: [facility] 04-04-2025 12:28-0400 Diastolic blood pressure 82 mm[Hg] Adrian Robles MD Work Phone: [facility] 04-04-2025 12:28-0400 Heart rate 61 /min Adrian Robles MD Work Phone: [facility] 04-04-2025 12:28-0400 Systolic blood pressure 158 mm[Hg] Adrian Robles MD Work Phone: [facility] 09-29-2024 14:01-0500 Body height 175.3 cm Adrian Robles MD Work Phone: [facility] 09-29-2024 14:01-0500 Body mass index (BMI) [Ratio] 34.11 kg/m2 Adrian Robles MD Work Phone: [facility] 09-29-2024 14:01-0500 Body weight 104.78 kg Adrian Robles MD Work Phone: [facility] 09-29-2024 14:01-0500 Diastolic blood pressure 76 mm[Hg] Adrian Robles MD Work Phone: [facility] 09-29-2024 14:01-0500 Heart rate 72 /min Adrian Robles MD Work Phone: [facility] 09-29-2024 14:01-0500 SaO2% (BldA) [Mass fraction] 98 % Adrian Robles MD Work Phone: [facility] 09-29-2024 14:01-0500 Systolic blood pressure 124 mm[Hg] Adrian Robles MD Work Phone: [facility] 01-05-2024 14:15-0400 Body height 175.3 cm Adrian Robles MD Work Phone: [facility] 01-05-2024 14:15-0400 Body mass index (BMI) [Ratio] 33.73 kg/m2 Adrian Robles MD Work Phone: [facility] 01-05-2024 14:15-0400 Body weight 103.6 kg Adrian Robles MD Work Phone: [facility] 01-05-2024 14:15-0400 Diastolic blood pressure 72 mm[Hg] Adrian Robles MD Work Phone: [facility] 01-05-2024 14:15-0400 Heart rate 61 /min Adrian Robles MD Work Phone: [facility] 01-05-2024 14:15-0400 Systolic blood pressure 118 mm[Hg] Adrian Robles MD Work Phone: [facility] 05-21-2023 10:58-0400 Body height 172.[address] Maribel Reynoso Work Phone: [facility] 05-21-2023 10:58-0400 Body mass index (BMI) [Ratio] 34.7 kg/m2 Dr. Maribel Reynoso Work Phone: [facility] 05-21-2023 10:58-0400 Body weight 103.[address] Maribel Reynoso Work Phone: [facility] 05-21-2023 10:58-0400 Diastolic blood pressure 79 mm[Hg] Dr. Maribel Reynoso Work Phone: [facility] 05-21-2023 10:58-0400 Heart rate 61 /min Dr. Maribel Reynoso Work Phone: [facility] 05-21-2023 10:58-0400 Respiratory rate 18 /min Dr. Maribel Reynoso Work Phone: [facility] 05-21-2023 10:58-0400 SaO2% (BldA) [Mass fraction] 97 % Dr. Maribel Reynoso Work Phone: [facility] 05-21-2023 10:58-0400 Systolic blood pressure 130 mm[Hg] Dr. Maribel Reynoso Work Phone: [facility] 11-17-2022 09:46-0500 Body height 172.[address] Maribel Reynoso Work Phone: [facility] 11-17-2022 09:46-0500 Body mass index (BMI) [Ratio] 34.2 kg/m2 Dr. Maribel Reynoso Work Phone: [facility] 11-17-2022 09:46-0500 Body weight 102.[address] Maribel Reynoso Work Phone: [facility] 11-17-2022 09:46-0500 Diastolic blood pressure 74 mm[Hg] Dr. Maribel Reynoso Work Phone: [facility] 11-17-2022 09:46-0500 Heart rate 68 /min Dr. Maribel Reynoso Work Phone: [facility] 11-17-2022 09:46-0500 Respiratory rate 16 /min Dr. Maribel Reynoso Work Phone: [facility] 11-17-2022 09:46-0500 Systolic blood pressure 112 mm[Hg] Dr. Maribel Reynoso Work Phone: [facility] 05-03-2022 11:34-0400 Body height 172.[address] Maribel Reynoso Work Phone: [facility] Work Phone: 05-03-2022 11:34-0400 Body mass index (BMI) [Ratio] 34 kg/m2 Dr. Maribel Reynoso Work Phone: [facility] Work Phone: 05-03-2022 11:34-0400 Body temperature 98.4 [degF] Dr. Maribel Reynoso Work Phone: [facility] Work Phone: 05-03-2022 11:34-0400 Body weight 101.[address] Maribel Reynoso Work Phone: [facility] Work Phone: 05-03-2022 11:34-0400 Diastolic blood pressure 84 mm[Hg] Dr. Maribel Reynoso Work Phone: [facility] Work Phone: 05-03-2022 11:34-0400 Heart rate 80 /min Dr. Maribel Reynoso Work Phone: [facility] Work Phone: 05-03-2022 11:34-0400 Respiratory rate 14 /min Dr. Maribel Reynoso Work Phone: [facility] Work Phone: 05-03-2022 11:34-0400 SaO2% (BldA) [Mass fraction] 96 % Dr. Maribel Reynoso Work Phone: [facility] Work Phone: 05-03-2022 11:34-0400 Systolic blood pressure 148 mm[Hg] Dr. Maribel Reynoso Work Phone: [facility] Work Phone: 03-26-2022 11:29-0400 Body height 172.[address] Maribel Reynoso Work Phone: [facility] Work Phone: 03-26-2022 11:29-0400 Body mass index (BMI) [Ratio] 33.3 kg/m2 Dr. Maribel Reynoso Work Phone: [facility] Work Phone: 03-26-2022 11:29-0400 Body weight 99.[address] Maribel Reynoso Work Phone: [facility] Work Phone: 05-07-2017 14:09-0400 BMI (Body Mass Index) 34.85 kg/m2 [facility] Work Phone: 05-07-2017 14:09-0400 BP Diastolic 68 mm[Hg] [facility] Work Phone: 05-07-2017 14:09-0400 BP Systolic 108 mm[Hg] [facility] Work Phone: 05-07-2017 14:09-0400 Height 175.26 cm [facility] Work Phone: 05-07-2017 14:09-0400 Pulse (Heart Rate) 72 /min [facility] Work Phone: 05-07-2017 14:09-0400 Respiratory Rate 16 /min [facility] Work Phone: 05-07-2017 14:09-0400 Weight 107.05 kg [facility] Work Phone: 04-22-2017 06:13-0400 Body surface area Derived from formula 89.37 mL/min Elma Davison RN [facility] Work Phone: 04-09-2017 11:30-0400 Heart rate 69 /min Sumeet Samayoa [facility] Work Phone: 04-09-2017 11:10-0400 BMI (Body Mass Index) 35.95 kg/m2 Tanya Hernandez RN [facility] Work Phone: 04-09-2017 11:10-0400 BP Diastolic 70 mm[Hg] Tanya Hernandez RN [facility] Work Phone: 04-09-2017 11:10-0400 BP Systolic 120 mm[Hg] Tanya Hernandez RN [facility] Work Phone: 04-09-2017 11:10-0400 Height 175.26 cm Tanya Hernandez RN [facility] Work Phone: 04-09-2017 11:10-0400 Pulse (Heart Rate) 72 /min Tanya Hernandez RN [facility] Work Phone: 04-09-2017 11:10-0400 Respiratory Rate 20 /min Tanya Hernandez RN [facility] Work Phone: 04-09-2017 11:10-0400 Weight 110.45 kg Tanya Hernandez RN [facility] Work Phone: Encounters Encounter Date Encounter Type Care Provider Facility Start: 07-09-2025 End: 07-09-2025 ambulatory Maribel Reynoso Facility:[facility] Start: 05-18-2025 End: 05-18-[address] Maribel Reynoso MD Work Phone: -[facility] Start: 05-18-2025 End: 05-18-[address] Maribel Reynoso MD -[facility] Start: 05-18-2025 End: 05-18-2025 ambulatory Maribel Reynoso Facility:[facility] Start: 04-04-2025 End: 04-04-2025 Office outpatient visit 25 minutes Adrian Robles MD Work Phone: [facility] [place] Comment on above: Coronary artery dise ase involving absentee-shawnee coronary 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 (Primary Dx); Hx of percutaneous transluminal coronary angioplasty; Hyperlipidemia, unspecified hyperlipidemia type; Essential hypertension Start: 04-04-2025 ambulatory ADRIAN ROBLES Facili ty:[facility] Start: 03-07-2025 ambulatory Maribel Reynoso Facilit y:[facility] Start: 03-07-[address] Porfirio Nash DPM -Physical Therapy Work Phone: Start: 01-17-2025 End: 01-17-[address] Maribel Reynoso MD Work Phone: [facility] Work Phone: Start: 01-17-2025 End: 01-17-[address] Maribel Reynoso MD -Laboratory, [facility] Start: 01-17-2025 End: 01-17-2025 ambulatory Maribel Reynoso Facility:[facility] Start: 09-29-2024 End: 09-29-2024 Office outpatient visit 25 minutes Adrian Robles MD Work Phone: [facility] [place] Comment on above: Coronary artery dise ase involving absentee-shawnee coronary 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 (Primary Dx); Hx of percutaneous transluminal coronary angioplasty; Hyperlipidemia, unspecified hyperlipidemia type; Essential hypertension Start: 09-29-2024 ambulatory MARIBEL REYNOSO Facility: [facility] Start: 09-26-2024 End: 09-26-[address] Maribel Reynoso MD -Ultrasound, [facility] Work Phone: Start: 09-26-2024 End: 09-26-2024 ambulatory Maribel Reynoso Facility:[facility] Start: 09-21-2024 End: 09-21-2024 ambulatory Maribel Reynoso Facility:[facility] Start: 01-15-2024 End: 01-15-2024 ambulatory [facility] Work Phone: Start: 01-15-2024 End: 01-15-2024 Patient encounter procedure [facility], [facility] Work Phone: Start: 01-06-2024 End: 01-06-2024 ambulatory [facility] Work Phone: Start: 01-06-2024 End: 01-06-2024 [facility] Work Phone: Start: 01-05-2024 End: 01-05-2024 Office outpatient new 30 minutes Adrian Robles MD Work Phone: [facility] [place] Comment on above: Coronary artery dise ase involving absentee-shawnee coronary 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 (Primary Dx); Hx of percutaneous transluminal coronary angioplasty; Essential hypertension; Hyperlipidemia, unspecified hyperlipidemia type Start: 12-31-2023 End: 01-06-2024 Telephone encounter Anna Glasgow RN [facility] [place] Comment on above: Outside Medical Elia rds Request Start: 12-24-2023 End: 12-24-2023 ambulatory [facility] Work Phone: Start: 12-24-2023 End: 12-24-2023 Patient encounter procedure [facility] Start: 12-16-2023 End: 12-16-2023 ambulatory [facility] Work Phone: Start: 12-16-2023 End: 12-16-2023 Patient encounter procedure [facility] Start: 08-18-2023 End: 08-18-[address] Maribel Reynoso Work Phone: [facility] Work Phone: Start: 08-18-2023 End: 08-18-[address] Maribel Reynoso Work Phone: [facility] Start: 06-10-2023 End: 06-10-[address] Maribel Reynoso Work Phone: [facility] Work Phone: Start: 06-10-2023 End: 06-10-[address] Maribel Reynoso Work Phone: [facility] Start: 05-21-2023 End: 05-21-[address] Maribel Reynoso Work Phone: [facility] Work Phone: Start: 02-24-2023 End: 02-24-[address] Maribel Reynoso Work Phone: [facility] Work Phone: Start: 02-24-2023 End: 02-24-[address] Maribel Reynoso Work Phone: [facility], [facility] Start: 02-12-2023 End: 02-12-[address] Maribel Reynoso Work Phone: [facility] Work Phone: Start: 02-12-2023 End: 02-12-[address] Maribel Reynoso Work Phone: [facility] Start: 02-06-2023 End: 02-06-[address] Maribel Reynoso Work Phone: [facility] Work Phone: Start: 02-06-2023 End: 02-06-[address] Maribel Reynoso Work Phone: [facility] Start: 11-17-2022 End: 11-17-[address] Maribel Reynoso Work Phone: [facility] Start: 11-04-2022 Non-patient / Non-visit Dr. Lana Reynoso Work Phone: [facility] Start: 10-09-2022 End: 10-09-2022 ambulatory [facility] Work Phone: Start: 10-09-2022 End: 10-09-2022 Patient encounter procedure [facility] Start: 05-13-2022 End: 05-13-[address] Maribel Reynoso Work Phone: [facility] Work Phone: Start: 05-13-2022 End: 05-13-[address] Maribel Reynoso Work Phone: [facility] Start: 05-03-2022 End: 05-03-[address] Maribel Reynoso Work Phone: [facility] Start: 04-08-2022 Non-patient / Non-visit Dr. Lana Reynoso Work Phone: [facility] Start: 04-08-2022 End: 04-08-[address] Maribel Reynoso Work Phone: [facility] Start: 03-26-2022 End: 03-26-[address] Maribel Reynoso Work Phone: [facility] Start: 01-10-2022 End: 01-10-[address] Maribel Reynoso Work Phone: [facility] Procedures Date Procedure Procedure Detail Performing Clinician Start: 09-26-2024 Complete ultrasound of kidneys and bladder Dr. Maribel Reynoso MD Work Phone: Start: 01-15-2024 US urinary tract Start: 01-06-2024 Computed tomography of abdomen and pelvis with intravenous contrast Start: 01-05-2024 History of percutaneous transluminal coronary angioplasty Hx of percutaneous transluminal coronary angioplasty Adrian Robles MD Work Phone: Start: 02-24-[address] Maribel Reynoso Work Phone: Start: 04-08-2022 Radionuclide imaging of perfusion of myocardium under exercise stress Dr. Maribel Reynoso Work Phone: Start: 05-07-2017 End: 05-07-2017 Dietary management education, guidance, and counseling Elma Davison RN Start: 05-07-2017 End: 05-07-2017 Follow Up Appt 6 weeks Adrian Robles MD Start: 05-07-2017 End: 05-07-2017 PFM Adrian Robles MD Start: 04-27-2017 Percutaneous transluminal coronary angioplasty Status post PTCA and/or stent Elma Davison RN Start: 04-09-2017 End: 04-14-2017 Echocardiography Adrian Robles MD Start: 04-09-2017 End: 04-09-2017 Electrocardiogram, complete Adrian taylor MD Start: 04-09-2017 End: 04-09-2017 Follow Up Appt 1 month Adrian Robles MD Start: 04-09-2017 End: 04-27-2017 Left Heart Cath Adrian Robles MD Start: 04-09-2017 End: 04-09-2017 PFM Adrian Robles MD History of percutane ous transluminal coronary angioplasty Hx of percutaneous transluminal coronary angioplasty Adrian Robles MD Work Phone: History of percutane ous transluminal coronary angioplasty Hx of percutaneous transluminal coronary angioplasty Adrian Robles MD Work Phone: Nucleic acid assay Dr. Maribel Reynoso Work Phone: Plan of Treatment Date Care Activity Detail Author Start: 2032 RSV VACCINE (1 - 1-d ose 75+ series) RSV VACCINE (1 - 1-dose 75+ series) [facility] Start: 03-21-2030 Tetanus vaccination TETANUS [facility] Start: 11-09-2025 End: 11-09-2025 Patient encounter procedure 11/09/2025 1:30 PM EST Office [facility] [address] [id number] Adrian Robles MD [address] [address] [facility] [place] Start: 05-15-2025 Influenza vaccination INFLUENZA VACC INE (#1) [facility] Start: 04-04-2025 End: 04-04-2025 Patient encounter procedure 04/04/2025 1:00 PM EDT Office Visit [facility] [address] [address] Adrian Robles MD [address] [address] [facility] [place] Start: 07-06-2024 End: 07-06-2024 Patient encounter procedure 07/06/2024 11:30 AM EDT Office Visit [facility] [address] [address] Adrian Robles MD [address] [place] [id number] [facility] [place] Start: 05-15-2024 COVID-19 VACCINE ( season) COVID-19 VACCINE ( season) [facility] Start: 05-15-2024 Influenza vaccination [facility] Start: 05-15-2023 COVID-19 VACCINE ( season) COVID-19 VACCINE ( season) [facility] Start: 2022 Abdominal aortic ane urysm screening ABDOMINAL AORTIC ANEURYSM HIGH RISK SCREEN [facility] Start: 2022 Pneumococcal vaccination PNEUM OCOCCAL VACCINE SERIES (2 of 2 - PCV) [facility] Start: 2017 RSV VACCINE (1 - 1-d ose 60+ series) RSV VACCINE (1 - 1-dose 60+ series) [facility] Start: 06-24-2017 End: 06-24-2017 Appointment Appointment [facility] Work Phone: Start: 05-07-2017 End: 05-07-2017 Appointment Appointment [facility] Phone: Start: 05-07-2017 End: 05-07-2017 *Hepatic Function Panel *Hepatic Function Panel [facility] Work Phone: Start: 05-07-2017 End: 05-07-2017 Follow Up Appt 6 weeks Follow Up Appt 6 weeks [facility] Work Phone: Start: 05-07-2017 End: 05-07-2017 Lipid panel [AGGREGATE] *Lipid Profile CC PCP [facility] Work Phone: Start: 05-07-2017 End: 05-07-2017 PFM PFM [facility] Work Phone: Start: 04-28-2017 End: 04-28-2017 Appointment Appointment [facility] Phone: Start: 04-27-2017 End: 04-27-2017 Cardiac Rehab [facility] [address] [facility], [address] [facility] Phone: Start: 04-27-2017 End: 04-27-2017 Cardiovascular stress test using treadmill Treadmill stress test (no imaging) [facility] Phone: Start: 04-09-2017 End: 04-09-2017 Appointment Appointment [facility] Phone: Start: 04-09-2017 End: 04-09-2017 *BMP *BMP [facility] Work Phone: Start: 04-09-2017 End: 04-09-2017 *Hepatic Function Panel *Hepatic Function Panel [email or web address] Work Phone: Start: 04-09-2017 End: 04-09-2017 aPTT *PTT-Partial Thromboplastin Time [facility] Work Phone: Start: 04-09-2017 End: 04-09-2017 aPTT Coag time (PPP) *PTT-Partial Thromboplastin Time [facility] Work Phone: Start: 04-09-2017 End: 04-09-2017 CBC W Auto Differential panel - Blood *CBC without Diff [facility] Work Phone: Start: 04-09-2017 End: 04-09-2017 Chest x-ray X-Ray, Chest, PA & Lateral [facility] Work Phone: Start: 04-09-2017 End: 04-09-2017 Coagulation factor induced.INR assay in platelet poor plasma *PT/INR [facility] Work Phone: Start: 04-09-2017 End: 04-10-2017 Echocardiography Echocardiogram (complete) [facility] Work Phone: Start: 04-09-2017 End: 04-09-2017 Electrocardiogram, complete EKG (In office) [facility] Work Phone: Start: 04-09-2017 End: 04-09-2017 Follow Up Appt 1 month Follow Up Appt 1 month [facility] Work Phone: Start: 04-09-2017 End: 04-10-2017 Left Heart Cath Left Heart Cath [facility] Work Phone: Start: 04-09-2017 End: 04-09-2017 Lipid panel [AGGREGATE] *Lipid Profile CC PCP [facility] Work Phone: Start: 04-09-2017 End: 04-09-2017 PFM PFM [facility] Work Phone: Start: 04-09-2017 End: 04-10-2017 Renal doppler Renal doppler [facility] Work Phone: Start: 11-26-2016 Screening for malign ant neoplasm of colon COLORECTAL CANCER SCREENING DISCUSSION [facility] Start: 2012 Prostate specific an tigen measurement PROSTATE CANCER SCREENING DISCUSSION [facility] Start: 12-02-2007 Pneumococcal vaccination PNEUM OCOCCAL VACCINE SERIES (2 of 2 - PCV) [facility] Start: 12-02-2007 Prostate specific an tigen measurement PROSTATE CANCER SCREENING DISCUSSION [facility] Start: 2002 Screening for malign ant neoplasm of colon COLORECTAL CANCER SCREENING DISCUSSION [facility] Start: 1997 Lipid panel LIPID SCREENING [facility] Start: 1957 Hepatitis C screening HEPATITI S C VIRUS SCREENING [facility] Start: 1957 Potassium [Moles/vol ume] in Serum or Plasma POTASSIUM [facility] Ecg routine ecg w/le ast 12 lds w/i&r GA ELECTROCARDIOGRAM, COMPLETE GA - OFFICE PERFORMED Routine Coronary artery disease involving absentee-shawnee coronary 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 Hx of percutaneous transluminal coronary angioplasty Essential hypertension Hyperlipidemia, unspecified hyperlipidemia type Ordered: 01/05/2024 [facility] Comment on above: Ordered: 01/05/2024 Ecg routine ecg w/le ast 12 lds w/i&r GA ECG ROUTINE ECG W/LEAST 12 LDS W/I&R GA - OFFICE PERFORMED Routine Coronary artery disease involving absentee-shawnee coronary 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 Hx of percutaneous transluminal coronary angioplasty Hyperlipidemia, unspecified hyperlipidemia type Essential hypertension Ordered: 04/04/2025 [facility] Comment on above: Ordered: 04/04/2025 Payers Date Payer Category Payer Medicare [id number] 2024 Medicare (Managed Care) MEDICARE [employer] PPO [id number] 2024 Private Health Insurance [id number] 2024 Self-pay [id number] 2023 Private Health Insurance SARATH MEJIA [id number] 2023-Present [address] [place] [address] [id number] 2023 Private Health Insurance [id number] 2010 Private Health Insurance [id number] 1957 Unknown [id number] 1957 Unknown [id number] Unknown [id number] Unknown [id number] Unknown [id number] Unknown [id number] Unknown [id number] Unknown [id number] Social History Date Type Detail Facility Start: 03-26-2022 End: 05-21-2023 Tobacco smoking status NHIS Unknown if ever smoked [facility] Start: 11-19-2018 Non-smoker [facility] Start: 1955 Sex Assigned At Male W [facility] Start: 05-21-2023 End: 01-05-2024 Tobacco smoking status NHIS Never smoked tobacco [facility] Start: 01-05-2024 Tobacco use and exposure Smokeless tobacco non-user [facility] Start: 01-05-2024 End: 04-04-2025 Alcoholic beverage intake Current drinker of alcohol (finding) [facility] Start: 01-05-2024 End: 04-04-2025 History of Social function [facility] Start: 01-05-2024 End: 04-04-2025 Tobacco use panel [facility] Start: 01-05-2024 Alcohol Comment 2 drinks per month [facility] Start: 1955 Sex assigned at Not on file [facility] Start: 09-28-2024 Gender identity Identifies as male gender (finding) [facility] Start: 09-28-2024 Sexual orientation Heterosexual (fin ding) [facility] Start: 11-23-2023 Sex Male (finding) [facility] Clinical Notes 04-14-2017 to 04-04-2025 Assessment & Plan Note - Adrian Robles MD - 04/04/2025 1:12 PM EDTAssessment & Plan Note - Adrian Robles MD - 04/04/2025 1:12 PM EDTPtaya Robles MD - 04/04/2025 1:00 PM EDT Note Date & Type Note Facility 04-04-2025 Evaluation + Plan note Associated Problem(s): Hyperlipidemia His lipid labs appeared to be well controlled at this time. He will continue his current lipid-lowering therapy. [facility] 04-04-2025 Evaluation + Plan note Associated Problem(s): Essential hypertension His blood pressure is elevated. He will re-attempt his valsartan therapy at 80 mg p.o. q.day. he will monitor for any recurrence of a cough related side effect. If he does experience this then consideration may have to be given to an alternative antihypertensive agent. Of note he believes he was on amlodipine/Norvasc in the past. He notes he was transitioned off of this medication. This may have been related to concerns of lower extremity edema, however, the definitive reason is somewhat unclear at this time. [facility] 04-04-2025 Miscellaneous Notes Associated Problem(s): Hyperlipidemia His lipid labs appeared to be well controlled at this time. He will continue his current lipid-lowering therapy. Associated Problem(s): Essential hypertension His blood pressure is elevated. He will re-attempt his valsartan therapy at 80 mg p.o. q.day. he will monitor for any recurrence of a cough related side effect. If he does experience this then consideration may have to be given to an alternative antihypertensive agent. Of note he believes he was on amlodipine/Norvasc in the past. He notes he was transitioned off of this medication. This may have been related to concerns of lower extremity edema, however, the definitive reason is somewhat unclear at this time. Associated Problem(s): Hx of percutaneous transluminal coronary angioplasty He has a history of remote PCI. He has done well on his medical therapy without obvious recurrence of underlying obstructive atherosclerotic coronary disease requiring additional revascularization therapy. Associated Problem(s): Coronary artery disease involving absentee-shawnee coronary 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 At the present time he appears to be doing well with no acute symptoms or adverse events. He will continue medical management and outpatient follow-up. documented in this encounter [facility] 04-04-2025 Evaluation + Plan note Associated Problem(s): Hx of percutaneous transluminal coronary angioplasty He has a history of remote PCI. He has done well on his medical therapy without obvious recurrence of underlying obstructive atherosclerotic coronary disease requiring additional revascularization therapy. [facility] 04-04-2025 Evaluation + Plan note Associated Problem(s): Coronary artery disease involving absentee-shawnee coronary 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 At the present time he appears to be doing well with no acute symptoms or adverse events. He will continue medical management and outpatient follow-up. [facility] 04-04-2025 History of Present illness Narrative Images from the original note were not included. Primary care provider: Maribel Reynoso MD (General) Dear Dr. Reynoso, I had the pleasure of seeing your patient, Remedios Galaviz, at the [facility] on 04/04/2025 in follow-up. I have reviewed pertinent outside medical records available at this time regarding this patient. As you recall, this 69 y.o. male is managed by our group for CAD, s/p PCI, hypertension, and hyperlipidemia. Chief Complaint Patient presents with Follow-up Pt discontinued valsartan 80 mg daily 7 months ago. Pt PCP would like pt to discuss today about going back on medication. HPI: Initial HPI from: 01/05/2024 This is a 68-year-old gentleman, currently the [facility] [employer], who presents for a new [facility] visit with a history of underlying CAD, status post PCI (RCA), hyperlipidemia, and hypertension. He has previously been cared for by the [facility] in [place], [place]. He states he has requested his cardiovascular records be forwarded to [facility] for continuity of care, however, they have yet to arrive. He does have a history of underlying angina pectoris that led to a diagnosis of CAD. He underwent RCA PCI. He has had over time follow-up noninvasive/ invasive studies. He has been following with his primary care physician for his lipid labs as well. At the present time he denies any ongoing symptoms of classic angina pectoris at rest or with exertion. He has had no evidence of orthopnea or PND suspicious for CHF. There has been no near-syncope or syncope. He has continued medical therapy. He has not on aspirin based upon concerns of gastroesophageal upset. However, he continues on his clopidogrel / Plavix. He states he did have lipid labs performed recently through his PCP. He has not required any additional cardiovascular testing. He had an ECG in the office today. He was noted to be in normal sinus rhythm. He had no acute electrocardiographic changes. Interval History: 09/29/2024 This is a 68-year-old male who presents today for an outpatient cardiovascular follow-up with a history of CAD, status post PCI, hyperlipidemia, and hypertension. 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 At the present time he has not been complaining of any classic symptoms of angina pectoris. There has been no overt episodes of obvious CHF or pulmonary edema. There has been no reports of ongoing lower extremity peripheral pitting edema. He has had no near-syncope or syncope. He states he was having a dry cough. His valsartan was discontinued. He states overall his cough has improved. He has been out hunting with his family in the [facility]. He states [place] 45 minute period of time without any concerning chest discomfort or breathing discomfort. States he could not have done this prior to his previous PCI. He notes he has had lipid labs performed by his PCP. Those labs are unavailable for review at this time. His other previous test performed at [facility] that are available for review are noted below. Interval History: 04/04/2025 History of Present Illness The patient is a 69-year-old male, a retired [employer], who presents for an outpatient cardiovascular evaluation at [facility]. He has a history of coronary artery disease (CAD) status post remote percutaneous coronary intervention (PCI), hypertension, and hyperlipidemia. He states he is doing well. He remains active. He has had no concerning symptoms of angina pectoris at rest or with activity. He has not had to use his nitroglycerin sublingual tablets. There has been no evidence of obvious orthopnea or PND or worsening peripheral pitting edema. He has had no near-syncope or syncope. He states that he has been temporarily off his valsartan therapy because of concerns of a potential medication related cough. He notes his cough has improved. However his blood pressure has increased as well. He notes that his primary care physician has wanted him to consider restarting the medication and monitoring his concerns of whether or not a cough reoccurs or not. He has been waiting for his visit today to discuss that issue. He does bring with him laboratory studies that were performed on 01/17/2025. According to the laboratory studies performed his total cholesterol was 149 with an LDL of 81, an HDL of 48, and a triglyceride level of 99. He also has a CBC with a hemoglobin of 13.7, a CMP with a potassium level of 4.0, a BUN of 12, and a creatinine of 0.93, and a hemoglobin A1c level of 5.6. In the office today he had an ECG. He was noted to be in normal sinus rhythm. He had no new acute ECG changes. Historical information was reviewed in the medical record. The following historical elements were reviewed by a provider in the specific [facility] and updated as appropriate: Allergies Allergen Reactions Aspirin Outpatient Encounter Medications as of 04/04/2025 Medication Sig Dispense Refill carveDILOL 25 MG tablet Take 1 tablet by mouth 2 times daily with meals. Clopidogrel 75 MG tablet Take 1 tablet by mouth daily. nitroGLYCERIN 0.[address] 1 tablet under tongue every 5 minutes as needed for Chest pain. max = 3 doses. If CP persists after 1st dose, call 911 25 tablet 1 Pantopraz[address] tablet DR Take 1 tablet by mouth daily. rizatriptan 10 MG tablet Take 1 tablet by mouth as needed for Headaches. May repeat in 2 hours if needed, max daily dose 30 mg Rosuvastatin 20 MG tablet Take 1 tablet by mouth daily. Topiramate 25 MG tablet Take 2 tablets by mouth 2 times daily. Torsemide 10 MG tablet Take 1 tablet by mouth daily. valACYclovir 500 MG tablet Take 2 tablets by mouth as needed for Other (cold sores). Cholestyramine light 4 g Pack packet Take 1 packet by mouth daily. (Patient not taking: Reported on 04/04/2025) Valsartan 80 MG tablet Take 1 tablet by mouth daily. No facility-administered encounter medications on file as of 04/04/2025. Past Medical History: Diagnosis Date CAD (coronary artery disease) Essential hypertension, benign Hyperlipidemia Past Surgical History: Procedure Laterality Date CHOLECYSTECTOMY LAPAROSCOPIC ELBOW SURGERY Bilateral EXCISION HYDROCELE Left left testicle FASCIECTOMY PLANTAR FASCIA HEART CATHETERIZATION x 2 stents - 2018 ROTATOR CUFF REPAIR Right Family History Problem Relation Age of Onset Heart Disease - Other Father Hypertrophic cardiomyopathy Sister Social History Socioeconomic History Marital status: Single Spouse name: Not on file Number of children: Not on file Years of education: Not on file Highest education level: Not on file Occupational History Not on file Tobacco Use Smoking status: Never Smokeless tobacco: Never Vaping Use Vaping status: Never Used Substance and Sexual Activity Alcohol use: Yes Alcohol/week: 4.0 standard drinks of alcohol Types: 4 Glasses of wine per week Drug use: Never Sexual activity: Not Currently Other Topics Concern Occupational Exposure No Hobby Hazards No Social History Narrative Not on file Social Drivers of Health Financial Resource Strain: Not on file Food Insecurity: Not on file Transportation Needs: Not on file Physical Activity: Not on file Stress: Not on file Social Connections: Not on file Personal Safety: Not on file Housing Stability: Not on file Review of Systems Cardiovascular: Negative for chest pain, claudication, cyanosis, dyspnea on exertion, irregular heartbeat, leg swelling, near-syncope, orthopnea, palpitations, paroxysmal nocturnal dyspnea and syncope. On physcial exam today, the vital signs are as follows: Vitals: 04/04/25 1228 BP: 158/82 Pulse: 61 Weight: 105.6 kg (232 lb 14.4 oz) Height: 1.753 m (5' 9) Body mass index is 34.39 kg/m . Physical Exam Vitals and nursing note reviewed. Constitutional: Appearance: Normal appearance. He is well-developed, well-groomed and overweight. HENT: Head: Normocephalic and atraumatic. Cardiovascular: Rate and Rhythm: Normal rate and regular rhythm. No extrasystoles are present. Chest Wall: PMI is not displaced. No thrill. Pulses: Carotid pulses are 2+ on the right side and 2+ on the left side. Radial pulses are 2+ on the right side and 2+ on the left side. Posterior tibial pulses are 2+ on the right side and 2+ on the left side. Heart sounds: S1 normal and S2 normal. No murmur heard. No friction rub. No gallop. Pulmonary: Effort: Pulmonary effort is normal. Breath sounds: Normal breath sounds. Abdominal: General: Bowel sounds are normal. Palpations: Abdomen is soft. Musculoskeletal: General: Normal range of motion. Cervical back: Normal range of motion and neck supple. Right lower leg: No edema. Left lower leg: No edema. Skin: General: Skin is warm and dry. Neurological: General: No focal deficit present. Mental Status: He is alert. Psychiatric: Mood and Affect: Mood normal. Relevant diagnostic data includes the following: I have independently reviewed the following images/tracings: as noted below. Supplemental Information: ELECTROCARDIOGRAM 01/05/2024 [facility] OUTS[facility] REC[facility]DS [place], [place] Stress Myocardial Perfusion Study 04/08/2022 Dominance: Right In summary, Mr. Galaviz is managed today for the following issues: Coronary artery disease involving absentee-shawnee coronary 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 At the present time he appears to be doing well with no acute symptoms or adverse events. He will continue medical management and outpatient follow-up. Hx of percutaneous transluminal coronary angioplasty He has a history of remote PCI. He has done well on his medical therapy without obvious recurrence of underlying obstructive atherosclerotic coronary disease requiring additional revascularization therapy. Essential hypertension His blood pressure is elevated. He will re-attempt his valsartan therapy at 80 mg p.o. q.day. he will monitor for any recurrence of a cough related side effect. If he does experience this then consideration may have to be given to an alternative antihypertensive agent. Of note he believes he was on amlodipine/Norvasc in the past. He notes he was transitioned off of this medication. This may have been related to concerns of lower extremity edema, however, the definitive reason is somewhat unclear at this time. Hyperlipidemia His lipid labs appeared to be well controlled at this time. He will continue his current lipid-lowering therapy. I have ordered the following: Diagnoses and all orders for this visit: Coronary artery disease involving absentee-shawnee coronary 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 - GA ECG ROUTINE ECG W/LEAST 12 LDS W/I&R Hx of percutaneous transluminal coronary angioplasty - GA ECG ROUTINE ECG W/LEAST 12 LDS W/I&R Hyperlipidemia, unspecified hyperlipidemia type - GA ECG ROUTINE ECG W/LEAST 12 LDS W/I&R Essential hypertension - GA ECG ROUTINE ECG W/LEAST 12 LDS W/I&R - Valsartan 80 MG tablet; Take 1 tablet by mouth daily. The above was discussed and reviewed with him. He was agreeable to this approach. We will plan on Return in about 6 months (around 10/05/2025).. If I can be of any further assistance, please do not hesitate to contact me. Sincerely, Adrian Robles MD, [facility] - Clinical Division of Cardiovascular Medicine Department of Internal Medicine [facility] Please be aware that portions of this note may have been completed with a voice recognition software system and an artificial intelligence system with the knowledge and approval of the patient. Despite efforts to edit the note mis-transcribed words may still be present. Patient has verified full name and . JOSÉ MIGUEL documentation tool explained to patient. Patient accepted the use of JOSÉ MIGUEL documentation tool during today's visit. Remedios Galaviz was offered and declined a Medical [facility] Operator for this exam/procedure/test 04/04/2025. 12 Lead EKG performed per provider's order, per policy, and given to Dr Robles for interpretation. Medical green coffee blender offered to patient prior to sensitive procedure and patient declined documented in this encounter [facility] 10-19-2024 Telephone encounter Note Received outside medical records. Placed in Dr Robles's office. Scanned to chart. [facility] 10-19-2024 Miscellaneous Notes Received outside medical records. Placed in Dr Robles's office. Scanned to chart. Faxed request for records to [phone] ----- Message from Adrian Robles MD sent at 12/29/2023 4:35 PM EDT ----- Regarding: Outside Medical Records: Please request copies of this patients cardiovascular records from [facility] (FAX: [phone]) in preparation for his office visit on 01/05/24. Thank you. documented in this encounter [facility] 09-29-2024 Evaluation + Plan note Associated Problem(s): Essential hypertension His blood pressure appears to be well controlled at this time even without his valsartan. He will continue his other medications. If his blood pressure increases he may need additional antihypertensive therapy and if GUERRERO inhibitors or valsartan lead to a cough then he may need to be considered for alternative agents. [facility] 09-29-2024 Miscellaneous Notes Associated Problem(s): Essential hypertension His blood pressure appears to be well controlled at this time even without his valsartan. He will continue his other medications. If his blood pressure increases he may need additional antihypertensive therapy and if GUERRERO inhibitors or valsartan lead to a cough then he may need to be considered for alternative agents. Associated Problem(s): Hyperlipidemia A copy of his lipid labs will be requested for continuity of care purposes. Otherwise, he will continue his current medical therapy which includes his rosuvastatin 20 mg p.o. q.day. Associated Problem(s): Hx of percutaneous transluminal coronary angioplasty He has a history of PCI. He is continuing antiplatelet therapy with clopidogrel/Plavix at this time. Associated Problem(s): Coronary artery disease involving absentee-shawnee coronary 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 At the present time he appears to be doing well. He will continue his current medical management. documented in this encounter [facility] 09-29-2024 Evaluation + Plan note Associated Problem(s): Hyperlipidemia A copy of his lipid labs will be requested for continuity of care purposes. Otherwise, he will continue his current medical therapy which includes his rosuvastatin 20 mg p.o. q.day. [facility] 09-29-2024 Evaluation + Plan note Associated Problem(s): Hx of percutaneous transluminal coronary angioplasty He has a history of PCI. He is continuing antiplatelet therapy with clopidogrel/Plavix at this time. [facility] 09-29-2024 Evaluation + Plan note Associated Problem(s): Coronary artery disease involving absentee-shawnee coronary 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 At the present time he appears to be doing well. He will continue his current medical management. [facility] 09-29-2024 History of Present illness Narrative Images from the original note were not included. Primary care provider: Maribel Reynoso MD (General) Dear Dr. Reynoso, I had the pleasure of seeing your patient, Remedios Galaviz, at the [facility] on 09/29/2024 in follow-up. I have reviewed pertinent outside medical records available at this time regarding this patient. As you recall, this 68 y.o. male is managed by our group for CAD s/p PCI, hyperlipidemia, and hypertension. No chief complaint on file. HPI: Initial HPI from: 01/05/2024 This is a 68-year-old gentleman, currently the [employer], who presents for a new [facility] visit with a history of underlying CAD, status post PCI (RCA), hyperlipidemia, and hypertension. He has previously been cared for by the [facility] in [place], [place]. He states he has requested his cardiovascular records be forwarded to [facility] for continuity of care, however, they have yet to arrive. He does have a history of underlying angina pectoris that led to a diagnosis of CAD. He underwent RCA PCI. He has had over time follow-up noninvasive/ invasive studies. He has been following with his primary care physician for his lipid labs as well. At the present time he denies any ongoing symptoms of classic angina pectoris at rest or with exertion. He has had no evidence of orthopnea or PND suspicious for CHF. There has been no near-syncope or syncope. He has continued medical therapy. He has not on aspirin based upon concerns of gastroesophageal upset. However, he continues on his clopidogrel / Plavix. He states he did have lipid labs performed recently through his PCP. He has not required any additional cardiovascular testing. He had an ECG in the office today. He was noted to be in normal sinus rhythm. He had no acute electrocardiographic changes. Interval History: 09/29/2024 This is a 68-year-old male who presents today for an outpatient cardiovascular follow-up with a history of CAD, status post PCI, hyperlipidemia, and hypertension. He is recently retired as the [employer]. At the present time he has not been complaining of any classic symptoms of angina pectoris. There has been no overt episodes of obvious CHF or pulmonary edema. There has been no reports of ongoing lower extremity peripheral pitting edema. He has had no near-syncope or syncope. He states he was having a dry cough. His valsartan was discontinued. He states overall his cough has improved. He has been out hunting with his family in the [facility] [place]. He states he was able to walk [place] the mountain within approximately a 45 minute period of time without any concerning chest discomfort or breathing discomfort. States he could not have done this prior to his previous PCI. He notes he has had lipid labs performed by his PCP. Those labs are unavailable for review at this time. His other previous test performed at [facility] that are available for review are noted below. Historical information was reviewed in the medical record. The following historical elements were reviewed by a provider in the specific [facility] and updated as appropriate: Not on File Outpatient Encounter Medications as of 09/29/2024 Medication Sig Dispense Refill carveDILOL 25 MG tablet Take 1 tablet by mouth 2 times daily with meals. Cholestyramine light 4 g Pack packet Take 1 packet by mouth daily. Clopidogrel 75 MG tablet Take 1 tablet by mouth daily. nitroGLYCERIN 0.[address] 1 tablet under tongue every 5 minutes as needed for Chest pain. max = 3 doses. If CP persists after 1st dose, call 911 25 tablet 1 rizatriptan 10 MG tablet Take 1 tablet by mouth as needed for Headaches. May repeat in 2 hours if needed, max daily dose 30 mg Rosuvastatin 20 MG tablet Take 0.5 tablets by mouth daily. Topiramate 25 MG tablet Take 2 tablets by mouth 2 times daily. Torsemide 10 MG tablet Take 1 tablet by mouth daily. valACYclovir 500 MG tablet Take 2 tablets by mouth as needed for Other (cold sores). [DISCONTINUED] nitroGLYCERIN 0.[address] 1 tablet under tongue every 5 minutes as needed for Chest pain. max = 3 doses. If CP persists after 1st dose, call 911 [DISCONTINUED] Valsartan 80 MG tablet Take 1 tablet by mouth daily. (Patient not taking: Reported on 09/29/2024) No facility-administered encounter medications on file as of 09/29/2024. Past Medical History: Diagnosis Date CAD (coronary artery disease) Essential hypertension, benign Hyperlipidemia Past Surgical History: Procedure Laterality Date CHOLECYSTECTOMY LAPAROSCOPIC ELBOW SURGERY Bilateral EXCISION HYDROCELE Left left testicle FASCIECTOMY PLANTAR FASCIA HEART CATHETERIZATION x 2 stents - 2018 ROTATOR CUFF REPAIR Right Family History Problem Relation Age of Onset Heart Disease - Other Father Hypertrophic cardiomyopathy Sister Social History Socioeconomic History Marital status: Single Spouse name: Not on file Number of children: Not on file Years of education: Not on file Highest education level: Not on file Occupational History Not on file Tobacco Use Smoking status: Never Smokeless tobacco: Never Vaping Use Vaping status: Never Used Substance and Sexual Activity Alcohol use: Yes Alcohol/week: 4.0 standard drinks of alcohol Types: 4 Glasses of wine per week Drug use: Never Sexual activity: Not Currently Other Topics Concern Occupational Exposure No Hobby Hazards No Social History Narrative Not on file Social Determinants of Health Financial Resource Strain: Not on file Food Insecurity: Not on file Transportation Needs: Not on file Physical Activity: Not on file Stress: Not on file Social Connections: Not on file Intimate Partner Violence: Not on file Housing Stability: Not on file Review of Systems Cardiovascular: Negative for chest pain, claudication, cyanosis, dyspnea on exertion, irregular heartbeat, leg swelling, near-syncope, orthopnea, palpitations, paroxysmal nocturnal dyspnea and syncope. On physcial exam today, the vital signs are as follows: Vitals: 09/29/24 1401 BP: 124/76 Pulse: 72 SpO2: 98% Weight: 104.8 kg (231 lb) Height: 1.753 m (5' 9) Body mass index is 34.11 kg/m . Physical Exam Vitals and nursing note reviewed. Constitutional: Appearance: Normal appearance. He is overweight. HENT: Head: Normocephalic and atraumatic. Cardiovascular: Rate and Rhythm: Normal rate and regular rhythm. No extrasystoles are present. Chest Wall: PMI is not displaced. No thrill. Pulses: Carotid pulses are 2+ on the right side and 2+ on the left side. Radial pulses are 2+ on the right side and 2+ on the left side. Posterior tibial pulses are 2+ on the right side and 2+ on the left side. Heart sounds: S1 normal and S2 normal. No murmur heard. No friction rub. No gallop. Pulmonary: Effort: Pulmonary effort is normal. Breath sounds: Normal breath sounds. Abdominal: General: Bowel sounds are normal. Palpations: Abdomen is soft. Musculoskeletal: General: Normal range of motion. Cervical back: Normal range of motion and neck supple. Right lower leg: No edema. Left lower leg: No edema. Skin: General: Skin is warm and dry. Neurological: General: No focal deficit present. Mental Status: He is alert. Psychiatric: Mood and Affect: Mood normal. Relevant diagnostic data includes the following: I have independently reviewed the following images/tracings: as noted below. Supplemental Information: ELECTROCARDIOGRAM 01/05/2024 [facility] OUTSIDE MEDICAL RECORDS [place], [place] Stress Myocardial Perfusion Study 04/08/2022 Dominance: Right In summary, Mr. Galaviz is managed today for the following issues: Coronary artery disease involving absentee-shawnee coronary 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 At the present time he appears to be doing well. He will continue his current medical management. Hx of percutaneous transluminal coronary angioplasty He has a history of PCI. He is continuing antiplatelet therapy with clopidogrel/Plavix at this time. Hyperlipidemia A copy of his lipid labs will be requested for continuity of care purposes. Otherwise, he will continue his current medical therapy which includes his rosuvastatin 20 mg p.o. q.day. Essential hypertension His blood pressure appears to be well controlled at this time even without his valsartan. He will continue his other medications. If his blood pressure increases he may need additional antihypertensive therapy and if GUERRERO inhibitors or valsartan lead to a cough then he may need to be considered for alternative agents. I have ordered the following: Diagnoses and all orders for this visit: Coronary artery disease involving absentee-shawnee coronary 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 - nitroGLYCERIN 0.4 MG tablet SL; Place 1 tablet under tongue every 5 minutes as needed for Chest pain. max = 3 doses. If CP persists after 1st dose, call 911 Hx of percutaneous transluminal coronary angioplasty - nitroGLYCERIN 0.4 MG tablet SL; Place 1 tablet under tongue every 5 minutes as needed for Chest pain. max = 3 doses. If CP persists after 1st dose, call 911 Hyperlipidemia, unspecified hyperlipidemia type Essential hypertension The above was discussed and reviewed with him. He was agreeable to this approach. We will plan on Return in about 6 months (around 03/29/2025).. If I can be of any further assistance, please do not hesitate to contact me. Sincerely, Adrian Robles MD, [facility] - Clinical Division of Cardiovascular Medicine Department of Internal Medicine [facility] Please be aware that portions of this note may have been completed with a voice recognition software system and an artificial intelligence system with the knowledge and approval of the patient. Despite efforts to edit the note mis-transcribed words may still be present. JOSÉ MIGUEL documentation tool explained to patient. Patient accepted the use of JOSÉ MIGUEL documentation tool during today's visit. documented in this encounter [facility] 01-05-2024 Evaluation + Plan note Associated Problem(s): Hyperlipidemia A copy of his lipid labs will be requested for continuity of care. In the meantime he will continue his rosuvastatin as noted. [facility] 01-05-2024 Evaluation + Plan note Associated Problem(s): Essential hypertension His blood pressure appears to be well controlled at this time. He will continue his current medical management. [facility] 01-05-2024 Evaluation + Plan note Associated Problem(s): Hx of percutaneous transluminal coronary angioplasty He has undergone previous PCI as noted in the past. He has greater than a year out since his most recent PCI. He is continuing medical therapy as noted above. [facility] 01-05-2024 Miscellaneous Notes Associated Problem(s): Hyperlipidemia A copy of his lipid labs will be requested for continuity of care. In the meantime he will continue his rosuvastatin as noted. Associated Problem(s): Essential hypertension His blood pressure appears to be well controlled at this time. He will continue his current medical management. Associated Problem(s): Hx of percutaneous transluminal coronary angioplasty He has undergone previous PCI as noted in the past. He has greater than a year out since his most recent PCI. He is continuing medical therapy as noted above. Associated Problem(s): Coronary artery disease involving absentee-shawnee coronary 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 At the present time he will continue medical therapy. This does include his clopidogrel at 75 mg p.o. q.day, carvedilol at 25 mg p.o. b.i.d., torsemide 10 mg p.o. q.day and valsartan at 80 mg p.o. q.day. He will also continue his lipid-lowering therapy with his rosuvastatin 40 mg p.o. q.day. He has nitroglycerin sublingual p.r.n. to use if necessary. He states he has not had to use his nitroglycerin sublingual p.r.n.. documented in this encounter [facility] 01-05-2024 Evaluation + Plan note Associated Problem(s): Coronary artery disease involving absentee-shawnee coronary 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 At the present time he will continue medical therapy. This does include his clopidogrel at 75 mg p.o. q.day, carvedilol at 25 mg p.o. b.i.d., torsemide 10 mg p.o. q.day and valsartan at 80 mg p.o. q.day. He will also continue his lipid-lowering therapy with his rosuvastatin 40 mg p.o. q.day. He has nitroglycerin sublingual p.r.n. to use if necessary. He states he has not had to use his nitroglycerin sublingual p.r.n.. [facility] 01-05-2024 History of Present illness Narrative Referring provider: Self, Self Primary care provider: Maribel Reynoso MD (General) Dear Dr. Reynoso, I had the pleasure of seeing your patient, Remedios Acharya, at the [facility] [place] on 01/05/2024. I have reviewed pertinent outside medical records available at this time regarding this patient. As you recall, you referred this 68 y.o. male to our attention for CAD status post PCI superimposed upon hypertension and hyperlipidemia. Chief Complaint Patient presents with Heart Problem CAD, followed Dr Robles from [place], No new cardiac issues. HPI: This is a 68-year-old gentleman, currently the [facility], who presents for a new [facility] visit with a history of underlying CAD, status post PCI (RCA), hyperlipidemia, and hypertension. He has previously been cared for by the [facility] in [place], [place]. He states he has requested his cardiovascular records be forwarded to [facility] for continuity of care, however, they have yet to arrive. He does have a history of underlying angina pectoris that led to a diagnosis of CAD. He underwent RCA PCI. He has had over time follow-up noninvasive/ invasive studies. He has been following with his primary care physician for his lipid labs as well. At the present time he denies any ongoing symptoms of classic angina pectoris at rest or with exertion. He has had no evidence of orthopnea or PND suspicious for CHF. There has been no near-syncope or syncope. He has continued medical therapy. He has not on aspirin based upon concerns of gastroesophageal upset. However, he continues on his clopidogrel / Plavix. He states he did have lipid labs performed recently through his PCP. He has not required any additional cardiovascular testing. He had an ECG in the office today. He was noted to be in normal sinus rhythm. He had no acute electrocardiographic changes. Historical information was reviewed in the medical record. The following historical elements were reviewed by a provider in the specific [facility] and updated as appropriate: Not on File Outpatient Encounter Medications as of 01/05/2024 Medication Sig Dispense Refill carveDILOL 25 MG tablet Take 1 tablet by mouth 2 times daily with meals. Clopidogrel 75 MG tablet Take 1 tablet by mouth daily. nitroGLYCERIN 0.[address] 1 tablet under tongue every 5 minutes as needed for Chest pain. max = 3 doses. If CP persists after 1st dose, call 911 rizatriptan 10 MG tablet Take 1 tablet by mouth as needed for Headaches. May repeat in 2 hours if needed, max daily dose 30 mg Rosuvastatin 20 MG tablet Take 2 tablets by mouth daily. Topiramate 25 MG tablet Take 2 tablets by mouth 2 times daily. Torsemide 10 MG tablet Take 1 tablet by mouth daily. valACYclovir 500 MG tablet Take 2 tablets by mouth as needed for Other (cold sores). Valsartan 80 MG tablet Take 1 tablet by mouth daily. No facility-administered encounter medications on file as of 01/05/2024. Past Medical History: Diagnosis Date CAD (coronary artery disease) Essential hypertension, benign Hyperlipidemia Past Surgical History: Procedure Laterality Date CHOLECYSTECTOMY LAPAROSCOPIC ELBOW SURGERY Bilateral EXCISION HYDROCELE Left left testicle FASCIECTOMY PLANTAR FASCIA HEART CATHETERIZATION x 2 stents - 2018 ROTATOR CUFF REPAIR Right Family History Problem Relation Age of Onset Heart Disease - Other Father Hypertrophic cardiomyopathy Sister Social History Socioeconomic History Marital status: Single Spouse name: Not on file Number of children: Not on file Years of education: Not on file Highest education level: Not on file Occupational History Not on file Tobacco Use Smoking status: Never Smokeless tobacco: Never Vaping Use Vaping status: Never Used Substance and Sexual Activity Alcohol use: Yes Comment: 2 drinks per month Drug use: Not on file Sexual activity: Not on file Other Topics Concern Not on file Social History Narrative Not on file Social Determinants of Health Financial Resource Strain: Not on file Food Insecurity: Not on file Transportation Needs: Not on file Physical Activity: Not on file Stress: Not on file Social Connections: Not on file Intimate Partner Violence: Not on file Housing Stability: Not on file Review of Systems Cardiovascular: Negative for chest pain, claudication, cyanosis, dyspnea on exertion, irregular heartbeat, leg swelling, near-syncope, orthopnea, palpitations, paroxysmal nocturnal dyspnea and syncope. On physcial exam today, the vital signs are as follows: BP 118/72 (BP Location: Left arm, BP Position: Sitting) Pulse 61 Ht 1.753 m (5' 9) Wt 103.6 kg (228 lb 6.4 oz) BMI 33.73 kg/m Smoking Status Never Body mass index is 33.73 kg/m .. Physical Exam Vitals and nursing note reviewed. Constitutional: Appearance: Normal appearance. He is overweight. HENT: Head: Normocephalic and atraumatic. Cardiovascular: Rate and Rhythm: Normal rate and regular rhythm. No extrasystoles are present. Chest Wall: PMI is not displaced. No thrill. Pulses: Carotid pulses are 2+ on the right side and 2+ on the left side. Radial pulses are 2+ on the right side and 2+ on the left side. Posterior tibial pulses are 2+ on the right side and 2+ on the left side. Heart sounds: S1 normal and S2 normal. No murmur heard. No friction rub. No gallop. Pulmonary: Effort: Pulmonary effort is normal. Breath sounds: Normal breath sounds. Abdominal: General: Bowel sounds are normal. Palpations: Abdomen is soft. Musculoskeletal: General: Normal range of motion. Cervical back: Normal range of motion and neck supple. Right lower leg: No edema. Left lower leg: No edema. Skin: General: Skin is warm and dry. Neurological: General: No focal deficit present. Mental Status: He is alert. Psychiatric: Mood and Affect: Mood normal. Relevant diagnostic data includes the following: I have independently reviewed the following reports and/or images/tracings: as noted below. Supplemental Information: In summary, Mr. Acharya is managed today for the following issues: Coronary artery disease involving absentee-shawnee coronary 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 At the present time he will continue medical therapy. This does include his clopidogrel at 75 mg p.o. q.day, carvedilol at 25 mg p.o. b.i.d., torsemide 10 mg p.o. q.day and valsartan at 80 mg p.o. q.day. He will also continue his lipid-lowering therapy with his rosuvastatin 40 mg p.o. q.day. He has nitroglycerin sublingual p.r.n. to use if necessary. He states he has not had to use his nitroglycerin sublingual p.r.n.. Hx of percutaneous transluminal coronary angioplasty He has undergone previous PCI as noted in the past. He has greater than a year out since his most recent PCI. He is continuing medical therapy as noted above. Essential hypertension His blood pressure appears to be well controlled at this time. He will continue his current medical management. Hyperlipidemia A copy of his lipid labs will be requested for continuity of care. In the meantime he will continue his rosuvastatin as noted. I have ordered the following: No orders of the defined types were placed in this encounter. Of note, he states his term as the [facility] will end on September 19, 2024. On that day his success her will take over. He states following that, at the present time, he plans to spend time with his family and fly fishing. The above was discussed and reviewed with him. He was agreeable to this approach. We will plan on Return in about 6 months (around 07/06/2024).. If I can be of any further assistance, please do not hesitate to contact me. Sincerely, Adrian Robles MD, [facility] - Clinical Division of Cardiovascular Medicine Department of Internal Medicine [facility] Please be aware that portions of this note may have been completed with a voice recognition software system. Despite efforts to edit the note mis-transcribed words may still be present. 12 Lead EKG performed per provider's order, per policy, and given to Dr Robles for interpretation. Medical green coffee blender offered to patient prior to sensitive procedure and patient declined. documented in this encounter [facility] 12-31-2023 Telephone encounter Note Faxed request for records to [phone] [facility] 12-31-2023 Telephone encounter Note ----- Message from Adrian Robles MD sent at 12/29/2023 4:35 PM EDT ----- Regarding: Outside Medical Records: Please request copies of this patients cardiovascular records from [facility] (FAX: [phone]) in preparation for his office visit on 01/05/24. Thank you. [facility] 07-16-2021 Note HNO ID: [id number] Author: Artem Barry PT Service: ? Author Type: Physical Therapist Type: Progress Notes Filed: 07/16/2021 12:22 PM Note Text: 07/16/2021 [facility] PHYSICAL THERAPY DISCONTINUANCE OF CARE Plan of Care Period: Start of Care Date: 12/06/20 Last Visit Date: 01/03/2021 Therapy Program: The following is a summary of the interventions provided for this episode of care; Therapeutic exercise and Manual therapy Assessment: The following is the goal status: Goals updated 01/03/2021 Goals for Episode of Care: created on 12/06/20 through 01/31/21 Pt will demonstrate L shoulder ROM that is WNL for ease of work duties - Progressing, will continue Pt will demonstrate 5/5 L shoulder strength in 6 weeks - Not formally assessed this visit Pt will reports being able to complete all ADL's with 1/10 pain or less in 8 weeks - Progressing, will continue Thayer in home exercise program. Met, so far Patient Goals: Pt wants to be able to reach his holster more easily Based on the most recent progress report, patient was progressing slower than expected toward functional goals based on pain levels, documented subjective information on progress and documented objective information regarding range of motion. Reason for Discontinuation of Care: Patient has not returned to therapy or scheduled additional follow-up appointments. Artem Barry, PT [facility] [place] [facility] 01-09-2021 Note HNO ID: [id number] Author: Malathi Rosado, DO Service: ? Author Type: Physician Type: Progress Notes Filed: 01/09/2021 2:46 PM Note Text: [facility] Office Visit Documentation Note Sports Medicine and Interventional Orthopaedics REASON FOR VISIT / CHIEF COMPLAINT Remedios Galaviz is here today at request of Dr. Zack Anderson specifically for consultation of my opinion in regards to the chief complaint listed below. Correspondence will be shared today via the [facility] electronic health record or through regular mail, where applicable. CHIEF COMPLAINT: Remedios Galaviz is a 65 year old male who presents today for a new evaluation of following complaint: Patient presents with: Left Shoulder - New, Pain HISTORY OF PRESENT ILLNESS (HPI) PAIN EVALUATION 01/09/2021 1408 Pain Level: 6 Pain Location: Shoulder-Left Description: Aching Duration Amount of Time: 2 Duration Units: Months Frequency: Intermittent Intervention: Medication Fell on ice and has pain ever since. MRI - tendinosis, SLAP tear and should joint effusion Brief overview: Left shoulder pain for 2 months. From a fall Location of pain: Back of the shoulder and front of the shoulder Does anything make it worse?: Yes, using it Does anything make it better?: No Any numbness or tingling? No Any popping, locking, or clicking? No PREVIOUS TREATMENTS: Ice: No Heat: No Brace: No NSAIDs: Yes, Tylenol Injections: Yes, steroid- 2 months ago- helped 4 hours Surgeries: No Physical Therapy: Yes REVIEW OF SYMPTOMS: Constitutional: Any recent fevers? No Gastrointestinal: Any abdominal discomfort? No Integumentary: Any recent skin changes or rashes? No Endocrine: Any diagnosis of diabetes? No Current Outpatient Medications on File Prior to Visit Medication Sig - valsartan (DIOVAN) 80 mg tablet Take 80 mg by mouth once daily. - rosuvastatin (CRESTOR) 40 mg tablet Take 40 mg by mouth once daily. - topiramate (TOPAMAX) 50 mg tablet Take 50 mg by mouth twice daily. - benzonatate (TESSALON PERLE) 100 mg capsule Take 2 capsules by mouth three times daily as needed. - albuterol HFA (PROAIR HFA) 90 mcg/actuation inhaler Inhale 2 Puffs as instructed every 4 hours as needed. - lisinopril (ZESTRIL, PRINIVIL) 20 mg tablet Take 20 mg by mouth once daily. - clopidogrel (PLAVIX) 75 mg tablet Take 75 mg by mouth once daily. - atorvastatin (LIPITOR) 80 mg tablet Take 80 mg by mouth once daily. - aspirin, enteric coated (ASPIRIN, ENTERIC COATED) 81 mg EC tablet Take 81 mg by mouth once daily. - traMADol (ULTRAM) 50 mg tablet Take 50 mg by mouth every 6 hours as needed. - gabapentin (NEURONTIN) 300 mg capsule Take 2 capsules by mouth three times daily. (Patient not taking: Reported on 11/22/2019) - gabapentin (GRALISE) 300 mg Tb24 Take 1 tablet by mouth once daily. (Patient not taking: Reported on 11/22/2019) - valACYclovir (VALTREX) 1 gram tab Take by mouth as needed. - losartan (COZAAR) 100 mg tablet Take 100 mg by mouth once daily. - CARVEDILOL 25 mg tablet Take 25 mg by mouth twice daily with meals. - rizatriptan (MAXALT) 10 mg ORAL tablet Take 1 tablet by mouth as needed. May repeat in 2 hours if needed - Cholestyramine-Aspartame (PREVALITE) 4 gram ORAL powder Take by mouth three times daily with meals. - DEMADEX 10 MG TAB Take one(1) tablet daily in the morning. No current facility-administered medications on file prior to visit. ALLERGIES Allergen Reactions - Aspirin GI Upset severe heartburn/acid reflux - Diop-2 Inhibitor GI Upset vioxx - caused GI bleed. PHYSICAL EXAMINATION Vitals: There were no vitals taken for this visit. Ortho Exam He does have limitation in motion - but he reports that this is imporving. He localizes pain anterior ,but deep. Direct palpation over the LHBT does not cause pain, but Obriens causes significant pain deep to the shoulder. IMAGING Final results and radiologist's interpretation, available in the [facility] health record. Images were reviewed in the office today. Interpretation of the performed imaging is SLAP tear and tendinosis ASSESSMENT / PLAN DIAGNOSIS: (S4.050G) Superior glenoid labrum lesion of left shoulder, initial encounter (primary encounter diagnosis) Today, in detail, through a thorough evaluation, we discussed possible etiologies of pain and our plans for further diagnostic and therapeutic interventions. We discussed strategies for decreasing pain and improving strength, stability and motion. Patient's questions were answered in detailed. Patient verbalizes understanding and agrees with the treatment plan as discussed. 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 No TTP of the LHBT today. We discuss continuation of PT with an IA USG CSI of the left shoulder. In addition to the comprehensive evaluation as outlined above and as a separate element to the visit today, we have made the determination to proceed w (more content not included)... [facility] [place] [facility] 01-03-2021 Note HNO ID: [id number] Author: Artem (Pt) Brian Service: ? Author Type: Physical Therapist Type: Progress Notes Filed: 01/03/2021 12:28 PM Note Text: Episode Visit Count: 9 Therapist That Will Oversee The Plan Of Care: Artem Barry Start of Care Date: 12/06/20 Onset Date: 12/07/19 Plan of Care Certification Date: 01/03/21 Next Certification Due Date: 02/07/21 Patient Identified by Name and Date of : Yes REHABILITATION AND SPORTS THERAPY PHYSICAL THERAPY PROGRESS REPORT PLAN OF CARE UPDATE: Assessment: Remedios Galaviz exhibits difficulty with shoulder AROM leading to difficulty with work duties, cooking/cleaning/dressing and improvements in overall shoulder ROM and some decrease in pain frequency. He continues to be limited with lifting, physical activities, reaching behind back, reaching overhead and use hand with arm at shoulder level. He is progressing as expected towards his therapy goals as demonstrated by: home exercise program compliance, documented objective information regarding range of motion and overall function and appointment compliance. He will benefit from continued skilled therapy requiring therapeutic exercise, manual therapy, exercise progression in order to further improve the above mentioned impairments. Goals updated 01/03/2021 Goals for Episode of Care: created on 12/06/20 through 01/31/21 Pt will demonstrate L shoulder ROM that is WNL for ease of work duties - Progressing, will continue Pt will demonstrate 5/5 L shoulder strength in 6 weeks - Not formally assessed this visit Pt will reports being able to complete all ADL's with 1/10 pain or less in 8 weeks - Progressing, will continue Thayer in home exercise program. Met, so far Patient Goals: Pt wants to be able to reach his holster more easily Planned Interventions, Frequency, and Duration: 2x/week, 4 weeks Total Number of Visits Planned: 8 Patient to be seen for Therapeutic exercise (04972);Neuromuscular re-education (89449);Manual therapy (27978);Therapeutic activities (56592);Patient/Family/Caregiver Education PLAN FOR NEXT VISIT: Progress ROM and manual PRN. Prognosis: Excellent Excellent due to: current objective clinical presentation;good overall health status;good support system/ coping skills SUBJECTIVE: Patient Reason for Visit: Pt states that he rolled over thursday night and this caused shoulder pain as he rolled onto the L shoulder. Pain: Pain Pain Level: 8 Pain Location: Shoulder - Left Post Treatment Pain Post Treatment Pain Location: Shoulder - Left PROMIS Scales Higher is Better 06/19/2016 09/26/2016 [facility] Physical - Percentile 31 % 22 % GH Mental - Percentile 63 % 63 % T-scores: mean of general population = 50. 5 points is clinically meaningfully difference Percentiles provide an indication of how the patient's score ranks in relation to the general population. Higher percentile rankings indicate better function/quality of life. 50th percentile is the average of the general population and indicates half of respondents had a worse score. T-scores: mean of general population = 50. 5 points is clinically meaningfully difference Percentiles provide an indication of how the patient's score ranks in relation to the general population. Higher percentile rankings indicate better function/quality of life. 50th percentile is the average of the general population and indicates half of respondents had a worse score. OBJECTIVE MEASURES WITH LEVEL OF FUNCTION: UE AROM R Shoulder Internal Rotation (Functional): T6 L Shoulder Extension: 56 Degrees L Shoulder Flex: 142 Degrees L Shoulder ABduction: 126 Degrees L Shoulder Internal Rotation (Functional): L3 UE PROM L Shoulder External Rotation: 50 Degrees (with shoulder abd to 85 deg) UE and Cervical Strength R UE Strength: Grossly 5/5 L Shoulder External Rotation: 4+/5 TREATMENT: Therapeutic Exercise: 1: All objective measures taken this session 2: Supine shoulder flexion using yard stick 3# weight 3x8 reps holding 10 sec each 3: Standing shoulder ER x20 reps 4: Standing shoulder abd x10 reps holding 5 sec each 5: Standing towel stretch into flexion 4x30 seconds Skilled Intervention: Patient was educated in proper exercise technique and purpose for exercises. Provided written instruction for home exercise program to facilitate proper performance and compliance. Correct performance of therapeutic exercises was facilitated with verbal and visual cuing. Billing: [facility]: Therapeutic Exercise (10157): 1:1 time: 45 minutes (3 units: 38-52 mins) Total time / Length of visit: 45 minutes Artem Barry PT [facility] [place] [facility] 12-31-2020 Note HNO ID: [id number] Author: Artem (Pt) Brian Service: ? Author Type: Physical Therapist Type: Progress Notes Filed: 12/31/2020 4:45 PM Note Text: Episode Visit Count: 8 Therapist That Will Oversee The Plan Of Care: Artem Barry Start of Care Date: 12/06/20 Onset Date: 12/07/19 Plan of Care Certification Date: 12/06/20 Next Certification Due Date: 01/10/21 Patient Identified by Name and Date of : Yes REHABILITATION AND SPORTS THERAPY PHYSICAL THERAPY TREATMENT NOTE ASSESSMENT: Remedios Galaviz demonstrated difficulty with left bicep and forearm pain following biceps curls from last visit. Still with pain in left shoulder depending on movements.Slight reduction in shoulder pain at end of therapy today. The patient will continue to benefit from ongoing skilled physical therapy for progression of ROM and strength of left shoulder. PLAN FOR NEXT VISIT: Progress ROM and manual PRN. SUBJECTIVE: Patient Reason for Visit: Patient reports left biceps and forearm have been more sore after biceps curl last visit. He reports the shoulder is feeling about the same and is not taking Tylenol currently. Pain: Pain Pain Level: 5 Pain Location: Shoulder - Left (anterior shoulder) Description: Stabbing (stinging) Frequency: Continuous Post Treatment Pain Post Treatment Pain Level: 3 Post Treatment Pain Location: Shoulder - Left Post Treatment Pain Description: Burning OBJECTIVE MEASURES WITH LEVEL OF FUNCTION: UE AROM L Shoulder Flex: 151 Degrees L Shoulder ABduction: 134 Degrees TREATMENT: Therapeutic Exercise: 1: Seated shoulder laura AAROM flexion, abduction and IR 3x10 each 3: Reaching #1-5 3x30 seconds 4: Standing shoulder ER stretch against corner of wall (by turning body out) x10 reps x10 sec holds 5: Single arm row on machine 2 plates 2x10 reps 6: Standing 8# DB curls x20 reps Skilled Intervention: Patient was educated in proper exercise technique and purpose for exercises. Skilled judgment was provided in selection of appropriate interventions. Correct performance of therapeutic exercises was facilitated with verbal and visual cuing. Manual Therapy: 1: PROM shoulder flexion/ER/IR 2x10 reps holding 3 sec each 2: Posterior capsule stretch x30 seconds Skilled Intervention: Manual skills to improve joint mobility, ROM, and decrease pain. Utilized anatomy knowledge of the therapist, and assessment of patient's response to intervention. Billing: [facility]: Therapeutic Exercise ([id number]): 1:1 time: 31 minutes (2 units: 23-37 mins) Manual Therapy (25968): 1:1 time: 12 minutes (1 unit: 8-22 mins) Total time / Length of visit: 43 minutes Jenna Banerjee PT-José Barry PT [facility] 12-28-2020 Note HNO ID: [id number] Author: Artem (Pt) Brian Service: ? Author Type: Physical Therapist Type: Progress Notes Filed: 12/28/2020 3:09 PM Note Text: Episode Visit Count: 7 Therapist That Will Oversee The Plan Of Care: Artem Barry Start of Care Date: 12/06/20 Onset Date: 03/25/20 Plan of Care Certification Date: 12/06/20 Next Certification Due Date: 01/10/21 Patient Identified by Name and Date of : Yes REHABILITATION AND SPORTS THERAPY PHYSICAL THERAPY TREATMENT NOTE ASSESSMENT: Remedios Galaviz demonstrated improvements in shoulder ROM. The patient will continue to benefit from ongoing skilled physical therapy for progression towards therapy goals. PLAN FOR NEXT VISIT: Progress ROM and manual PRN. SUBJECTIVE: Patient Reason for Visit: Pt states that he can reach further back on his back and that he is struggling with shoulder abduction. Pain: Pain Pain Level: 5 Pain Location: Shoulder - Left Post Treatment Pain Post Treatment Pain Level: 5 Post Treatment Pain Location: Shoulder - Left OBJECTIVE MEASURES WITH LEVEL OF FUNCTION: UE AROM L Shoulder Flex: 151 Degrees L Shoulder ABduction: 131 Degrees UE PROM L Shoulder ABduction: 160 Degrees (AAROM using pulleys) TREATMENT: Therapeutic Exercise: 1: Seated pulleys into abd x30 reps 2: Standing laura functional IR x20 reps 3: Reaching #1-5 2x10 reps holding end range x5 sec 4: Standing shoulder ER stretch against corner of wall (by turning body out) x10 reps x10 sec holds 5: Single arm row on machine 2 plates 2x10 reps 6: Standing 8# DB curls x40 reps Skilled Intervention: Patient was educated in proper exercise technique and purpose for exercises. Provided written instruction for home exercise program to facilitate proper performance and compliance. Correct performance of therapeutic exercises was facilitated with verbal and visual cuing. Manual Therapy: 1: PROM shoulder flexion/ER/IR x10 reps holding 3 sec each 2: Posterior capsule stretch x30 seconds Skilled Intervention: Manual skills to improve joint mobility, ROM, and decrease pain. Utilized anatomy knowledge of the therapist, and assessment of patient's response to intervention. Billing: [facility]: Therapeutic Exercise ([id number]): 1:1 time: 33 minutes (2 units: 23-37 mins) Manual Therapy ([id number]): 1:1 time: 9 minutes (1 unit: 8-22 mins) Total time / Length of visit: 42 minutes Artem Barry PT [facility] 12-24-2020 Note HNO ID: [id number] Author: Artem (Pt) Brian Service: ? Author Type: Physical Therapist Type: Progress Notes Filed: 12/24/2020 5:48 PM Note Text: Episode Visit Count: 6 Therapist That Will Oversee The Plan Of Care: Artem Barry Start of Care Date: 12/06/20 Onset Date: 12/07/19 Plan of Care Certification Date: 12/06/20 Next Certification Due Date: 01/10/21 Patient Identified by Name and Date of : Yes REHABILITATION AND SPORTS THERAPY PHYSICAL THERAPY TREATMENT NOTE ASSESSMENT: Remedios Galaviz demonstrated difficulty with increase pain at night when trying to sleep and pain currently left shoulder with intermittent tingling left upper arm and hand. Patient with no c/o increase pain during therapy. He had stinging type pain anterior shoulder at end of treatment. The patient will continue to benefit from ongoing skilled physical therapy for progression of supervised therapeutic exercises. PLAN FOR NEXT VISIT: Manual therapy at start of treatment and progress ROM and strength left shoulder SUBJECTIVE: Patient Reason for Visit: Patient reports he is able to reach better. He reports pain remains high and was hurting during the night. Pain: Pain Pain Level: 6 Pain Location: Shoulder - Left (stinging. Pain last night 8/10 really hurt) Description: Aching;Dull (also tingling left hand) Post Treatment Pain Post Treatment Pain Level: 6 Post Treatment Pain Location: Shoulder - Left (anterior) Post Treatment Pain Description: (stinging) Post Treatment Symptoms: shoulder pain the same and tingling in left palm gone and tingling left fingers persist OBJECTIVE MEASURES WITH LEVEL OF FUNCTION: UE AROM L Shoulder Flex: 150 Degrees L Shoulder ABduction: 129 Degrees TREATMENT: Therapeutic Exercise: 1: Supine cane flexion x10 reps holding 10 sec each 3: Reaching #1-5 2x30 seconds 4: Shoulder stabiliation cw and ccw 2# ball on wall circles 2x10 each direction. 5: UBE 6 min total (3 min forward then backward) (Resistance set at 0.6) 6: Left shoulder laura AAROM flexion and abduction 2x10 7: Left shoulder laura IR behind back 1x10 with 5 second hold Skilled Intervention: Patient was educated in proper exercise technique and purpose for exercises. Skilled judgment was provided in selection of appropriate interventions. Correct performance of therapeutic exercises was facilitated with verbal and visual cuing. Billing: [facility]: Therapeutic Exercise ([id number]): 1:1 time: 45 minutes (3 units: 38-52 mins) Total time / Length of visit: 45 minutes Jenna Banerjee, PT-José Barry PT [facility] 12-19-2020 Note HNO ID: [id number] Author: Artem (Pt) Brian Service: ? Author Type: Physical Therapist Type: Progress Notes Filed: 12/19/2020 10:30 AM Note Text: Episode Visit Count: 5 Therapist That Will Oversee The Plan Of Care: Artem Barry Start of Care Date: 12/06/20 Onset Date: 12/07/19 Plan of Care Certification Date: 12/06/20 Next Certification Due Date: 01/10/21 Patient Identified by Name and Date of : Yes REHABILITATION AND SPORTS THERAPY PHYSICAL THERAPY TREATMENT NOTE ASSESSMENT: Remedios Galaviz demonstrated difficulty with limited L shoulder elevation due to stiffness and improvements in L shoulder elevation ROM by the end of the session. The patient will continue to benefit from ongoing skilled physical therapy for progression towards therapy goals. PLAN FOR NEXT VISIT: Progress L shoulder ROM. Manual at start of session may be more beneficia;. SUBJECTIVE: Patient Reason for Visit: Pt states that he is feeling better today with improved sleep quality last night. Cutting down on the number of exercises has helped his pain levels. Pain: Pain Pain Level: 5 Pain Location: Shoulder - Left Post Treatment Pain Post Treatment Pain Location: Shoulder - Left OBJECTIVE MEASURES WITH LEVEL OF FUNCTION: 120 deg AROM L shoulder elevation at beginning of the session 131 deg AROM L shoulder at the end of the session TREATMENT: Therapeutic Exercise: 1: Supine cane flexion x10 reps holding 10 sec each 2: Standing IR stretch using green strap 2x10 reps holding 5 sec each 3: Reaching #1-5 2x8 reps 4: Shoulder ER/IR iso into ball on wall x5 reps holding 5 sec each 5: UBE 6 min total (3 min forward then backward) (Resistance set at 0.6) Skilled Intervention: Patient was educated in proper exercise technique and purpose for exercises. Skilled judgment was provided in selection of appropriate interventions. Provided written instruction for home exercise program to facilitate proper performance and compliance. Correct performance of therapeutic exercises was facilitated with verbal cuing. Manual Therapy: 1: Manual stretching into elevation x30 seconds 2: AP mobilizations of the L GH joint grade 3 for mobility x20 3: Shoulder ER rotation stretch held at pt's tolerance 3x30 seconds Skilled Intervention: Manual skills to improve joint mobility, ROM, and decrease pain. Utilized anatomy knowledge of the therapist, and assessment of patient's response to intervention. Billing: [facility]: Therapeutic Exercise ([id number]): 1:1 time: 35 minutes (2 units: 23-37 mins) Manual Therapy ([id number]): 1:1 time: 9 minutes (1 unit: 8-22 mins) Total time / Length of visit: 44 minutes Artem Barry PT [facility] 12-17-2020 Note HNO ID: [id number] Author: Artem (Pt) Brian Service: ? Author Type: Physical Therapist Type: Progress Notes Filed: 12/17/2020 4:02 PM Note Text: Episode Visit Count: 4 Therapist That Will Oversee The Plan Of Care: Artem Barry Start of Care Date: 12/06/20 Onset Date: 12/07/19 Plan of Care Certification Date: 12/06/20 Next Certification Due Date: 01/10/21 Patient Identified by Name and Date of : Yes REHABILITATION AND SPORTS THERAPY PHYSICAL THERAPY TREATMENT NOTE ASSESSMENT: Remedios Galaviz demonstrated exquisite tenderness of the shoulder over the weekend. Pt's soreness may be due to towel IR stretch that started after the last therapy session. The patient will continue to benefit from ongoing skilled physical therapy for progression towards therapy goals. PLAN FOR NEXT VISIT: Continue to progress ROM. SUBJECTIVE: Patient Reason for Visit: Pt states that his shoulder has bothered him throughout the weekend. Pain: Pain Pain Level: 6 Pain Location: Shoulder - Left Description: Stabbing Post Treatment Pain Post Treatment Pain Location: Shoulder - Left OBJECTIVE MEASURES WITH LEVEL OF FUNCTION: UE PROM L Shoulder Flex: 155 Degrees TREATMENT: Therapeutic Exercise: 1: Left shoulder laura AAROM flexion 2x10 2: Standing shoulder ext x10 reps holding 5 ec ea 3: UBE x4 min 4: Supine ER using cane x15 reps holding 5 sec each 5: Supine cane OH raise 2# LLLD stretch 5x15 seconds Skilled Intervention: Patient was educated in proper exercise technique and purpose for exercises. Provided written instruction for home exercise program to facilitate proper performance and compliance. Correct performance of therapeutic exercises was facilitated with verbal and visual cuing. Manual Therapy: 1: Shoulder IR stretch x60 seconds 2: Shoulder elevation stretch x60 seconds 3: Shoulder ER x10 reps holding 3 sec each Skilled Intervention: Manual skills to improve joint mobility, ROM, and decrease pain. Utilized anatomy knowledge of the therapist, and assessment of patient's response to intervention. Billing: [facility]: Therapeutic Exercise ([id number]): 1:1 time: 33 minutes (2 units: 23-37 mins) Manual Therapy ([id number]): 1:1 time: 8 minutes (1 unit: 8-22 mins) Total time / Length of visit: 41 minutes Artem Barry PT [facility] 12-13-2020 Note HNO ID: [id number] Author: Artem (Pt) Brian Service: ? Author Type: Physical Therapist Type: Progress Notes Filed: 12/13/2020 8:45 AM Note Text: Episode Visit Count: 3 Therapist That Will Oversee The Plan Of Care: Artem Barry Start of Care Date: 12/06/20 Onset Date: 12/07/19 Plan of Care Certification Date: 12/06/20 Next Certification Due Date: 01/10/21 Patient Identified by Name and Date of : Yes REHABILITATION AND SPORTS THERAPY PHYSICAL THERAPY TREATMENT NOTE ASSESSMENT: Remedios Galaviz demonstrated improvements in independents with the HEP. The patient will continue to benefit from ongoing skilled physical therapy for progression towards therapy goals. PLAN FOR NEXT VISIT: Continue with stretching and manual stretching being cautius of ER. SUBJECTIVE: Patient Reason for Visit: Pt is sore but better than yesterday Pain: Pain Pain Level: 6 Pain Location: Shoulder - Left Description: Stabbing Post Treatment Pain Post Treatment Pain Location: Shoulder - Left Post Treatment Pain Description: Sharp OBJECTIVE MEASURES WITH LEVEL OF FUNCTION: UE AROM L Shoulder Flex: 130 Degrees TREATMENT: Therapeutic Exercise: 1: Left shoulder laura AAROM flexion 2x10 2: pulleys IR standing 2x10 reps holding 10 sec each 3: Pulleys abd 2x10 reps holding 3 sec each 4: Corner pec stretch x5 reps holding 20 sec 5: Supine shoulder ER stretch 2x10 reps 6: Seated cross body stretch 3x30 seconds Skilled Intervention: Patient was educated in proper exercise technique and purpose for exercises. Correct performance of therapeutic exercises was facilitated with verbal and visual cuing. Billing: [facility]: Therapeutic Exercise ([id number]): 1:1 time: 40 minutes (3 units: 38-52 mins) Total time / Length of visit: 40 minutes Artem Barry PT [facility] 12-10-2020 Note HNO ID: [id number] Author: Artem InmanPt) Brian Service: ? Author Type: Physical Therapist Type: Progress Notes Filed: 12/10/2020 12:37 PM Note Text: Episode Visit Count: 2 Therapist That Will Oversee The Plan Of Care: Artem Barry Start of Care Date: 12/06/20 Onset Date: 12/07/19 Plan of Care Certification Date: 12/06/20 Next Certification Due Date: 01/10/21 Patient Identified by Name and Date of : Yes REHABILITATION AND SPORTS THERAPY PHYSICAL THERAPY TREATMENT NOTE ASSESSMENT: Remedios Galaviz demonstrated difficulty with passive external rotation at 70 degrees abduction and improvements in AAROM exercises and AROM both flexion and abduction. The patient will continue to benefit from ongoing skilled physical therapy for progression of AAROM and passive stretching. PLAN FOR NEXT VISIT: Continue with AAROM wand and pulleys and passive stretching left shoulder keeping shoulder small amount of abduction with passive ER. SUBJECTIVE: Patient Reason for Visit: Patient reports the left shoulder feels like it is starting to loosen up Pain: Pain Pain Level: 7 Pain Location: Shoulder - Left Description: Stabbing;Other: See comment (stinging) Post Treatment Pain Post Treatment Pain Level: 10 Post Treatment Pain Location: Shoulder - Left Post Treatment Pain Description: Sharp Post Treatment Symptoms: Sharp pain following passive ER and no c/o pain with any other exercise in therapy today. OBJECTIVE MEASURES WITH LEVEL OF FUNCTION: UE AROM L Shoulder Flex: 120 Degrees L Shoulder ABduction: 95 Degrees TREATMENT: Therapeutic Exercise: 1: Left shoulder laura AAROM flexion 2x10 2: Left shoulder laura abduction AAROM 2x10 3: *Left wand assist flexion and abduction 2x10 4: *Left wand assist extension 2x10 5: Standing wand ER left 1x10 6: PRoM left shoulder flexion,abduction and ER 1x10 each (Increase pain with ER at 70 degrees abduction passively) Skilled Intervention: Patient was educated in proper exercise technique and purpose for exercises. Reviewed and educated patient on additions/changes for home exercise program and patient to add standing wand AAROM flexion, abduction and extension to HEP Skilled judgment was provided in selection of appropriate interventions. Correct performance of therapeutic exercises was facilitated with verbal and visual cuing. Billing: [facility]: Therapeutic Exercise ([id number]): 1:1 time: 45 minutes (3 units: 38-52 mins) Total time / Length of visit: 45 minutes Jenna Banerjee PT-José Barry PT [facility] 12-06-2020 Note HNO ID: [id number] Author: Artem (Pt) Brian Service: ? Author Type: Physical Therapist Type: Progress Notes Filed: 12/06/2020 11:00 AM Note Text: Episode Visit Count: 1 Therapist That Will Oversee The Plan Of Care: Artem Barry Start of Care Date: 12/06/20 Onset Date: 12/07/19 Plan of Care Certification Date: 12/06/20 Next Certification Due Date: 01/10/21 Patient Identified by Name and Date of : Yes REHABILITATION AND SPORTS THERAPY PHYSICAL THERAPY EVALUATION PLAN OF CARE: Assessment: Remedois Galaviz presents with the chief complaint of L shoulder pain. Pt demonstrates a capsular pattern of tightness similar to adhesive capsulitis and some discomfort with palpation to the L biceps long-head tendon. Pt has some tingling into the L hand with palpation to the wrist extensor muscle bellies. He presents with impairments of decreased L shoulder ROM, decreased L shoulder strength, pain with ADL's and difficulty completing work duties. He may benefit from skilled therapy services to improve the above mentioned impairments. Prognosis: Excellent Excellent due to: current objective clinical presentation;good overall health status;good support system/ coping skills Goals for Episode of Care: created on 12/06/20 through 01/31/21 Pt will demonstrate L shoulder ROM that is WNL for ease of work duties Pt will demonstrate 5/5 L shoulder strength in 6 weeks Pt will reports being able to complete all ADL's with 1/10 pain or less in 8 weeks [place] in home exercise program. Patient Goals: Pt wants to be able to reach his holster more easily Planned Interventions, Frequency, and Duration: Current Frequency: 2x/week Duration: 4 weeks Total Number of Visits Planned: 8 Planned Treatment Interventions: Therapeutic exercise ([id number]);Neuromuscular re-education (41576);Manual therapy (42888);Therapeutic activities (99565);Patient/Family/Caregiver Education PLAN FOR NEXT VISIT: Progress L shoulder ROM. Manually stretch into flex/abd/ER. Possibly warm up with pulleys. Patient demonstrates good understanding of plan of care and treatment. The above goals and plan of care were discussed and agreed upon by patient/family. SUBJECTIVE: Remedios Galaviz is a 65 year old male seen today for L arm and shoulder pain. 1 year ago pt was cutting down tree and it hurt shortly after. Pt didn't do much with it right away. Pain was getting worse so then he got a cortisone injection. Pt then fell on ice in september and landed on the shoulder and it really bothered him and his ROM is limited. Pt states that the pain will radiate into the top of the hand and he has had ulnar nerve surgery in the past and occasionally the 3-5th digit will go numb. 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 Falls Interview: Two or more falls in the last year (Due to ice) Pain: Pain Pain Level: 6 Pain Location: Shoulder - Left Description: Cramping;Sharp Post Treatment Pain Post Treatment Pain Level: (feels a little more sore) Post Treatment Pain Location: Shoulder - Left PROMIS Scales Higher is Better 06/19/2016 09/26/2016 GH Physical - Percentile 31 % 22 % GH Mental - Percentile 63 % 63 % T-scores: mean of general population = 50. 5 points is clinically meaningfully difference Percentiles provide an indication of how the patient's score ranks in relation to the general population. Higher percentile rankings indicate better function/quality of life. 50th percentile is the average of the general population and indicates half of respondents had a worse score. T-scores: mean of general population = 50. 5 points is clinically meaningfully difference Percentiles provide an indication of how the patient's score ranks in relation to the general population. Higher percentile rankings indicate better function/quality of life. 50th percentile is the average of the general population and indicates half of respondents had a worse score. OBJECTIVE MEASURES WITH LEVEL OF FUNCTION: Posture / Alignment Posture: Forward head Shoulder Observations L Shoulder Palpation Tenderness: Bicipital groove Cervical Spine ROM Cervical ROM : Limitation AROM Cervical Flexion AROM: Normal Cervical Extension AROM: Normal Cervical Side-Bend Right AROM: Normal Cervical Side-Bend Left AROM: Normal Cervical Rotation Right AROM: Normal Cervical Rotation Left AROM: Normal UE AROM R UE AROM: WNL R Shoulder Internal Rotation (Functional): T6 L Shoulder Flex: 115 Degrees L Shoulder ABduction: 90 Degrees L Shoulder Internal Rotation (Functional): L5 UE PROM (more content not included)... [facility] 12-04-2020 Note HNO ID: [id number] Author: Zack Anderson Service: ? Author Type: Physician Type: Progress Notes Filed: 12/04/2020 12:15 PM Note Text: Zack Anderson M.D. animal biologist [facility] [address] [place] [address] INITIAL ENCOUNTER FOR A NEW SHOULDER PROBLEM Chief Complaint: Left shoulder pain HPI: Remedios Galaviz is seen at the request of Maribel Reynoso for consultation regarding the above problem. Findings and recommendations will be communicated back to the referring provider via availability in the shared electronic medical record. Remedios Galaviz is a 65 year old male who presents with the above complaint. Hand dominance: Right. 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 Has had about a year of left shoulder pain. Started cutting down a tree. Was sore and stiff after that. September 2020 he fell on the ice and landed on his left shoulder. Saw his primary care physician and received cortisone injection. About a month later he slipped while blowing snow and again injured the left shoulder. Again was treated with another cortisone injection. That one did not last very long. Has not had any physical therapy. There is daily pain and stiffness and limited function. He denies having any neck pain, radicular pain, numbness/tingling in the arm. Patient does not note any associated mechanical symptoms. History of prior injury or surgery opposite shoulder: No. Is this a [facility] injury? : No. All available outside records have been reviewed. REVIEW OF SYSTEMS: Constitutional: patient denies any recent fever or significant change in weight Cardiovascular: patient denies any chest pain at rest Respiratory: patient denies any shortness of breath or cough Gastrointestinal: patient denies any current abdominal discomfort Integumentary: patient denies any recent skin changes Musculoskeletal: as noted in the HPI Neurologic: as noted in the HPI Endocrine: patient denies a current diagnosis of diabetes Hematologic/Lymphatic: patient denies any easily bleeding, any recent infection and denies any recent observable lymph node enlargement Psychologic: negative for any recent depression or anxiety issues FAMILY HISTORY Problem Relation Age of Onset - Arthritis Mother - Arthritis Father - Arthritis Paternal Grandmother - Asthma Son - Asthma Grandchild - Diabetes Father - Diabetes Paternal Grandfather - Diabetes Sister - Diabetes Sister - Diabetes Brother - Heart Father - Heart Paternal Grandfather - Heart Sister - Heart Brother - Hypertension Paternal Grandfather - Hypertension Father - Hypertension Sister - Hypertension Sister - Hypertension Brother - Ischemic Heart Disease Paternal Uncle [place] - Lipids Mother - Lipids Father - Lipids Sister - Lipids Brother - Thyroid Mother - Thyroid Brother - Headache Brother - Headache Brother PAST MEDICAL HISTORY Diagnosis Date - Abdominal pain, right upper quadrant - Benign hypertensive heart disease without heart failure - BMI 35.0-35.9,adult - Chronic cholecystitis 02/20 - Degeneration of intervertebral disc, site unspecified - Diabetes mellitus without mention of complication - Hypertension - Migraine with aura - Other and unspecified hyperlipidemia - Other specified disorder of gallbladder SLUDGE - Snoring - Stented coronary artery 04/21/2017 - Umbilical hernia without mention of obstruction or gangrene 02/20 PAST SURGICAL HISTORY Procedure Laterality Date - LAPAROSCOPIC CHOLEYCYSTECTOMY 02/20/09 - PAST SURGICAL HISTORY OF bilat elbow- Ulnar nerve decompression - PAST SURGICAL HISTORY OF 1999, 2001 left testicle x3- Hydrocelectomy - REPAIR ROTATOR CUFF,ACUTE 08/2009 Rotator cuff repair/ spur removal - REPAIR UMBILICAL DAVID,5+Y/O,REDUC 02/20/09 ALLERGIES Allergen Reactions - Aspirin GI Upset severe heartburn/acid reflux - Diop-2 Inhibitor GI Upset vioxx - caused GI bleed. Problem List: reviewed and updated. Contributory Co-morbidities: Assessed as indicated; currently managed. Social History: Physical Activity/Sports/Exercise: recreational Social History Tobacco Use - Smoking status: Former Smoker - Smokeless tobacco: Never Used - Tobacco comment: quit 20 years ago 2 cigs x 2 yrs Substance Use Topics - Alcohol use: Yes Comment: rare - Drug use: No Current Outpatient Medications Medication Sig - valsartan (DIOVAN) 80 mg tablet Take 80 mg by mouth once daily. - rosuvastatin (CRESTOR) 40 mg tablet Take 40 mg by mouth once daily. - topiramate (TOPAMAX) 50 mg tablet Take 50 mg by mouth twice daily. - albuterol HFA (PROAIR HFA) 90 mcg/actuation inhaler Inhale 2 Puffs as instructed every 4 hours as needed. - clopidogrel (PLAVIX) 75 mg tablet Take 75 mg by mouth once daily. - valACYclovir (VALTREX) 1 gram tab Take by mouth as needed. - CARVEDILOL 25 mg tablet Take 25 mg by mouth (more content not included)... [facility] 04-14-2017 Evaluation note Diagnosis Onset Date Atherosclerotic heart diseas e of [place] coronary artery without angina pectoris chronic Essential hypertension chron ic HLD (hyperlipidemia) chronic Presence of stent in coronar y artery April, [facility] Work Phone: [phone]) [phone] Evaluation note* Diagnosis Onset Date Resolution Status Essential hypertension chron ic HLD (hyperlipidemia) chronic Presence of stent in coronary artery April, [facility] Work Phone: Evaluation note* Diagnosis Onset Date Resolution Status Atherosclerotic heart diseas e of absent[place] coronary artery without angina pectoris chronic Essential hypertension chron ic HLD (hyperlipidemia) chronic [facility] Work Phone: Evaluation noteNo assessment information available [facility] Work Phone: Evaluation note* Diagnosis Coronary artery disease involving absent[place] coronary 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- Primary Hx of percutaneous transluminal coronary angioplasty Postsurgical percutaneous transluminal coronary angioplasty status Essential hypertension Unspecified essential hypertension Hyperlipidemia, unspecified hyperlipidemia type documented in this encounter [facility] Diagnosis Coronary artery disease involving [place] coronary 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- Primary Hx of percutaneous transluminal coronary angioplasty Postsurgical percutaneous transluminal coronary angioplasty status Essential hypertension Unspecified essential hypertension Hyperlipidemia, unspecified hyperlipidemia type Coronary artery disease involving [place] coronary 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- Primary Hx of percutaneous transluminal coronary angioplasty Postsurgical percutaneous transluminal coronary angioplasty status Hyperlipidemia, unspecified hyperlipidemia type Essential hypertension Unspecified essential hypertension [facility] Diagnosis Coronary artery disease involving [place] coronary 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- Primary Hx of percutaneous transluminal coronary angioplasty Postsurgical percutaneous transluminal coronary angioplasty status Essential hypertension Unspecified essential hypertension Hyperlipidemia, unspecified hyperlipidemia type Coronary artery disease involving [place] coronary 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- Primary Hx of percutaneous transluminal coronary angioplasty Postsurgical percutaneous transluminal coronary angioplasty status Hyperlipidemia, unspecified hyperlipidemia type Essential hypertension Unspecified essential hypertension Coronary artery disease involving [place] coronary 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- Primary Hx of percutaneous transluminal coronary angioplasty Postsurgical percutaneous transluminal coronary angioplasty status Hyperlipidemia, unspecified hyperlipidemia type Essential hypertension Unspecified essential hypertension documented in this encounter [facility] (narrative)No reason for referral information availableWOur [facility] Work Phone: Summary Purpose Family History No Family History Records Found Relationship Condition Age at Onset Recorded Date/T julia father Coronary artery disease Unknown Hypertension Unknown sister Coronary artery disease Unknown brother Coronary artery disease Unknown Advance Directives No Advanced Directives Records Found Advance Directive Response Recorded Date/ Time Advance Directives Yes April 07 7:53am Living Will Yes June 23 10:06am Power of Wheel Blocker Yes June 23, 2019 10:06am Advance Directive Response Recorded Date/ Time Advance Directives Yes April 07 6:53am Living Will Yes June 23 9:06am Power of Wheel Blocker Yes June 23, 2019 9:06am Advance Directive Response Recorded Date/ Time Advance Directives Yes April 07 7:53am Chief Complaint and Reason for Visit Chief Complaint 6 m fu HTN Hypertension Reason for Visit Atherosclerotic hear t disease of [place] coronary artery without angina pectoris Essential hypertension HLD (hyperlipidemia) Chief Complaint 6 m fu HTN Hypertension 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 Reason for Visit Atherosclerotic hear t disease of [place] coronary artery without angina pectoris Essential hypertension HLD (hyperlipidemia) Chief Complaint Amb Documentation 1 y fu Reason for Visit Atherosclerotic hear t disease of [place] coronary artery without angina pectoris Essential hypertension HLD (hyperlipidemia) Presence of stent in coronary artery Chief Complaint Amb Documentation 1 y fu ABD PAIN Reason for Visit Atherosclerotic hear t disease of [place] coronary artery without angina pectoris Essential hypertension HLD (hyperlipidemia) Presence of stent in coronary artery Chief Complaint ABD PAIN 6 M FU Reason for Visit Essential hypertensi on HLD (hyperlipidemia) Presence of stent in coronary artery Chief Complaint 6 M FU Reason for Visit Essential hypertensi on HLD (hyperlipidemia) Presence of stent in coronary artery Chief Complaint UNSPECIFIED ABDOMINA L PAIN Chief Complaint UNSPECIFIED ABDOMINA L PAIN DISORDERS OF KIDNEY AND URETER Chief Complaint Admit Date RENAL CYST September 26, 2024 1 :39pm Chief Complaint Admit Date PLANTAR FACITIS, DRY NEEDLING. RX HERE J [facility] 2024 11:00am Additional Source Comments (unrecognized sect ion and content) No Status Records FoundNo Status Records FoundNo Status Records Found INFORMATION SOURCE (unrecogn ized section and content) DATE CREATED AUTHOR 11/25/2021 [facility] DATE CREATED AUTHOR AUTHOR'S ORGANIZ ATION 04/06/2025 [facility] DATE CREATED AUTHOR AUTHOR'S ORGANIZ ATION [facility] Goals (unrecognized section and content) Goals may be documented in a n alternate sectionGoals may be documented in an alternate sectionGoals may be documented in an alternate sectionGoals may be documented in an alternate sectionGoals may be documented in an alternate sectionGoals may be documented in an alternate sectionGoals may be documented in an alternate sectionGoals may be documented in an alternate sectionGoals may be documented in an alternate sectionGoals may be documented in an alternate sectionGoals may be documented in an alternate sectionGoals may be documented in an alternate sectionGoals may be documented in an alternate sectionGoals may be documented in an alternate section Care Teams (unrecognized sec tion and content) Team Status: Active Member Role Status Dates Dr. Maribel Reynoso MD Family Provider Active Dr. Maribel Reynoso MD Primary Care Provider Active Team Status: Inactive Member Role Status Dates Dr. Maribel Reynoso MD Primary Care Pr ovider, Attending Provider, Referring Provider Active Team Status: Inactive Member Role Status Dates Dr. Maribel Reynoso MD Primary Care Provider, Referr ing Provider Active Dr. Adrian Robles MD Attending Provider Active Team Status: Active Member Role Status Dates Dr. Maribel Reynoso MD Primary Care Provider Active Elma Davison Attending Provider Active Team Status: Active Member Role Status Dates Dr. Maribel Reynoso MD Primary Care Provider, Attend ing Provider Active Team Status: Inactive Member Role Status Dates Dr. Maribel Reynoso MD Primary Care Provider, Attend ing Provider Active Team Status: Active Member Role Status Dates Dr. Maribel Reynoso MD Primary Care Pr ovider, Attending Provider, Referring Provider Active Team Status: Inactive Member Role Status Dates Dr. Maribel Reynoso MD Primary Care Provider, Referr ing Provider Active Rosina Light RIG SITE ENGINEER, RIG SITE ENGINEER-C Attending Provider Active Shirt Maker Relationship Specialty Start Date End Date Maribel Reynoso MD [address] [place] [phone] PCP - General Family Medicine 01/05/24 Shirt Maker Relationship Specialty Start Date End Date Maribel Reynoso MD [address] [place] [phone] PCP - General Family Medicine 01/05/24 Shirt Maker Relationship Specialty Start Date End Date Maribel Reynoso MD [address] [place] [phone] PCP - General Family Medicine 01/05/24 Team Status: Inactive Member Role Status Dates Dr. Maribel Reynoso MD Primary Care Provider Active Start: September 26, 2024 End: September 26, 2024 Dr. Maribel Reynoso MD Attending Provider Active Start: September 26, 2024 End: September 26, 2024 Dr. Maribel Reynoso MD Referring Provider Active Start: September 26, 2024 End: September 26, 2024 Team Status: Inactive Member Role Status Dates Dr. Maribel Reynoso MD Primary Care Provider Active Start: January 17, 2025 End: January 17, 2025 Dr. Maribel Reynoso MD Attending Provider Active Start: January 17, 2025 End: January 17, 2025 Dr. Maribel Reynoso MD Referring Provider Active Start: January 17, 2025 End: January 17, 2025 Shirt Maker Relationship Specialty Start Date End Date Maribel Reynoso MD PCP - General Family Medicine 01/05/24 Team Status: Active Member Role/Relationship Status Dates Dr. Maribel Reynoso MD Primary care physician Active Team Status: Active Member Role/Relationship Status Dates Dr. Maribel Reynoso MD Primary care physician Active Start: March 07, 2025 Dr. Chad Nash DPM Attending physician Active Start: March 07, 2025 Dr. Chad Nash DPM Referring Provider Active Start: March 07, 2025 Team Status: Inactive Member Role/Relationship Status Dates Dr. Maribel Reynoso MD Primary care physician Active Start: May 18, 2025 End: May 18, 2025 Dr. Maribel Reynoso MD Attending physician Active Start: May 18, 2025 End: May 18, 2025 Reason for Visit (unrecogniz ed section and content) Reason Comments Heart Problem CAD, followed Dr Parth cerda from [place], No new cardiac issues. Specialty Diagnoses / Procedures Referred By Contact Referred To Contact Cardiovascular Disease / Cardiovascular Medicine Diagnoses Sched by patient 1yr f/u tranfer of care from [facility] . No referral ,Patient will have medical records faxed Procedures NEW PATIENT Self, Self Adrian Robles MD [facility] [place] [address] Referral ID Status Reason Start Date Expiration Date V isits Requested Visits Authorized [id number] New Request 01/05/2024 01/29/2025 1 1 Reason Comments Heart Problem Reason Onset Date Comments Outside Medical Records Request 12/31/2023 Reason Comments Follow-up Pt discontinued vals candy 80 mg daily 7 months ago. Pt PCP would like pt to discuss today about going back on medication. FOR RECORDS PERTAINING TO PATIENTS WHO ARE OR HAVE BEEN ENROLLED IN A CHEMICAL DEPENDENCY/SUBSTANCEABUSE PROGRAM, SOME INFORMATION MAY BE OMITTED. This clinical summary was aggregated from multiple sources. Caution should be exercised in using it in the provision of clinical care. This summary normalizes information from multiple sources, and as a consequence, information in this document may materially change the coding, format and clinical context of patient data. In addition, data may be omitted in some cases. CLINICAL DECISIONS SHOULD BE BASED ON THE PRIMARY CLINICAL RECORDS. [employer] provides no warranty or guarantee of the accuracy or completeness of information in this document.
== END | disposition home or self-care (01) ==
LOC: MFPLAB 15:47
PROVIDERS: PCP Family Medicine; Visit Provider Family Medicine
DX: R10.33 Periumbilical pain (principal)
CPT/HCPCS: 36415; 80053; 83690; 85025

== ENCOUNTER → 2025-08-18 | Outpatient (CLI) | payer MEDICARE, SELFPAY ==
[2017-04-22 08:26] VITALS: BMI 35.9
--- NOTE | 2025-08-18 09:55 | CT_ITS ---
PROCEDURE: ABDOMEN/PELVIS WITH CONTRAST 08/18/2025 REASON FOR EXAM: PERLUMBICAL PAIN TECHNIQUE: Procedure Code: [id number] Modality: CT Procedure: ABDOMEN/PELVIS WITH CONTRAST Coronal and Sagittal reconstruction series were provided. CONTRAST: Isovue 370 VOLUME: 75 mL One or more dose reduction techniques were used (e.g., Automated exposure control, adjustment of the mA and/or kV according to patient size, use of iterative reconstruction technique. RADIATION DOSE SUMMARY: CTDlvol: 22.16 mGy DLP: 1204.76 mGycm COMPARISON: CT abdomen and pelvis January 06, 2024. FINDINGS: Lung bases: Clear. Liver: Unremarkable. Gallbladder: Surgically resected. No biliary dilation. Spleen: Unremarkable. Pancreas: Unremarkable. Adrenals: Unremarkable. Kidneys: Perinephric fat stranding. Punctate stones measure up to 2 mm in the right kidney. Scarring at the lower pole of the right kidney. A 2.5 cm simple cyst at the midpole of the right kidney. No hydronephrosis. Bladder: Unremarkable. Reproductive Organs: Unremarkable. Bowel: No bowel wall thickening. No bowel obstruction. Appendix: Unremarkable. Lymph nodes: No lymphadenopathy. Vasculature: No aneurysm. Atherosclerotic calcifications. Peritoneum / Retroperitoneum: No free air or free fluid. Bones: No acute bony abnormalities. CT/Abdomen/Pelvis WITH Contrast IMPRESSION: Perinephric fat stranding. Punctate stones measure up to 2 mm in the right kid salvatore. No hydronephrosis. No nephrolithiasis. Correlation with urinalysis is recommended. Reading Location: [id number]
== END | disposition home or self-care (01) ==
PROVIDERS: PCP Family Medicine; Referring Provider Family Medicine; Visit Provider Family Medicine
DX: R10.33 Periumbilical pain (principal)
CPT/HCPCS: 74177; Q9967